=== PATIENT | male | born 1940 | race Hispanic/Latino ===

== ENCOUNTER 2019-01-19 00:22 | Emergency (ER) | payer MEDICARE ==
[~2019-01-19] VITALS: Ht 157.5 cm; Wt 65.8 kg
[~2019-01-19 00:22] MED LIST: ASPIRIN EC81 MG PO; FUROSEMIDE40 MG PO; GLIMEPIRIDE1 MG PO; MAGNESIUM OXID400 MG PO; OMEPRAZOLE40 MG PO; POTASSIUM CHLO10 ME1 PO; SPIRONOLACTONE25 MG PO
--- OUTSIDE RECORDS SUMMARY | 2019-01-19 00:27 | XMS REPORT | Summary of Care ---
Author Author [facility] Organization [facility] Address Unknown Phone Unavailable Encounter KHRIS Roque(ELOISA) [id number] Date(s): 02/17/18 - 02/17/18 [facility] [address] [place] [address] [phone] Discharge Disposition: Home or Self Care Attending Physician: Dave Doty MD Referring Physician: Dave Doty MD Vital Signs No data available for this section Problem List Condition Effective Dates Status Health Status Informant Ascites(Confirmed) Resolved Atrial Resolved flutter(Confirmed) Chronic antral Resolved gastritis(Confirmed) CHF, Active chronic(Confirmed) CKD (chronic kidney Active disease), stage III(Confirmed) 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) DM (diabetes Active mellitus), type 2(Confirmed) Duodenal Resolved ulcer(Confirmed) Bilateral leg Active edema(Confirmed)1 Esophageal Active varices(Confirmed)2 Hepatitis C virus Resolved genotype 2(Confirmed) HPTH - Active Hyperparathyroidism( Confirmed) Hyperplastic colon Resolved polyp(Confirmed) HCC (hepatocellular Active carcinoma)(Confirmed ) Obesity(Confirmed) Active 1genotype 2, prior treatment with interferon and ribavirin over 10 years ago 2grade 1 Allergies, Adverse Reactions, Alerts Substance Reaction Severity Status NKDA Active Medications No data available for this section Results No data available for this section Immunizations Given and Recorded Vaccine Date Status Refusal Reason hepatitis B adult vaccine 09/03/15 Given hepatitis B adult vaccine1 08/05/15 Recorded hepatitis B adult vaccine2 09/15/13 Given pneumococcal 23-valent vaccine 12/08/13 Given hepatitis B vaccine3 10/16/13 Given 1Location History: Belle Harding RN 2Admin Note: Administered 09-11-13. Pt. will return in one month for second inj. 3Admin Note: [facility] [id number] #2 Procedures Procedure Date Related Diagnosis Body Site Status Appendectomy Completed Cholecystectomy Completed MRI of liver Completed Social History Social History Type Response Alcohol Past, Type Beer. Alcohol use interferes with work or home: No. Drinks more than intended: No. Others hurt by drinking: No. Ready to change: No. Household alcohol concerns: No.1 Smoking Status Never smoker; Type: Cigars; Exposure to Tobacco Smoke None; Cigarette Smoking Last 365 Days No; Reg Smoking Cessation Counseling No entered on: 01/18/18 1none Assessment and Plan No data available for this section
--- OUTSIDE RECORDS SUMMARY | 2019-01-19 00:27 | XMS REPORT | Summary of Care ---
Author Author [facility] [place] Organization [facility] Address Unknown Phone Unavailable Encounter KHRIS Roque(ELOISA) [id number] Date(s): 07/17/17 - 07/17/17 [facility] [place] [address] [place] [phone] Discharge Disposition: Home or Self Care Attending Physician: Dave Doty MD Vital Signs No data available for this section Problem List Condition Effective Dates Status Health Status Informant Ascites(Confirmed) Resolved Atrial Resolved flutter(Confirmed) Chronic antral Resolved gastritis(Confirmed) CHF, Active chronic(Confirmed) CKD (chronic kidney Active disease), stage III(Confirmed) 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) DM (diabetes Active mellitus), type 2(Confirmed) Duodenal Resolved ulcer(Confirmed) Duodenal Resolved Ulcer(Confirmed) Bilateral leg Active edema(Confirmed)1 Esophageal Active varices(Confirmed)2 Gastritis(Confirmed) Active Hepatitis C virus Resolved genotype 2(Confirmed) HPTH - Active Hyperparathyroidism( Confirmed) Hyperplastic colon Resolved polyp(Confirmed) HCC (hepatocellular Active carcinoma)(Confirmed ) Liver Active mass(Confirmed) Obesity(Confirmed) Active 1genotype 2, prior treatment with [...] Recorded hepatitis B adult vaccine2 09/15/13 Given hepatitis B vaccine3 10/16/13 Given pneumococcal 23-valent vaccine 12/08/13 Given 1Location History: Belle Harding RN 2Admin Note: Administered 09-11-13. Pt. will return in one month for second inj. 3Admin Note: [facility] [id number] #2 Procedures Procedure Date Related Diagnosis Body Site Appendectomy Cholecystectomy MRI of liver Social History Social History Type Response Alcohol Past, Type Beer. Alcohol use interferes with work or home: No. Drinks more than intended: No. Others hurt by drinking: No. Ready to change: No. Household alcohol concerns: No.1 Smoking Status Never smoker; Type: Cigars; Exposure to Tobacco Smoke None; Cigarette Smoking Last 365 Days No; Reg Smoking Cessation Counseling No 1none Assessment and Plan No data available for this section
--- OUTSIDE RECORDS SUMMARY | 2019-01-19 00:27 | XMS REPORT | Summary of Care ---
Author Author [facility] Organization [facility] Address Unknown Phone Unavailable Encounter KHRIS Roque(ELOISA) [id number] Date(s): 01/18/18 - 01/18/18 [facility] [address] [place] [address]- [facility] [phone] Discharge Disposition: Home or Self Care Attending Physician: Dave Doty MD Referring Physician: Dave Doty MD Vital Signs Most recent to 1 oldest [Reference Range]: Height 157.48 cm (01/18/18 10:40 AM) Blood Pressure 117/71 mmHg [90-140/60-90 mmHg] (01/18/18 10:40 AM) Respiratory Rate 16 BRMIN [14-20 BRMIN] (01/18/18 10:40 AM) Peripheral Pulse 62 bpm Rate [60-100 bpm] (01/18/18 10:40 AM) Weight 62.273 kg (01/18/18 10:40 AM) Body Mass Index 25.11 m2 (01/18/18 10:40 AM) Problem List Condition Effective Dates Status Health [...] Substance Reaction Severity Status NKDA Active Medications amoxicillin-clavulanate 875 mg-125 mg oral tablet 1 tab, PO, BID, # 20 tab, 0 Refill(s) Start Date: 01/18/18 Stop Date: 01/28/18 Status: Ordered Vitamin D2 50,000 intl units oral capsule 50,000 IntlUnit=1 cap, PO, Daily, 0 Refill(s) Start Date: 01/18/18 Status: Ordered Results No data available for this section [...] month for second inj. 3Admin Note: [facility] [id number] #2 Procedures Procedure Date Related Diagnosis Body [...]
--- OUTSIDE RECORDS SUMMARY | 2019-01-19 00:27 | XMS REPORT | Summary of Care ---
Author Author [facility] [place] Organization [facility] [place] Address Unknown Phone Unavailable Encounter KHRIS Roque(ELOISA) [id number] Date(s): 12/13/18 - 12/13/18 [facility] [place] [address] [place] [phone] Discharge Disposition: Home or Self Care Attending Physician: Dave Doty MD Referring Physician: Dave Doty MD Vital Signs No data available for this section Problem List Condition Effective Dates Status Health Status Informant Ascites(Confirmed) Resolved Atrial Resolved flutter(Confirmed) Cataract(Confirmed) Resolved Chronic antral Resolved gastritis(Confirmed) CHF, Active chronic(Confirmed) CKD (chronic kidney Active disease), stage III(Confirmed) 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) DM (diabetes Active mellitus), type 2(Confirmed) Duodenal Resolved ulcer(Confirmed) Bilateral leg Resolved edema(Confirmed)1 Esophageal Active varices(Confirmed)2 Hepatitis C virus [...] History: Belle Harding RN 2Admin Note: Administered 12-. Pt. will return in one month for second inj. 3Admin Note: [facility] [id number] #2 Procedures Procedure Date Related Diagnosis Body Site Status Appendectomy Completed Cataract surgery Completed Cholecystectomy Completed MRI of liver Completed [...] Reg Smoking Cessation Counseling No entered on: 11/08/18 1none Assessment and Plan No data available for this section
--- OUTSIDE RECORDS SUMMARY | 2019-01-19 00:27 | XMS REPORT | Summary of Care ---
Author Author [facility] [place] Organization [facility] Address Unknown Phone Unavailable Encounter KHRIS Roque(FIN) [id number] Date(s): 02/12/18 - 02/12/18 [facility] [place] [address] [place] [phone] Discharge Disposition: Home or Self Care Attending [...] History: Belle Harding RN 2Admin Note: Administered 09-11-. Pt. will return in one month for second inj. 3Admin Note: [facility] [id number] #2 Procedures Procedure Date Related Diagnosis Body [...]
--- OUTSIDE RECORDS SUMMARY | 2019-01-19 00:27 | XMS REPORT | Continuity of Care Document ---
Author Author Erin whipple [facility] Interface Address Unknown Phone Unavailable Problems Problem Status Onset Date Classification Date Reported Comments Source I48.92 Active 01/16/2019 [facility] BEDDED OUTPATIENT/IMAGE GUIDED MICROWAVE Active 12/30/2018 [facility] MWA OF HCC Active 12/22/2018 [facility] FOLLOW-UP Active 04/01/2018 [facility] FOLLOW-UP Active 04/01/2018 [facility] CIRRHOSIS; HISTORY OF ESOPHAGEAL VARICES Active 01/22/2018 [facility] NEW PT Active 12/16/2017 [facility] Low back pain 10/12/2017 01/12/2018 NICOLE Hirsch R05 - COUGH Active 12/01/2016 NICOLE Cam AFLUTTER Active 10/07/2016 [facility] CCL/EPS AFLUTTER ABLATION/JAVAN/DX: AFLUTT Active 10/07/2016 [facility] BDDC/ Active 06/25/2016 [facility] CLAUDIFICATION UNSPECIFIED Active 06/08/2016 [facility] DAY SURGERY/MICROWAVE ABLATION OF LIVER Active 05/13/2016 [facility] DDC-F/U VISIT Active 04/20/2016 [facility] B19.20 - UNSPECIFIED VIRAL HEPATITIS C Active 03/18/2016 NICOLE Cam F/U Active 02/03/2016 [facility] BDDC-ESOPHAGEAL VARICIES Active 11/26/2015 [facility] BDDC-ESOPHAGEAL VARICES Active 11/21/2015 [facility] FOLLOW UP Active 10/23/2015 [facility] BDDC - 6 MONTH F/U Active 08/05/2015 [facility] 793.8 - ABNORMAL FINDIN Active 05/09/2015 NICOLE Cam DDC-3 MONTH F/U VISIT Active 04/29/2015 [facility] 3 MONTH F/U Active 01/29/2015 [facility] 571.5 - CIRRHOSIS OF LI Active 01/01/2015 NICOLE Cam, NICOLE Whipple BDDC-ROUTINE GENERAL MEDICAL EXAMINATION Active 12/31/2014 [facility] BDDC-CHRONIC HEP C Active 07/02/2014 [facility] CCL/R Active 04/10/2014 [facility] CHEST PAIN, DYSPNEA Active 04/10/2014 [facility] ACUTE HEPATITIS C Active 04/10/2014 [facility] 786.05 - SHORTNESS OF BR Active 04/02/2014 [facility] CHRONIC HEPATITIS C Active 01/08/2014 [facility] CCL/MAC ANESTHESIA/EPS, AFLUTTER ABLATIO Active 01/03/2014 [facility] SOB, PRESYNCOPE Active 12/07/2013 [facility] SOB Active 12/07/2013 [facility] CIRRHOSIS, HEP C Active 10/16/2013 [facility] ADD ON PER NOBLE Active 09/29/2013 [facility] 1M: HCV-2 CIRRHOSIS, EV, AFLUTTER, FOR H Active 09/11/2013 [facility] CIRRHOSIS, ESOPHAGEAL VARICES Active 08/14/2013 [facility] CIRRHOSIS OF LIVER Active 05/25/2013 [facility] Ascites Resolved Problem 01/19/[address] [facility] Atrial flutter Resolved Problem 01/19/[address] [facility] Chronic antral gastritis Resolved Problem 01/19/[address] [facility] CHF, chronic Active Problem [facility]19/[address] [facility] CKD , stage III(<span ID="[id number]">Confirmed</span>) Active Problem 01/19/[address] [facility] Cirrhosis of liver Active Problem 01/19/[address] [facility] Constrictive pericarditis Active Problem 01/19/[address] [facility] DM , type 2(<span ID="[id number]">Confirmed</span>) Active Problem 01/19/[address] [facility] Duodenal ulcer Resolved Problem [facility]/19/[address] [facility] Bilateral leg edema<sup>1</sup> Resolved Problem 01/19/2019 genotype 2, prior treatment with interferon and ribavirin over 10 [address] Esophageal varices<sup>2</sup> Active Problem 01/19/2019 grade 1 NICOLE Whipple,[facility] Hepatitis C virus genotype 2 Resolved Problem 01/19/2019 NICOLE Whipple,[facility] HPTH - Hyperparathyroidism Active Problem 01/19/2019 NICOLE Whipple,[facility] Hyperplastic colon polyp Resolved Problem 01/19/2019 NICOLE Whipple,[facility] HCC (<span ID="[id number]">Confirmed</span>) Active Problem 01/19/2019 NICOLE Whipple,[facility] Obesity Active Problem 01/19/2019 NICOLE Whipple,[facility] Localized edema 01/12/2018 NICOLE Leyner Duodenal Ulcer Resolved Problem 01/12/2018 NICOLE Whipple, [facility] Gastritis Active Problem [facility]/12[facility] Liver mass Active Problem 01/12/2018 [facility] Hepatitis C Active Problem 09/13/2013 [facility] Cirrhosis and chronic liver disease Active Problem 09/01/2014 NICOLE Whipple,[facility] Esophageal varices<sup>1</sup> Active Problem 09/01/2014 1[address] [facility] Hepatitis C<sup>2</sup> Active Problem 09/01/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, prior treatment with interferon and ribavirin over [address] [facility] Esophageal varices Active Problem 09/01/2014 [facility], [facility] Wh[facility], [facility] [place] Cirrhosis of liver Active Problem 06/07/2015 [facility], NICOLE Whipple, [facility], [facility] [place] DM (<span ID="[id number]">Confirmed</span>) Active Problem 12/13/2013 [facility] Duodenal Ulcer Resolved Problem 09/06/2015 [facility], NICOLE Whipple, [facility], [facility] [place] DM (<span ID="[id number]">Confirmed</span>) Active Problem 06/07/2015 [facility], NICOLE Whipple, [facility], [facility] [place] Cataract Resolved Problem 01/19/2019 [facility], [facility] [place] Ascites Active Problem 12/10/2013 [facility] Cirrhosis and chronic liver disease Active Problem 05/13/2014 NICOLE Whipple, [facility] Esophageal varices<sup>1</sup> Active Problem 05/13/2014 1grade 1 NICOLE Whipple, [facility] Hepatitis C<sup>2</sup> Active Problem 05/13/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, prior treatment with interferon and ribavirin over 10 years ago NICOLE Whipple, [facility] Atrial flutter Resolved Problem 12/15/2018 NICOLE Whipple, [facility] [place], [facility], [facility] [place] Atrial Flutter Active Problem 04/18/2015 [facility], NICOLE Whipple, [facility], [facility] [place] Chronic antral gastritis Resolved Problem 12/15/2018 NICOLE Whipple, [facility] Joy[place]elyn, [facility], [facility] [place] Chronic hepatitis C Active Problem 04/18/2015 [facility], NICOLE Whipple, [facility], [facility] [place] Cirrhosis and chronic liver disease Active Problem 07/07/2014 NICOLE Whipple, [facility] [place] Constrictive pericarditis Active Problem 12/15/2018 NICOLE Whipple, [facility] [place], [facility], [facility] [place] Diabetes mellitus Active Problem 03/23/2016 [facility], NICOLE Whipple, [facility], [facility] [place] Duodenal ulcer Resolved Problem 12/15/2018 NICOLE Whipple, [facility] Leyner, [facility], [facility] [place] Esophageal varices<sup>1</sup> Active Problem 07/07/2014 1grade 1 NICOLE Whipple, [facility] [place] Hepatitis C<sup>2</sup> Active Problem 07/07/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, prior treatment with interferon and ribavirin over 10 years ago NICOLE Whipple, [facility] [place] Hepatitis C virus genotype 2 Resolved Problem 12/15/2018 NICOLE Whipple, [facility] Leyner, [facility], [facility] [place] Hyperplastic colon polyp Resolved Problem 12/15/2018 NICOLE Whipple, [facility] Leyner, [facility], [facility] [place] Bilateral leg edema<sup>1</sup> Resolved Problem 12/15/2018 genotype 2, prior treatment with interferon and ribavirin over 10 years ago NICOLE Whipple, [facility] Leyner, [facility] [place] Esophageal varices<sup>2</sup> Active Problem 12/15/2018 grade 1 NICOLE Whipple, [facility] [place], [facility] [place] Cirrhosis of liver Active Problem 07/05/2015 NICOLE Whipple DM (<span ID="[id number]">Confirmed</span>) Active Problem 07/05/2015 NICOLE Whipple Ascites Resolved Problem 12/15/2018 NICOLE Whipple, WILNERD Joyc[place], [facility] [place] Cirrhosis of liver Active Problem 12/15/2018 NICOLE Whipple, [facility] [place], [facility] [place] DM (<span ID="[id number]">Confirmed</span>) Active Problem 03/23/2016 [facility], NICOLE Whipple, [facility] [place] [facility] - Hyperparathyroidism Active Problem 12/15/2018 NICOLE Whipple, [facility] [place], [facility] [place] CHF, chronic Active Problem 12/15/2018 NICOLE Whipple, [facility] [place], [facility] [place] CKD , stage III(<span ID="[id number]">Confirmed</span>) Active Problem 12/15/2018 NICOLE Whipple, [facility] [place], [facility] [place] DM , type 2(<span ID="[id number]">Confirmed</span>) Active Problem 12/15/2018 NICOLE Whipple, [facility] [place], [facility] [place] HCC (<span [id number]">Confirmed</span>) Active Problem 12/15/2018 NICOLE Whipple, [facility] [place]elyn, [facility] [place] Obesity Active Problem 12/15/2018 NICOLE Whipple, [facility] [place], [facility] [place] ROUTINE MEDICAL EXAM Active [facility] SHORTNESS OF BREATH Active [facility] MEDICAL SERVICES NOT AVAILABLE IN HOME Active [facility] ALCOHOLIC FATTY LIVER Active [facility] ENCNTR FOR GENERAL ADULT MEDICAL EXAM W/ Active [facility] PERIPHERAL VASCULAR DISEASE, UNSPECIFIED Active [facility] UNSPECIFIED ATRIAL FLUTTER Active [facility] Medications Medication Details Route Status Patient Instructions Ordering Provider Order Date Source spironolactone 50 mg oral tablet 25 mg=0.5 tab, PO, Daily, # 15 tab, 11 Refill(s), Pharmacy: [facility]/pharmacy #[id number] Active 11/08/2018 [facility] Furosemide 40 MG Oral Tablet 40 mg=1 tab, PO, Daily, # 30 tab, 11 Refill(s), [id number] 11/08/2018 [facility] Vitamin D2 50,000 intl units oral capsule 50,000 IntlUnit=1 cap, PO, Daily, 0 Refill(s) Active 01/18/2018 [facility] Amoxicillin 875 MG / Clavulanate 125 MG Oral Tablet 1 tab, PO, BID, # 20 tab, 0 Refill(s) Active 01/18/2018 [facility] Protonix 40 mg, 1 tab, Route: PO, Drug form: ECTAB, Daily, Start date: 10/23/16 9:00:00 [employer], Duration: 30 day, Stop date: 11/21/16 9:00:00 CSTNotes: Tablet should not be chewed or crushed. (Same as: Protonix) No Longer Active 10/23/2016 [facility] Glucotrol 5 mg, 1 tab, Route: PO, Drug form: TAB, Daily, Start date: 10/23/16 9:00:00 [employer], Duration: 30 day, Stop date: 11/21/16 9:00:00 CSTNotes: (Same as: Glucotrol) 30 min before meals. No Longer Active 10/23/2016 [facility] Spironolactone 25 mg, 1 tab, Route: PO, Drug form: TAB, Daily, Dosing Weight 64.545, kg, Start date: 10/23/16 9:00:00 [employer], Duration: 30 day, Stop date: 11/21/16 9:00:00 CSTNotes: (Same As: Aldactone) No Longer Active 10/23/2016 [facility] Omeprazole 40 mg, Route: PO, Drug form: DRC, Daily, Dosing Weight 64.545, kg, Start date: 10/23/16 9:00:00 [employer], Duration: 30 day, Stop date: 11/21/16 9:00:00 [employer]IDENT [employer]GER No Longer Active 10/23/2016 [facility] glimepiride 1 mg, Route: PO, Drug form: TAB, Daily, Dosing Weight 64.545, kg, Start date: 10/23/16 9:00:00 [employer]GER, Duration: 30 day, Stop date: 11/21/16 9:00:00 [employer]IDENT [employer]GER No Longer Active 10/23/2016 [facility] Furosemide 40 MG Oral Tablet 40 mg, 1 tab, Route: PO, Drug form: TAB, Daily, Dosing Weight 64.545, kg, Start date: 10/23/16 9:00:00 [employer], Duration: 30 day, Stop date: 11/21/16 9:00:00 CSTNotes: (Same as: Lasix) May cause GI upset. Give with food or milk. No Longer Active 10/23/2016 [facility] aspirin 81 mg tablet, enteric coated 81 mg, 1 tab, Route: PO, Drug form: ECTAB, Daily, Dosing Weight 64.545, kg, Start date: 10/23/16 9:00:00 [employer], Duration: 30 day, Stop date: 11/21/16 9:00:00 CSTNotes: Do not crush or chew. (Same As: Ecotrin) No Longer Active 10/23/2016 [facility] Saline Flush 0.9% 10 ml, Route: IVP, Drug Form: INJ, Dosing Weight 64.545, kg, Q12H, Start date: 10/22/16 21:00:00 [employer], Duration: 30 day, Stop date: 11/21/16 9:00:00 CSTNotes: (Same as: BD Posiflush) Inactive 10/23/2016 [facility] carvedilol 3.125 mg, 1 tab, Route: PO, Drug form: TAB, BID, Dosing Weight 64.545, kg, Start date: 10/22/16 17:00:00 [employer], Duration: 30 day, Stop date: 11/21/16 9:00:00 CSTNotes: Give with food. (Same As: Coreg) Inactive 10/22/2016 [facility] Acetaminophen 300 MG / Codeine Phosphate 30 MG Oral Tablet 1 tab, PO, Q4H, PRN Pain Score 4-6, X 5 day, # 30 tab, 0 Refill(s) Active 10/22/2016 [facility] spironolactone 25 mg oral tablet 25 mg, PO, Daily, 0 Refill(s) Active 10/22/2016 [facility] Saline Flush 0.9% 10 ml, Route: IVP, Drug Form: INJ, Dosing Weight 64.545, kg, PRN, PRN Line Flush, Start date: 10/22/16 15:54:00 [employer], Duration: 30 day, Stop date: 11/21/16 15:53:00 CSTNotes: (Same as: BD Posiflush) Inactive 10/22/2016 [facility] acetaminophen-codeine #3 1 tab, Route: PO, Drug Form: TAB, Dosing Weight 64.545, kg, Q4H, PRN Pain Score 4-6, Start date: 10/22/16 15:54:00 [employer], Duration: 30 day, Stop date: 11/21/16 15:53:00 CSTNotes: Do not exceed 4gm/day of acetaminophen. (Same as: Tylenol with Codeine # 3) Inactive 10/22/2016 [facility] carvedilol 3.125 mg oral tablet 3.125 mg=1 tab, PO, BID, 0 Refill(s) Active 10/22/2016 [facility] iodixanol 90 mL, Route: IVP, Drug Form: SOLN, Dosing Weight 64.545, kg, ONCALL, STAT, Start date: 10/22/16 11:59:00 [employer]GER, Duration: 1 doses or times, Dose=2.2ml/kg, Max wnet=[id number] -- "To be infused by Radiology Staff ONLY" Inactive 10/22/2016 [facility] Ketorolac 30 mg, Route: IV, ONCE, Dosing Weight 65.909, kg, Start date: 05/22/16 14:38:00 CDT, Stop date: 05/22/16 14:38:00 CDT Inactive 05/22/2016 [facility] Naloxone 0.4 mg, 1 mL, Route: IVP, Drug form: INJ, Q2MIN, Dosing Weight 65.909, kg, PRN Narcotic Reversal, Start date: 05/22/16 12:08:00 CDT, Duration: 8 doses or times, Stop date: Limited # of timesNotes: Same as Narcan No Longer Active 05/22/2016 [facility] Metoprolol 1 mg, 1 mL, Route: IVP, Drug form: INJ, Q5Min, Dosing Weight 65.909, kg, PRN Other -See Comment, Start date: 05/22/16 12:08:00 CDT, Duration: 5 doses or times, Stop date: Limited # of timesNotes: (Same as: Lopressor) Push over 2 minutes No Longer Active 05/22/2016 [facility] Hydralazine 10 mg, 0.5 mL, Route: IVP, Drug form: INJ, Q20Min, Dosing Weight 65.909, kg, PRN Elevated BP, Start date: 05/22/16 12:08:00 CDT, Duration: 2 doses or times, Stop date: Limited # of timesNotes: (Same as: Apresoline) Push over 5 minutes No Longer Active 05/22/2016 [facility] Labetalol 10 mg, 2 mL, Route: IVP, Drug form: INJ, Q5Min, Dosing Weight 65.909, kg, PRN Elevated BP, Start date: 05/22/16 12:08:00 CDT, Duration: 5 doses or times, Stop date: Limited # of times No Longer Active 05/22/2016 [facility] Fentanyl 25 microgram, 0.5 mL, Route: IVP, Drug form: INJ, Q5Min, Dosing Weight 65.909, kg, PRN Pain Score 4-6, Start date: 05/22/16 12:08:00 CDT, Duration: 4 doses or times, Stop date: Limited # of timesNotes: (Same as: Sublimaze) Preservative free. No Longer Active 05/22/2016 [facility] Hydromorphone 0.5 mg, 0.25 mL, Route: IVP, Drug form: INJ, Q5Min, Dosing Weight 65.909, kg, PRN Pain Score 7-10, Start date: 08/26/16 12:08:00 CDT, Duration: 4 doses or times, Stop date: Limited # of timesNotes: S marsha as: Dilaudid No Longer Active 05/22/2016 [facility] Ondansetron 4 mg, 2 mL, Route: IVP, Drug form: INJ, ONCE, Dosing Weight 65.909, kg, PRN Nausea & Vomiting, Start date: 05/22/16 12:08:00 CDTNotes: (Same as: Zofran) MEDICATION WASTE Product Size: 4 mg Product Wasted: ___ mg Inactive 05/22/2016 [facility] Flumazenil 0.2 mg, 2 mL, Route: IVP, Drug form: INJ, PRN, Dosing Weight 65.909, kg, PRN Benzodiazepine Reversal, Initial dose, Start date: 05/22/16 12:08:00 CDT, Duration: 1 day, Stop date: 05/23/16 12:07:00 CD TNotes: (Same as: Romazicon) No Longer Active 05/22/2016 [facility] omeprazole 40 mg oral delayed release capsule 40 mg=1 cap, PO, Daily, # 30 cap, 5 Refill(s), Pharmacy: [facility]/pharmacy #[id number] Active 11/20/2015 [facility] Hepatitis B Surface Antigen Vaccine 0.01 MG/ML Injectable Suspension 10 microgram=1 mL, IM, ONCE, # 1 mL, 0 Refill(s), other Active 08/05/2015 [facility] Furosemide 40 MG Oral Tablet [Lasix] 40 mg=1 tab, PO, Every Other Day, 0 Refill(s) Active 08/05/2015 [facility] Furosemide 40 MG Oral Tablet [Lasix] 40 mg=1 tab, PO, QAM, # 90 tab, 3 Refill(s), Pharmacy: [facility]/pharmacy #[id number] No Longer Active 12/31/2014 [facility] omeprazole 40 mg oral delayed release capsule See Instructions, # 60 unknown unit, Refill(s) 11, TOME 1 CAPSULA 2 VECES AL VIANEY, Pharmacy: [facility]/pharmacy #[id number] Instructions: TOME 1 CAPSULA 2 VECES AL VIANEY No Longer Active 10/10/2014 [facility] omeprazole 40 mg oral delayed release capsule 40 mg=1 cap, PO, Daily, # 30 cap, 5 Refill(s), Pharmacy: [facility]/pharmacy #[id number] Active 10/03/2014 [facility] Furosemide 40 MG Oral Tablet [Lasix] 20 mg=0.5 tab, PO, Daily, # 30 tab, 5 Refill(s), Pharmacy: [facility]/pharmacy #[id number] Active 07/02/2014 [facility] Potassium Chloride 20 MEQ Extended Release Tablet 20 mEq=1 tab, PO, BID, # 10 tab, 0 Refill(s) Active 05/09/2014 [facility] magnesium oxide 400 mg oral tablet 400 mg=1 tab, PO, Daily, # 10 tab, 0 Refill(s) Active 05/09/2014 [facility] omeprazole 40 mg oral delayed release capsule 40 mg=1 cap, PO, Daily, # 30 cap, 0 Refill(s) Active 05/09/2014 [facility] Aspirin 81 MG Enteric Coated Tablet 81 mg=1 tab, PO, Daily, # 0 tab, 0 Refill(s) Active 04/02/2014 [facility] Aspirin 81 MG Enteric Coated Tablet 81 mg=1 tab, PO, Daily, # 120 tab, 0 Refill(s) Active 12/08/2013 [facility] Furosemide 40 MG Oral Tablet [Lasix] 40 mg=1 tab, PO, BID, # 60 tab, 3 Refill(s) Active 12/08/2013 [facility] Atenolol 25 MG Oral Tablet 12.5 mg=0.5 tab, PO, Daily, 0 Refill(s) Active 12/08/2013 [facility] heparin sodium, porcine 2500 UNT/ML Injectable Solution 5,000 unit, 1 mL, Route: SUB-Q, Drug form: INJ, Q8H, Dosing Weight 70.455, kg, Start date: 12/08/13 16:00:00, Duration: 30 day, Stop date: 01/07/14 8:00:00porcine heparin Inactive 12/08/2013 [facility] Aspirin / Calcium Carbonate 81 mg, 1 tab, Route: PO, Drug form: ECTAB, Daily, Dosing Weight 70.455, kg, Priority: NOW, Start date: 12/08/13 13:38:00, Duration: 30 day, Stop date: 01/07/14 9:00:00 Inactive 12/08/2013 [facility] pneumococcal capsular polysaccharide type 1 vaccine / pneumococcal capsular polysaccharide type 10A vaccine / pneumococcal capsular polysaccharide type 11A vaccine / pneumococcal capsular polysaccharide type 12F vaccine / pneumococcal capsular polysacchar 0.5 ml, Route: IM, Drug Form: INJ, Daily, Start date: 12/08/13 9:00:00, Duration: 1 doses or times, Stop date: 12/08/13 9:00:00(Same as: Pneumovax 23) Refrigerate Inactive 12/08/2013 [facility] pantoprazole 40 mg, 1 tab, Route: PO, Drug form: ECTAB, Daily, Dosing Weight 66.364, kg, Start date: 12/08/13 9:00:00, Duration: 30 day, Stop date: 01/06/14 9:00:00Tablet should not be chewed or crushed. (Same as : Protonix) Inactive 12/08/2013 [facility] Spironolactone 25 mg, 1 tab, Route: PO, Drug form: TAB, Daily, Dosing Weight 66.364, kg, Start date: 12/08/13 9:00:00, Duration: 30 day, Stop date: 01/06/14 9:00:00(Same As: Aldactone) Inactive 12/08/2013 [facility] Furosemide 40 MG Oral Tablet 40 mg, 1 tab, Route: PO, Drug form: TAB, Daily, Dosing Weight 66.364, kg, Start date: 12/08/13 9:00:00, Duration: 30 day, Stop date: 01/06/14 9:00:00(Same as: Lasix) May cause GI upset. Give with food or milk. Inactive 12/08/2013 [facility] glimepiride 1 mg, 1 tab, Route: PO, Drug form: TAB, Daily, Dosing Weight 66.364, kg, Start date: 12/08/13 9:00:00, Duration: 30 day, Stop date: 01/06/14 9:00:00(Same as: Amaryl) Inactive 12/08/2013 [facility] Furosemide 20 mg, 2 mL, Route: IVP, Drug form: INJ, ONCE, Dosing Weight 66.364, kg, Priority: STAT, Start date: 12/07/13 23:44:00, Stop date: 12/07/13 23:44:00(Same as: Lasix) No Longer Active 12/08/2013 [facility] Lasix 20 mg, 2 mL, Route: IVP, Drug form: INJ, ONCE, Dosing Weight 66.364, kg, Priority: STAT, Start date: 12/07/13 21:46:00, Stop date: 12/07/13 21:46:00(Same as: Lasix) Inactive 12/08/2013 [facility] Ancef 1 gm, Route: IVPB, ONCE, Dosing Weight 66.364, kg, Priority: STAT, Start date: 12/07/13 18:47:00, Stop date: 12/07/13 18:47:00 Inactive 12/07/2013 [facility] Ribavirin 400 mg, PO, Daily, Take two 200mg tab daily, 0 Refill(s)Take two 200mg tab daily Active 11/27/2013 [facility] {6 (Azithromycin 250 MG Oral Tablet [Zithromax]) } Pack [Z-PAKS] See Instructions, Take as directed PO Daily 5 day, # 6 tab, 0 Refill(s), Pharmacy: [facility]/pharmacy #[id number] as directed PO Daily 5 day Active 11/22/2013 [facility] RibaPak 600 600 mg in am and 400 mg in pm, PO, BID, 2 Refill(s) Active 10/18/2013 [facility] Sofosbuvir Sofosbuvir, 400 mg=, PO, Daily, Refill(s) 2 Active 10/18/2013 [facility] pantoprazole 40 mg oral enteric coated tablet 0 Refill(s) Active 08/30/2013 [facility] Allergies, Adverse Reactions, Alerts Substance Category Reaction Severity Reaction type Status Date Reported Comments Source Immunizations Immunization Date Given Site Status Last Updated Comments Source pneumococcal 13-valent vaccine<sup>4</sup> 01/17/2019 Not Given [facility] hepatitis B adult vaccine 09/03/2015 Left deltoid completed Dave NICOLE Whipple,[facility] hepatitis B adult vaccine 09/03/2015 Left deltoid completed Dave NICOLE Whipple, NICOLE [place]sch, [facility]ICOLE [place] hepatitis B adult vaccine<sup>1</sup> 08/05/2015 Left deltoid completed [place] Location History: Belle Harding RN NICOLE Whipple,[facility] hepatitis B adult vaccine<sup>1</sup> 08/05/2015 Left deltoid completed [place] Location History: Belle Harding RN NICOLE Whipple, [facility] [place], [facility] [place] pneumococcal 23-valent vaccine 12/08/2013 Left deltoid completed [place] NICOLE Whipple,[facility] pneumococcal 23-valent vaccine 12/08/2013 Left deltoid completed [place] NICOLE Whipple, OP[facility] [place]elyn, [facility], [facility] [place] hepatitis B vaccine<sup>3</sup> 10/16/2013 Left Deltoid completed [place] Admin Note: [facility] [id number] #2 NICOLE Whipple,[facility] hepatitis B vaccine<sup>2</sup> 10/16/2013 Left Deltoid completed [place] Admin Note: [facility] [id number] #2 NICOLE Whipple,[facility], [facility], [facility] [place] hepatitis B vaccine<sup>2</sup> 10/16/2013 completed [place] 2Admin Note: [facility] [id number] #2 [facility] hepatitis B vaccine<sup>3</sup> 10/16/2013 Left Deltoid completed [place] Admin Note: [facility] [id number] #2 NICOLE Whipple, OPICeline Hirsch, [facility] [place] hepatitis B adult vaccine<sup>2</sup> 09/15/2013 Right Deltoid completed Lyssy Admin Note: Administered 09-11-13. Pt. will return in one month for second inj. NICOLE Whipple,[facility] hepatitis B adult vaccine<sup>1</sup> 09/15/2013 Right Deltoid completed Lyssy Admin Note: Administered 09-11-13. Pt. will return in one month for second inj. NICOLE Whipple,[facility], [facility], [facility] [place] hepatitis B adult vaccine<sup>1</sup> 09/15/2013 completed Lyssy 1Admin Note: Administered 09-11-13. Pt. will return in one month for second inj. [facility] hepatitis B adult vaccine<sup>2</sup> 09/15/2013 Right Deltoid completed Lyssy Admin Note: Administered 09-11-13. Pt. will return in one month for second inj. 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 IMPRESSION: Technically successful percutaneous microwave ablation of segment 2 and segment 6 HCC Plan: The patient will be admitted for observation and pain control. One week of antibiotics will be given. Follow-up triple phase CT in one month PROCEDURE SUMMARY: - Target organ: Segment 2 HCC, segment 6 HCC - Image-guided heat-based ablation - Additional procedure(s): Post ablation triple phase CT PROCEDURE DETAILS: Pre-procedure Consent: Informed consent for the procedure including risks, benefits and alternatives was obtained and time-out was performed prior to the procedure. Preparation: The site was prepared and draped using maximal sterile barrier technique including cutaneous antisepsis. Anesthesia/sedation Level of anesthesia/sedation: General anesthesia Anesthesia/sedation administered by: Anesthesiology Total intra-service sedation time (minutes): 2 hours Imaging prior to intervention The patient was positioned supine. Initial imaging was performed. Target #1: - Maximal diameter (cm): 1.8 - Location: Segment 2 Target #2: - Maximal diameter (cm): 2.5 - Location: Segment 5 Other findings: None Heat-based ablation Under intermittent CT guidance, the ablation applicator(s) were advanced and positioned within the target(s). For each target lesion the applicators were placed and repositioned as necessary to achieve the desired ablation zone. Ablation applicator: AngioDynamics Target #1 - Therapeutic intent (QCDR): Yes Ablation position 1 - Number of applicators: 1 - Duration (minutes): 6 - Maximum diameter (centimeters): 5.4 x 4.4 cm Target #2 - Therapeutic intent (QCDR): yes Ablation position 1 - Number of applicators: 1 - Duration (minutes): 6 Maximum diameter (centimeters): 5.4 x 4.4 cm Ablation position 2 - Number of applicators: 1 - Duration (minutes): 6 Maximum diameter (centimeters): 5.4 x 4.4 cm Intraprocedural imaging findings: Successful ablation Applicator removal The ablation applicator(s) were removed and sterile bandages were applied. Tract cauterization performed with applicator removal: Yes Imaging following ablation Post-ablation imaging: Triple phase CT was performed Post-ablation imaging findings: No enhancement in the treated lesions Radiation Dose CT dose length product (mGy-cm): 1995 Additional Details Additional description of procedure: None Equipment details: None Specimens removed: None Estimated blood loss (mL): Less than 10 Standardized report: [email or web address] Attestation Signer name: William Munoz MD I attest that I was present for the entire procedure. I reviewed the stored images and agree with the report as written. 01/17/2019 - - Read by: William Munoz MD Dictated Date/time: 01/17/19 10:30 Electronically Signed by: William Munoz MD 01/17/19 10:35 FINAL REPORT [facility] Abd Liver Protocol w/wo IV contrast CT Abd Liver Protocol w/wo IV contrast CT Exam: CT Scan of the abdomen with and without contrast Reason for Exam: - K74.60 Unspecified cirrhosis of liver Comparison Exam: CT scan 02/12/2018 Technique: Multiple axial images were obtained of the abdomen. 5 mm slices were acquired before and after injection of 100 cc Omnipaque 300 IV. Oral contrast was also given. Reformatted sagittal and coronal images were obtained. Total exam FNI=821 mGy-cm. This exam was performed according to our departmental dose- optimization program, which includes automated exposure control, adjustment of the MA and/or KV according to patient size and/or use of iterative reconstruction technique. Discussion: Visualized portions of the lung parenchyma are clear. Calcifications seen of the pericardium. Posttreatment changes seen within the posterior segment of the right lobe of the liver appears similar. Previously described arterial enhancing lesion within segment 6 is barely perceptible on today's exam (5, 25). Previously described arterial enhancement within the left hepatic lobe appears similar (5, 23). Portal venous system is patent. The patient is status post cholecystectomy. No biliary duct dilation. Stomach is unremarkable. Pancreas, adrenal glands, and spleen are within normal limits. Kidneys are unremarkable. No hydronephrosis identified. No dilated loops of bowel. No appreciable lymphadenopathy. No acute bony abnormalities appreciated. No suspicious osteoblastic or osteolytic lesions. No evidence seen for abdominal aortic aneurysm or dissection. Impression: 1. Posttreatment changes seen within the posterior segment of the right lobe of the liver appears similar. Previously described arterial enhancing lesion within segment 6 is barely perceptible on today's exam. Previously described arterial enhancement within the left hepatic lobe appears similar 12/13/2018 - - Read by: Sukhwinder Nick MD Dictated Date/time: 12/13/18 11:25 Electronically Signed by: Sukhwinder Nick MD 12/13/18 11:39 FINAL REPORT [facility] [place] CHEM PANEL Albumin Lvl 4.4 g/dL 3.5 - 5.0 11/08/2018 [facility] CHEM PANEL Bili Indirect 0.4 mg/dL 0.0 - 1.0 11/08/2018 [facility] CHEM PANEL ALT 27 unit/L 0 - 65 11/08/2018 [facility] CHEM PANEL AST 28 unit/L 0 - 37 11/08/2018 [facility] CHEM PANEL Alk Phos 88 unit/L 39 - 136 11/08/2018 [facility] CHEM PANEL Total Protein 8.3 g/dL 6.4 - 8.4 11/08/2018 [facility] CHEM PANEL Bili Direct 0.1 mg/dL 0.0 - 0.3 11/08/2018 [facility] CHEM PANEL Bili Total 0.5 mg/dL 0.2 - 1.3 11/08/2018 [facility] CHEM PANEL Globulin 3.9 g/dL 2.7 - 4.2 11/08/2018 [facility] CHEM PANEL A/G Ratio 1.1 0.7 - 1.6 11/08/2018 [facility] CHEM PANEL eGFR 55 mL/min/1.73m2 11/08/2018 Result Comment: The eGFR is calculated using the CKD-EPI formula. In most young, healthy individuals the eGFR will be >90 mL/min/1.73m2. The eGFR declines with age. An eGFR of 60-89 may be normal in some populations, particularly the elderly, for whom the CKD-EPI formula has not been extensively validated. Use of the eGFR is not recommended in the following populations: Individuals with unstable creatinine concentrations, including patients and those with serious co-morbid conditions. Patients with extremes in muscle mass or diet. The data above are obtained from the National Kidney Disease Education Program (NKDEP) which additionally recommends that when the eGFR is used in patients with extremes of body mass index for purposes of drug dosing, the eGFR should be multiplied by the estimated BMI. [facility] CHEM PANEL Calcium Lvl 10.3 mg/dL 8.5 - 10.5 11/08/2018 [facility] CHEM PANEL Creatinine Lvl 1.26 mg/dL 0.50 - 1.40 11/08/2018 [facility] CHEM PANEL Sodium Lvl 136 meq/L 135 - 145 11/08/2018 [facility] CHEM PANEL Glucose Lvl 103 mg/dL 70 - 99 11/08/2018 [facility] CHEM PANEL BUN 16 mg/dL 7 - 22 11/08/2018 [facility] CHEM PANEL Potassium Lvl 4.0 meq/L 3.5 - 5.1 11/08/2018 [facility] CHEM PANEL CO2 28 meq/L 24 - 32 11/08/2018 [facility] CHEM PANEL Chloride Lvl 103 meq/L 95 - 109 11/08/2018 [facility] CHEM PANEL AGAP 9.0 meq/L 10.0 - 20.0 11/08/2018 [facility] HEMATOLOGY Basophils # 0.1 K/CMM 0.0 - 0.2 11/08/2018 [facility] HEMATOLOGY Eosinophils # 0.2 K/CMM 0.0 - 0.5 11/08/2018 [facility] HEMATOLOGY Monocytes # 0.6 K/CMM 0.0 - 0.8 11/08/2018 [facility] HEMATOLOGY Neutrophils # 4.9 K/CMM 1.5 - 8.1 11/08/2018 [facility] HEMATOLOGY Lymphocytes # 1.5 K/CMM 1.0 - 5.5 11/08/2018 [facility] HEMATOLOGY Basophils 0.9 % 0.0 - 1.0 11/08/2018 [facility] HEMATOLOGY Lymphocytes 20.9 % 20.0 - 40.0 11/08/2018 [facility] HEMATOLOGY Monocytes 8.5 % 2.0 - 12.0 11/08/2018 [facility] HEMATOLOGY Eosinophils 2.3 % 0.0 - 4.0 11/08/2018 [facility] HEMATOLOGY Segs 67.4 % 45.0 - 75.0 11/08/2018 [facility] HEMATOLOGY INR 1.11 0.85 - 1.17 11/08/2018 [facility] HEMATOLOGY PT 14.1 s 12.0 - 14.7 11/08/2018 [facility] HEMATOLOGY MCH 25.1 pg 27.0 - 31.0 11/08/2018 [facility] HEMATOLOGY MCV 80.8 fL 80.0 - 94.0 11/08/2018 [facility] HEMATOLOGY MPV 9.2 fL 7.4 - 10.4 11/08/2018 [facility] HEMATOLOGY Hct 41.4 % 42.0 - 54.0 11/08/2018 [facility] HEMATOLOGY Hgb 12.8 g/dL 14.0 - 18.0 11/08/2018 [facility] HEMATOLOGY RBC 5.12 M/CMM 4.70 - 6.10 11/08/2018 [facility] HEMATOLOGY WBC 7.3 K/CMM 3.7 - 10.4 11/08/2018 [facility] HEMATOLOGY Platelet 170 K/CMM 133 - 450 11/08/2018 [facility] HEMATOLOGY RDW 17.4 % 11.5 - 14.5 11/08/2018 [facility] HEMATOLOGY MCHC 31.0 g/dL 32.0 - 36.0 11/08/2018 [facility] TUMOR MARKERS AFP 30.4 ng/mL 0.0 - 11.0 11/08/2018 [facility] Ext Lower Arterial Doppler bilat US Ext Lower Arterial Doppler bilat US EXAM: US BILATERAL LOWER EXTREMITY ARTERIAL DOPPLER DATE: 10/06/2017 11:39 AM 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 Bilateral leg pain and weakness for the past 15 days. Swelling in both lower extremities for the past 3 weeks. ADDITIONAL INFORMATION: History of diabetes COMPARISON: None. TECHNIQUE: Multiplanar grayscale, color Doppler and spectral Doppler ultrasound images of the bilateral lower extremity arteries. DISCUSSION: Atherosclerotic plaque is seen fairly diffusely in the arterial structures of both lower extremities. Right Extremity Waveforms: Common Femoral Artery: 73cm/s Biphasic. A prominent focal mixed calcified and noncalcified plaque measuring 1.3 cm in length is present with no hemodynamically significant stenosis. Profunda Femoral Artery: 52cm/s Biphasic Superficial Femoral Artery: 69cm/s Biphasic Popliteal Artery: 101cm/s Triphasic Posterior Tibialis Artery: 40cm/s biphasic proximally changing to monophasic in its midportion Anterior Tibialis Artery: 70cm/s Monophasic Dorsalis Pedis Artery: 110cm/s Monophasic Left Extremity Waveforms: Common Femoral Artery: 70cm/s Biphasic Profunda Femoral Artery: 69cm/s Biphasic Superficial Femoral Artery: 56cm/s Biphasic Popliteal Artery: 61cm/s Biphasic Posterior Tibialis Artery: 60cm/s Biphasic proximally changing to monophasic in its midportion Anterior Tibialis Artery: 63cm/s Biphasic Dorsalis Pedis Artery: 42cm/s Monophasic IMPRESSION: 1. Bilateral lower extremity atherosclerotic vascular disease, moderate in degree. 2. Monophasic waveforms in the right anterior tibial and dorsalis pedis arteries as well as within the left dorsalis pedis artery suggesting hemodynamically significant stenoses in these vessels. 3. Monophasic waveforms beginning in the mid portions of both posterior tibial arteries suggesting hemodynamically significant stenoses in these vessels as well. 4. Biphasic waveforms in other vessels of the lower extremities are most commonly related to arteriosclerosis (decreased elasticity of the arteries). Inflow disease within the pelvis or distal abdominal aorta could cause this finding as well. 10/06/2017 - - Read by: Saeed Villalba MD Dictated Date/time: 10/06/17 12:41 Electronically Signed by: Saeed Villalba MD 10/06/17 12:49 FINAL REPORT [facility] Spine cervical 2 or 3 view DX Spine cervical 2 or 3 view DX EXAM: XR CERVICAL SPINE 3 VIEWS DATE: 10/06/2017 at 1052 hours. INDICATION: - M54.2 Cervicalgia COMPARISON: None. TECHNIQUE: 3 views of the cervical spine FINDINGS: There are multilevel degenerative changes, including severe intervertebral disc space narrowing at C5-C6 and moderate at C6-C7, anterior osteophyte formation and uncovertebral hypertrophy at C5-C6 and C6-C7, and mild bilateral facet arthrosis at C5-6, C6-C7 and C7-T1. Minimal concave left scoliosis of the lower cervical spine is noted. No prevertebral or paraspinous soft tissue abnormality is identified. A cardiac pacer device is noted over the left hemithorax. IMPRESSION: 1. Multilevel degenerative changes, severe at C5-6 and moderate at C6-7. 10/06/2017 - - This report was dictated by a Senior Java Web Application Developer/Fellow. I have personally reviewed the images as well as the Resident's interpretation and agree with the findings. Read by: James Rodriguez MD Resident: James Rodriguez MD Dictated Date/time: 10/06/17 15:18 Electronically Signed by: Jhon Perez MD 10/06/17 17:50 FINAL REPORT [facility] Spine lumbar 2 or 3 views DX Spine lumbar 2 or 3 views DX EXAM: XR LUMBAR SPINE 2 VIEWS DATE: 10/06/2017 10:52 AM VICE PRESIDENT AND PORTFOLIO MANAGER INDICATION: - M54.5 Low back pain COMPARISON: CT 07/17/2017 TECHNIQUE: AP and lateral radiographs of the lumbar spine FINDINGS: 5 lumbar type, non-rib bearing vertebral bodies are present. Mild levoscoliosis of the lower lumbar spine with approximately 7 mm left-sided translation of L4 over L5. No acute fracture. Vertebral heights are maintained. Grade 1 anterolisthesis of L5 on S1, likely secondary to severe facet arthropathy. Mild disc height loss at L5-S1. Remaining disc heights are preserved. Mild multilevel marginal osteophyte formation. Diffuse osteopenia is present. Cholecystectomy clips. Aortic atherosclerosis. IMPRESSION: Multilevel degenerative changes, severe facet arthropathy and mild disc height loss at L5-S1 with grade 1 anterolisthesis. 10/06/2017 - - This report was dictated by a Senior Java Web Application Developer/Fellow. I have personally reviewed the images as well as the Resident's interpretation and agree with the findings. Read by: Christos Camargo DO Resident: Christos Camargo DO Dictated Date/time: 10/06/17 11:31 Electronically Signed by: Jhon Perez MD 10/06/17 13:02 FINAL REPORT [facility] Abd Liver Protocol w/wo IV contrast CT Abd Liver Protocol w/wo IV contrast CT EXAM: CT ABDOMEN WITH AND WITHOUT CONTRAST DATE: 07/17/2017 10:50 AM CDT INDICATION: - s/p MWA 05/22/16 ADDITIONAL INFORMATION: None. COMPARISON: CT abdomen 12/09/2016, 06/24/2016 and 03/20/2016 TECHNIQUE: Volumetric CT acquisition of the abdomen both prior to and following intravenous contrast, in precontrast, arterial and portal venous phase according to the liver mass protocol performed.. Axial, sagittal and coronal reconstructions were obtained.. IV CONTRAST: 100 mL of Omnipaque 350 ORAL CONTRAST: Water RADIATION DOSE: Total DLP: 1941 mGy*cm Estimated effective dose: DLP x 0.015 mSv COMPLICATIONS: None FINDINGS: Lines and tubes: Cardia is within the heart. Lower thorax: Lung bases clear. Persistent pericardial calcifications with right pleural and diaphragmatic pleural calcification. Liver: Cirrhotic morphology with heterogeneous enhancement of the liver. Contour nodularity. Right lateral subcapsular calcification. Unchanged right inferior hepatic margin loculated collection. Unchanged perihepatic thickening along the left inferior margin. Lesions > 2 cm: No arterially enhancing lesions with washout. Lesions < 2 cm: No arterially enhancing lesions with washout. Cystic/nonenhancing lesions: Redemonstrated segment 6/7 treatment cavity measuring approximately 4.5 x 1.7 cm with associated perfusion anomaly in the lateral aspect. Some internal hyperattenuation could be related to residue or hemorrhage. No large nodular enhancing lesions are suggest recurrent tumor (LR-TR, non-viable). Hepatic vessels: Hepatic artery: Conventional and patent. Portal vein: Within normal limits in caliber. The main portal vein, left and right portal vein branches are patent. SMV: Patent. Splenic vein: Patent. Portosystemic shunts: None. IVC: Patent and dilated. Hepatic veins are prominent, which could be related to impaired right sided heart function from constrictive pericarditis due to pericardial calcifications. Local regional lymph nodes: Prominent gastrohepatic, periceliac and portal caval lymph nodes likely reactive. Biliary tree: Postcholecystectomy changes. Gallbladder: Cholecystectomy with dropped clips. Pancreas: No ductal dilatation. No peripancreatic stranding. No obvious focal lesions. Spleen: No splenomegaly or focal lesions. Adrenals: No nodules. Kidneys: Bilateral kidneys enhance relatively symmetrically no discrete renal stones or hydronephrosis. Bilateral too small to characterize renal hypodensities statistically likely cysts. No solid renal lesions. In the delayed phase, contrast opacifies the bilateral renal collecting systems and proximal ureters. Gastrointestinal tract: Small hiatal hernia. The stomach is partially underdistended. No small or large bowel obstruction. Moderate stool burden. Peritoneum and retroperitoneum: No free intraperitoneal air. Mild mesenteric stranding. Persistent loculated collection along the right inferior hepatic margin, could be related to posttreatment seroma or possible biloma, not significant changed. Vasculature: Visualized abdominal aorta and IVC within normal limits in caliber. Scattered atherosclerotic calcifications of the abdominal aorta and branches. Bones: Mild degenerative changes of the thoracolumbar spine. Soft tissues: Tiny fat-containing umbilical hernia. IMPRESSION: 1. Cirrhotic morphology with postprocedural treatment changes of a segment 6/7 treatment cavity without recurrent or new disease (LR-TR, non-viable). 2. No arterially enhancing lesions with washout. 3. Cirrhotic morphology with persistent left perihepatic thickening. 4. Persistent right inferior hepatic margin fluid collection could be posttreatment seroma versus possible biloma. A HIDA scan may be of benefit for further characterization the site. 5. Pericardial and right pleural/diaphragmatic calcification could represent a component of prior TB with a component of constrictive pericarditis, evidenced by dilated intrahepatic IVC and hepatic veins. Correlation with echocardiogram may be of benefit. 07/17/2017 - - Read by: Leonardo Flynn MD Dictated Date/time: 07/18/17 10:45 Electronically Signed by: Leonardo Flynn MD 07/18/17 11:07 FINAL REPORT [facility]ICO[facility] Wh[facility] Liver Protocol w/wo IV contrast CT [facility] Liver Protocol w/wo IV contrast CT EXAM: CT ABDOMEN WITH AND WITHOUT CONTRAST DATE: 12/09/2016 1:06 PM CDT INDICATION: hcc - s/p treatment ADDITIONAL INFORMATION: None. COMPARISON: CT abdomen 06/16/2016 and 03/20/2016 TECHNIQUE: Volumetric CT acquisition of the abdomen both prior to and following intravenous contrast, in precontrast, arterial, portal venous and delayed phases according to the liver mass protocol. Axial, sagittal and coronal reconstructions. IV CONTRAST: 100 mL of Omnipaque 350 ORAL CONTRAST: None RADIATION DOSE: Total DLP: 1289 mGy*cm Estimated effective dose: DLP x 0.015 mSv COMPLICATIONS: None FINDINGS: Lines and tubes: None. Lower thorax: Bibasilar atelectasis. No pleural effusions. Cardiac leads visualized within the heart. Persistent pericardial calcifications with right pleural calcification. Liver: Contour nodularity with heterogeneous and reticular enhancement compatible with cirrhosis. There is a component of fatty infiltration. Suspect dropped clips adjacent to the right lateral and inferior hepatic margins. Lesions > 2 cm: No arterially enhancing lesions with washout. Lesions < 2 cm: No arterially enhancing lesions with washout. Cystic/nonenhancing lesions: Redemonstrated segment 6/7 treatment cavity measuring approximately 2.9 x 7.2 cm, not significant changed with associated perfusion anomaly in the lateral aspect, better seen in the portal venous phase that becomes isointense in the delayed phase. Some internal hyperattenuation in the noncontrast phase, most likely hemorrhage, with no nodular arterially enhancing lesions to suggest recurrent tumor (LI-RADS 5T). Redemonstrated fluid within the right inferior hepatic margin could represent a loculated fluid from post-treatment seroma or possible biloma, not significantly changed. Hepatic arteries: Conventional and patent. Portal vein and branches: Measures 1.1 cm, within normal limits in caliber. The main portal vein, left and right portal vein branches, SMV and splenic veins are patent. Portosystemic shunts: None. Hepatic veins: Patent. IVC: Patent. Local regional lymph nodes: Prominent gastric hepatic, periceliac and portacaval lymph nodes most likely reactive. Biliary tree/gallbladder: Cholecystectomy with reservoir phenomenon involving the common bile duct. No intrahepatic. Ductal dilatation. Pancreas: No obvious ductal dilatation or focal lesions. Spleen: No splenomegaly or focal lesions. Adrenals: No nodules. Kidneys: Symmetrical enhancement of the bilateral kidneys with mild perinephric stranding. Several too small to characterize renal hypodensities. No enhancing solid renal lesions. No renal stones or hydronephrosis. No hydroureter. Contrast opacifies the renal collecting systems in the delayed phase. Gastrointestinal tract: Small hiatal hernia. The stomach is partially collapsed limiting optimal evaluation with mildly thickened ellis, likely related to underdistention. No small or large bowel obstruction. Moderate stool burden. Peritoneum and retroperitoneum: No free intraperitoneal air. Mild mesenteric stranding. Redemonstrated fluid within the right inferior hepatic margin could represent a loculated fluid from post-treatment seroma or possible biloma, not significantly changed. Vasculature: Visualized abdominal aorta and IVC within normal limits in caliber. Scattered arthrosclerotic calcifications of the abdominal aorta and branches. Bones: Mild degenerative changes of the thoracolumbar spine. Soft tissues: Tiny fat-containing umbilical hernia. IMPRESSION: 1. Postprocedural changes involving segment 6/7 with internal hemorrhage in the treatment cavity without evidence of recurrent or new disease (LI-RADS 5T). 2. No arterially enhancing lesions with washout. 3. Cirrhotic morphology with a component of fatty infiltration. 4. Persistent right inferior hepatic margin fluid collection may be post-treatment seroma vs possible biloma. Characterization by a HIDA scan may be of benefit if desired. 5. Pericardial and right pleural calcification may represent a component of prior tuberculosis. Please correlate with function of studies to ascertain for the possibility of constrictive pericarditis. 12/09/2016 - - Read by: Leonardo Flynn MD Dictated Date/time: 12/10/16 10:30 Electronically Signed by: Leonardo Flynn MD 12/10/16 10:50 FINAL REPORT [facility] Chest 2 views DX Chest 2 views DX EXAM: 2 view(s) of the chest. CLINICAL HX: R05 Cough. . . COMPARISON: Chest x-ray: 04/02/2014. CT chest: 10/22/2016. FINDINGS: Support apparatus: None. Cardiac silhouette: Not enlarged. Stable pericardial calcifications. Mediastinum: -- Silvia: Unremarkable. -- Other: None. Lungs: -- Consolidation: Negative. -- Pleural effusion: Negative. -- Pneumothorax: Negative. -- Other: Stable bibasilar interstitial thickening. Stable right apical calcified granulomas. Bones: Unremarkable. Other: Right upper quadrant abdominal surgical clips. IMPRESSION: 1. No acute cardiopulmonary process. 2. Stable bibasilar interstitial thickening which probably represents scarring/fibrosis. 3. Stable pericardial calcifications. 12/01/2016 - - Read by: Marciano Mccabe MD Dictated Date/time: 12/01/16 11:42 Electronically Signed by: Marciano Mccabe MD 12/01/16 12:37 FINAL REPORT [facility] CHEM PANEL eGFR 66 mL/min/1.73m2 10/22/2016 Result Comment: The eGFR is calculated using the CKD-EPI formula. In most young, healthy individuals the eGFR will be >90 mL/min/1.73m2. The eGFR declines with age. An eGFR of 60-89 may be normal in some populations, particularly the elderly, for whom the CKD-EPI formula has not been extensively validated. Use of the eGFR is not recommended in the following populations: Individuals with unstable creatinine concentrations, including patients and those with serious co-morbid conditions. Patients with extremes in muscle mass or diet. The data above are obtained from the National Kidney Disease Education Program (NKDEP) which additionally recommends that when the eGFR is used in patients with extremes of body mass index for purposes of drug dosing, the eGFR should be multiplied by the estimated BMI. [facility] CHEM PANEL POC Creatinine 1.1 mg/dL 0.5 - 1.4 10/22/2016 [facility] CHEM PANEL A/G Ratio 1.0 0.7 - 1.6 10/22/2016 [facility] CHEM PANEL Globulin 4.1 g/dL 2.7 - 4.2 10/22/2016 [facility] CHEM PANEL B/C Ratio 12 6 - 25 10/22/2016 [facility] CHEM PANEL AGAP 12.2 meq/L 10.0 - 20.0 10/22/2016 [facility] CHEM PANEL Albumin Lvl 4.1 g/dL 3.5 - 5.0 10/22/2016 [facility] CHEM PANEL ALT 20 unit/L 0 - 65 10/22/2016 [facility] CHEM PANEL Bili Total 0.8 mg/dL 0.2 - 1.3 10/22/2016 [facility] CHEM PANEL AST 28 unit/L 0 - 37 10/22/2016 [facility] CHEM PANEL Alk Phos 103 unit/L 39 - 136 10/22/2016 [facility] CHEM PANEL Total Protein 8.2 g/dL 6.4 - 8.4 10/22/2016 [facility] CHEM PANEL eGFR 54 mL/min/1.73m2 10/22/2016 Result Comment: The eGFR is calculated using the CKD-EPI formula. In most young, healthy individuals the eGFR will be >90 mL/min/1.73m2. The eGFR declines with age. An eGFR of 60-89 may be normal in some populations, particularly the elderly, for whom the CKD-EPI formula has not been extensively validated. Use of the eGFR is not recommended in the following populations: Individuals with unstable creatinine concentrations, including patients and those with serious co-morbid conditions. Patients with extremes in muscle mass or diet. The data above are obtained from the National Kidney Disease Education Program (NKDEP) which additionally recommends that when the eGFR is used in patients with extremes of body mass index for purposes of drug dosing, the eGFR should be multiplied by the estimated BMI. [facility] CHEM PANEL BUN 16 mg/dL 7 - 22 10/22/2016 [facility] CHEM PANEL Creatinine Lvl 1.29 mg/dL 0.50 - 1.40 10/22/2016 [facility] CHEM PANEL Potassium Lvl 4.2 meq/L 3.5 - 5.1 10/22/2016 [facility] CHEM PANEL Chloride Lvl 101 meq/L 95 - 109 10/22/2016 [facility] CHEM PANEL CO2 25 meq/L 24 - 32 10/22/2016 [facility] CHEM PANEL Sodium Lvl 134 meq/L 135 - 145 10/22/2016 [facility] CHEM PANEL Calcium Lvl 10.0 mg/dL 8.5 - 10.5 10/22/2016 [facility] CHEM PANEL Glucose Lvl 119 mg/dL 70 - 99 10/22/2016 [facility] CHEM PANEL Magnesium Lvl 1.8 mg/dL 1.8 - 2.4 10/22/2016 [facility] HEMATOLOGY Microcyte 1+ *ABN* (10/22/16 10:38 AM) None Seen 10/22/2016 [facility] HEMATOLOGY Basophils # 0.1 K/CMM 0.0 - 0.2 10/22/2016 [facility] HEMATOLOGY Segs 72.0 % 45.0 - 75.0 10/22/2016 [facility] HEMATOLOGY Segs-Bands # 6.0 K/CMM 1.5 - 8.1 10/22/2016 [facility] HEMATOLOGY Eosinophils # 0.1 K/CMM 0.0 - 0.5 10/22/2016 [facility] HEMATOLOGY Basophils 0.7 % 0.0 - 1.0 10/22/2016 [facility] HEMATOLOGY Lymphocytes # 1.4 K/CMM 1.0 - 5.5 10/22/2016 [facility] HEMATOLOGY Monocytes # 0.8 K/CMM 0.0 - 0.8 10/22/2016 [facility] HEMATOLOGY Monocytes 9.4 % 2.0 - 12.0 10/22/2016 [facility] HEMATOLOGY Eosinophils 1.4 % 0.0 - 4.0 10/22/2016 [facility] HEMATOLOGY Lymphocytes 16.5 % 20.0 - 40.0 10/22/2016 [facility] HEMATOLOGY Platelet 134 K/CMM 133 - 450 10/22/2016 [facility] HEMATOLOGY RDW 19.4 % 11.5 - 14.5 10/22/2016 [facility] HEMATOLOGY MPV 8.5 fL 7.4 - 10.4 10/22/2016 [facility] HEMATOLOGY RBC 4.68 M/CMM 4.70 - 6.10 10/22/2016 [facility] HEMATOLOGY WBC 8.3 K/CMM 3.7 - 10.4 10/22/2016 [facility] HEMATOLOGY MCV 77.2 fL 80.0 - 94.0 10/22/2016 [facility] HEMATOLOGY MCHC 30.8 g/dL 32.0 - 36.0 10/22/2016 [facility] HEMATOLOGY MCH 23.7 pg 27.0 - 31.0 10/22/2016 [facility] HEMATOLOGY Hct 36.1 % 42.0 - 54.0 10/22/2016 [facility] HEMATOLOGY Hgb 11.1 g/dL 14.0 - 18.0 10/22/2016 [facility] HEMATOLOGY PTT 39.2 s 22.9 - 35.8 10/22/2016 [facility] HEMATOLOGY INR 1.33 0.85 - 1.17 10/22/2016 [facility] HEMATOLOGY PT 16.7 s 12.0 - 14.7 10/22/2016 [facility] BLOOD BANK RESULTS Antibody Scrn Negative (10/22/16 10:37 AM) 10/22/2016 [facility] BLOOD BANK RESULTS ABO/Rh O POS 10/22/2016 [facility] Heart/coronary art/graft w contrast CTA Heart/coronary art/graft w contrast CTA CORONARY CT ANGIOGRAPHY DATE PERFORMED: 10/22/2016 DATE INTERPRETED: 10/22/2016 QUALITY: Good COMPARISON: None CLINICAL HISTORY: 76 year-old patient with chest pain, atrial fibrillation, status post pacemaker implantation for AV conduction abnormalities, here for evaluation of suspected coronary artery disease and of a possible left atrial thrombus. This study is performed to avoid an invasive coronary angiogram and to assess risk of an acute coronary syndrome. TECHNIQUE: Using a [employer] Aqu[employer] 64 slice MDCT scanner, a preliminary director speech study was obtained, followed by coronary calcium protocol (Agatston units). Following intravenous administration of 90 of low osmolar contrast agent, 0.5 mm collimated images, with retrospective gating, were obtained through the coronary arteries. Heart rate at the time of acquisition was approximately 69 bpm. Data were transferred off-line to an independent workstation for 3D anatomic reconstructions, including curved multiplanar reconstructions (MPR), maximum intensity projections (MIP), and multi-planar imaging. FINDINGS: Please see separate radiologists report for extra-cardiac findings in the available limited views of the lungs, mediastinum and bone structures. Both ventricles normal in size. Both atria normal in size. Valves: no thickening or calcification. No intracardiac masses. Left atrial appendage is free of thrombus, with prominent pectinate muscles. There is near circumferential, extensive calcification of the pericardium which appears free of fluid. Aorta and branches: normal anatomy. Pulmonary artery and main branches: normal anatomy. Pulmonary veins: normal insertion into the left atrium. Venae cavae: normal anatomy. Pacemaker leads noted in the right heart chambers. CORONARY ARTERY DESCRIPTIONS: The coronary arteries arise in normal position. Left main coronary artery: Normal caliber, relatively long vessel that trifurcates into the LAD, a large ramus intermedius, and a LCx. LM is patent with no evidence of plaque or stenosis. Left anterior descending coronary artery: Normal caliber vessel that gives off at least one patent diagonal branch. LAD is patent with no evidence of plaque or stenosis. Left circumflex coronary artery: Normal caliber, nondominant vessel that gives off 1 patent obtuse marginal branch. LCX is patent with no evidence of plaque or stenosis. Right Coronary artery: Normal caliber, dominant vessel that gives off 1 patent acute marginal branch, and terminates into PL and PDA branches. One calcified atheroma noted in the midsegment of the vessel which results in approximately 50% stenosis. There is also mild partially calcified atheroma noted in the 2 branches of the vessel which are not resulting into a flow-limiting stenoses. IMPRESSIONS: Nonobstructive coronary artery disease. Extensive pericardial calcification, possibly consistent with pericardial constriction; clinical correlation necessary. No intracavitary masses noted, however in the absence of venous phases a left atrial thrombus cannot be completely ruled out. 10/22/2016 - - Read by: Marcelo Bonilla MD Dictated Date/time: 10/22/16 15:39 Electronically Signed by: Marcelo Bonilla MD 10/22/16 15:48 FINAL REPORT [facility] Knee series 3 views DX Knee series 3 views DX EXAM: Knee series 3 views DX HISTORY: M25.561 Pain in right knee COMPARISON: None 3 views of the right knee. No fracture or dislocation is seen. There is osteopenia. Small marginal osteophytes are present in a tricompartmental distribution. There is mild medial tibiofemoral joint space narrowing. Vascular calcification are present. IMPRESSION: Degenerative change as above. 08/14/2016 - - Read by: Swapna Wang MD Dictated Date/time: 08/14/16 14:22 Electronically Signed by: Swapna Wang MD 08/14/16 14:22 FINAL REPORT [facility] Abd Liver Protocol w/wo IV contrast CT Abd Liver Protocol w/wo IV contrast CT EXAM: CT ABDOMEN WITH AND WITHOUT CONTRAST DATE: 06/19/2016 12:00 AM CDT INDICATION: Hepatocellular carcinoma ADDITIONAL INFORMATION: Status post microwave ablation on 05/22/2016 COMPARISON: Pretreatment CT dated 03/20/2016 TECHNIQUE: Volumetric CT acquisition of the abdomen both prior to and following intravenous contrast, in precontrast, arterial, portal venous and delayed phases of enhancement, per the dynamic liver protocol. Axial, sagittal and coronal reconstructions. IV contrast: 100 mL Omnipaque Oral contrast: None. DLP: 1318 mGy-cm FINDINGS: Examination is motion limited as patient had difficulty following breathing instructions. Lines and tubes: Cardiac pacemaker wires partially visualized in the right ventricle. Lower thorax: Redemonstrated are dense pericardial calcifications and right pleural calcifications. This pericardial calcifications appear to exhibit some mass effect on the left ventricle unchanged from priors. Liver: Craniocaudal length: 8.6 cm. Density: Heterogenous, with reticular enhancement consistent with fibrosis. Surface nodularity: Nodular contour consistent with cirrhosis.. Hepatic masses: Within segment 6/7 of the liver is an approximately 7.9 x 3 cm hypoenhancing region corresponding to treatment cavity from prior microwave ablation. No residual enhancement is seen in this area. The inferior tip of the liver is a wedge-shaped 4.1 x 4 cm hypoenhancing region is likely also post treatment in nature. No arterially enhancing lesions are seen, though evaluation is limited particularly at the hepatic dome. Non-enhancing/cystic hepatic lesions: None. Hepatic vessels: Hepatic arterial anatomy: Conventional. Arterial stenoses: None. Portal vein: Patent. Caliber: 1.1 Portosystemic collaterals are None. Hepatic, splenic and superior mesenteric veins, and IVC: Patent. Regional lymph nodes: Mildly prominent but not pathologically enlarged wayne hepatic lymph nodes are seen. Biliary tree: Prominence of the common bile duct is postcholecystectomy in nature. Gallbladder: Absent. Surgical clips are present in the gallbladder fossa. Pancreas: Normal. Spleen: Normal-appearing measuring 8.5 cm craniocaudal diameter. Adrenals: Normal. Kidneys and ureters: Normal. Gastrointestinal tract: The visualized portions are normal in caliber. Peritoneum and retroperitoneum: No ascites or free air. No other fluid collection. Distant lymph nodes: Normal. Vasculature: Normal. Bones: No suspicious lytic or blastic osseous lesions. Unchanged degenerative changes of the thoracolumbar spine. Soft tissues: Normal. IMPRESSION: 1. Motion limited exam, particularly at the hepatic dome. Within the limitations the treatment cavity in segment 6/7 of the liver demonstrates no arterial enhancement to suggest residual disease. LI-RADS category 5T. No new lesions identified. 2. Hepatic cirrhosis. 3. Pericardial calcifications appear to exhibit some degree of mass effect on the left ventricle, though unchanged from prior exams. Recommend correlation with patient's symptomatology. 4. Unchanged right pleural calcifications. 06/24/2016 - - Read by: Erin Downey MD Dictated Date/time: 06/24/16 13:32 Electronically Signed by: Erin Downey MD 06/24/16 13:45 FINAL REPORT [facility] BLOOD BANK RESULTS Antibody Scrn Negative (05/22/16 9:45 AM) 05/22/2016 [facility] BLOOD BANK RESULTS ABO/Rh O POS 05/22/2016 [facility] Guided Needle BX/Asp/Inj/NeedLoc US Guided Needle BX/Asp/Inj/NeedLoc US Addendum: The report was dictated as a targeted biopsy of the liver. It is a microwave ablation under ultrasound guidance. The tumor is clearly seen on the 05/22/2016 ultrasound. It measures 1.4 cm in size roughly. The needle is clearly seen are getting the center of the area. The needle which is 14-gauge was extended slightly beyond the tumor and a 15 minute burn with the mid wave large needle performed. Needle was then removed. There are no complications and minimal blood loss. General anesthesia was used yesterday by the department of anesthesia Imaging shows air bubbles post procedure in the track of the needle and the bubbles were in part centered in the tumor filling up the entire tumor region. There is no hematoma seen post procedure. Impression microwave ablation hepatocellular cancer. Please it nor the prior dictation. STUDY: Targeted ultrasound-guided biopsy liver lesion DATE: 05/22/2016 11:03 AM CDT INDICATION(S): Liver Lesion. PROCEDURE(S): The area of the right upper quadrant was sterilely prepped and draped. 1% lidocaine was infiltrated for local anesthesia. The biopsy needle was placed through a guide needle directly into the lesion and 18-gauge side cutting biopsy performed. The needles were then removed HANDBAG FINISHER: Colby [employer](S): CONSENT: Written consent obtained after discussing the indications, procedure, potential benefits, alternatives and risks SEDATION/PAIN CONTROL: Moderate conscious sedation was administered by a dedicated nurse under my supervision. There was continuous monitoring of BP, pulse and oxygen saturation. Sedation time minutes. COMPLICATIONS: None immediately seen ESTIMATED BLOOD LOSS: Minimal FLUOROSCOPIC TIME: minutes RADIATION DOSE: mGy CONTRAST VOLUME: mL FINDINGS: Biopsy of nodule in the liver performed without ultrasound confirmation and guidance. No postbiopsy pericapsular hematoma are evident other evidence of bleeding seen IMPRESSION: Biopsy liver nodule performed PLAN/FOLLOW UP: Dr. Bowman, IR Attending, was present for the procedure. 05/22/2016 - - Read by: Juan Carlos Bowman MD Dictated Date/time: 06/02/16 12:53 Electronically Signed by: Juan Carlos Bowman MD 06/02/16 12:55 FINAL REPORT - - Read by: Juan Carlos Bowman MD Dictated Date/time: 05/25/16 14:48 Electronically Signed by: Juan Carlos Bowman MD 05/25/16 14:50 FINAL REPORT [facility] Abd Liver Protocol w/wo IV contrast CT Abd Liver Protocol w/wo IV contrast CT CT ABDOMEN LIVER PROTOCOL HISTORY: 75-year-old with hepatitis C and compensated cirrhosis. PROCEDURE: CT scan of the abdomen liver protocol was done. Creatinine level was 1.4 mg/dl and eGFR was 49 ml/min. Dilute oral and IV contrast, 100 cc Visipaque 320 used. Pre, arterial, venous and delayed series were obtained with coronal and sagittal reformats. The CT dose was 1062 mGy/cm. Comparison: CT 01/04/2015 and magnetic resonance imaging abdomen 07/02/2015 Abdomen findings: The bases of both lung appear normal. The liver has a hypertrophic left lobe and morphology consistent with cirrhosis. Right lobe at segment 6 / 7 a low-attenuation nodule in the noncontrast sequence of 13 mm, prior was 10 mm, with mild enhancement in the arterial phase (series 5 image 38) and also mild peripheral enhancement in the venous phase (series 6 image 35). This is now suspicious for a cirrhosis induced HCC. No other focal hepatic abnormalities seen. The portal vein has normal caliber. Status post cholecystectomy. The CBD is mildly prominent with caliber of 11 mm. The pancreas has normal attenuation and has no sign of inflammation or calcifications. The spleen has normal volume and has homogeneous attenuation and all sequences. Perisplenic vessels are prominent. Both adrenal glands appeared normal. The kidneys have no hydronephrosis or lithiasis seen. The bowel pattern in the upper abdomen appears normal. IMPRESSION: Liver right lobe 13 mm nodule is larger compared to prior exams and has now arterial enhancement suspicious for an HCC in a cirrhotic liver. 03/20/2016 - - Read by: Ambrocio Goemz MD Dictated Date/time: 03/20/16 10:22 Electronically Signed by: Ambrocio Gomez 03/20/16 11:11 FINAL REPORT [facility] Abdomen w/wo contrast MRI Abdomen w/wo contrast MRI EXAM: MR ABDOMEN WITHOUT AND WITH CONTRAST DATE: July 02, 2015 at 1228 hours. INDICATION: Hepatitis C cirrhosis. COMPARISON: April 15, 2015. TECHNIQUE: Dynamic liver protocol: Multiplanar images of the abdomen were obtained in multiple sequences, before and after uneventful administration of 8 cc MultiHance intravenous contrast . Axial,sagittal and coronal images were interpreted. FINDINGS: The lung bases, pleura and visualized portions of the heart and pericardium are unremarkable. The liver again has a mildly cirrhotic appearance. The right hepatic lobe measures 13 cm in craniocaudal diameter. A 1.0 cm lesion in segment 6/7 demonstrates washout on delayed images, but no clear arterial enhancement. It is imperceptible on other sequences. It is stable in size since December 2014. The gallbladder is surgically absent. The common bile duct measures up to 11 mm in diameter, which is stable. The spleen measures up to 12 cm in craniocaudal dimension. There are small perigastric and esophageal varices. There is a stable 2 mm cystic lesion in the pancreatic head. The pancreas, adrenals and visualized gastrointestinal tract otherwise show no significant abnormalities. Kidneys, collecting systems and ureters are unremarkable. No lymphadenopathy is identified. Aorta tapers normally. There is a moderate posterior disc bulge at L4-L5, which causes moderate narrowing of the spinal canal. There is bilateral gynecomastia. IMPRESSION: 1. Cirrhosis with 1.0 cm LIRADS 3 segment 6/7 lesion that has been stable for 6 months. 6 month follow up is recommended. 2. 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 07/02/2015 - - This report was dictated by a Senior Java Web Application Developer/Fellow. I have personally reviewed the images as well as the Resident's interpretation and agree with the findings. Read by: Flavio Mora Resident: Flavio Mora(R Dictated Date/time: 07/03/15 08:41 Electronically Signed by: Ty Jansen 07/03/15 15:35 FINAL REPORT [facility] Abdomen w/wo contrast MRI Abdomen w/wo contrast MRI Exam: MRI of the abdomen with and without contrast Reason for Exam: Chronic hepatitis C Comparison Exam: CT scan 01/04/2015 and ultrasound 05/01/2014 Technique: Multiplanar and multisequence imaging was performed of the abdomen. T1 and T2-weighted images were acquired with and without injection of 8 cc gadolinium IV. Discussion: On recent CT scan, there was description of a 1.2 x 0.9 cm subtle focus of decreased attenuation within the posterior segment of the right lobe of the liver. On current exam, this region is again seen. It is barely perceptible on the T1 weighted images and is slightly hyperintense (series 3, image 15). It is imperceptible on the T2 weighted images. It is best seen on the delayed postcontrast sequence (series 13, image 38). It is of decreased signal when compared to the surrounding liver parenchyma. This is nonspecific in appearance and likely represents a focal regenerating nodule in an otherwise cirrhotic appearing liver. Portal venous system is patent. The patient is status post cholecystectomy. No biliary duct dilation. The pancreas, spleen, and adrenal glands are within normal limits. Kidneys are unremarkable. No hydronephrosis or hydroureter. No appreciable lymphadenopathy. Minimal amount of free fluid seen abutting the liver anteriorly. No evidence for ventral hernia or abdominal aortic aneurysm. Impression: 1. Liver has a cirrhotic appearing morphology. 1.2 cm region within the posterior segment of the right lobe likely represents a focal regenerating nodule but is otherwise nonspecific in appearance. Followup MRI exam should be considered. 04/15/2015 - - Read by: Sukhwinder Nick MD Dictated Date/time: 04/16/15 08:38 Electronically Signed by: Sukhwinder Nick MD 04/16/15 08:56 FINAL REPORT [facility]OR[facility] Cam Abd Liver Protocol w/wo IV contrast CT Abd Liver Protocol w/wo IV contrast CT HISTORY: Cirrhosis TECHNIQUE: Multidetector axial images obtained through the abdomen prior to and following the use of intravenous contrast. Triphasic liver mass protocol performed. No enteric contrast utilized. Multiplanar reformats obtained. DLP:[id number] COMPARISON: Previous CT abdomen liver mass protocol of 06/20/2013. Correlation also made with abdominal ultrasound of 05/01/2014 FINDINGS: Calcification of the pericardium again seen. Calcified right-sided pleural plaques noted. These are stable compared to the previous exam. Exam is degraded secondary to respiratory motion artifact. The liver is cirrhotic in morphology. Heterogeneous attenuation is seen in the portal venous phase within the right hepatic lobe. No arterial focus of hyper enhancement is seen, however on the delayed phase, subtle focus of decreased attenuation is noted in the posterior right hepatic lobe measuring 1.2 x 0.9 cm (series 6 image 22). This lesion does not have a correlate on precontrast or portal venous phase imaging. The gallbladder is surgically absent. Borderline splenomegaly again seen. No focal splenic lesion. The adrenals and pancreas are normal. The bilateral kidneys are normal. No hydronephrosis. The abdominal aorta is normal in caliber. No evidence of aneurysmal dilatation. The main portal vein in its branches are patent. The hepatic veins are patent. No abdominal adenopathy. Visualized bowel loops are grossly normal. No evidence of ascites. No lytic or blastic osseous lesions. IMPRESSION: 1. Indeterminate low attenuation seen in the posterior right hepatic lobe on delayed phase imaging only. No arterial phase hyperenhancement seen in this area. This lesion is indeterminate, and short-term follow-up with CT or MRI is advised. 2. Stable changes of cirrhosis and portal hypertension. 3. Stable pericardial and right pleural calcifications. 01/04/2015 - - Read by: Hui Atkins MD Dictated Date/time: 01/04/15 11:42 Electronically Signed by: Hui Atkins MD 01/04/15 11:57 FINAL REPORT [facility] BLOOD BANK RESULTS Antibody Scrn Negative (05/09/14 8:30 AM) 05/09/2014 [facility] BLOOD BANK RESULTS ABO/Rh O POS 05/09/2014 [facility] CHEM PANEL eGFR 46 mL/min/1.73m2 05/09/2014 1Result Comment: The eGFR is calculated using the CKD-EPI formula. In most young, healthy individuals the eGFR will be >90 mL/min/1.73m2. The eGFR declines with age. An eGFR of 60-89 may be normal in some populations, particularly the elderly, for whom the CKD-EPI formula has not been extensively validated. Use of the eGFR is not recommended in the following populations: Individuals with unstable creatinine concentrations, including patients and those with serious co-morbid conditions. Patients with extremes in muscle mass or diet. The data above are obtained from the National Kidney Disease Education Program (NKDEP) which additionally recommends that when the eGFR is used in patients with extremes of body mass index for purposes of drug dosing, the eGFR should be multiplied by the estimated BMI. [facility] CHEM PANEL Creatinine Lvl 1.5 mg/dL 0.5 - 1.4 05/09/2014 [facility] CHEM PANEL Sodium Lvl 136 meq/L 135 - 145 05/09/2014 [facility] CHEM PANEL BUN 23 mg/dL 7 - 22 05/09/2014 [facility] CHEM PANEL Potassium Lvl 4.1 meq/L 3.5 - 5.1 05/09/2014 [facility] CHEM PANEL Chloride Lvl 103 meq/L 95 - 109 05/09/2014 [facility] CHEM PANEL CO2 25 meq/L 24 - 32 05/09/2014 [facility] CHEM PANEL Calcium Lvl 10.5 mg/dL 8.5 - 10.5 05/09/2014 [facility] CHEM PANEL Glucose Lvl 88 mg/dL 70 - 99 05/09/2014 2Interpretive Data: Adult reference range values reflect the clinical guidelines of the [place] [employer]. [facility] CHEM PANEL AGAP 12.1 meq/L 10.0 - 20.0 05/09/2014 [facility] CHEM PANEL Magnesium Lvl 2.1 mg/dL 1.8 - 2.4 05/09/2014 [facility] HEMATOLOGY Eosinophils 31.0 % 0.0 - 4.0 05/09/2014 [facility] HEMATOLOGY Atypical Lymphs 0.0 % <=0.0 % 05/09/2014 [facility] HEMATOLOGY Basophils 1.0 % 0.0 - 1.0 05/09/2014 [facility] HEMATOLOGY Plt Morph Normal (05/09/14 8:12 AM) 05/09/2014 [facility] HEMATOLOGY Monocytes # 0.4 K/CMM 0.0 - 0.8 05/09/2014 [facility] HEMATOLOGY Lymphocytes 28.0 % 20.0 - 40.0 05/09/2014 [facility] HEMATOLOGY Segs 35.0 % 45.0 - 75.0 05/09/2014 [facility] HEMATOLOGY Bands 0.0 % 0.0 - 11.0 05/09/2014 [facility] HEMATOLOGY Monocytes 5.0 % 2.0 - 12.0 05/09/2014 [facility] HEMATOLOGY Elliptocyte Slight *ABN* (05/09/14 8:12 AM) None Seen 05/09/2014 [facility] HEMATOLOGY Macrocyte 1+ *ABN* (05/09/14 8:12 AM) None Seen 05/09/2014 [facility] HEMATOLOGY Segs-Bands # 2.9 K/CMM 1.5 - 8.1 05/09/2014 [facility] HEMATOLOGY Lymphocytes # 2.3 K/CMM 1.0 - 5.5 05/09/2014 [facility] HEMATOLOGY Eosinophils # 2.5 K/CMM 0.0 - 0.5 05/09/2014 [facility] HEMATOLOGY Basophils # 0.1 K/CMM 0.0 - 0.2 05/09/2014 [facility] HEMATOLOGY PTT 38.6 s 22.9 - 35.8 05/09/2014 4Interpretive Data: Heparin Therapeutic Range: 57 - 92 Seconds [facility] HEMATOLOGY PT 16.2 s 12.0 - 14.7 05/09/2014 [facility] HEMATOLOGY INR 1.32 0.85 - 1.17 05/09/2014 3Interpretive Data: RECOMMENDED RANGES FOR PROTIME INR: 2.0-3.0 for most medical and surgical thromboembolic states. 2.5-3.5 for artificial heart valves and recurrent embolism. INR SHOULD BE USED ONLY FOR PATIENTS ON STABLE ANTICOAGULANT THERAPY. [facility] HEMATOLOGY WBC 8.2 K/CMM 3.7 - 10.4 05/09/2014 [facility] HEMATOLOGY RBC 4.13 M/CMM 4.70 - 6.10 05/09/2014 [facility] HEMATOLOGY Hgb 13.8 g/dL 14.0 - 18.0 05/09/2014 [facility] HEMATOLOGY MCH 33.4 pg 27.0 - 31.0 05/09/2014 [facility] HEMATOLOGY MCHC 33.5 g/dL 32.0 - 36.0 05/09/2014 [facility] HEMATOLOGY RDW 15.7 % 11.5 - 14.5 05/09/2014 [facility] HEMATOLOGY Hct 41.2 % 42.0 - 54.0 05/09/2014 [facility] HEMATOLOGY MCV 99.8 fL 80.0 - 94.0 05/09/2014 [facility] HEMATOLOGY Platelet 95 K/CMM 133 - 450 05/09/2014 [facility] HEMATOLOGY MPV 9.2 fL 7.4 - 10.4 05/09/2014 [facility] Liver US Liver US LIVER ULTRASOUND CLINICAL HISTORY: Hepatitis C COMPARISON IMAGING: Previous ultrasound of 11/28/2013 FINDINGS: Liver: Measures 14 cm in length (normal: 13-17 cm). Mildly coarsened echotexture is again seen with contour nodularity, compatible with mild cirrhosis. Findings are not significantly changed when compared to the previous study. No suspicious lesions are visualized. The main portal vein is patent with appropriate direction of flow. Hepatic veins and main hepatic artery are patent. Biliary: The gallbladder is surgically absent. There is mild prominence of the common bile duct, measuring up to 10 mm in diameter. Pancreas: No focal lesion. Vascular: Visualized portions of the IVC are patent. No obvious aneurysmal dilatation of the aorta. Other: Incidental note is made of a simple cyst in the superior pole the right kidney measuring 1.8 cm in maximal dimension. IMPRESSION: 1. Coarsened echotexture with mildly nodular contour the liver, compatible with early cirrhosis. Findings are not significantly changed when compared to the previous study. No suspicious hepatic lesion. 2. Patent hepatic vasculature. 3. Mild prominence of the common bile duct, may be related to previous cholecystectomy. 4. A right renal superior pole cyst. 05/01/2014 - - Read by: Hui Atkins MD Dictated Date/time: 05/01/14 10:10 Electronically Signed by: Hui Atkins MD 05/01/14 10:25 FINAL REPORT [facility] Chest 2 views Chest 2 views INDICATION: Shortness of breath EXAM: XR Chest, two views Comparison: December 07, 2013 FINDINGS: Mild bilateral pleural thickening is present with improvement of the right pleural effusion/pleural thickening compared to prior exam. Additionally, there has been improvement of the bilateral interstitial and airspace opacities with interstitial opacities persisting within the lower lungs bilaterally. There is an area of potential airspace consolidation in the left lower lung. Linear scarring is noted within the lungs bilaterally as well. A rounded nodule is seen within the right apex, unchanged and may represent a granuloma or scarring or other underlying pulmonary nodules. Curvilinear calcification projected over the heart is unchanged and may represent a calcified aneurysm, pericardial calcification or endocardial calcification. Cardiomediastinal silhouette is enlarged but stable. No acute osseous abnormality is seen. IMPRESSION: 1. Interval improvement in the right pleural fluid/pleural thickening along with interval improvement of bilateral interstitial and airspace opacities. Mild interstitial opacities with potential airspace opacity in the left lower lobe persists. 2. Rounded nodular right apex, unchanged. This is dense and may represent a calcified granuloma or scar. Follow up recommended. 3. Stable curvilinear calcification in the heart which represent a calcified aneurysm, pericardial calcification or endocardial calcification. 04/02/2014 - - Read by: Manju Owen MD Dictated Date/time: 04/02/14 17:09 Electronically Signed by: Manju Owen MD 04/02/14 17:23 FINAL REPORT [facility] CARDIAC ENZYMES Total CK 59 unit/L 12 - 191 12/08/2013 [facility] CARDIAC ENZYMES Troponin-I null 0.00 - 0.40 12/08/2013 [facility] CARDIAC ENZYMES Troponin-T null 0.000 - 0.100 12/08/2013 [facility] URINE AND STOOL UA Urobilinogen <=1.0 mg/dL 0.1 - 1.0 12/08/2013 [facility] URINE AND STOOL UA WBC 1 /HPF 0 - 5 12/08/2013 [facility] URINE AND STOOL UA RBC null 0 - 2 12/08/2013 [facility] URINE AND STOOL UA Leuk Est Negative (12/08/2013 06:00:00 [place]) Negative 12/08/2013 [facility] URINE AND STOOL UA Sq Epi Few /LPF Few /LPF 12/08/2013 [facility] URINE AND STOOL UA Protein Negative mg/dL Negative mg/dL 12/08/2013 [facility] URINE AND STOOL UA Spec Grav 1.012 <=1.030 12/08/2013 [facility] URINE AND STOOL UA pH 5.0 5.0 - 8.0 12/08/2013 [facility] URINE AND STOOL UA Turbidity Clear (12/08/2013 06:00:00 [place]) Clear 12/08/2013 [facility] URINE AND STOOL UA Color Yellow *NA* (12/08/2013 06:00:00 [place]) Yellow 12/08/2013 [facility] URINE AND STOOL UA Blood Negative (12/08/2013 06:00:00 [place]) Negative 12/08/2013 [facility] URINE AND STOOL UA Nitrite Negative (12/08/2013 06:00:00 [place]/[place]) Negative 12/08/2013 [facility] URINE AND STOOL UA Bili Negative *NA* (12/08/2013 06:00:00 [place]) Negative 12/08/2013 [facility] URINE AND STOOL UA Ketones Negative mg/dL Negative mg/dL 12/08/2013 [facility] URINE AND STOOL UA Glucose Negative mg/dL Negative mg/dL 12/08/2013 [facility] URINE AND STOOL UA Mucus Few /LPF None Seen /LPF 12/08/2013 [facility] CHEM PANEL A/G Ratio 0.7 0.7 - 1.6 12/08/2013 [facility] CHEM PANEL Bili Indirect 0.6 mg/dL 0.0 - 1.0 12/08/2013 [facility] CHEM PANEL Globulin 4.7 g/dL 2.0 - 4.0 12/08/2013 [facility] CHEM PANEL Total Protein 8.0 g/dL 6.4 - 8.4 12/08/2013 [facility] CHEM PANEL ASPARTATE TRANSAMINASE 37 unit/L 0 - 37 12/08/2013 [facility] CHEM PANEL Bili Direct 0.3 mg/dL 0.0 - 0.3 12/08/2013 [facility] CHEM PANEL Bili Total 0.9 mg/dL 0.2 - 1.3 12/08/2013 [facility] CHEM PANEL Alk Phos 178 unit/L 39 - 136 12/08/2013 [facility] CHEM PANEL ALANINE AMINOTRANSFERASE 22 unit/L 0 - 65 12/08/2013 [facility] CHEM PANEL Albumin Lvl 3.3 g/dL 3.5 - 5.0 12/08/2013 [facility] ELECTROLYTES AGAP 13.4 meq/L 10.0 - 20.0 12/08/2013 [facility] ELECTROLYTES eGFR 55 mL/min/1.73m2 12/08/2013 1Result Comment: The eGFR is calculated using the CKD-EPI formula. In most young, healthy individuals the eGFR will be >90 mL/min/1.73m2. The eGFR declines with age. An eGFR of 60-89 may be normal in some populations, particularly the elderly, for whom the CKD-EPI formula has not been extensively validated. Use of the eGFR is not recommended in the following populations: Individuals with unstable creatinine concentrations, including patients and those with serious co-morbid conditions. Patients with extremes in muscle mass or diet. The data above are obtained from the National Kidney Disease Education Program (NKDEP) which additionally recommends that when the eGFR is used in patients with extremes of body mass index for purposes of drug dosing, the eGFR should be multiplied by the estimated BMI. [facility] ELECTROLYTES Sodium Lvl 138 meq/L 135 - 145 12/08/2013 [facility] ELECTROLYTES Creatinine Lvl 1.3 mg/dL 0.5 - 1.4 12/08/2013 [facility] ELECTROLYTES BUN 16 mg/dL 7 - 22 12/08/2013 [facility] ELECTROLYTES Glucose Lvl 126 mg/dL 70 - 99 12/08/2013 2Interpretive Data: Adult reference range values reflect the clinical guidelines of the [place] [employer]. [facility] ELECTROLYTES Calcium Lvl 9.7 mg/dL 8.5 - 10.5 12/08/2013 [facility] ELECTROLYTES CO2 23 meq/L 24 - 32 12/08/2013 [facility] ELECTROLYTES Chloride Lvl 106 meq/L 95 - 109 12/08/2013 [facility] ELECTROLYTES Potassium Lvl 4.4 meq/L 3.5 - 5.1 12/08/2013 [facility] HEMATOLOGY Plt Morph Normal (12/07/2013 19:15:00 [place]/[place]) 12/08/2013 [facility] HEMATOLOGY Macrocyte 3+ *ABN* [facility]2013 [facility] None Seen 12/08/2013 [facility] HEMATOLOGY Anisocyte 1+ *ABN* (12/07/2013 19:15:00 [facility]) None Seen 12/08/2013 [facility] HEMATOLOGY Polychrom Slight (12/07/2013 19:15:00 [facility]) None Seen 12/08/2013 [facility] HEMATOLOGY Lymphocytes 28.0 % 20.0 - 40.0 12/08/2013 [facility] HEMATOLOGY Basophils # 0.1 K/CMM 0.0 - 0.2 12/08/2013 [facility] HEMATOLOGY Eosinophils # 0.2 K/CMM 0.0 - 0.5 12/08/2013 [facility] HEMATOLOGY Bands 2.0 % 0.0 - 11.0 12/08/2013 [facility] HEMATOLOGY Segs 52.0 % 45.0 - 75.0 12/08/2013 [facility] HEMATOLOGY Monocytes # 0.7 K/CMM 0.0 - 0.8 12/08/2013 [facility] HEMATOLOGY Lymphocytes # 1.5 K/CMM 1.0 - 5.5 12/08/2013 [facility] HEMATOLOGY Segs-Bands # 2.8 K/CMM 1.5 - 8.1 12/08/2013 [facility] HEMATOLOGY Eosinophils 4.0 % 0.0 - 4.0 12/08/2013 [facility] HEMATOLOGY Monocytes 13.0 % 2.0 - 12.0 12/08/2013 [facility] HEMATOLOGY Atypical Lymphs 0.0 % <=0.0 % 12/08/2013 [facility] HEMATOLOGY Basophils 1.0 % 0.0 - 1.0 12/08/2013 [facility] HEMATOLOGY aPTT 40.5 s 22.9 - 35.8 12/08/2013 4Interpretive Data: Heparin Therapeutic Range: 57 - 92 Seconds [facility] HEMATOLOGY PROTIME 16.3 s 12.0 - 14.7 12/08/2013 [facility] HEMATOLOGY INR 1.33 0.85 - 1.17 12/08/2013 3Interpretive Data: RECOMMENDED RANGES FOR PROTIME INR: 2.0-3.0 for most medical and surgical thromboembolic states. 2.5-3.5 for artificial heart valves and recurrent embolism. INR SHOULD BE USED ONLY FOR PATIENTS ON STABLE ANTICOAGULANT THERAPY. [facility] HEMATOLOGY MCH 36.3 pg 27.0 - 31.0 12/08/2013 [facility] HEMATOLOGY RDW 14.2 % 11.5 - 14.5 12/08/2013 [facility] HEMATOLOGY Platelet 92 K/CMM 133 - 450 12/08/2013 [facility] HEMATOLOGY MCHC 32.9 g/dL 32.0 - 36.0 12/08/2013 [facility] HEMATOLOGY MPV 8.9 fL 7.4 - 10.4 12/08/2013 [facility] HEMATOLOGY WBC X 10x3 5.2 K/CMM 3.7 - 10.4 12/08/2013 [facility] HEMATOLOGY Hgb 11.8 g/dL 14.0 - 18.0 12/08/2013 [facility] HEMATOLOGY Hct 36.0 % 42.0 - 54.0 12/08/2013 [facility] HEMATOLOGY MCV 110.2 fL 80.0 - 94.0 12/08/2013 [facility] HEMATOLOGY RBC X 10x6 3.27 M/CMM 4.70 - 6.10 12/08/2013 [facility] Chest 2 views Chest 2 views EXAM: CHEST 2 VIEWS DATE: 2013-12-07 18:17:00. CLINICAL INDICATION: Coughing COMPARISON: None. TECHNIQUE: PA and lateral chest radiographs were obtained. FINDINGS: There are small bilateral pleural effusions. The right pleural effusion may be loculated. Fluid tracks superiorly along the right lateral chest wall and into the major fissure bilaterally. There are interstitial and airspace opacities in bilateral lower lungs. A curvilinear calcification projected over the heart may represent a calcified aneurysm, pericardial calcification, or endocardial calcification. The cardiomediastinal silhouette is somewhat obscured. No acute bony or soft tissue abnormality is identified. IMPRESSION: 1. Bilateral lower lung interstitial airspace opacities concerning for edema and/or infection. 2. Small bilateral pleural effusions. 3. Curvilinear calcification projected over the heart may represent a calcified aneurysm, pericardial calcification, or endocardial calcification. 12/07/2013 - - This report was dictated by a Senior Java Web Application Developer/Fellow. I have personally reviewed the images as well as the Resident's interpretation and agree with the findings. Read by: [id number] -Abby, RES 201 Resident: [id number] -Abby, RES 201 Dictated Date/time: 12/07/13 18:17 Electronically Signed by: Christian Vallejo MD 12/07/13 19:24 FINAL REPORT [facility] Abdomen complete US Abdomen complete US EXAM: US ABDOMEN COMPLETE DATE: Nov 28, 2013 12:38:00 PM INDICATION: 070.54 Chronic Hepatitis C without Mention of Hepatic Coma ADDITIONAL INFORMATION: None. COMPARISON: 06/20/2013. TECHNIQUE: Multiplanar grayscale and color Doppler ultrasound images of the abdomen were obtained. FINDINGS: Liver demonstrates heterogeneous echogenicity and mildly nodular contour. Right hepatic lobe measures 13.1 cm at the midclavicular line. Main portal vein is normal with hepatopetal flow. The gallbladder has been removed. The visualized portions of the intrahepatic biliary tree are of normal caliber. Common duct is 0.6 cm. The spleen measures 12 cm. The pancreas is obscured by overlying bowel gas and not well evaluated. The kidneys are normal in size, shape, and echotexture without masses or hydronephrosis. Right kidney measures 8.7 cm. Left kidney measures 11 cm. The cystic structure is present along the superior margin of the right kidney. This is not significantly changed from CT and may represent an exophytic renal cyst or a small amount of free fluid. Abdominal aorta is of normal caliber. Inferior vena cava unremarkable where visualized. 11/28/2013 - - Read by: Pedro Pablo Thompson Dictated Date/time: 11/28/13 13:29 Electronically Signed by: Pedro Pablo Thompson MD 11/28/13 13:32 FINAL REPORT [facility] ELECTROLYTES AGAP 10.2 meq/L 10.0 - 20.0 11/27/2013 [facility] ELECTROLYTES eGFR 46 mL/min/1.73m2 11/27/2013 1Result Comment: The eGFR is calculated using the CKD-EPI formula. In most young, healthy individuals the eGFR will be >90 mL/min/1.73m2. The eGFR declines with age. An eGFR of 60-89 may be normal in some populations, particularly the elderly, for whom the CKD-EPI formula has not been extensively validated. Use of the eGFR is not recommended in the following populations: Individuals with unstable creatinine concentrations, including patients and those with serious co-morbid conditions. Patients with extremes in muscle mass or diet. The data above are obtained from the National Kidney Disease Education Program (NKDEP) which additionally recommends that when the eGFR is used in patients with extremes of body mass index for purposes of drug dosing, the eGFR should be multiplied by the estimated BMI. [facility] ELECTROLYTES Chloride Lvl 102 meq/L 95 - 109 11/27/2013 [facility] ELECTROLYTES CO2 26 meq/L 24 - 32 11/27/2013 [facility] ELECTROLYTES Calcium Lvl 9.5 mg/dL 8.5 - 10.5 11/27/2013 [facility] ELECTROLYTES Potassium Lvl 4.2 meq/L 3.5 - 5.1 11/27/2013 [facility] ELECTROLYTES Creatinine Lvl 1.5 mg/dL 0.5 - 1.4 11/27/2013 [facility] ELECTROLYTES Glucose Lvl 192 mg/dL 70 - 99 11/27/2013 2Interpretive Data: Adult reference range values reflect the clinical guidelines of the [place] [employer]. [facility] ELECTROLYTES BUN 19 mg/dL 7 - 22 11/27/2013 [facility] ELECTROLYTES Sodium Lvl 134 meq/L 135 - 145 11/27/2013 [facility] HEMATOLOGY Eosinophils # 0.2 K/CMM 0.0 - 0.5 11/27/2013 [facility] HEMATOLOGY Segs-Bands # 3.5 K/CMM 1.5 - 8.1 11/27/2013 [facility] HEMATOLOGY Monocytes # 0.7 K/CMM 0.0 - 0.8 11/27/2013 [facility] HEMATOLOGY Basophils 0.9 % 0.0 - 1.0 11/27/2013 [facility] HEMATOLOGY Lymphocytes # 2.1 K/CMM 1.0 - 5.5 11/27/2013 [facility] HEMATOLOGY Basophils # 0.1 K/CMM 0.0 - 0.2 11/27/2013 [facility] HEMATOLOGY Anisocyte 1+ *ABN* (11/27/13 3:14 PM) None Seen 11/27/2013 [facility] HEMATOLOGY Macrocyte 3+ *NA* (11/27/13 3:14 PM) None Seen 11/27/2013 [facility] HEMATOLOGY Polychrom Slight (11/27/13 3:14 PM) None Seen 11/27/2013 [facility] HEMATOLOGY Segs 52.9 % 45.0 - 75.0 11/27/2013 [facility] HEMATOLOGY Lymphocytes 32.6 % 20.0 - 40.0 11/27/2013 [facility] [facility] HEMATOLOGY Monocytes 10.1 % 2.0 - 12.0 11/27/2013 [facility] HEMATOLOGY Eosinophils 3.5 % 0.0 - 4.0 11/27/2013 [facility] HEMATOLOGY RBC X 10x6 3.59 M/CMM 4.70 - 6.10 11/27/2013 [facility] HEMATOLOGY WBC X 10x3 6.5 K/CMM 3.7 - 10.4 11/27/2013 [facility] HEMATOLOGY MPV 9.6 fL 7.4 - 10.4 11/27/2013 [facility] HEMATOLOGY Platelet 119 K/CMM 133 - 450 11/27/2013 [facility] HEMATOLOGY RDW 15.8 % 11.5 - 14.5 11/27/2013 [facility] HEMATOLOGY MCHC 32.7 g/dL 32.0 - 36.0 11/27/2013 [facility] HEMATOLOGY MCH 37.7 pg 27.0 - 31.0 11/27/2013 [facility] HEMATOLOGY MCV 115.3 fL 80.0 - 94.0 11/27/2013 [facility] HEMATOLOGY Hgb 13.5 g/dL 14.0 - 18.0 11/27/2013 [facility] HEMATOLOGY Hct 41.4 % 42.0 - 54.0 11/27/2013 [facility] IMMUNOLOGY HCV RNA VirLoad Non Det 11/27/2013 [facility] IMMUNOLOGY HCV RNA Log10 null 11/27/2013 3Interpretive Data: Reference Interval: Less than 15(1.18 log IU/mL)HCV RNA IU/mL Analytic Measurement Range: 15-100,000,000 IU/mL(1.18-8.0 log value) No Target HCV RNA detected will be reported as HCV RNA Not Detected. A negative result does not rule out the possibility of the presence of the HCV virus. The specimen may contain HCV below the detectable limits of the assay. HCV RNA detected below 15 IU/mL will be resulted as "HCV RNA Detected, Less than 15 HCV RNA IU/mL." HCV version 2.0 quantitative assay is performed using the FDA approved [employer]iva MALINDA AmpliPrep/MALINDA TaqMan HCV real-time RT-PCR IVD system to detect the 5'-untranslated region of the HCV genome in genotypes 1 through 6 utilizing a dual probe approach. The assay is intended for use as an aid in the management of HCV-infected individuals undergoing anti-viral therapy and results are not intended to be used as the individual means for clinical diagnosis or patient management. Performance characteristics have been verified by the [facility] within [facility]. The Molecular Diagnostic Laboratory is authorized under the Clinical Laboratory Improvement Amendments of 1988 (CLIA-88) to perform high complexity testing. [facility] Vital Signs Vital Sign Value Date Comments Source BMI Calculated 26.42 01/16/2019 [facility] Weight 61.364 01/16/2019 [facility] Height 152.4 cm 01/16/2019 [facility] BMI Calculated 56.73 12/29/2018 [facility] Weight 136.3 12/29/2018 [facility] Systolic (mm Hg) 113 12/29/2018 [facility] Diastolic (mm Hg) 69 12/29/2018 [facility] Height 155 cm 12/29/2018 [facility] Heart Rate 69 12/29/2018 [facility] Respitory Rate 21 12/29/2018 [facility] BMI Calculated 24.84 11/08/2018 [facility] Weight 61.591 11/08/2018 [facility] Height 157.48 cm 11/08/2018 [facility] Heart Rate 69 11/08/2018 [facility] Systolic (mm Hg) 130 11/08/2018 [facility] Diastolic (mm Hg) 70 11/08/2018 [facility] Weight 62.273 01/18/2018 [facility] BMI Calculated 25.11 01/18/2018 [facility] Height 157.48 cm 01/18/2018 [facility] Systolic (mm Hg) 117 01/18/2018 [facility] Diastolic (mm Hg) 71 01/18/2018 [facility] Heart Rate 62 01/18/2018 [facility] Respitory Rate 16 01/18/2018 [facility] Systolic (mm Hg) 140 10/23/2016 [facility] Diastolic (mm Hg) 67 10/23/2016 [facility] Systolic (mm Hg) 140 10/23/2016 [facility] Diastolic (mm Hg) 67 10/23/2016 [facility] Systolic (mm Hg) 117 10/23/2016 [facility] Diastolic (mm Hg) 63 10/23/2016 [facility] Respitory Rate 20 10/23/2016 [facility] Respitory Rate 20 10/22/2016 [facility] Respitory Rate 19 10/22/2016 [facility] Weight 64.545 10/22/2016 [facility] Height 144.78 cm 10/22/2016 [facility] BMI Calculated 30.79 10/22/2016 [facility] Weight 65.909 06/12/2016 [facility] Height 144.78 cm 06/12/2016 [facility] BMI Calculated 31.44 06/12/2016 [facility] Respitory Rate 16 05/22/2016 [facility] Systolic (mm Hg) 135 05/22/2016 [facility] Diastolic (mm Hg) 70 05/22/2016 [facility] Respitory Rate 10 05/22/2016 [facility] Systolic (mm Hg) 149 05/22/2016 [facility] Diastolic (mm Hg) 81 05/22/2016 [facility] Systolic (mm Hg) 139 05/22/2016 [facility] Diastolic (mm Hg) 82 05/22/2016 [facility] Respitory Rate 10 05/22/2016 [facility] Heart Rate 68 05/22/2016 [facility] BMI Calculated 31.44 05/22/2016 [facility] Weight 65.909 05/22/2016 [facility] Height 144.78 cm 05/20/2016 [facility] Heart Rate 73 05/20/2016 [facility] Height 144.78 cm 04/28/2016 [facility] Heart Rate 67 04/28/2016 [facility] Temperature Oral (F) 97.7 F 04/28/2016 [facility] BMI Calculated 31.93 04/28/2016 [facility] Weight 66.932 04/28/2016 [facility] Systolic (mm Hg) 118 04/28/2016 [facility] Diastolic (mm Hg) 75 04/28/2016 [facility] Weight 65.966 11/18/2015 [facility] BMI Calculated 26.6 11/18/2015 [facility] Height 157.48 cm 11/18/2015 [facility] Respitory Rate 51 11/18/2015 [facility] Systolic (mm Hg) 141 11/18/2015 [facility] Diastolic (mm Hg) 68 11/18/2015 [facility] Weight 66.875 08/05/2015 [facility] BMI Calculated 26.97 08/05/2015 [facility] Height 157.48 cm 08/05/2015 [facility] Systolic (mm Hg) 132 08/05/2015 [facility] Diastolic (mm Hg) 67 08/05/2015 [facility] BMI Calculated 26.39 04/29/2015 [facility] Weight 65.455 04/29/2015 [facility] Height 157.48 cm 04/29/2015 [facility] Temperature Oral (F) 97.5 F 04/29/2015 [facility] Heart Rate 63 04/29/2015 [facility] Systolic (mm Hg) 109 04/29/2015 [facility] Diastolic (mm Hg) 59 04/29/2015 [facility] Respitory Rate 15 12/31/2014 [facility] Heart Rate 48 12/31/2014 [facility] Systolic (mm Hg) 117 12/31/2014 [facility] Diastolic (mm Hg) 66 12/31/2014 [facility] Height 157 cm 12/31/2014 [facility] Weight 66.8 12/31/2014 [facility] BMI Calculated 27.1 12/31/2014 [facility] Diastolic (mm Hg) 61 07/02/2014 [facility] Systolic (mm Hg) 117 07/02/2014 [facility] Respitory Rate 19 07/02/2014 [facility] Heart Rate 50 07/02/2014 [facility] Weight 61.4 07/02/2014 [facility] BMI Calculated 24.91 07/02/2014 [facility] Height 157 cm 07/02/2014 [facility] Systolic (mm Hg) 114 05/09/2014 [facility] Diastolic (mm Hg) 58 05/09/2014 [facility] Diastolic (mm Hg) 61 05/09/2014 [facility] Systolic (mm Hg) 115 05/09/2014 [facility] Diastolic (mm Hg) 62 05/09/2014 [facility] Systolic (mm Hg) 110 05/09/2014 [facility] Temperature Oral (F) 97.7 F 05/09/2014 [facility] BMI Calculated 26.21 05/09/2014 [facility] Weight 65 05/09/2014 [facility] Height 157.48 cm 05/09/2014 [facility] Systolic (mm Hg) 109 04/02/2014 [facility] Diastolic (mm Hg) 63 04/02/2014 [facility] Heart Rate 46 04/02/2014 [facility] Respitory Rate 17 04/02/2014 [facility] Heart Rate 67 12/08/2013 [facility] Temperature Oral (F) 98.9 F 12/08/2013 [facility] Systolic (mm Hg) 99 12/08/2013 [facility] Diastolic (mm Hg) 61 12/08/2013 [facility] Respitory Rate 18 12/08/2013 [facility] Diastolic (mm Hg) 69 12/08/2013 [facility] Heart Rate 69 12/08/2013 [facility] Respitory Rate 18 12/08/2013 [facility] Systolic (mm Hg) 116 12/08/2013 [facility] Temperature Oral (F) 98.6 F 12/08/2013 [facility] Respitory Rate 18 12/08/2013 [facility] Heart Rate 71 12/08/2013 [facility] Temperature Oral (F) 98.4 F 12/08/2013 [facility] Systolic (mm Hg) 115 12/08/2013 [facility] Diastolic (mm Hg) 70 12/08/2013 [facility] Height 157.48 cm 12/08/2013 [facility] Weight 70.455 12/08/2013 [facility] BMI Calculated 28.41 12/08/2013 [facility] Height 157.48 cm 12/07/2013 [facility] Weight 66.364 12/07/2013 [facility] BMI Calculated 26.76 12/07/2013 [facility] Height 154 cm 11/27/2013 [facility] Weight 66.5 11/27/2013 [facility] Respitory Rate 17 11/27/2013 [facility] Heart Rate 65 11/27/2013 [facility] BMI Calculated 28.04 11/27/2013 [facility] Diastolic (mm Hg) 65 11/27/2013 [facility] Systolic (mm Hg) 110 11/27/2013 [facility] Systolic (mm Hg) 112 10/16/2013 [facility] Diastolic (mm Hg) 67 10/16/2013 [facility] Heart Rate 67 10/16/2013 [facility] Respitory Rate 16 10/16/2013 [facility] Height 154.5 cm 10/16/2013 [facility] Weight 62.6 10/16/2013 [facility] Diastolic (mm Hg) 67 09/11/2013 [facility] Systolic (mm Hg) 111 09/11/2013 [facility] Respitory Rate 19 09/11/2013 [facility] Heart Rate 69 09/11/2013 [facility] Weight 65.9 09/11/2013 [facility] Height 157 cm 09/11/2013 [facility] Encounters Location Location Details Encounter Type Encounter Number Reason For Visit Attending Provider ADM Date DC Date Status Source [facility] Outpatient [id number] CIRRHOSIS OF LIVER DAVE ROSAS 06/12/2013 Active [facility] Outpatient [id number] DDC-F/U VISIT DAVE ROSAS 08/14/2013 08/14/2013 Active [facility] Outpatient [id number] CIRRHOSIS, ESOPHAGEAL VARICES DAVE ROSAS 09/11/2013 09/11/2013 Active [facility] Outpatient [id number] ADD ON PER NOBLE ROSAS 10/16/2013 Active [facility] Outpatient [id number] _MAPID:[id number] Dave Rosas 11/27/2013 11/28/2013 [facility] [id number] _MAPID:[id number] Dave Rosas 11/28/2013 11/29/2013 OP[facility] OBS Observation Patient [id number] _MAPID:[id number] [place] 12/07/2013 12/09/2013 [facility] Outpatient [id number] _MAPID:[id number] Dave Rosas 12/11/2013 12/12/2013 [facility] Outpatient [id number] Dave Rosas 01/08/2014 01/09/2014 [facility] Outpatient [id number] Dave Rosas 04/02/2014 04/03/2014 [facility] [id number] Dave Rosas 04/02/2014 04/03/2014 [facility] [place] [facility] [id number] Dave Rosas 05/01/2014 05/02/2014 [facility] Bedded Outpatient [id number] Juliano Silver 05/09/2014 05/09/2014 [facility] EDDC Phone Message [id number] 05/09/2014 [facility] [id number] Dave Rosas 07/02/2014 07/03/2014 [facility] [place] [facility] [id number] Christian Griffin 07/04/2014 07/05/2014 [facility] Bedded Outpatient [id number] Dave Rsoas 08/28/2014 08/30/2014 [facility] Outpatient [id number] Dave Rosas 12/31/2014 01/01/2015 [facility] [place] [facility] [id number] Dave Rosas 01/04/2015 01/05/2015 [facility] Bedded Outpatient [id number] Dave Rosas 01/29/2015 01/29/2015 [facility] [place] [facility] [id number] Dave Rosas 04/15/2015 04/16/2015 MH [facility] [place] [facility] Outpatient [id number] Dave Rosas 04/29/2015 04/30/2015 [facility] Outpatient [id number] Dave Rosas 06/04/2015 06/04/2015 [facility] [place] [facility] [id number] Dave Rosas 07/02/2015 07/03/2015 [facility] Outpatient [id number] Dave Rosas 08/05/2015 08/06/2015 [facility] Outpatient [id number] Dave Rosas 09/03/2015 09/04/2015 [facility] Outpatient [id number] Dave Rsoas 11/18/2015 11/19/2015 [facility] Outpatient [id number] Dave Rosas 11/26/2015 11/26/2015 [facility] [place] [facility] [id number] Atvince Reyes 01/01/2016 01/02/2016 [facility] [id number] Dave Rosas 02/03/2016 02/04/2016 [facility] [place] [facility] [id number] Wilman Pérez 03/20/2016 03/21/2016 [facility] [place] [facility] Outpatient [id number] Dave Rosas 04/28/2016 04/29/2016 [facility] Day Surgery [id number] Dave Rosas 05/22/2016 05/23/2016 [facility] Outpatient [id number] Stuart Silver 06/12/2016 06/13/2016 [facility] [id number] Dave Rosas 06/24/2016 06/25/2016 MH OPID [facility] Bedded Outpatient [id number] Dave Rosas 06/25/2016 06/25/2016 [facility] [place] [facility] [id number] Isidoro Fairchild 08/14/2016 08/15/2016 MH [facility] [place] [facility] Bedded Outpatient [id number] Dave Rosas 09/10/2016 09/10/2016 [facility] Outpatient [id number] Brianna Edwards 10/22/2016 10/23/2016 [facility] [place] [facility] [id number] Isidoro Fairchild 12/01/2016 12/02/2016 [facility] [place] [facility] Outpatient [facility] [place] [facility] [id number] Dave Rosas 12/09/2016 12/10/2016 [facility] [id number] Dave Rosas 07/17/2017 07/18/2017 [facility] [place] [facility] [id number] Isidoro Fairchild 10/06/2017 10/07/2017 MH OPID [facility] Outpatient [id number] Dave Rosas 01/18/2018 01/19/2018 [facility] [id number] Dave Rosas 02/12/2018 02/13/2018 MH OPID [facility] Bedded Outpatient [id number] Dave Rosas 02/17/2018 02/17/2018 [facility] Outpatient [id number] Dave Rosas 11/08/2018 11/09/2018 [facility] [place] [facility] [id number] Dave Rosas 12/13/2018 12/14/2018 [facility] [place] [facility] [id number] Juan Louis 12/29/2018 12/30/2018 [facility] Outpatient [id number] William Munoz 01/16/2019 01/17/2019 [facility] Outpatient [id number] 1M: HCV-2 CIRRHOSIS, EV, AFLUTTER, 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[place], HYPERP P DAVE ROSAS Active [facility] Procedures Procedure Code Date Perfomer Comments Source Ablation, 1 or more liver tumor(s), percutaneous, radiofrequency 23213 05/22/2016 [facility] Appendectomy [id number] [facility] [place] Cholecystectomy [id number] [facility] [place] [facility] of [facility] [id number] [facility] Appendectomy [id number] [facility] Cholecystectomy [id number] [facility] MRI of liver [id number] [facility] Appendectomy [id number] [facility] [place] Cholecystectomy [id number] [facility] [place] MRI of liver [id number] [facility] [place] Cataract surgery [id number] [facility] Appendectomy [id number] [facility] [place] Cholecystectomy [id number] [facility] [place] MRI of liver [id number] [facility] [place] Cataract surgery [id number] [facility] [place]
--- OUTSIDE RECORDS SUMMARY | 2019-01-19 00:27 | XMS REPORT | Summary of Care ---
Author Author [facility] Outpatient Imaging [facility] Outpatient Imaging [facility] Address Unknown Phone Unavailable Encounter [facility](FIN) [id number] Date(s): 10/06/17 - 10/06/17 [facility] Emergency Department Imaging [facility] [address] [facility], [address] [place] [address] [phone] Encounter Diagnosis Low back pain (Final) - 10/11/17 Localized edema (Final) - Discharge Disposition: Home or Self Care Attending Physician: Isidoro Fairchild MD Vital Signs No data available for [...] History: Belle Harding RN 2Admin Note: Administered 12-16-13. Pt. will return in one month for second inj. 3Admin Note: [facility] [id number] #2 Procedures Procedure Date Related Diagnosis Body [...] Reg Smoking Cessation Counseling No entered on: 10/22/16 1none Assessment and Plan No data available for this section
--- OUTSIDE RECORDS SUMMARY | 2019-01-19 00:27 | XMS REPORT | Summary of Care ---
Author Author [facility] Organization [facility] Address Unknown Phone Unavailable Encounter KHRIS Roque(ELOISA) [id number] Date(s): 01/16/19 - 01/16/19 [facility] [address] [place] [address] Discharge Disposition: Home or Self Care Attending Physician: William Munoz MD Referring Physician: William Munoz MD Vital Signs Most recent to 1 oldest [Reference Range]: Height 152.4 cm (01/16/19 2:12 PM) Weight 61.364 kg (01/16/19 2:12 PM) Body Mass Index 26.42 m2 (01/16/19 2:12 PM) Problem List Condition Effective Dates Status Health [...] 23-valent vaccine 12/08/13 Given hepatitis B vaccine3 1/20/14 Given Not Given Vaccine Date Status Refusal Reason pneumococcal 13-valent vaccine4 01/17/19 Not Given Patient Refuses 1Location History: Belle Harding RN 2Admin Note: Administered 09-11-13. Pt. will return in one month for second inj. 3Admin Note: [facility] [id number] #2 4Result Comment: will defer to PCP Procedures Procedure Date Related Diagnosis Body Site [...] Reg Smoking Cessation Counseling No entered on: 01/17/19 1none Assessment and Plan No data available for this section
--- OUTSIDE RECORDS SUMMARY | 2019-01-19 00:27 | XMS REPORT | Summary of Care ---
Author Author [facility] Organization [facility] Address Unknown Phone Unavailable Encounter KHRIS Roque(ELOISA) [id number] Date(s): 12/29/18 - 12/29/18 [facility] [address] [facility] [address] [place] [phone]- [phone] Discharge Disposition: Home or Self Care Attending Physician: Juan Louis MD Referring Physician: Juan Louis MD Vital Signs Most recent to 1 oldest [Reference Range]: Height 155 cm (12/29/18 1:33 PM) Blood Pressure 113/69 mmHg [90-140/60-90 mmHg] (12/29/18 1:33 PM) Respiratory Rate 21 BRMIN [14-20 BRMIN] *HI* (12/29/18 1:33 PM) Peripheral Pulse 69 bpm Rate [60-100 bpm] (12/29/18 1:33 PM) Weight 136.3 kg (12/29/18 1:33 PM) Body Mass Index 56.73 m2 (12/29/18 1:33 PM) Problem List Condition Effective Dates Status [...] Reaction Severity Status NKDA Active Medications No Known Medications Results No data available for this section [...] one month for second inj. 3Admin Note: [facility] [id number] #2 Procedures Procedure Date Related Diagnosis Body [...] Reg Smoking Cessation Counseling No entered on: 12/29/18 1none Assessment and Plan Extracted from: Title: IR ATTENDING TRANSPLANT Author: William Munoz MD Date: 12/29/18 CONSULT NOTE IR ATTENDING CONSULT NOTE 78 yo M with HCV and HCC previoussegment 6 ablation, on routine liver CT a new 1.6 cm HCC in segment 6 and segment 2 1.5 cm HCC presents for evaluation for MWA for both lesions. Prior ablation caused nausea and vomiting and he mentioned it was not well controlled. INR: 1.11 (11/08/18 11:12:00)AGAP: 9 mEq/L Low (11/08/18 11:12:00) Chloride Lvl: 103 mEq/L (11/08/18 11:12:00) CO2: 28 mEq/L (11/08/18 11:12:00) Potassium Lvl: 4 mEq/L (11/08/18 11:12:00) Sodium Lvl: 136 mEq/L (11/08/18 11:12:00) A/G Ratio: 1.1 (11/08/18 11:12:00) Albumin Lvl: 4.4 g/dL (11/08/18 11:12:00) Alk Phos: 88 unit/L (11/08/18 11:12:00) ALT: 27 unit/L (11/08/18 11:12:00) AST: 28 unit/L (11/08/18 11:12:00) Bili Total: 0.5 mg/dL (11/08/18 11:12:00) BUN: 16 mg/dL (11/08/18 11:12:00) Calcium Lvl: 10.3 mg/dL (11/08/18 11:12:00) Creatinine Lvl: 1.26 mg/dL (11/08/18 11:12:00) eGFR: 55 mL/min/1.73m2 (11/08/18 11:12:00) Globulin: 3.9 g/dL (11/08/18 11:12:00) Glucose Lvl: 103 mg/dL High (11/08/18 11:12:00) Total Protein: 8.3 g/dL (11/08/18 11:12:00) CT shows no ascites, portal vein open. Assesment and Plan I discussed that he is a good candidate for MWA of both lesions. Labs are WNL. Mr. Chen is in agreement with the plan he requested the procedure be done before January 16 since he is taking a trip. Also since he had dificulty post procedure, we will plan to admit him after the ablation. The MWA will be done under [place].
--- OUTSIDE RECORDS SUMMARY | 2019-01-19 00:28 | XMS REPORT | Summary of Care ---
Author Organization Unknown Address Unknown Phone Unavailable Encounter Dates Location Diagnoses Discharge Providers Disposition 11/28/2013 [facility] Outpatient Imaging Home Dave Doty 11/28/[address] [place] [address] Reason for Visit 070.54 - [facility] HTP C WO Problem List Condition Effective Dates Status Health Status Informant Ascites(Confirmed) Active Atrial Active flutter(Confirmed) Cirrhosis and Active chronic liver disease(Confirmed) Diabetes Active mellitus(Confirmed) Duodenal Active ulcer(Confirmed) Esophageal Active varices(Confirmed)1 Gastritis(Confirmed) Active Hepatitis Active C(Confirmed)2 1grade 1 2genotype 2, prior treatment with interferon and ribavirin over 10 years ago Allergies, Adverse Reactions, Alerts Status Substance Reaction Severity Active NKDA Medications No data available for this section Medications Administered During Your Visit No data available for this section Immunizations Vaccine Date Refusal Reason hepatitis B adult vaccine1 09/15/2013 hepatitis B vaccine2 10/16/2013 1Admin Note: Administered 09-11-13. Pt. will return in one month for second inj. 2Admin Note: [facility] 7371-6354-02 #2 Social History Social History Type Response Smoking Status Use: Never smoker. Type: Cigars. Tobacco smoke exposure: None. Did the Patient Smoke Cigarettes Anytime During the Last 365 Days? No. Cessation Counseling Provided? No.
--- OUTSIDE RECORDS SUMMARY | 2019-01-19 00:28 | XMS REPORT | Summary of Care ---
Author Organization Unknown Address Unknown Phone Unavailable Encounter Dates Location Diagnoses Discharge Providers Disposition 12/11/2013 [facility] Home Dave Doty - [address] [place] [address] Dave Doty 12/11/[address] Reason for Visit 1M: HCV-2 CIRRHOSIS, EV, AFLUTTER, FOR HCV-TX, HYPERP P Problem List Condition Effective Dates Status Health Status Informant Atrial Active flutter(Confirmed) Atrial Active Flutter(Confirmed) Chronic antral Resolved gastritis(Confirmed) Chronic hepatitis Active C(Confirmed) Cirrhosis and Active chronic liver disease(Confirmed) Cirrhosis of Resolved liver(Confirmed) Constrictive Active pericarditis(Confirm ed) Diabetes Active mellitus(Confirmed) DM (diabetes Active mellitus)(Confirmed) Duodenal Active ulcer(Confirmed) Duodenal Active Ulcer(Confirmed) Esophageal Active varices(Confirmed)1 Esophageal Active varices(Confirmed) Gastritis(Confirmed) Active Hepatitis Active C(Confirmed)2 Hepatitis C virus Active genotype 2(Confirmed) Hyperplastic colon Resolved polyp(Confirmed) 1grade 1 2genotype 2, prior treatment with interferon and ribavirin over 10 years ago Allergies, Adverse Reactions, Alerts Status Substance Reaction Severity Active NKDA Medications No data available for this section Medications Administered During Your Visit No data available for this section Immunizations Vaccine Date Refusal Reason hepatitis B adult vaccine1 09/15/2013 hepatitis B vaccine2 10/16/2013 pneumococcal 23-valent vaccine 12/08/2013 1Admin Note: Administered 09-11-13. Pt. will return in one month for second inj. 2Admin Note: [facility] [id number] #2 Social History Social History Type Response Alcohol Past, Type Beer. Alcohol use interferes with work or home: No. Drinks more than intended: No. Others hurt by drinking: No. Ready to change: No. Household alcohol concerns: No. Smoking Status Use: Never smoker. Type: Cigars. Tobacco smoke exposure: None. Did the Patient Smoke Cigarettes Anytime During the Last 365 Days? No. Cessation Counseling Provided? No.
--- OUTSIDE RECORDS SUMMARY | 2019-01-19 00:28 | XMS REPORT | Summary of Care ---
Author Organization Unknown Address Unknown Phone Unavailable Encounter [facility](ELOISA) [id number] Date(s): 07/02/14 - 07/02/[address] Discharge Disposition: Home Physician Attending: Dave Doty MD Physician_Referring: Dave Doty MD Reason for Visit ACUTE HEPATITIS C Vital Signs Most recent to 1 oldest [Reference Range]: Height 157 cm (07/02/14 11:24 AM) Systolic Blood 117 mmHg Pressure [90-140 (07/02/14 11:24 AM) mmHg] Diastolic Blood 61 mmHg Pressure [60-90 (07/02/14 11:24 AM) mmHg] Respiratory Rate 19 BRMIN [14-20 BRMIN] (07/02/14 11:24 AM) Peripheral Pulse 50 bpm Rate [60-100 bpm] *LOW* (07/02/14 11:24 AM) Weight 61.4 kg (07/02/14 11:24 AM) Body Mass Index 24.91 m2 (07/02/14 11:24 AM) Problem List Condition Effective Dates Status [...] 10 years ago Allergies, Adverse Reactions, Alerts Substance Reaction Severity Status NKDA Active Medications Lasix 40 mg oral tablet 20 mg=0.5 tab, PO, Daily, # 30 tab, 5 Refill(s), Pharmacy: [facility]/pharmacy #[id number] Start Date: 07/02/14 Status: Ordered Medications Administered During Your Visit No data available for this section Immunizations Vaccine Date Refusal Reason hepatitis B adult vaccine1 09/15/13 hepatitis B vaccine2 10/16/13 pneumococcal 23-valent vaccine 12/08/13 1Admin Note: Administered 09-11-13. Pt. will return in one month for second inj. 2Admin Note: [facility] [id number] #2 Social History Social History Type Response Alcohol Use: Past, Type: Beer, Has alcohol use interfered with work or home life? No, Do you ever drink more than intended? No, Has anyone been hurt or at risk by your drinking? No, Ready to change: No, Concerns about alcohol use in household: No1 Smoking Status Never smoker, Type: Cigars, Exposure to Tobacco Smoke None, Cigarette Smoking Last 365 Days No, Reg Smoking Cessation Counseling No 1none
--- OUTSIDE RECORDS SUMMARY | 2019-01-19 00:28 | XMS REPORT | Summary of Care ---
Author Organization Unknown Address Unknown Phone Unavailable Encounter Dates Location Diagnoses Discharge Providers Disposition 12/07/2013 [facility] [place] - [address] [place] [address] [place] 12/08/[address] Reason for Visit SOB, PRESYNCOPE Vital Signs 1 2 3 Most recent to oldest [Reference Range]: 157.48 cm (12/08/2013 02:25:00 [facility]) 157.48 cm (12/07/2013 17:31:00 [facility]) Height 98.9 DegF (12/08/2013 16:00:00 [facility]) 98.6 DegF (12/08/2013 12:00:00 [facility]) 98.4 DegF (12/08/2013 07:49:00 [facility]) Temperature Oral [96.4-99.1 DegF] 99 mmHg (12/08/2013 16:00:00 [facility]) 116 mmHg (12/08/2013 12:00:00 [facility]) 115 mmHg (12/08/2013 07:49:00 [facility]) Systolic Blood Pressure [90-140 mmHg] 61 mmHg (12/08/2013 16:00:00 [facility]) 69 mmHg (12/08/2013 12:00:00 [facility]) 70 mmHg (12/08/2013 07:49:00 [facility]) Diastolic Blood Pressure [60-90 mmHg] 18 BRMIN (12/08/2013 16:00:00 [facility]) 18 BRMIN (12/08/2013 12:00:00 [facility]) 18 BRMIN (12/08/2013 07:49:00 [facility]) Respiratory Rate [14-20 BRMIN] 67 bpm (12/08/2013 16:00:00 [facility]) 69 bpm (12/08/2013 12:00:00 [facility]) 71 bpm (12/08/2013 07:49:00 [facility]) Peripheral Pulse Rate [60-100 bpm] 70.455 kg (12/08/2013 02:25:00 [facility]) 66.364 kg (12/07/2013 17:31:00 [facility]) Weight 28.41 m2 (12/08/2013 02:25:00 [facility]) 26.76 m2 (12/07/2013 17:31:00 [facility]) Body Mass Index Problem List Condition Effective Dates Status Health Status Informant Ascites(Confirmed) Active Ascites(Confirmed) Active Atrial Active flutter(Confirmed) Atrial Active Flutter(Confirmed) Chronic antral Resolved gastritis(Confirmed) Cirrhosis and Active chronic liver disease(Confirmed) Cirrhosis of Resolved liver(Confirmed) Diabetes Active mellitus(Confirmed) DM (diabetes Active mellitus)(Confirmed) Duodenal Active ulcer(Confirmed) Duodenal Active Ulcer(Confirmed) Esophageal Active varices(Confirmed)1 Esophageal Active varices(Confirmed) Gastritis(Confirmed) Active Hepatitis Active C(Confirmed)2 Hepatitis C virus Active genotype 2(Confirmed) Hyperplastic colon Resolved polyp(Confirmed) 1grade 1 2genotype 2, prior treatment with interferon and ribavirin over 10 years ago Allergies, Adverse Reactions, Alerts Status Substance Reaction Severity Active NKDA Medications Medication Instructions Start Date Stop Date Status Ancef 1 gm, Route: IVPB, ONCE, Dosing 12/07/2013 12/07/2013 Discontinued Weight 66.364, kg, Priority: STAT, Start date: 12/07/13 18:47:00, Stop date: 12/07/13 18:47:00 aspirin 81 mg, 1 tab, Route: PO, Drug form: 12/08/2013 12/08/2013 Discontinued ECTAB, Daily, Dosing Weight 70.455, kg, Priority: NOW, Start date: 12/08/13 13:38:00, Duration: 30 day, Stop date: 01/07/14 9:00:00 aspirin 81 mg 81 mg=1 tab, PO, Daily, # 120 tab, 12/08/2013 Ordered tablet, enteric 0 Refill(s) coated atenolol 25 mg oral 12.5 mg=0.5 tab, PO, Daily, 0 12/08/2013 Ordered tablet Refill(s) furosemide 20 mg, 2 mL, Route: IVP, Drug form: 12/07/2013 12/08/2013 Completed INJ, ONCE, Dosing Weight 66.364, kg, Priority: STAT, Start date: 12/07/13 23:44:00, Stop date: 12/07/13 23:44:00 (Same as: Lasix) furosemide 40 mg 40 mg, 1 tab, Route: PO, Drug form: 12/08/2013 12/08/2013 Discontinued oral tablet TAB, Daily, Dosing Weight 66.364, kg, Start date: 12/08/13 9:00:00, Duration: 30 day, Stop date: 01/06/14 9:00:00 (Same as: Lasix) May cause GI upset. Give with food or milk. glimepiride 1 mg, 1 tab, Route: PO, Drug form: 12/08/2013 12/08/2013 Discontinued TAB, Daily, Dosing Weight 66.364, kg, Start date: 12/08/13 9:00:00, Duration: 30 day, Stop date: 01/06/14 9:00:00 (Same as: Amaryl) heparin 5000 5,000 unit, 1 mL, Route: SUB-Q, 12/08/2013 12/08/2013 Discontinued units/mL injectable Drug form: INJ, Q8H, Dosing Weight solution 70.455, kg, Start date: 12/08/13 16:00:00, Duration: 30 day, Stop date: 01/07/14 8:00:00 porcine heparin Lasix 20 mg, 2 mL, Route: IVP, Drug form: 12/07/2013 12/07/2013 Completed INJ, ONCE, Dosing Weight 66.364, kg, Priority: STAT, Start date: 12/07/13 21:46:00, Stop date: 12/07/13 21:46:00 (Same as: Lasix) Lasix 40 mg oral 40 mg=1 tab, PO, BID, # 60 tab, 3 12/08/2013 Ordered tablet Refill(s) pantoprazole 40 mg, 1 tab, Route: PO, Drug form: 12/08/2013 12/08/2013 Discontinued ECTAB, Daily, Dosing Weight 66.364, kg, Start date: 12/08/13 9:00:00, Duration: 30 day, Stop date: 01/06/14 9:00:00 Tablet should not be chewed or crushed.(Same as: Protonix) pneumococcal 0.5 ml, Route: IM, Drug Form: INJ, 12/08/2013 12/08/2013 Deleted 23-valent vaccine Daily, Start date: 12/08/13 9:00:00, Duration: 1 doses or times, Stop date: 12/08/13 9:00:00 (Same as: Pneumovax 23) Refrigerate spironolactone 25 mg, 1 tab, Route: PO, Drug form: 12/08/2013 12/08/2013 Discontinued TAB, Daily, Dosing Weight 66.364, kg, Start date: 12/08/13 9:00:00, Duration: 30 day, Stop date: 01/06/14 9:00:00 (Same As: Aldactone) Results ELECTROLYTES Most recent to 1 oldest [Reference Range]: Sodium Lvl [135-145 138 mEq/L mEq/L] (12/07/2013 19:15:00 [facility]) Potassium Lvl 4.4 mEq/L [3.5-5.1 mEq/L] (12/07/2013 19:15:00 [facility]) Chloride Lvl [95-109 106 mEq/L mEq/L] (12/07/2013 19:15:00 [facility]) CO2 [24-32 mEq/L] 23 mEq/L *LOW* (12/07/2013 19:15:00 [facility]) AGAP [10.0-20.0 13.4 mEq/L mEq/L] (12/07/2013 19:15:00 [facility]) CHEM PANEL Most recent to 1 oldest [Reference Range]: Creatinine Lvl 1.3 mg/dL [0.5-1.4 mg/dL] (12/07/2013 19:15:00 [facility]) eGFR 55 mL/min/1.73m2 1 *NA* (12/07/2013 19:15:00 [facility]) BUN [7-22 mg/dL] 16 mg/dL (12/07/2013 19:15:00 [facility]) Glucose Lvl [70-99 126 mg/dL 2 mg/dL] *HI* (12/07/2013 19:15:00 [facility]) Total Protein 8.0 g/dL [6.4-8.4 g/dL] (12/07/2013 19:15:00 [facility]) Albumin Lvl [3.5-5.0 3.3 g/dL g/dL] *LOW* ([facility]07[facility] Globulin [2.0-4.0 4.7 g/dL g/dL] *HI* (12/07/2013:15:00 [facility]) A/G Ratio [0.7-1.6] 0.7 (12/07/2013:15:00 [facility]) Calcium Lvl 9.7 mg/dL [8.5-10.5 mg/dL] (12/07/2013:15:00 [facility]) ALT [0-65 unit/L] 22 unit/L (12/07/2013:15:00 [facility]) AST [0-37 unit/L] 37 unit/L (12/07/2013:15:00 [facility]) Alk Phos [39-136 178 unit/L unit/L] *HI* (12/07/2013:15:00 [facility]) Bili Total [0.2-1.3 0.9 mg/dL mg/dL] (12/07/2013:15:00 [facility]) Bili Direct [0.0-0.3 0.3 mg/dL mg/dL] (12/07/2013:15:00 [facility]) Bili Indirect 0.6 mg/dL [0.0-1.0 mg/dL] (12/07/2013:15:00 [facility]) 1Result Comment: The eGFR is calculated using [...] from the National Kidney Disease Education Program ( NKDEP) which additionally recommends that when the eGFR is used in patients with extremes of body mass index for purposes of drug dosing, the eGFR should be mul tiplied by the estimated BMI. 2Interpretive Data: Adult reference range values reflect the clinical guidelines of the [place] [employer]. CARDIAC ENZYMES Most recent to 1 oldest [Reference Range]: Total CK [12-191 59 unit/L unit/L] (12/08/2013 09:42:25 [facility]) Troponin-T <0.010 ng/mL [0.000-0.100 ng/mL] (12/08/2013 09:42:25 [facility]) Troponin-I <0.02 ng/mL [0.00-0.40 ng/mL] (12/08/2013 09:42:25 [facility]) URINE AND STOOL Most recent to 1 oldest [Reference Range]: UA Turbidity [Clear] Clear (12/08/2013 06:00:00 [facility]) UA Color [Yellow] Yellow *NA* (12/08/2013 06:00:00 [facility]) UA pH [5.0-8.0] 5.0 (12/08/2013 06:00:00 [facility]) UA Spec Grav 1.012 [<=1.030] (12/08/2013 06:00:00 [facility]) UA Glucose [Negative Negative mg/dL mg/dL] *NA* (12/08/2013 06:00:00 [facility]) UA Blood [Negative] Negative (12/08/2013 06:00:00 [facility]) UA Ketones [Negative Negative mg/dL mg/dL] *NA* (12/08/2013 06:00:00 [facility]) UA Protein [Negative Negative mg/dL mg/dL] (12/08/2013 06:00:00 [facility]) UA Urobilinogen <=1.0 mg/dL [0.1-1.0 mg/dL] *NA* (12/08/2013 06:00:00 [facility]) UA Bili [Negative] Negative *NA* (12/08/2013 06:00:00 [facility]) UA Leuk Est Negative [Negative] (12/08/2013 06:00:00 [facility]) UA Nitrite Negative [Negative] (12/08/2013 06:00:00 [facility]) UA WBC [0-5 /HPF] 1 /HPF (12/08/2013 06:00:00 [facility]) UA RBC [0-2 /HPF] <1 /HPF (12/08/2013 06:00:00 [facility]) UA Sq Epi [Few /LPF] Few /LPF *NA* (12/08/2013 06:00:00 [facility]) UA Mucus [None Seen Few /LPF /LPF] *NA* (12/08/2013 06:00:00 [facility]) HEMATOLOGY Most recent to 1 oldest [Reference Range]: WBC [3.7-10.4 K/CMM] 5.2 K/CMM (12/07/2013 19:15:00 [facility]) RBC [4.70-6.10 3.27 M/CMM M/CMM] *LOW* (12/07/2013 19:15:00 [facility]) Hgb [14.0-18.0 g/dL] 11.8 g/dL *LOW* (12/07/2013 19:15:00 [facility]) Hct [42.0-54.0 %] 36.0 % *LOW* (12/07/2013 19:15:00 [facility]) MCV [80.0-94.0 fL] 110.2 fL *HI* (12/07/2013 19:15:00 [facility]) MCH [27.0-31.0 pg] 36.3 pg *HI* (12/07/2013 19:15:00 [facility]) MCHC [32.0-36.0 32.9 g/dL g/dL] (12/07/2013 19:15:00 [facility]) RDW [11.5-14.5 %] 14.2 % (12/07/2013 19:15:00 [facility]) Platelet [133-450 92 K/CMM K/CMM] *LOW* (12/07/2013 19:15:00 [facility]) MPV [7.4-10.4 fL] 8.9 fL (12/07/2013 19:15:00 [facility]) Segs [45.0-75.0 %] 52.0 % (12/07/2013 19:15:00 [facility]) Bands [0.0-11.0 %] 2.0 % (12/07/2013 19:15:00 [facility]) Lymphocytes 28.0 % [20.0-40.0 %] (12/07/2013 19:15:00 [facility]) Atypical Lymphs 0.0 % [<=0.0 %] ([facility]07[facility]2013 [facility] Monocytes [2.0-12.0 13.0 % %] *HI* (12/07/2013 19:15:00 [facility]) Eosinophils [0.0-4.0 4.0 % %] (12/07/2013 19:15:00 [facility]) Basophils [0.0-1.0 1.0 % %] (12/07/2013 19:15:00 [facility]) Segs-Bands # 2.8 K/CMM [1.5-8.1 K/CMM] (12/07/2013 19:15:00 [facility]) Lymphocytes # 1.5 K/CMM [1.0-5.5 K/CMM] (12/07/2013 19:15:00 [facility]) Monocytes # [0.0-0.8 0.7 K/CMM K/CMM] (12/07/2013 19:15:00 [facility]) Eosinophils # 0.2 K/CMM [0.0-0.5 K/CMM] (12/07/2013 19:15:00 [facility]) Basophils # [0.0-0.2 0.1 K/CMM K/CMM] (12/07/2013 19:15:00 [facility]) Anisocyte [None 1+ Seen] *ABN* (12/07/2013 19:15:00 [facility]) Polychrom [None Slight Seen] (12/07/2013 19:15:00 [facility]) Macrocyte [None 3+ Seen] *ABN* (12/07/2013 19:15:00 [facility]) Plt Morph Normal (12/07/2013 19:15:00 [facility]) PT [12.0-14.7 16.3 seconds seconds] *HI* (12/07/2013 19:15:00 [facility]) INR [0.85-1.17] 1.33 3 *HI* (12/07/2013 19:15:00 [facility]) PTT [22.9-35.8 40.5 seconds 4 seconds] *HI* (12/07/2013 19:15:00 [facility]) 3Interpretive Data: RECOMMENDED RANGES FOR PROTIME INR: 2.0-3.0 for most medical and surgical thromboembolic states. 2.5-3.5 for artificial heart valves and recurrent embolism. INR SHOULD BE USED ONLY FOR PATIENTS ON STABLE ANTICOAGULANT THERAPY. 4Interpretive Data: Heparin Therapeutic Range: 57 - 92 Seconds Medications Administered During Your Visit No data available for this section Immunizations Vaccine Date Refusal Reason hepatitis B adult vaccine1 09/15/2013 hepatitis B vaccine2 10/16/2013 pneumococcal 23-valent vaccine 12/08/2013 1Admin Note: Administered 09-11-13. Pt. will return in one month for second inj. 2Admin Note: [facility] [id number] #2 Procedures Procedure Type Body Site Date of Procedure Related Diagnosis Appendectomy Cholecystectomy Social History Social History Type Response Alcohol Past, Type Beer. Alcohol use interferes with work or home: No. Drinks more than intended: No. Others hurt by drinking: No. Ready to change: No. Household alcohol concerns: No. Smoking Status Use: Never smoker. Type: Cigars. Tobacco smoke exposure: None. Did the Patient Smoke Cigarettes Anytime During the Last 365 Days? No. Cessation Counseling Provided? No. Assessment and Plan Extracted from: Title: Hepatology progress note Author: Vini Duncan Date: 12/08/2013 Impression and Plan Patient is a 73 y/o HM with history of HCV cirrhosis (currently receiving treatment), DM, and GERD who presented to [facility] on 12/07 due to dyspnea and syncopal episoide. He skipped two days of his home medication diuretics prior to admission due to renal insufficiency. 1) Dyspnea -CXR with bilateral lower lobe opacities concerning for pulmonary edema. Also has fluid in fissure. Sx likely secondary to missing two days of his diuretics, as dyspnea resolved after receiving 20 mg IV lasix. Pneumonia less likely due to lack of fever and clinical symptoms -Will continue home doses of lasix 40 mg and spironolactone 25 mg daily 2) Syncopal episode -Was likely secondary to transient hypoxemia from dyspnea, as symptoms occured after patient cough and had period of dyspnea -Continue telemetry, will order cardiac enzymes 3) Atrial flutter on EKG -TTE 06/2013 with EF 55-60%, PASP 27 mm Hg -No old EKG available, will consult cardiology for recs on appropriate treatment 4) HCV cirrhosis -Continue home medications of ribavarin and sovaldi -Is followed by Dr. Doty 5) Diabetes mellitus- Continue home medicatoin of glimepiride 1 mg PO daily 6) GERD- Continue home medication of pantoprazole 40 mg daily 7) Ppx- heparin SC Extracted from: Title: Hepatology Discharge Summary Author: Brooks Phillips Date: 12/08/2013 Home Care Instructions Notify Physician if any of the Following Occur : Bleeding, Fever, Nausea, Pain, Shortness of breath, Signs of infection, Swelling Are There Any Activity Restrictions : As tolerated Discharge Diet Home Diet : Low sodium diet Physician Follow-Up Follow-Up With : physician Provider #1 : Dave Doty MD Follow-Up Call : Call for appointment Follow-up with Provider within : 1 Week Reason : Primary Care Physician follow up post hospitalization Provider #2 : Juliano Silver MD Follow-Up Call : Call for appointment Follow-up with Provider #2 within : 2 Weeks Reason : Primary Care Physician follow up post hospitalization Discharge Summary Admit Date : 12/07/2013 Discharge Date : 12/08/2013 Primary Physician : Sanchez Hill MD Admitting Diagnosis : 1. HCV cirrhosis 2. Atrial flutter 3. Pulmonary edema Discharge Condition : Fair Discharge Diagnosis : 1. Pulmonary edema s/p diuresis 2. Atrial flutter 3. HCV cirrhosis Significant Procedures/Treatments/Events : Cardiology consultation Hospital Course : This is a 73 year old man with significant medical history for HCV cirrhosis currently on treatment, DM Type 2, and atrial flutter that presented with shortness of breath and presyncope. Patient was not taking his home dose of lasix for the past two days. He developed pulmonary edema. He was given a dose of IV lasix 20 mg and restarted on his home PO dose of lasix and aldactone and patient reported that his shortness of breath improved. His oxygen saturation was 100% on room air. Cardiology was consulted as he presented with presyncope and known his of atrial flutter. They believed patient should stay on his current regimen of aspirin and atenolol and follow-up with Dr. Cabrera as an outpatient. Patient currently doing well without complaints. Home medications: 1. Aldactone 50 mg PO Qdaily 2. Aspirin 81 mg PO Qdaily 3. Furosemide 40 mg PO BID 4. Atenolol 12.5 mg PO Qdaily 5. Pantoprazole 40 mg PO BID 6. Glimepiride 1 mg PO Qdaily 7. Ribavirin 600 mg PO in AM and 400 mg in PM 8. Sofosbuvir 400 mg PO Qdaily Addendum by Sergio, I agree with this d/c summary. He was admitted with peristent cough and pulm edema. His Sanchez J. sx improved markedly with IV lasix administration. We will plan to d/c on current dosing MD on of Ribavirin 400 mg daily & sovaldi 400 qd. He will continue ASA and b- blockade for his 12/08/2013 a-flutter. 18:53 Extracted from: Title: Hepatology Author: Meryl Painter Date: 12/08/2013 Assessment/Plan Mr. Chen is a 73 year old man with history of HCV cirrhosis, DM, currently on HCV treatment that presented to [facility] complaining of presyncope and shortness of breath 1. Shortness of breath - this is most likely secondary to pulmonary edema from holding patient's IV lasix - will give 20mg IV lasix this evening - restart patient on home dose of diuretics (lasix 40mg and aldactone 25mg) - if patient becomes febrile or has leukocytosis, can consider w/u for pneumonia, but unlikelycause 2. Presyncope - likely due to hypoxemia vs anxiety from shortness of breath, but patient does have some cardiac issues, so this should be evaluated - no rub or irregular rhythm heard on physical exam - telemetry overnight - consider 2D echo in am 3. Chronic HCV - patient will continue his hepatitis C medications as prescribed to him, including restarting ribavirin - patient can take his home meds - continue sovaldi and procrit as well 4. Cirrhosis - no acute issues will monitor closely 5. DM - continue home medication, glimeperide 1mg daily 6. GERD/gastritis - continue home pantoprazole 7. Ppx - ambulation and PPI as above Patient case discussed with staff, , who agrees with above assessment and plan. Meryl Painter, PGY5 [place] [facility] [phone] I saw the patient with Dr Painter and agree with her h/p and a/p. He has pulm edema and has been without his diuretics. We will restart IV lasix and see how he does.
--- OUTSIDE RECORDS SUMMARY | 2019-01-19 00:28 | XMS REPORT | Summary of Care ---
Author Organization Unknown Address Unknown Phone Unavailable Encounter [facility](ELOISA) [id number] Date(s): 07/04/14 - 07/04/14 [facility] Outpatient Imaging - [place] [address] [place], [place] [address]- [place] Discharge Disposition: Home Physician Attending: Christian Griffin MD Reason for Visit 585.3 - [facility] KIDNEY DIS Problem List Condition Effective Dates Status Health [...] one month for second inj. 2Admin Note: [facility] [place] [id number] #2 Social History Social History Type Response [...]
--- OUTSIDE RECORDS SUMMARY | 2019-01-19 00:28 | XMS REPORT | Summary of Care ---
Author Organization Unknown Address Unknown Phone Unavailable Encounter Dates Location Diagnoses Discharge Providers Disposition 11/27/2013 [facility] Dave Doty - [address] [place] [address] Norma Miller DIRECTOR OF RESEARCH AND DEVELOPMENT 11/27/[address] Reason for Visit CIRRHOSIS, HEP C Vital Signs Most recent to 1 oldest [Reference Range]: Height 154 cm (11/27/2013 10:52:00 [facility]) Systolic Blood 110 mmHg Pressure [90-140 (11/27/2013 10:52:00 [facility]) mmHg] Diastolic Blood 65 mmHg Pressure [60-90 (11/27/2013 10:52:00 [facility]) mmHg] Respiratory Rate 17 BRMIN [14-20 BRMIN] (11/27/2013 10:52:00 [facility]) Peripheral Pulse 65 bpm Rate [60-100 bpm] (11/27/2013 10:52:00 [facility] Weight 66.5 kg (11/27/2013 10:52:00 [facility]) Body Mass Index 28.04 m2 (11/27/2013 10:52:00 [facility]) Problem List Condition Effective Dates Status Health [...] Medication Instructions Start Date Stop Date Status ribavirin 400 mg, PO, Daily, Take two 200mg 11/27/2013 Ordered tab daily, 0 Refill(s) Take two 200mg tab daily Zithromax Z-Anatoly 250 See Instructions, Take as directed 11/22/2013 Ordered mg oral tablet PO Daily 5 day, # 6 tab, 0 Refill(s), Pharmacy: [facility]/pharmacy #[id number] Take as directed PO Daily 5 day Medications Administered During Your Visit No data available for this section Immunizations Vaccine Date Refusal Reason hepatitis B adult vaccine1 09/15/2013 hepatitis B vaccine2 10/16/2013 1Admin Note: Administered 09-11-13. Pt. will return in one month for second inj. 2Admin Note: [facility] [id number] #2 Social History Social History Type Response Smoking Status Use: Never smoker. Type: Cigars. Tobacco smoke exposure: None. Did the Patient Smoke Cigarettes Anytime During the Last 365 Days? No. Cessation Counseling Provided? No.
--- OUTSIDE RECORDS SUMMARY | 2019-01-19 00:28 | XMS REPORT | Summary of Care ---
Author Organization Unknown Address Unknown Phone Unavailable Encounter HQ Matthew_bebo(ELOISA) [id number] Date(s): 01/08/14 - 01/08/[address] Discharge Disposition: Home Physician Attending: Dave Doty Physician_Referring: Dave Doty Reason for Visit CHRONIC HEPATITIS C Problem List Condition Effective Dates Status Health [...] No data available for this section Results ELECTROLYTES Most recent to 1 oldest [Reference Range]: Sodium Lvl [135-145 134 mEq/L mEq/L] *LOW* (11/27/13 3:14 PM) Potassium Lvl 4.2 mEq/L [3.5-5.1 mEq/L] (11/27/13 3:14 PM) Chloride Lvl [95-109 102 mEq/L mEq/L] (11/27/13 3:14 PM) CO2 [24-32 mEq/L] 26 mEq/L (11/27/13 3:14 PM) AGAP [10.0-20.0 10.2 mEq/L mEq/L] (11/27/13 3:14 PM) CHEM PANEL Most recent to 1 oldest [Reference Range]: Creatinine Lvl 1.5 mg/dL [0.5-1.4 mg/dL] *HI* (11/27/13 3:14 PM) eGFR 46 mL/min/1.73m2 1 *NA* (11/27/13 3:14 PM) BUN [7-22 mg/dL] 19 mg/dL (11/27/13 3:14 PM) Glucose Lvl [70-99 192 mg/dL 2 mg/dL] *HI* (11/27/13 3:14 PM) Calcium Lvl 9.5 mg/dL [8.5-10.5 mg/dL] (11/27/13 3:14 PM) 1Result Comment: The eGFR is calculated using [...] values reflect the clinical guidelines of the [place] [employer]. IMMUNOLOGY Most recent to 1 oldest [Reference Range]: HCV RNA VirLoad Non Det *NA* (11/27/13 3:14 PM) HCV RNA Log10 <1.2 IU/mL 3 *NA* (11/27/13 3:14 PM) 3Interpretive Data: Reference Interval: Less than 15(1.18 [...] of the HCV genome in genotypes 1 thr ough 6 utilizing a dual probe approach. The assay is intended for use as an aid in the management of HCV-infected individuals undergoing anti-viral therapy and results are not intended to be used as the individual means for clinical diagnos is or patient management. Performance characteristics have been verified by the [facility] within [facility]. The [facility] is authorized under the Clinical Laboratory Improvement Amendments of 1988 (CLIA-88) to perform high complexity testing. HEMATOLOGY Most recent to 1 oldest [Reference Range]: WBC [3.7-10.4 K/CMM] 6.5 K/CMM (11/27/13 3:14 PM) RBC [4.70-6.10 3.59 M/CMM M/CMM] *LOW* (11/27/13 3:14 PM) Hgb [14.0-18.0 g/dL] 13.5 g/dL *LOW* (11/27/13 3:14 PM) Hct [42.0-54.0 %] 41.4 % *LOW* (11/27/13 3:14 PM) MCV [80.0-94.0 fL] 115.3 fL *HI* (11/27/13 3:14 PM) MCH [27.0-31.0 pg] 37.7 pg *HI* (11/27/13 3:14 PM) MCHC [32.0-36.0 32.7 g/dL g/dL] (11/27/13 3:14 PM) RDW [11.5-14.5 %] 15.8 % *HI* (11/27/13 3:14 PM) Platelet [133-450 119 K/CMM K/CMM] *LOW* (11/27/13 3:14 PM) MPV [7.4-10.4 fL] 9.6 fL (11/27/13 3:14 PM) Segs [45.0-75.0 %] 52.9 % (11/27/13 3:14 PM) Lymphocytes 32.6 % [20.0-40.0 %] (11/27/13 3:14 PM) Monocytes [2.0-12.0 10.1 % %] (11/27/13 3:14 PM) Eosinophils [0.0-4.0 3.5 % %] (11/27/13 3:14 PM) Basophils [0.0-1.0 0.9 % %] (11/27/13 3:14 PM) Segs-Bands # 3.5 K/CMM [1.5-8.1 K/CMM] (11/27/13 3:14 PM) Lymphocytes # 2.1 K/CMM [1.0-5.5 K/CMM] (11/27/13 3:14 PM) Monocytes # [0.0-0.8 0.7 K/CMM K/CMM] (11/27/13 3:14 PM) Eosinophils # 0.2 K/CMM [0.0-0.5 K/CMM] (11/27/13 3:14 PM) Basophils # [0.0-0.2 0.1 K/CMM K/CMM] (11/27/13 3:14 PM) Anisocyte [None 1+ Seen] *ABN* (11/27/13 3:14 PM) Polychrom [None Slight Seen] (11/27/13 3:14 PM) Macrocyte [None 3+ Seen] *NA* (11/27/13 3:14 PM) Medications Administered During Your Visit No data available for this section Immunizations Vaccine Date Refusal Reason hepatitis B adult vaccine1 09/15/13 hepatitis B vaccine2 10/16/13 pneumococcal 23-valent vaccine 12/08/13 1Admin Note: Administered 09-11-13. Pt. will return in one month for second inj. 2Admin Note: [facility] [id number] #2 Social History Social History Type Response Alcohol Use: Past, Type: Beer, Has alcohol use interfered with work or home life? No, Do you ever drink more than intended? No, Has anyone been hurt or at risk by your drinking? No, Ready to change: No, Concerns about alcohol use in household: No Smoking Status Never smoker, Type: Cigars, Exposure to Tobacco Smoke None, Cigarette Smoking Last 365 Days No, Reg Smoking Cessation Counseling No
--- OUTSIDE RECORDS SUMMARY | 2019-01-19 00:28 | XMS REPORT | Summary of Care ---
Author Author [facility] Organization [facility] Address Unknown Phone Unavailable Encounter KHRIS Roque(ELOISA) [id number] Date(s): 11/08/18 - 11/08/18 [facility] [address] [place] [address]- [facility] [phone] Discharge Disposition: Home or Self Care Attending Physician: Dave Doty MD Referring Physician: Dave Doty MD Vital Signs Most recent to 1 oldest [Reference Range]: Height 157.48 cm (11/08/18 10:24 AM) Blood Pressure 130/70 mmHg [90-140/60-90 mmHg] (11/08/18 10:24 AM) Peripheral Pulse 69 bpm Rate [60-100 bpm] (11/08/18 10:24 AM) Weight 61.591 kg (11/08/18 10:24 AM) Body Mass Index 24.84 m2 (11/08/18 10:24 AM) Problem List Condition Effective Dates Status [...] Substance Reaction Severity Status NKDA Active Medications furosemide 40 mg oral tablet 40 mg=1 tab, PO, Daily, # 30 tab, 11 Refill(s), Pharmacy: [facility]/pharmacy #[id number] Start Date: 11/08/18 Stop Date: 11/03/19 Status: Ordered spironolactone 50 mg oral tablet 25 mg=0.5 tab, PO, Daily, # 15 tab, 11 Refill(s), Pharmacy: [facility]/pharmacy #[id number] Start Date: 11/08/18 Stop Date: 11/03/19 Status: Ordered Results ELECTROLYTES Most recent to 1 oldest [Reference Range]: Sodium Lvl [135-145 136 mEq/L mEq/L] (11/08/18 11:12 AM) Potassium Lvl 4.0 mEq/L [3.5-5.1 mEq/L] (11/08/18 11:12 AM) Chloride Lvl [95-109 103 mEq/L mEq/L] (11/08/18 11:12 AM) CO2 [24-32 mEq/L] 28 mEq/L (11/08/18 11:12 AM) AGAP [10.0-20.0 9.0 mEq/L mEq/L] *LOW* (11/08/18 11:12 AM) CHEM PANEL Most recent to 1 oldest [Reference Range]: Creatinine Lvl 1.26 mg/dL [0.50-1.40 mg/dL] (11/08/18 11:12 AM) eGFR 55 mL/min/1.73m2 1 *NA* (11/08/18 11:12 AM) BUN [7-22 mg/dL] 16 mg/dL (11/08/18 11:12 AM) Glucose Lvl [70-99 103 mg/dL mg/dL] *HI* (11/08/18 11:12 AM) Total Protein 8.3 g/dL [6.4-8.4 g/dL] (11/08/18 11:12 AM) Albumin Lvl [3.5-5.0 4.4 g/dL g/dL] (11/08/18 11:12 AM) Globulin [2.7-4.2 3.9 g/dL g/dL] (11/08/18 11:12 AM) A/G Ratio [0.7-1.6] 1.1 (11/08/18 11:12 AM) Calcium Lvl 10.3 mg/dL [8.5-10.5 mg/dL] (11/08/18 11:12 AM) ALT [0-65 unit/L] 27 unit/L (11/08/18 11:12 AM) AST [0-37 unit/L] 28 unit/L (11/08/18 11:12 AM) Alk Phos [39-136 88 unit/L unit/L] (11/08/18 11:12 AM) Bili Total [0.2-1.3 0.5 mg/dL mg/dL] (11/08/18 11:12 AM) Bili Direct [0.0-0.3 0.1 mg/dL mg/dL] (11/08/18 11:12 AM) Bili Indirect 0.4 mg/dL [0.0-1.0 mg/dL] (11/08/18 11:12 AM) 1Result Comment: The eGFR is calculated using [...] be mul tiplied by the estimated BMI. HEMATOLOGY Most recent to 1 oldest [Reference Range]: WBC [3.7-10.4 K/CMM] 7.3 K/CMM (11/08/18 11:12 AM) RBC [4.70-6.10 5.12 M/CMM M/CMM] (11/08/18 11:12 AM) Hgb [14.0-18.0 g/dL] 12.8 g/dL *LOW* (11/08/18 11:12 AM) Hct [42.0-54.0 %] 41.4 % *LOW* (11/08/18 11:12 AM) MCV [80.0-94.0 fL] 80.8 fL (11/08/18 11:12 AM) MCH [27.0-31.0 pg] 25.1 pg *LOW* (11/08/18 11:12 AM) MCHC [32.0-36.0 31.0 g/dL g/dL] *LOW* (11/08/18 11:12 AM) RDW [11.5-14.5 %] 17.4 % *HI* (11/08/18 11:12 AM) MPV [7.4-10.4 fL] 9.2 fL (11/08/18 11:12 AM) Platelet [133-450 170 K/CMM K/CMM] (11/08/18 11:12 AM) Segs [45.0-75.0 %] 67.4 % (11/08/18 11:12 AM) Lymphocytes 20.9 % [20.0-40.0 %] (11/08/18 11:12 AM) Monocytes [2.0-12.0 8.5 % %] (11/08/18 11:12 AM) Eosinophils [0.0-4.0 2.3 % %] (11/08/18 11:12 AM) Basophils [0.0-1.0 0.9 % %] (11/08/18 11:12 AM) Neutrophils # 4.9 K/CMM [1.5-8.1 K/CMM] (11/08/18 11:12 AM) Lymphocytes # 1.5 K/CMM [1.0-5.5 K/CMM] (11/08/18 11:12 AM) Monocytes # [0.0-0.8 0.6 K/CMM K/CMM] (11/08/18 11:12 AM) Eosinophils # 0.2 K/CMM [0.0-0.5 K/CMM] (11/08/18 11:12 AM) Basophils # [0.0-0.2 0.1 K/CMM K/CMM] (11/08/18 11:12 AM) PT [12.0-14.7 14.1 seconds seconds] (11/08/18 11:12 AM) INR [0.85-1.17] 1.11 (11/08/18 11:12 AM) TUMOR MARKERS Most recent to 1 oldest [Reference Range]: AFP TM [0.0-11.0 30.4 ng/mL ng/mL] *HI* (11/08/18 11:12 AM) Immunizations Given and Recorded Vaccine Date Status Refusal Reason hepatitis B adult vaccine 09/03/15 Given hepatitis B adult vaccine1 08/05/15 Recorded hepatitis B adult vaccine2 09/15/13 Given pneumococcal 23-valent vaccine 12/08/13 Given hepatitis B vaccine3 10/16/13 Given 1Location History: Belle Harding RN 2Admin Note: Administered 09-11-13. Pt. will return in one month for second inj. 3Admin Note: [facility] [id number] #2 Procedures Procedure Date Related Diagnosis Body [...]
--- OUTSIDE RECORDS SUMMARY | 2019-01-19 00:28 | XMS REPORT | Summary of Care ---
Author Author [facility] [place] Organization [facility] [place] Address Unknown Phone Unavailable Encounter HQ Jude(FIN) [id number] Date(s): 04/15/15 - 04/15/15 [facility] [place] [address] [place], [place] [address] [phone] Discharge Disposition: Home Attending Physician: Dave Doty MD Vital Signs No data available for this section Problem List Condition Effective Dates Status Health Status Informant Atrial Active flutter(Confirmed) Atrial Active Flutter(Confirmed) Chronic antral Resolved gastritis(Confirmed) Chronic hepatitis Active C(Confirmed) 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 2Admin Note: [facility] [id number] #2 Procedures Procedure Date Related Diagnosis Body Site Appendectomy Cholecystectomy Social History Social History Type [...]
--- OUTSIDE RECORDS SUMMARY | 2019-01-19 00:28 | XMS REPORT | Summary of Care ---
Author Organization Unknown Address Unknown Phone Unavailable Encounter HQ Jude(FIN) [id number] Date(s): 05/01/14 - 05/01/14 [facility] - [place] [address], [place] [address]- [facility] [place] Discharge Disposition: Home Physician Attending: Dave Doty MD Reason for Visit 070.54 - CHRNC HTP [...] one month for second inj. 2Admin Note: [facility] [id number] #2 Social History Social History Type Response [...]
--- OUTSIDE RECORDS SUMMARY | 2019-01-19 00:28 | XMS REPORT | Summary of Care ---
Author Organization Unknown Address Unknown Phone Unavailable Encounter HQ Jude(FIN) [id number] Date(s): 01/04/15 - 01/04/15 [facility] [address] Outpatient [facility] - [place] [address] [place] [address]- [facility] [phone] Discharge Disposition: Home Physician Attending: Dave Doty MD Vital Signs No data [...] one month for second inj. 2Admin Note: [facility] [id number] #2 Procedures Procedure Date Related Diagnosis Body [...]
--- OUTSIDE RECORDS SUMMARY | 2019-01-19 00:28 | XMS REPORT | Summary of Care ---
Author Organization Unknown Address Unknown Phone Unavailable Encounter HQ Jude(FIN) [id number] Date(s): 05/09/14 - 05/10/14 [facility] [address], [address] Reason for Visit Phone Message Problem List Condition Effective Dates Status Health [...] Note: [facility] [id number] #2 Social History Social History Type Response [...]
--- OUTSIDE RECORDS SUMMARY | 2019-01-19 00:28 | XMS REPORT | Summary of Care ---
Author Author [facility] Organization [facility] Address Unknown Phone Unavailable Encounter KHRIS Roque(ELOISA) [id number] Date(s): 04/29/15 - 04/29/[address] Discharge Disposition: Home Attending Physician: Dave Doty MD Referring Physician: Dave Doty MD Vital Signs Most recent to 1 oldest [Reference Range]: Height 157.48 cm (04/29/15 11:03 AM) Most recent to 1 oldest [Reference Range]: Temperature Oral 97.5 DegF [96.4-99.1 DegF] (04/29/15 11:03 AM) Most recent to 1 oldest [Reference Range]: Blood Pressure 109/59 mmHg [90-140/60-90 mmHg] (04/29/15 11:03 AM) Most recent to 1 oldest [Reference Range]: Peripheral Pulse 63 bpm Rate [60-100 bpm] (04/29/15 11:03 AM) Most recent to 1 oldest [Reference Range]: Weight 65.455 kg (04/29/15 11:03 AM) Most recent to 1 oldest [Reference Range]: Body Mass Index 26.39 m2 (04/29/15 11:03 AM) Problem List Condition Effective Dates Status Health Status Informant Atrial Active flutter(Confirmed) Chronic antral Resolved gastritis(Confirmed) 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 2Admin Note: [facility] [id number] #2 Procedures Procedure Date Related Diagnosis Body [...]
--- OUTSIDE RECORDS SUMMARY | 2019-01-19 00:28 | XMS REPORT | CCD ---
Author Author Auto Generated Organization [facility] Address Unknown Phone Unavailable Care Team Providers Care Pan Shaker Name Role Phone Norma Miller RP Unavailable Dave Doty CP Allergies, Adverse Reactions, Alerts Substance Reaction Status NKDA Active Problem List Condition Effective Dates Status Ascites Active Atrial flutter Active Cirrhosis and chronic liver disease Active Diabetes mellitus Active Duodenal ulcer Active Esophageal varices1 Active Gastritis Active Hepatitis C2 Active 1grade 1 2genotype 2, prior treatment with interferon and ribavirin over 10 years ago Medications Medication Instructions Start Date End Date Status RibaPak 600 600 mg in am and 400 mg in pm, PO, 10/18/2013 01/10/2014 Ordered BID, 2 Refill(s) Sofosbuvir Sofosbuvir, 400 mg=, PO, Daily, 10/18/2013 01/10/2014 Ordered Refill(s) 2 Immunizations Vaccine Date Status hepatitis B adult vaccine1 09/15/2013 Auth (Verified) hepatitis B vaccine2 10/16/2013 Auth (Verified) 1Admin Note: Administered 09-11-13. Pt. will return in one month for second inj. 2Admin Note: [facility] [id number] #2 Vital Signs Most recent to oldest [Reference Range]: 1 Height 154.5 cm (10/16/2013 11:54:00) Systolic Blood Pressure [90-140 mmHg] 112 mmHg (10/16/2013 11:54:00) Diastolic Blood Pressure [60-90 mmHg] 67 mmHg (10/16/2013 11:54:00) Respiratory Rate [14-20 BRMIN] 16 BRMIN (10/16/2013 11:54:00) Peripheral Pulse Rate [60-100 bpm] 67 bpm (10/16/2013 11:54:00) Weight 62.6 kg (10/16/2013 11:54:00)
--- OUTSIDE RECORDS SUMMARY | 2019-01-19 00:28 | XMS REPORT | Summary of Care ---
Author Organization Unknown Address Unknown Phone Unavailable Encounter KHRIS Roque(ELOISA) [id number] Date(s): 04/02/14 - 04/02/14 [facility] Outpatient Imaging [address] Discharge Disposition: Home Physician Attending: Dave Doty MD Reason for Visit 786.05 - SHORTNESS OF BR Problem List Condition Effective Dates Status Health [...] one month for second inj. 2Admin Note: [facility] [id number] #2 Social History Social History Type Response [...]
--- OUTSIDE RECORDS SUMMARY | 2019-01-19 00:28 | XMS REPORT | CCD ---
Author Author Auto Generated Organization [facility] [place] [facility] Address Unknown Phone Unavailable Care Team Providers Care Principal Planner Name Role Phone Dave Doty RP Allergies, Adverse Reactions, Alerts Substance Reaction Status NKDA Active Problem List Condition Effective Dates Status Diabetes mellitus Active Hepatitis C Active
--- OUTSIDE RECORDS SUMMARY | 2019-01-19 00:28 | XMS REPORT | CCD ---
Author Author Auto Generated Organization [facility] Address Unknown Phone Unavailable Care Team Providers Care Treasury Agent Name Role Phone Dave Doty RP Allergies, Adverse Reactions, Alerts Substance Reaction Status NKDA Active Problem List Condition Effective Dates Status Ascites Active Atrial flutter Active Cirrhosis and chronic liver disease Active Diabetes mellitus Active Duodenal ulcer Active Esophageal varices Active Gastritis Active Hepatitis C Active Medications Medication Instructions Start Date End Date Status pantoprazole 40 mg 0 Refill(s) 08/30/2013 Ordered oral enteric coated tablet Vital Signs Most recent to oldest [Reference Range]: 1 Height 157 cm (09/11/2013 10:26:00) Systolic Blood Pressure [90-140 mmHg] 111 mmHg (09/11/2013 10:26:00) Diastolic Blood Pressure [60-90 mmHg] 67 mmHg (09/11/2013 10:26:00) Respiratory Rate [14-20 BRMIN] 19 BRMIN (09/11/2013 10:26:00) Peripheral Pulse Rate [60-100 bpm] 69 bpm (09/11/2013 10:26:00) Weight 65.9 kg (09/11/2013 10:26:00)
--- OUTSIDE RECORDS SUMMARY | 2019-01-19 00:28 | XMS REPORT | Summary of Care ---
Author Organization Unknown Address Unknown Phone Unavailable Encounter HQ Jude(ELOISA) [id number] Date(s): 08/28/14 - 08/30/[address] Discharge Disposition: Home Physician Attending: Dave Doty MD Physician_Referring: Dave Doty MD Reason for Visit BDDC-CHRONIC HEP C Problem List Condition Effective Dates Status [...] one month for second inj. 2Admin Note: [facility] [id number] #2 Social History Social History Type Response [...]
--- OUTSIDE RECORDS SUMMARY | 2019-01-19 00:28 | XMS REPORT | Summary of Care ---
Author Organization Unknown Address Unknown Phone Unavailable Encounter HQ Jude(ELOISA) [id number] Date(s): 05/09/14 - 05/09/[address] Discharge Disposition: Home Physician Attending: Juliano Silver MD Physician Admitting: Juliano Silver MD Physician_Referring: Juliano Silver MD Reason for Visit CHEST PAIN, DYSPNEA Vital Signs 1 2 3 Most recent to oldest [Reference Range]: 157.48 cm (05/09/14 7:57 AM) Height 97.7 DegF (05/09/14 8:58 AM) Temperature Oral [96.4-99.1 DegF] 114 mmHg (05/09/14 12:03 PM) 115 mmHg (05/09/14 11:45 AM) 110 mmHg (05/09/14 11:30 AM) Systolic Blood Pressure [90-140 mmHg] 58 mmHg *LOW* (05/09/14 12:03 PM) 61 mmHg (05/09/14 11:45 AM) 62 mmHg (05/09/14 11:30 AM) Diastolic Blood Pressure [60-90 mmHg] 65 kg (05/09/14 7:57 AM) Weight 26.21 m2 (05/09/14 7:57 AM) Body Mass Index Problem List Condition Effective [...] Substance Reaction Severity Status NKDA Active Medications magnesium oxide 400 mg oral tablet 400 mg=1 tab, PO, Daily, # 10 tab, 0 Refill(s) Start Date: 05/09/14 Stop Date: 05/19/14 Status: Ordered omeprazole 40 mg oral delayed release capsule 40 mg=1 cap, PO, Daily, # 30 cap, 0 Refill(s) Start Date: 05/09/14 Status: Ordered potassium chloride 20 mEq oral tablet, extended release 20 mEq=1 tab, PO, BID, # 10 tab, 0 Refill(s) Start Date: 05/09/14 Status: Ordered Results BLOOD BANK RESULTS Most recent to 1 oldest [Reference Range]: ABO/Rh O POS *Unknown* (05/09/14 8:30 AM) Antibody Scrn Negative (05/09/14 8:30 AM) ELECTROLYTES Most recent to 1 oldest [Reference Range]: Sodium Lvl [135-145 136 mEq/L mEq/L] (05/09/14 8:12 AM) Potassium Lvl 4.1 mEq/L [3.5-5.1 mEq/L] (05/09/14 8:12 AM) Chloride Lvl [95-109 103 mEq/L mEq/L] (05/09/14 8:12 AM) CO2 [24-32 mEq/L] 25 mEq/L (05/09/14 8:12 AM) AGAP [10.0-20.0 12.1 mEq/L mEq/L] (05/09/14 8:12 AM) CHEM PANEL Most recent to 1 oldest [Reference Range]: Creatinine Lvl 1.5 mg/dL [0.5-1.4 mg/dL] *HI* (05/09/14 8:12 AM) eGFR 46 mL/min/1.73m2 1 *NA* (05/09/14 8:12 AM) BUN [7-22 mg/dL] 23 mg/dL *HI* (05/09/14 8:12 AM) Glucose Lvl [70-99 88 mg/dL 2 mg/dL] (05/09/14 8:12 AM) Calcium Lvl 10.5 mg/dL [8.5-10.5 mg/dL] (05/09/14 8:12 AM) Magnesium Lvl 2.1 mg/dL [1.8-2.4 mg/dL] (05/09/14 8:12 AM) 1Result Comment: The eGFR is calculated [...] values reflect the clinical guidelines of the [place] [employer]. HEMATOLOGY Most recent to 1 oldest [Reference Range]: WBC [3.7-10.4 K/CMM] 8.2 K/CMM (05/09/14 8:12 AM) RBC [4.70-6.10 4.13 M/CMM M/CMM] *LOW* (05/09/14 8:12 AM) Hgb [14.0-18.0 g/dL] 13.8 g/dL *LOW* (05/09/14 8:12 AM) Hct [42.0-54.0 %] 41.2 % *LOW* (05/09/14 8:12 AM) MCV [80.0-94.0 fL] 99.8 fL *HI* (05/09/14 8:12 AM) MCH [27.0-31.0 pg] 33.4 pg *HI* (05/09/14 8:12 AM) MCHC [32.0-36.0 33.5 g/dL g/dL] (05/09/14 8:12 AM) RDW [11.5-14.5 %] 15.7 % *HI* (05/09/14 8:12 AM) Platelet [133-450 95 K/CMM K/CMM] *LOW* (05/09/14 8:12 AM) MPV [7.4-10.4 fL] 9.2 fL (05/09/14 8:12 AM) Segs [45.0-75.0 %] 35.0 % *LOW* (05/09/14 8:12 AM) Bands [0.0-11.0 %] 0.0 % (05/09/14 8:12 AM) Lymphocytes 28.0 % [20.0-40.0 %] (05/09/14 8:12 AM) Atypical Lymphs 0.0 % [<=0.0 %] (05/09/14 8:12 AM) Monocytes [2.0-12.0 5.0 % %] (05/09/14 8:12 AM) Eosinophils [0.0-4.0 31.0 % %] *HI* (05/09/14 8:12 AM) Basophils [0.0-1.0 1.0 % %] (05/09/14 8:12 AM) Segs-Bands # 2.9 K/CMM [1.5-8.1 K/CMM] (05/09/14 8:12 AM) Lymphocytes # 2.3 K/CMM [1.0-5.5 K/CMM] (05/09/14 8:12 AM) Monocytes # [0.0-0.8 0.4 K/CMM K/CMM] (05/09/14 8:12 AM) Eosinophils # 2.5 K/CMM [0.0-0.5 K/CMM] *HI* (05/09/14 8:12 AM) Basophils # [0.0-0.2 0.1 K/CMM K/CMM] (05/09/14 8:12 AM) Macrocyte [None 1+ Seen] *ABN* (05/09/14 8:12 AM) Elliptocyte [None Slight Seen] *ABN* (05/09/14 8:12 AM) Plt Morph Normal (05/09/14 8:12 AM) PT [12.0-14.7 16.2 seconds seconds] *HI* (05/09/14 8:12 AM) INR [0.85-1.17] 1.32 3 *HI* (05/09/14 8:12 AM) PTT [22.9-35.8 38.6 seconds 4 seconds] *HI* (05/09/14 8:12 AM) 3Interpretive Data: RECOMMENDED RANGES FOR PROTIME INR: [...] inj. 2Admin Note: [facility] [id number] #2 Social History Social History Type Response [...]
--- OUTSIDE RECORDS SUMMARY | 2019-01-19 00:28 | XMS REPORT | Summary of Care ---
Author Organization Unknown Address Unknown Phone Unavailable Encounter HQ Jude(ELOISA) [id number] Date(s): 04/02/14 - 04/02/[address] Discharge Disposition: Home Physician Attending: Dave Doty MD Physician_Referring: Dave Doty MD Reason for Visit CHRONIC HEPATITIS C Vital Signs Most recent to 1 oldest [Reference Range]: Systolic Blood 109 mmHg Pressure [90-140 (04/02/14 12:46 PM) mmHg] Diastolic Blood 63 mmHg Pressure [60-90 (04/02/14 12:46 PM) mmHg] Respiratory Rate 17 BRMIN [14-20 BRMIN] (04/02/14 12:46 PM) Peripheral Pulse 46 bpm Rate [60-100 bpm] *LOW* (04/02/14 12:46 PM) Problem List Condition Effective Dates Status [...] Substance Reaction Severity Status NKDA Active Medications aspirin 81 mg tablet, enteric coated 81 mg=1 tab, PO, Daily, # 0 tab, 0 Refill(s) Start Date: 04/02/14 Status: Ordered Medications Administered During Your Visit No data available for this section Immunizations Vaccine Date Refusal Reason hepatitis B adult vaccine1 09/15/13 hepatitis B vaccine2 10/16/13 pneumococcal 23-valent vaccine 12/08/13 1Admin Note: Administered 09-11-13. Pt. will return in one month for second inj. 2Admin Note: [facility] [id number] #2 Social History Social History Type Response [...]
--- OUTSIDE RECORDS SUMMARY | 2019-01-19 00:29 | XMS REPORT | Summary of Care ---
Author Author [facility] Organization [facility] Address Unknown Phone Unavailable Encounter KHRIS Roque(ELOISA) [id number] Date(s): 09/10/16 - 09/10/16 [facility] [address] [place] [address] [phone] Discharge Disposition: Home or Self Care Attending [...] one month for second inj. 3Admin Note: [facility] [id number] #2 Procedures Procedure Date Related Diagnosis Body Site Appendectomy Cholecystectomy MRI of liver Social History Social History Type Response Alcohol Past, Type Beer. Alcohol use interferes with work or home: No. Drinks more than intended: No. Others hurt by drinking: No. Ready to change: No. Household alcohol concerns: No.1 Smoking Status Never smoker; Exposure to Tobacco Smoke None; Cigarette Smoking Last 365 Days No; Reg Smoking Cessation Counseling No 1none Assessment and Plan No data available for this section
--- OUTSIDE RECORDS SUMMARY | 2019-01-19 00:29 | XMS REPORT | Summary of Care ---
Author Author [facility] Organization [facility] Address Unknown Phone Unavailable Encounter KHRIS Roque(ELOISA) [id number] Date(s): 01/01/16 - 01/01/16 [facility] [address] [place] [phone] Discharge Disposition: Home Attending Physician: Sarah Reyes MD Referring Physician: Physician, Non Associated MD Vital Signs No data available for this section Problem List Condition Effective Dates Status Health Status Informant Ascites(Confirmed) Active Atrial Active flutter(Confirmed) Chronic antral Resolved gastritis(Confirmed) 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) Diabetes Active mellitus(Confirmed) DM (diabetes Active mellitus)(Confirmed) Duodenal Resolved ulcer(Confirmed) Duodenal Resolved Ulcer(Confirmed) Bilateral leg Active edema(Confirmed)1 Esophageal Active varices(Confirmed)2 Gastritis(Confirmed) Active Hepatitis C virus Resolved genotype 2(Confirmed) HPTH - Active Hyperparathyroidism( Confirmed) Hyperplastic colon Resolved polyp(Confirmed) Liver Active mass(Confirmed) 1genotype 2, prior treatment with interferon and ribavirin over 10 years ago 2grade 1 Allergies, Adverse Reactions, Alerts Substance Reaction Severity Status NKDA Active Medications No data available for this section Results No data available for this section Immunizations Vaccine Date Refusal Reason hepatitis B adult vaccine 09/03/15 hepatitis B adult vaccine1 08/05/15 hepatitis B adult vaccine2 09/15/13 hepatitis B vaccine3 10/16/13 pneumococcal 23-valent vaccine 12/08/13 1Location History: Belle Harding RN 2Admin Note: Administered 09-11-13. Pt. will return in one month for second inj. 3Admin Note: [facility] [id number] #2 Procedures Procedure Date Related Diagnosis Body [...]
--- OUTSIDE RECORDS SUMMARY | 2019-01-19 00:29 | XMS REPORT | Summary of Care ---
Author Author [facility] Organization [facility] Address Unknown Phone Unavailable Encounter KHRIS Roque(ELOISA) [id number] Date(s): 08/05/15 - 08/05/[address] Discharge Disposition: Home Attending Physician: Dave Doty MD Referring Physician: Dave Doty MD Vital Signs Most recent to 1 oldest [Reference Range]: Height 157.48 cm (08/05/15 10:52 AM) Blood Pressure 132/67 mmHg [90-140/60-90 mmHg] (08/05/15 10:52 AM) Weight 66.875 kg (08/05/15 10:52 AM) Body Mass Index 26.97 m2 (08/05/15 10:52 AM) Problem List Condition Effective Dates Status [...] Substance Reaction Severity Status NKDA Active Medications hepatitis B adult vaccine 10 mcg/mL IM Susp (Recombivax HB) 10 microgram=1 mL, IM, ONCE, # 1 mL, 0 Refill(s), other Start Date: 08/05/15 Status: Ordered Lasix 40 mg oral tablet 40 mg=1 tab, PO, Every Other Day, 0 Refill(s) Start Date: 08/05/15 Status: Ordered Results No data available for this section Immunizations Vaccine Date Refusal Reason hepatitis B adult vaccine1 08/05/15 hepatitis B adult vaccine2 09/15/13 hepatitis B vaccine3 10/16/13 pneumococcal 23-valent vaccine 12/08/13 1Location History: Belle Harding RN 2Admin Note: Administered 09-11-13. Pt. will return in one month for second inj. 3Admin Note: [facility] [id number] #2 Procedures Procedure Date Related Diagnosis Body [...]
--- OUTSIDE RECORDS SUMMARY | 2019-01-19 00:29 | XMS REPORT | Summary of Care ---
Author Author [facility] Organization [facility] Address Unknown Phone Unavailable Encounter KHRIS Roque(ELOISA) [id number] Date(s): 11/26/15 - 11/26/[address] Discharge Disposition: Home Attending Physician: Dave [...] one month for second inj. 3Admin Note: [facility] [id number] #2 Procedures Procedure Date Related Diagnosis Body [...]
--- OUTSIDE RECORDS SUMMARY | 2019-01-19 00:29 | XMS REPORT | Summary of Care ---
Author Author [facility] Organization [facility] Address Unknown Phone Unavailable Encounter KHRIS Roque(ELOISA) [id number] Date(s): 06/25/16 - 06/25/16 [facility] [address] Discharge Disposition: Home or Self Care Attending [...] one month for second inj. 3Admin Note: [facility] [id number] #2 Procedures Procedure Date Related Diagnosis Body [...]
--- OUTSIDE RECORDS SUMMARY | 2019-01-19 00:29 | XMS REPORT | Summary of Care ---
Author Author [facility] Organization [facility] Address Unknown Phone Unavailable Encounter KHRIS Roque(ELOISA) [id number] Date(s): 05/22/16 - 05/22/16 [facility] [address] Discharge Disposition: Home or Self Care Attending Physician: Dave Doty MD Referring Physician: Dave Doty MD Vital Signs 1 2 3 Most recent to oldest [Reference Range]: 144.78 cm (05/20/16 3:58 PM) Height 135/70 mmHg (05/22/16 1:31 PM) 149/81 mmHg *HI* (05/22/16 1:00 PM) 139/82 mmHg (05/22/16 12:45 PM) Blood Pressure [90-140/60-90 mmHg] 16 BRMIN (05/22/16 1:31 PM) 10 BRMIN *LOW* (05/22/16 1:00 PM) 10 BRMIN *LOW* (05/22/16 12:45 PM) Respiratory Rate [14-20 BRMIN] 68 bpm (05/22/16 9:40 AM) 73 bpm (05/20/16 3:58 PM) Peripheral Pulse Rate [60-100 bpm] 65.909 kg (05/22/16 9:40 AM) Weight 31.44 m2 (05/22/16 9:40 AM) Body Mass Index Problem List Condition [...] Substance Reaction Severity Status NKDA Active Medications ANES fentaNYL 25 microgram, 0.5 mL, Route: IVP, Drug form: INJ, Q5Min, Dosing Weight 65.909, k g, PRN Pain Score 4-6, Start date: 05/22/16 12:08:00 CDT, Duration: 4 doses or t imes, Stop date: Limited # of times Notes: (Same as: Sublimaze) Preservative free. Start Date: 05/22/16 Stop Date: 05/23/16 Status: Discontinued ANES flumazenil 0.2 mg, 2 mL, Route: IVP, Drug form: INJ, PRN, Dosing Weight 65.909, kg, PRN Bernard zodiazepine Reversal, Initial dose, Start date: 05/22/16 12:08:00 CDT, Duration: 1 day, Stop date: 05/23/16 12:07:00 CDT Notes: (Same as: Romazicon) Start Date: 05/22/16 Stop Date: 05/23/16 Status: Discontinued ANES hydrALAZINE 10 mg, 0.5 mL, Route: IVP, Drug form: INJ, Q20Min, Dosing Weight 65.909, kg, PRN Elevated BP, Start date: 05/22/16 12:08:00 CDT, Duration: 2 doses or times, Stop date: Limited # of times Notes: (Same as: Apresoline)Push over 5 minutes Start Date: 05/22/16 Stop Date: 05/23/16 Status: Discontinued ANES HYDROmorphone 0.5 mg, 0.25 mL, Route: IVP, Drug form: INJ, Q5Min, Dosing Weight 65.909, kg, RI N Pain Score 7-10, Start date: 05/22/16 12:08:00 CDT, Duration: 4 doses or times , Stop date: Limited # of times Notes: Same as: Issacid Start Date: 05/22/16 Stop Date: 05/23/16 Status: Discontinued ANES labetalol 10 mg, 2 mL, Route: IVP, Drug form: INJ, Q5Min, Dosing Weight 65.909, kg, PRN El evated BP, Start date: 05/22/16 12:08:00 CDT, Duration: 5 doses or times, Stop d ate: Limited # of times Start Date: 05/22/16 Stop Date: 05/23/16 Status: Discontinued ANES metoprolol 1 mg, 1 mL, Route: IVP, Drug form: INJ, Q5Min, Dosing Weight 65.909, kg, PRN Oth er -See Comment, Start date: 05/22/16 12:08:00 CDT, Duration: 5 doses or times, Stop date: Limited # of times Notes: (Same as: Lopressor)Push over 2 minutes Start Date: 05/22/16 Stop Date: 05/23/16 Status: Discontinued ANES naloxone 0.4 mg, 1 mL, Route: IVP, Drug form: INJ, Q2MIN, Dosing Weight 65.909, kg, PRN N arcotic Reversal, Start date: 05/22/16 12:08:00 CDT, Duration: 8 doses or times, Stop date: Limited # of times Notes: Same as Narcan Start Date: 05/22/16 Stop Date: 05/23/16 Status: Discontinued ANES ondansetron 4 mg, 2 mL, Route: IVP, Drug form: INJ, ONCE, Dosing Weight 65.909, kg, PRN Naus ea & Vomiting, Start date: 05/22/16 12:08:00 CDT Notes: (Same as: Maggi) MEDICATION WASTE Product Size: 4 mgProduct Was braydon: ___ mg Start Date: 05/22/16 Stop Date: 05/22/16 Status: Completed ketOROLAC 30 mg, Route: IV, ONCE, Dosing Weight 65.909, kg, Start date: 05/22/16 14:38:00 CDT, Stop date: 05/22/16 14:38:00 CDT Start Date: 05/22/16 Stop Date: 05/22/16 Status: Completed Results BLOOD BANK RESULTS Most recent to 1 oldest [Reference Range]: ABO/Rh O POS *Unknown* (05/22/16 9:45 AM) Antibody Scrn Negative (05/22/16 9:45 AM) Immunizations Given and Recorded Vaccine Date Status Refusal Reason hepatitis B adult vaccine 09/03/15 Given hepatitis B adult vaccine1 08/05/15 Recorded hepatitis B adult vaccine2 09/15/13 Given hepatitis B vaccine3 10/16/13 Given pneumococcal 23-valent vaccine 12/08/13 Given 1Location History: Belle Harding RN 2Admin Note: Administered 09-11-13. Pt. will return in one month for second inj. 3Admin Note: [facility] [id number] #2 Procedures Procedure Date Related Diagnosis Body Site Ablation, 1 or more liver tumor(s), 05/22/16 percutaneous, radiofrequency Appendectomy Cholecystectomy MRI of liver Social History [...]
--- OUTSIDE RECORDS SUMMARY | 2019-01-19 00:29 | XMS REPORT | Summary of Care ---
Author Author [facility] Organization [facility] Address Unknown Phone Unavailable Encounter KHRIS Roque(ELOISA) [id number] Date(s): 09/03/15 - 09/03/[address] Discharge Disposition: Home Attending Physician: Dave [...] one month for second inj. 3Admin Note: [facility] [id number] #2 Procedures Procedure Date Related Diagnosis Body [...]
--- OUTSIDE RECORDS SUMMARY | 2019-01-19 00:29 | XMS REPORT | Summary of Care ---
Author Author [facility] [place] Organization [facility] [place] Address Unknown Phone Unavailable Encounter KHRIS Roque(ELOISA) [id number] Date(s): 07/02/15 - 07/02/15 [facility] [place] [address] [place] [phone] Discharge Disposition: Home Attending Physician: Dave Doty [...] month for second inj. 2Admin Note: [facility] [id number] #2 Procedures Procedure Date Related Diagnosis Body [...]
--- OUTSIDE RECORDS SUMMARY | 2019-01-19 00:29 | XMS REPORT | Summary of Care ---
Author Author [facility] Organization [facility] Address Unknown Phone Unavailable Encounter KHRIS Roque(ELOISA) [id number] Date(s): 11/18/15 - 11/18/15 [facility] [address] [facility] [address] [place] [address]- [facility] [phone] Discharge Disposition: Home Attending Physician: Dave Doty MD Referring Physician: Dave Doty MD Vital Signs Most recent to 1 oldest [Reference Range]: Height 157.48 cm (11/18/15 12:06 PM) Blood Pressure 141/68 mmHg [90-140/60-90 mmHg] *HI* (11/18/15 12:06 PM) Respiratory Rate 51 BRMIN [14-20 BRMIN] *HI* (11/18/15 12:06 PM) Weight 65.966 kg (11/18/15 12:06 PM) Body Mass Index 26.6 m2 (11/18/15 12:06 PM) Problem List Condition Effective Dates Status [...] Substance Reaction Severity Status NKDA Active Medications omeprazole 40 mg oral delayed release capsule 40 mg=1 cap, PO, Daily, # 30 cap, 5 Refill(s), Pharmacy: [id number] Start Date: 11/20/15 Stop Date: 05/18/16 Status: Ordered Results No data available for this section Immunizations Vaccine Date Refusal Reason hepatitis B adult vaccine 09/03/15 hepatitis B adult vaccine1 08/05/15 hepatitis B adult vaccine2 09/15/13 hepatitis B vaccine3 10/16/13 pneumococcal 23-valent vaccine 12/08/13 1Location History: Belle Harding RN 2Admin Note: Administered 09-11-13. Pt. will return in one month for second inj. 3Admin Note: [facility] [id number] #2 Procedures Procedure Date Related Diagnosis Body [...]
--- OUTSIDE RECORDS SUMMARY | 2019-01-19 00:29 | XMS REPORT | Summary of Care ---
Author Author [facility] [place] Organization [facility] [place] Address Unknown Phone Unavailable Encounter HQ Jude(FIN) [id number] Date(s): 12/01/16 - 12/01/16 [facility] [place] [address] [place] [phone] Discharge Disposition: Home or Self Care Attending [...] month for second inj. 3Admin Note: [facility] [id number] #2 Procedures Procedure Date Related Diagnosis Body [...]
--- OUTSIDE RECORDS SUMMARY | 2019-01-19 00:29 | XMS REPORT | Summary of Care ---
Author Author [facility] [place] Organization [facility] [place] Address Unknown Phone Unavailable Encounter HQ Jude(FIN) [id number] Date(s): 03/20/16 - 03/20/16 [facility] [place] [address] [place] [phone] Discharge Disposition: Home Attending Physician: Wilman Pérez MD Vital Signs No data available for [...] month for second inj. 3Admin Note: [facility] [id number] #2 Procedures Procedure Date Related Diagnosis Body [...]
--- OUTSIDE RECORDS SUMMARY | 2019-01-19 00:29 | XMS REPORT | Summary of Care ---
Author Organization Unknown Address Unknown Phone Unavailable Encounter HQ Jude(ELOISA) [id number] Date(s): 12/31/14 - 12/31/[address] Discharge Disposition: Home Physician Attending: Dave Doty MD Physician_Referring: Dave Doty MD Vital Signs Most recent to 1 oldest [Reference Range]: Height 157 cm (12/31/14 11:42 AM) Blood Pressure 117/66 mmHg [90-140/60-90 mmHg] (12/31/14 11:42 AM) Respiratory Rate 15 BRMIN [14-20 BRMIN] (12/31/14 11:42 AM) Peripheral Pulse 48 bpm Rate [60-100 bpm] *LOW* (12/31/14 11:42 AM) Weight 66.8 kg (12/31/14 11:42 AM) Body Mass Index 27.1 m2 (12/31/14 11:42 AM) Problem List Condition Effective Dates Status [...] Active Medications Lasix 40 mg oral tablet 40 mg=1 tab, PO, QAM, # 90 tab, 3 Refill(s), [facility]acy: [id number] Start Date: 12/31/14 Stop Date: 01/02/15 Status: Completed omeprazole 40 mg oral delayed release capsule See Instructions, # 60 unknown unit, Refill(s) 11, TOME 1 CAPSULA 2 VECES AL VIANEY , Pharmacy: [facility][id number] Special Instructions: TOME 1 CAPSULA 2 VECES AL VIANEY Start Date: 10/10/14 Stop Date: 12/31/14 Status: Discontinued omeprazole 40 mg oral delayed release capsule 40 mg=1 cap, PO, Daily, # 30 cap, 5 Refill(s), [id number] Start Date: 10/03/14 Status: Ordered Results No data available for this section Immunizations Vaccine Date Refusal Reason hepatitis B adult vaccine1 09/15/13 hepatitis B vaccine2 10/16/13 pneumococcal 23-valent vaccine 12/08/13 1Admin Note: Administered 09-11-13. Pt. will return in one month for second inj. 2Admin Note: [facility] [id number] #2 Procedures Procedure Date Related Diagnosis Body [...]
--- OUTSIDE RECORDS SUMMARY | 2019-01-19 00:29 | XMS REPORT | Summary of Care ---
Author Organization Unknown Address Unknown Phone Unavailable Encounter [facility] Ziggy[facility]_bebo(ELOISA) [id number] Date(s): 01/29/15 - 01/29/15 [facility] [address] [place] [address] Discharge Disposition: Home Physician Attending: Dave Doty MD Physician_Referring: Dave Doty MD Vital Signs No data [...] month for second inj. 2Admin Note: [facility] [id number] #2 Procedures Procedure Date Related Diagnosis Body [...]
--- OUTSIDE RECORDS SUMMARY | 2019-01-19 00:29 | XMS REPORT | Summary of Care ---
Author Author [facility] Organization [facility] Address Unknown Phone Unavailable Encounter KHRIS Roque(ELOISA) [id number] Date(s): 06/12/16 - 06/12/16 [facility] [address] [place] [address] [phone] Discharge Disposition: Home or Self Care Attending Physician: Stuart Silver MD Referring Physician: Stuart Silver MD Vital Signs Most recent to 1 oldest [Reference Range]: Height 144.78 cm (06/12/16 9:51 AM) Weight 65.909 kg (06/12/16 9:51 AM) Body Mass Index 31.44 m2 (06/12/16 9:51 AM) Problem List Condition Effective Dates Status [...] Note: [facility] [id number] #2 Procedures Procedure Date Related Diagnosis Body [...]
--- OUTSIDE RECORDS SUMMARY | 2019-01-19 00:29 | XMS REPORT | Summary of Care ---
Author Author [facility] [place] Organization [facility] [place] Address Unknown Phone Unavailable Encounter KHRIS Roque(ELOISA) [id number] Date(s): 06/24/16 - 06/24/16 [facility] [place] [address] [place] [phone] Discharge Disposition: Home or Self Care Attending [...] month for second inj. 3Admin Note: [facility] [id number] #2 Procedures Procedure Date Related Diagnosis Body [...]
--- OUTSIDE RECORDS SUMMARY | 2019-01-19 00:29 | XMS REPORT | Summary of Care ---
Author Author [facility] Organization [facility] Address Unknown Phone Unavailable Encounter KHRIS Roque(ELOISA) [id number] Date(s): 02/03/16 - 02/03/16 [facility] [address] [facility] [address] [place] [address] [place] [phone] Discharge Disposition: Home Attending Physician: Dave Doty [...] one month for second inj. 3Admin Note: [facility] [id number] #2 Procedures Procedure Date Related Diagnosis Body [...]
--- OUTSIDE RECORDS SUMMARY | 2019-01-19 00:29 | XMS REPORT | Summary of Care ---
Author Author [facility] Organization [facility] Address Unknown Phone Unavailable Encounter KHRIS Roque(ELOISA) [id number] Date(s): 06/04/15 - 06/04/[address] Discharge Disposition: Home Attending Physician: Dave [...] one month for second inj. 2Admin Note: [facility] [id number] #2 Procedures Procedure Date Related Diagnosis Body [...]
--- OUTSIDE RECORDS SUMMARY | 2019-01-19 00:29 | XMS REPORT | Summary of Care ---
Author Author [facility] Organization [facility] Address Unknown Phone Unavailable Encounter KHRIS Roque(ELOISA) [id number] Date(s): 10/22/16 - 10/22/16 [facility] [address] [facility] provided by [employer] [facility], [place] [address]- Discharge Disposition: Home or Self Care Attending Physician: rBianna Edwards MD Admitting Physician: Brianna Edwards MD Referring Physician: Brianna Edwards MD Vital Signs 1 2 3 Most recent to oldest [Reference Range]: 144.78 cm (10/22/16 10:33 AM) Height 140/67 mmHg (10/22/16 8:00 PM) 140/67 mmHg (10/22/16 7:45 PM) 117/63 mmHg (10/22/16 7:30 PM) Blood Pressure [90-140/60-90 mmHg] 20 BRMIN (10/22/16 6:00 PM) 20 BRMIN (10/22/16 5:45 PM) 19 BRMIN (10/22/16 5:30 PM) Respiratory Rate [14-20 BRMIN] 64.545 kg (10/22/16 10:33 AM) Weight 30.79 m2 (10/22/16 10:33 AM) Body Mass Index Problem List Condition [...] Substance Reaction Severity Status NKDA Active Medications acetaminophen-codeine #3 1 tab, Route: PO, Drug Form: TAB, Dosing Weight 64.545, kg, Q4H, PRN Pain Score 4-6, Start date: 10/22/16 15:54:00 EXPLOSIVES OPERATOR, Duration: 30 day, Stop date: 11/21/16 15 :53:00 EXPLOSIVES OPERATOR Notes: Do not exceed 4gm/day of acetaminophen. (Same as: Tylenol with Codeine # 3) Start Date: 10/22/16 Stop Date: 10/22/16 Status: Discontinued acetaminophen-codeine 300 mg-30 mg oral tablet 1 tab, PO, Q4H, PRN Pain Score 4-6, X 5 day, # 30 tab, 0 Refill(s) Start Date: 10/22/16 Stop Date: 10/27/16 Status: Ordered aspirin 81 mg tablet, enteric coated 81 mg, 1 tab, Route: PO, Drug form: ECTAB, Daily, Dosing Weight 64.545, kg, Star t date: 10/23/16 9:00:00 EXPLOSIVES OPERATOR, Duration: 30 day, Stop date: 11/21/16 9:00:00 EXPLOSIVES OPERATOR Notes: Do not crush or chew.(Same As: Ecotrin) Start Date: 10/23/16 Stop Date: 10/22/16 Status: Canceled carvedilol 3.125 mg, 1 tab, Route: PO, Drug form: TAB, BID, Dosing Weight 64.545, kg, Start date: 10/22/16 17:00:00 EXPLOSIVES OPERATOR, Duration: 30 day, Stop date: 11/21/16 9:00:00 EXPLOSIVES OPERATOR Notes: Give with food. (Same As: Coreg) Start Date: 10/22/16 Stop Date: 10/22/16 Status: Discontinued carvedilol 3.125 mg oral tablet 3.125 mg=1 tab, PO, BID, 0 Refill(s) Start Date: 10/22/16 Status: Ordered furosemide 40 mg oral tablet 40 mg, 1 tab, Route: PO, Drug form: TAB, Daily, Dosing Weight 64.545, kg, Start date: 10/23/16 9:00:00 EXPLOSIVES OPERATOR, Duration: 30 day, Stop date: 11/21/16 9:00:00 EXPLOSIVES OPERATOR Notes: (Same as: Lasix) May cause GI upset. Give with food or milk. Start Date: 10/23/16 Stop Date: 10/22/16 Status: Canceled glimepiride 1 mg, Route: PO, Drug form: TAB, Daily, Dosing Weight 64.545, kg, Start date: 9:00:00 EXPLOSIVES OPERATOR, Duration: 30 day, Stop date: 11/21/16 9:00:00 EXPLOSIVES OPERATOR Start Date: 10/23/16 Stop Date: 10/22/16 Status: Discontinued Glucotrol 5 mg, 1 tab, Route: PO, Drug form: TAB, Daily, Start date: 10/23/16 9:00:00 EXPLOSIVES OPERATOR, Duration: 30 day, Stop date: 11/21/16 9:00:00 EXPLOSIVES OPERATOR Notes: (Same as: Glucotrol) 30 min before meals. Start Date: 10/23/16 Stop Date: 10/22/16 Status: Canceled omeprazole 40 mg, Route: PO, Drug form: DRC, Daily, Dosing Weight 64.545, kg, Start date: 0 10/23/16 9:00:00 EXPLOSIVES OPERATOR, Duration: 30 day, Stop date: 11/21/16 9:00:00 EXPLOSIVES OPERATOR Start Date: 10/23/16 Stop Date: 10/22/16 Status: Discontinued Protonix 40 mg, 1 tab, Route: PO, Drug form: ECTAB, Daily, Start date: 10/23/16 9:00:[address], Duration: 30 day, Stop date: 11/21/16 9:00:00 EXPLOSIVES OPERATOR Notes: Tablet should not be chewed or crushed.(Same as: Protonix) Start Date: 10/23/16 Stop Date: 10/22/16 Status: Canceled Saline Flush 0.9% 10 ml, Route: IVP, Drug Form: INJ, Dosing Weight 64.545, kg, PRN, PRN Line Flush , Start date: 10/22/16 15:54:00 EXPLOSIVES OPERATOR, Duration: 30 day, Stop date: 11/21/16 15:53 :00 EXPLOSIVES OPERATOR Notes: (Same as: BD Posiflush) Start Date: 10/22/16 Stop Date: 10/22/16 Status: Discontinued Saline Flush 0.9% 10 ml, Route: IVP, Drug Form: INJ, Dosing Weight 64.545, kg, Q12H, Start date: 0 10/22/16 21:00:00 EXPLOSIVES OPERATOR, Duration: 30 day, Stop date: 11/21/16 9:00:00 EXPLOSIVES OPERATOR Notes: (Same as: BD Posiflush) Start Date: 10/22/16 Stop Date: 10/22/16 Status: Discontinued spironolactone 25 mg, 1 tab, Route: PO, Drug form: TAB, Daily, Dosing Weight 64.545, kg, Start date: 10/23/16 9:00:00 EXPLOSIVES OPERATOR, Duration: 30 day, Stop date: 11/21/16 9:00:00 EXPLOSIVES OPERATOR Notes: (Same As: Aldactone) Start Date: 10/23/16 Stop Date: 10/22/16 Status: Canceled spironolactone 25 mg oral tablet 25 mg, PO, Daily, 0 Refill(s) Start Date: 10/22/16 Status: Ordered Visipaque 320mg/ml 90 mL, Route: IVP, Drug Form: SOLN, Dosing Weight 64.545, kg, ONCALL, STAT, Star t date: 10/22/16 11:59:00 EXPLOSIVES OPERATOR, Duration: 1 doses or times, Dose=2.2ml/kg, Max d [id number] -- "To be infused by Radiology Staff ONLY" Start Date: 10/22/16 Stop Date: 10/22/16 Status: Completed Results BLOOD BANK RESULTS Most recent to 1 2 oldest [Reference Range]: ABO/Rh O POS *Unknown* (10/22/16 10:37 AM) Antibody Scrn Negative (10/22/16 10:37 AM) ELECTROLYTES Most recent to 1 2 oldest [Reference Range]: Sodium Lvl [135-145 134 mEq/L mEq/L] *LOW* (10/22/16 10:38 AM) Potassium Lvl 4.2 mEq/L [3.5-5.1 mEq/L] (10/22/16 10:38 AM) Chloride Lvl [95-109 101 mEq/L mEq/L] (10/22/16 10:38 AM) CO2 [24-32 mEq/L] 25 mEq/L (10/22/16 10:38 AM) AGAP [10.0-20.0 12.2 mEq/L mEq/L] (10/22/16 10:38 AM) CHEM PANEL Most recent to 1 2 oldest [Reference Range]: Creatinine Lvl 1.29 mg/dL [0.50-1.40 mg/dL] (10/22/16 10:38 AM) eGFR 66 mL/min/1.73m2 1 54 mL/min/1.73m2 2 *NA* *NA* (10/22/16 11:49 AM) (10/22/16 10:38 AM) BUN [7-22 mg/dL] 16 mg/dL (10/22/16 10:38 AM) B/C Ratio [6-25] 12 (10/22/16 10:38 AM) Glucose Lvl [70-99 119 mg/dL mg/dL] *HI* (10/22/16 10:38 AM) POC Creatinine 1.1 mg/dL [0.5-1.4 mg/dL] (10/22/16 11:49 AM) Total Protein 8.2 g/dL [6.4-8.4 g/dL] (10/22/16 10:38 AM) Albumin Lvl [3.5-5.0 4.1 g/dL g/dL] (10/22/16 10:38 AM) Globulin [2.7-4.2 4.1 g/dL g/dL] (10/22/16 10:38 AM) A/G Ratio [0.7-1.6] 1.0 (10/22/16 10:38 AM) Calcium Lvl 10.0 mg/dL [8.5-10.5 mg/dL] (10/22/16 10:38 AM) Magnesium Lvl 1.8 mg/dL [1.8-2.4 mg/dL] (10/22/16 10:38 AM) ALT [0-65 unit/L] 20 unit/L (10/22/16 10:38 AM) AST [0-37 unit/L] 28 unit/L (10/22/16 10:38 AM) Alk Phos [39-136 103 unit/L unit/L] (10/22/16 10:38 AM) Bili Total [0.2-1.3 0.8 mg/dL mg/dL] (10/22/16 10:38 AM) 1Result Comment: The eGFR is calculated [...] be mul tiplied by the estimated BMI. 2Result Comment: The eGFR is calculated using the [...] estimated BMI. HEMATOLOGY Most recent to 1 2 oldest [Reference Range]: WBC [3.7-10.4 K/CMM] 8.3 K/CMM (10/22/16 10:38 AM) RBC [4.70-6.10 4.68 M/CMM M/CMM] *LOW* (10/22/16 10:38 AM) Hgb [14.0-18.0 g/dL] 11.1 g/dL *LOW* (10/22/16 10:38 AM) Hct [42.0-54.0 %] 36.1 % *LOW* (10/22/16 10:38 AM) MCV [80.0-94.0 fL] 77.2 fL *LOW* (10/22/16 10:38 AM) MCH [27.0-31.0 pg] 23.7 pg *LOW* (10/22/16 10:38 AM) MCHC [32.0-36.0 30.8 g/dL g/dL] *LOW* (10/22/16 10:38 AM) RDW [11.5-14.5 %] 19.4 % *HI* (10/22/16 10:38 AM) Platelet [133-450 134 K/CMM K/CMM] (10/22/16 10:38 AM) MPV [7.4-10.4 fL] 8.5 fL (10/22/16 10:38 AM) Segs [45.0-75.0 %] 72.0 % (10/22/16 10:38 AM) Lymphocytes 16.5 % [20.0-40.0 %] *LOW* (10/22/16 10:38 AM) Monocytes [2.0-12.0 9.4 % %] (10/22/16 10:38 AM) Eosinophils [0.0-4.0 1.4 % %] (10/22/16 10:38 AM) Basophils [0.0-1.0 0.7 % %] (10/22/16 10:38 AM) Segs-Bands # 6.0 K/CMM [1.5-8.1 K/CMM] (10/22/16 10:38 AM) Lymphocytes # 1.4 K/CMM [1.0-5.5 K/CMM] (10/22/16 10:38 AM) Monocytes # [0.0-0.8 0.8 K/CMM K/CMM] (10/22/16 10:38 AM) Eosinophils # 0.1 K/CMM [0.0-0.5 K/CMM] (10/22/16 10:38 AM) Basophils # [0.0-0.2 0.1 K/CMM K/CMM] (10/22/16 10:38 AM) Microcyte [None 1+ Seen] *ABN* (10/22/16 10:38 AM) PT [12.0-14.7 16.7 seconds seconds] *HI* (10/22/16 10:38 AM) INR [0.85-1.17] 1.33 *HI* (10/22/16 10:38 AM) PTT [22.9-35.8 39.2 seconds seconds] *HI* (10/22/16 10:38 AM) Immunizations Given and Recorded Vaccine Date Status Refusal Reason hepatitis B adult vaccine 09/03/15 Given hepatitis B adult vaccine1 08/05/15 Recorded hepatitis B adult vaccine2 09/15/13 Given hepatitis B vaccine3 10/16/13 Given pneumococcal 23-valent vaccine 12/08/13 Given 1Location History: Belle Harding RN 2Admin Note: Administered 09-11-13. Pt. will return in one month for second inj. 3Admin Note: [facility] [id number] #2 Procedures Procedure Date Related Diagnosis Body [...]
--- OUTSIDE RECORDS SUMMARY | 2019-01-19 00:29 | XMS REPORT | Summary of Care ---
Author Author [facility] Organization [facility] Address Unknown Phone Unavailable Encounter KHRIS Roque(ELOISA) [id number] Date(s): 04/28/16 - 04/28/16 [facility] [address] [place] [address]- [facility] [phone] Discharge Disposition: Home or Self Care Attending Physician: Dave Doty MD Referring Physician: Dave Doty MD Vital Signs Most recent to 1 oldest [Reference Range]: Height 144.78 cm (04/28/16 10:24 AM) Temperature Oral 97.7 DegF [96.4-99.1 DegF] (04/28/16 10:24 AM) Blood Pressure 118/75 mmHg [90-140/60-90 mmHg] (04/28/16 10:24 AM) Peripheral Pulse 67 bpm Rate [60-100 bpm] (04/28/16 10:24 AM) Weight 66.932 kg (04/28/16 10:24 AM) Body Mass Index 31.93 m2 (04/28/16 10:24 AM) Problem List Condition Effective Dates Status Health Status Informant Ascites(Confirmed) Resolved 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 3Admin Note: [facility] [id number] #2 Procedures Procedure Date Related Diagnosis Body [...]
--- OUTSIDE RECORDS SUMMARY | 2019-01-19 00:29 | XMS REPORT | Summary of Care ---
Author Author [facility] Organization [facility] [place] Address Unknown Phone Unavailable Encounter HQ Jude(FIN) [id number] Date(s): 08/14/16 - 08/14/16 [facility] [place] [address] [place] [phone] Discharge Disposition: Home or Self Care Attending [...] 3Admin Note: [facility] [id number] #2 Procedures Procedure Date Related Diagnosis Body [...]
--- OUTSIDE RECORDS SUMMARY | 2019-01-19 00:30 | XMS REPORT | Summary of Care ---
Author Author [facility] Organization [facility] [place] Address Unknown Phone Unavailable Encounter KHRIS Roque(ELOISA) [id number] Date(s): 12/09/16 - 12/09/16 [facility] [address] [place] [phone] Discharge Disposition: Home or Self Care Attending [...] one month for second inj. 3Admin Note: [facility] [id number] #2 Procedures Procedure Date Related Diagnosis Body [...]
--- OUTSIDE RECORDS SUMMARY | 2019-01-19 00:30 | XMS REPORT ---
Author Author [facility] Address Unknown Phone Unavailable Care Team Providers Care Player Development Executive Name Role Phone Unavailable Unavailable Problems This patient has no known problems. Allergies, Adverse Reactions, Alerts This patient has no known allergies or adverse reactions. Medications This patient has no known medications. Encounters Start Date/Time End Date/Time Encounter Type Admission Type Attending Clinicians Care Facility Care Department Encounter ID 2019-01-17 10:39:00 2019-01-17 10:39:00 Outpatient [facility] [id number] 2019-01-16 14:09:00 2019-01-16 14:09:00 Outpatient [facility] [id number] 2018-12-29 13:24:00 2018-12-29 13:24:00 Outpatient [facility] [id number]
== END 2019-01-19 00:46 | disposition left against medical advice (07) ==
LOC: ER 00:22
DX: R42 Dizziness and giddiness (principal)

== ENCOUNTER 2019-05-03 11:20 | Inpatient (IN) | payer MEDICARE ==
[~2019-05-03] VITALS: Ht 157.5 cm; Wt 56.2 kg
[2019-05-03] MEDS ORDERED: IPRATROPIUM BROMIDE 0.02% 2.5 ML NEB NEB STA (11:25)
[2019-05-03] MEDS ORDERED: ALBUTEROL SULF 0.083% NEB SOLN 3 ML NEB NEB STA (11:25)
[2019-05-03] MEDS ORDERED: ASPIRIN 81 MG CHEW TAB PO ONE (11:30)
[2019-05-03 11:59] LABS: BASOPHILS # (AUTO) 0.1 (0.0-0.1); BASOPHILS % 0.7 % (0.0-1.0); EOSINOPHILS # (AUTO) 0.1 (0.0-0.4); EOSINOPHILS % 1.2 % (0.0-6.0); HEMATOCRIT 37.3 % (38.2-49.6); HEMOGLOBIN 12.2 g/dL (14.0-18.0); LYMPHOCYTES # (AUTO) 1.3 (1.0-3.2); LYMPHOCYTES % 14.7 % (18.0-39.1); MEAN CORPUSCULAR HEMOGLOBIN 26.6 pg (28-32); MEAN CORPUSCULAR HGB CONC 32.7 g/dL (31-35); MEAN CORPUSCULAR VOLUME 81.4 fL (81-99); MONOCYTES % 11.5 % (4.4-11.3); NEUTROPHILS # (AUTO) 6.4 (2.1-6.9); NEUTROPHILS % 71.5 % (38.7-80.0); PLATELET COUNT 282 x10e3/uL (140-360); RED BLOOD COUNT 4.58 x10e6/uL (4.3-5.7); RED CELL DISTRIBUTION WIDTH 15.7 % (11.7-14.4)
[2019-05-03 12:00] LABS: BILIRUBIN,URINE NEGATIVE (NEGATIVE); CLARITY,URINE CLEAR (CLEAR); COLOR,URINE YELLOW (YELLOW); KETONES,URINE NEGATIVE (NEGATIVE); LEUKOCYTE ESTERASE ,URINE NEGATIVE (NEGATIVE); NITRITE,URINE NEGATIVE (NEGATIVE); PROTEIN,URINE DIPSTICK NEGATIVE (NEGATIVE); URINE UROBILINOGEN 1 mg/dL (0.2 - 1)
[2019-05-03 12:05] LABS: BACTERIA,URINE FEW /HPF; EPITHELIAL CELLS,URINE FEW /LPF; RBC,URINE 0-5 /HPF (0-5); WBC,URINE (MAN) 0-5 /HPF (0-5)
[2019-05-03 12:15] LABS: INR 1.09; PROTHROMBIN TIME 14.6 seconds (11.9-14.5)
[2019-05-03 12:16] LABS: PARTIAL THROMBOPLASTIN TIME 39.4 seconds (23.8-35.5)
[2019-05-03 12:22] LABS: ALANINE AMINOTRANSFERASE 25 IU/L (0-55); ALBUMIN 3.4 g/dL (3.5-5.0); ALBUMIN/GLOBULIN RATIO 0.6 (0.8-2.0); ALKALINE PHOSPHATASE 143 IU/L (40-150); ANION GAP 16.4 mmol/L (8-16); BLOOD UREA NITROGEN 16 mg/dL (7-26); BUN/CREATININE RATIO 13 (6-25); CALCIUM 10.9 mg/dL (8.4-10.2); CARBON DIOXIDE 22 mmol/L (22-29); CHLORIDE 94 mmol/L (98-107); CREATINE KINASE 49 IU/L (30-200); CREATININE, SERUM 1.27 mg/dL (0.72-1.25); EST GLOMERULAR FILTRATION RATE 55 ML/MIN (60-); GLUCOSE 127 mg/dL (74-118); POTASSIUM 4.4 mmol/L (3.5-5.1); SODIUM 128 mmol/L (136-145)
[2019-05-03 12:31] LABS: B-TYPE NATRIURETIC PEPTIDE2 307.5 pg/mL (0-100)
[2019-05-03] MEDS ORDERED: SODIUM CHLORIDE 0.9% 500ML 500 ML ONE (12:58)
[2019-05-03] MEDS ORDERED: SODIUM CHLORIDE 0.9% 500ML 500 ML IV ONE (13:00)
--- NOTE | 2019-05-03 14:48 | Diagnostic Imaging Report ---
EXAMINATION: CHEST SINGLE (PORTABLE) INDICATION: Cough COMPARISON: None FINDINGS: LINES/TUBES:Left chest pacer with leads projecting over the right atrium and right ventricle. EKG leads overlie the chest. LUNGS:The lung volumes are low. There are airspace opacities at both lung bases. More focal 15 mm nodular opacity at the left mid to lower lung zone. Calcified granuloma at the right lung apex. PLEURA:No pleural effusion or pneumothorax. MEDIASTINUM:The cardiomediastinal silhouette appears normal in size and shape. BONES/SOFT TISSUES:No acute osseous injury. ABDOMEN:No free air under the diaphragm. IMPRESSION: Bibasilar airspace opacifications concerning for aspiration and/or pneumonia. More focal nodular opacity at the left mid to lower lung zone may also be part of the same infectious process. RECOMMENDATIONS: Follow-up chest radiograph in 6-8 weeks to assess for resolution and exclude underlying pulmonary lesion. Signed by: Britni Brown MD on 05/03/2019 2:45 PM
[2019-05-03] MEDS ORDERED: DEXTROSE 50% SYRINGE 50 ML IV PRN (16:30)
[2019-05-03] MEDS ORDERED: PIPER-TAZ 3.375 GM 50 ML IV SCH (16:30)
[2019-05-03] MEDS ORDERED: SODIUM CHLORIDE 0.9% 1000ML 1,000 ML IV ONE (16:30)
[2019-05-03] MEDS ORDERED: CARVEDILOL3.125 MG PO (17:07)
--- OUTSIDE RECORDS SUMMARY | 2019-05-03 17:21 | XMS REPORT | Continuity of Care Document ---
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 Role Phone [employer] Unavailable Unavailable Problems Problem Status Onset Date Classification Date Reported Comments Source K74.60 - UNSPECIFIED CIRRHOSIS OF LIVER Active 02/17/2019 NICOLE Whipple, NICOLE Cam I48.92 Active 01/16/2019 [facility] BEDDED OUTPATIENT/IMAGE GUIDED MICROWAVE Active 12/30/2018 [facility] MWA OF HCC Active 12/22/2018 [facility] FOLLOW-UP Active 04/01/2018 [facility] CIRRHOSIS; HISTORY OF ESOPHAGEAL VARICES Active 01/22/2018 [facility] NEW PT Active 12/16/2017 [facility] Low back pain 10/12/2017 01/12/2018 NICOLE [place] R05 - COUGH Active 12/01/2016 NICOLE Cam AFLUTTER Active 10/07/2016 [facility] CCL/EPS AFLUTTER ABLATION/JAVAN/DX: AFLUTT Active 10/07/2016 [facility] BDDC/ Active 06/25/2016 [facility] CLAUDIFICATION UNSPECIFIED Active 06/08/2016 [facility] DAY SURGERY/MICROWAVE ABLATION OF LIVER Active 05/13/2016 [facility] DDC-F/U VISIT Active 04/20/2016 [facility] B19.20 - UNSPECIFIED VIRAL HEPATITIS C Active 03/18/2016 NICOLE [place] F/U Active 02/03/2016 [facility] Abnormal ECG Active 01/31/2016 Problem 01/19/2019 [facility] Bradycardia Active 01/31/2016 Problem 01/19/2019 [facility] Near syncope Active 01/31/2016 Problem 01/19/2019 [facility] Renal insufficiency Active 01/31/2016 Problem 01/19/2019 [facility] BDDC-ESOPHAGEAL VARICIES Active 11/26/2015 [facility] BDDC-ESOPHAGEAL VARICES Active 11/21/2015 [facility] FOLLOW UP Active 10/23/2015 [facility] BDDC - 6 MONTH F/U Active 08/05/2015 [facility] 793.8 - ABNORMAL FINDIN Active 05/09/2015 NICOLE Cam DDC-3 MONTH F/U VISIT Active 04/29/2015 [facility] 3 MONTH F/U Active 01/29/2015 [facility] 571.5 - CIRRHOSIS OF LI Active 01/01/2015 NICOLE Whipple, NICOLE Cam BDDC-ROUTINE GENERAL MEDICAL EXAMINATION Active 12/31/2014 [facility] BDDC-CHRONIC HEP C Active 07/02/2014 [facility] CCL/R Active 04/10/2014 [facility] CHEST PAIN, DYSPNEA Active 04/10/2014 [facility] ACUTE HEPATITIS C Active 04/10/2014 [facility] 786.05 - SHORTNESS OF BR Active 04/02/2014 NICOLE Whipple CHRONIC HEPATITIS C Active 01/08/2014 [facility] CCL/MAC ANESTHESIA/EPS, AFLUTTER ABLATIO Active 01/03/2014 [facility] SOB Active 12/07/2013 [facility] SOB, PRESYNCOPE Active 12/07/2013 [facility] CIRRHOSIS, HEP C Active 10/16/2013 [facility] ADD ON PER NOBLE Active 09/29/2013 [facility] 1M: HCV-2 CIRRHOSIS, EV, AFLUTTER, FOR H Active 09/11/2013 [facility] CIRRHOSIS, ESOPHAGEAL VARICES Active 08/14/2013 [facility] CIRRHOSIS OF LIVER Active 05/25/2013 [facility] Hepatitis C Active Problem 09/13/2013 [facility] Cirrhosis and chronic liver disease Active Problem 09/01/2014 [facility], NICOLE Whipple, NICOLE Cam, EDMO Esophageal varices1 Active Problem 09/01/2014 1grade 1 [facility], NICOLE Whipple, NICOLE Cam, EDMO 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/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, prior treatment with interferon and ribavirin over 10 years ago [facility], NICOLE Whipple, NICOLE Cam, EDMO Esophageal varices Active Problem 09/01/2014 [facility], NICOLE Whipple, OPID [place], EDDC Cirrhosis of liver Active Problem 06/07/2015 [facility], NICOLE Whipple, OPID [place], EDDC DM (Confirmed) Active Problem 06/07/2015 [facility], NICOLE Whipple, OPID [place], EDDC Duodenal Ulcer Resolved Problem 09/06/2015 [facility], NICOLE Whipple, OPID [place], EDDC DM (Confirmed) Active Problem 12/13/2013 [facility] Ascites Active Problem 12/10/2013 [facility] Atrial flutter Resolved Problem 04/16/2019 [facility], NICOLE Whipple, OPID [place], EDDC, [facility] [place] Atrial Flutter Active Problem 04/18/2015 [facility], NICOLE Whipple, OPID [place], EDDC Chronic antral gastritis Resolved Problem 04/16/2019 [facility], NICOLE Whipple, OPID [place], EDDC, OP[facility] [place] Chronic hepatitis C Active Problem 04/18/2015 [facility], NICOLE Whipple, OPID [place], EDMO Constrictive pericarditis Active Problem 04/16/2019 [facility], NICOLE Whipple, OP[facility] [place], EDMO, OP[facility] [place] Diabetes mellitus Active Problem 03/23/2016 [facility], NICOLE Whipple, OPID [place], EDMO Duodenal ulcer Resolved Problem 04/16/2019 [facility], NICOLE Whipple, OPID [place], EDDC, OP[facility] [place] Bilateral leg edema1 Resolved Problem 04/16/2019 genotype 2, prior treatment with interferon and ribavirin over 10 years ago [facility], NICOLE Whipple, OP[facility] [place], [facility] [place] Esophageal varices2 Active Problem 04/16/2019 grade 1 [facility], NICOLE Whipple, [facility] [place] [place] Hepatitis C virus genotype 2 Resolved Problem 04/16/2019 [facility], NICOLE Whipple, OPID [place], EDDC, OPID [place] Hyperplastic colon polyp Resolved Problem 04/16/2019 [facility], NICOLE Whipple, OPID [place], EDMO, OP[facility] [place] Cirrhosis of liver Active Problem 07/05/2015 NICOLE Whipple DM (Confirmed) Active Problem 07/05/2015 NICOLE Whipple Ascites Resolved Problem 04/16/2019 [facility], NICOLE Whipple, [facility] [place], [facility] [place] Cirrhosis of liver Active Problem 04/16/2019 [facility], NICOLE Whipple, OPID [place], OP[facility] [place] DM (Confirmed) Active Problem 03/23/2016 [facility], NICOLE Whipple, OPID [place] HPTH - Hyperparathyroidism Active Problem 04/16/2019 [facility], NICOLE Whipple, [facility] [place], [facility] [place] CHF, chronic Active Problem 04/16/2019 [facility], NICOLE Whipple, [facility] [place], [facility] [place] CKD , stage III(Confirmed) Active Problem 04/16/2019 [facility], NICOLE Whipple, [facility] [place], [facility] [place] DM , type 2(Confirmed) Active Problem 04/16/2019 [facility], NICOLE Whipple, OPID [place], OPID [place] HCC (Confirmed) Active Problem 04/16/2019 [facility], NICOLE Whipple, [facility] [place], [facility] [place] Obesity Active Problem 04/16/2019 [facility], OPICeline Whipple, OPID [place], [facility] [place] Localized edema 01/12/2018 [facility] [place] Duodenal Ulcer Resolved Problem 01/12/2018 [facility], NICOLE Whippel, OP[facility] [place], [facility] [place] Gastritis Active Problem 01/12/2018 [facility], NICOLE Whipple, OPID [place], EDDC, OPID [place] Liver mass Active Problem 01/12/2018 [facility], NICOLE Whipple, OP[facility] [place], [facility] [place] Cataract Resolved Problem 04/16/2019 [facility], WILNERCeilne Whipple, WILNERCeline Cam ROUTINE MEDICAL EXAM Active [facility] SHORTNESS OF BREATH Active [facility] MEDICAL SERVICES NOT AVAILABLE IN HOME Active [facility] ALCOHOLIC FATTY LIVER Active [facility] ENCNTR FOR GENERAL ADULT MEDICAL EXAM W/ Active [facility] PERIPHERAL VASCULAR DISEASE, UNSPECIFIED Active [facility] UNSPECIFIED ATRIAL FLUTTER Active [facility] Medications Medication Details Route Status Patient Instructions Ordering Provider Order Date Source Aspirin 81 MG Enteric Coated Tablet 81 mg=1 tab, PO, Daily, Resume home aspirin 81mg on 01/18, # 30 tab, 0 Refill(s), other Active 01/18/2019 [facility] Spironolactone 25 mg, 1 tab, Route: PO, Drug form: TAB, Daily, Dosing Weight 61.364, kg, Start date: 01/18/19 9:00:00 CDT, Duration: 30 day, Stop date: 02/16/19 9:00:00 CDTNotes: (Same As: Aldactone) No Longer Active 01/18/2019 [facility] Omeprazole 40 mg, Route: PO, Drug form: DRC, Daily, Dosing Weight 61.364, kg, Start date: 01/18/19 9:00:00 CDT, Duration: 30 day, Stop date: 02/16/19 9:00:00 CDT No Longer Active 01/18/2019 [facility] Furosemide 40 MG Oral Tablet 40 mg, 1 tab, Route: PO, Drug form: TAB, Daily, Dosing Weight 61.364, kg, Start date: 01/18/19 9:00:00 CDT, Duration: 30 day, Stop date: 02/16/19 9:00:00 CDTNotes: (Same as: Lasix) May cause GI upset. Give with food or milk. No Longer Active 01/18/2019 [facility] Protonix 40 mg, 1 tab, Route: PO, Drug form: ECTAB, Daily, Start date: 01/18/19 9:00:00 CDT, Duration: 30 day, Stop date: 02/16/19 9:00:00 CDTNotes: Tablet should not be chewed or crushed. (Same as: Protonix) No Longer Active 01/18/2019 [facility] Glucotrol 2.5 mg, 0.5 tab, Route: PO, Drug form: TAB, Breakfast, Start date: 01/18/19 8:00:00 CDT, Duration: 30 day, Stop date: 02/16/19 8:00:00 CDTNotes: (Same as: Glucotrol) 30 min before meals. No Longer Active 01/18/2019 [facility] glimepiride 1 mg, Route: PO, Drug form: TAB, Breakfast, Dosing Weight 61.364, kg, Start date: 01/18/19 8:00:00 CDT, Duration: 30 day, Stop date: 02/16/19 8:00:00 CDT No Longer Active 01/18/2019 [facility] carvedilol 3.125 mg, 1 tab, Route: PO, Drug form: TAB, Q12H, Dosing Weight 61.364, kg, Start date: 01/17/19 21:00:00 CDT, Duration: 30 day, Stop date: 02/16/19 9:00:00 CDTNotes: Give with food. (Same As: Coreg) Inactive 01/18/2019 [facility] Ondansetron 4 MG Disintegrating Tablet [Zofran] 4 mg=1 tab, PO, BID, PRN Nausea and Vomiting, Dissolve tab under tongue, # 10 tab, 0 Refill(s) Active 01/17/2019 [facility] Acetaminophen 325 MG / Hydrocodone Bitartrate 5 MG Oral Tablet [Dora 5/325] 1 tab, PO, Q6H, PRN for pain, X 7 day, # 28 tab, 0 Refill(s), other Active 01/17/2019 [facility] Metronidazole 500 MG Oral Tablet [Flagyl] 500 mg=1 tab, PO, Q8H, X 10 day, # 30 tab, 0 Refill(s) Active 01/17/2019 [facility] Levofloxacin 750 MG Oral Tablet [Levaquin] 750 mg=1 tab, PO, Q24H, X 10 day, # 10 tab, 0 Refill(s) Active 01/17/2019 [facility] cinacalcet 30 MG Oral Tablet [Sensipar] 30 mg=1 tab, PO, Daily, 0 Refill(s) Active 01/17/2019 [facility] spironolactone 50 mg oral tablet 25 mg=0.5 tab, PO, Daily, 0 Refill(s) Active 01/17/2019 [facility] repaglinide 1 mg oral tablet 1 mg=1 tab, PO, Q12H, 0 Refill(s) Active 01/17/2019 [facility] Insulin Lispro 10 unit, 0.1 mL, Route: SUB-Q, Drug form: SOLN, TID-Before Meals, Dosing Weight 61.364, kg, PRN Blood Glucose Results, Start date: 01/17/19 12:44:00 CDT, Duration: 30 day, Stop date: 02/16/19 12:43:0 0 CDTNotes: (Same as: Humalog) Roll in palms of hands gently; Do not shake vigorously. WASTE: F/P - Black; E - Municipal Trash Bin Stable for 28 days at room temperature. Expires in days from Date Inactive 01/17/2019 [facility] Glucagon 1 mg, Route: IM, Drug form: PDR/INJ, PRN, Dosing Weight 61.364, kg, PRN Blood Glucose Results, Start date: 01/17/19 12:44:00 CDT, Duration: 30 day, Stop date: 02/16/19 12:43:00 CDT Inactive 01/17/2019 [facility] Dextrose 50% Syringe 25 gm, 50 mL, Route: IVP, Drug Form: INJ, Dosing Weight 61.364, kg, PRN, PRN Blood Glucose Results, Start date: 01/17/19 12:44:00 CDT, Duration: 30 day, Stop date: 02/16/19 12:43:00 CDT Inactive 01/17/2019 [facility] Insulin regular 4 unit, Route: IV, ONCE, Dosing Weight 61.364, kg, Start date: 01/17/19 11:26:00 CDT, Stop date: 01/17/19 11:26:00 CDT Inactive 01/17/2019 [facility] Insulin regular 3 unit, Route: IV, ONCE, Dosing Weight 61.364, kg, Start date: 01/17/19 10:45:00 CDT, Stop date: 01/17/19 10:45:00 CDT Inactive 01/17/2019 [facility] Insulin regular 2 unit, Route: SUB-Q, ONCE, Dosing Weight 61.364, kg, Start date: 01/17/19 10:43:00 CDT, Stop date: 01/17/19 10:43:00 CDT Inactive 01/17/2019 [facility] Hydromorphone 0.5 mg, 0.5 mL, Route: IVP, Drug form: INJ, Q5Min, Dosing Weight 61.364, kg, PRN Pain Score 7-10, Start date: 01/17/19 10:43:00 CDT, Duration: 4 doses or times, Stop date: 01/18/19 0:00:00 CDTNotes: Same as: Dilaudid Inactive 01/17/2019 [facility] Oxycodone 5 mg, 1 tab, Route: PO, Drug form: TAB, Q4H, Dosing Weight 61.364, kg, PRN Pain Score 7-10, Start date: 01/17/19 10:43:00 CDT, Duration: 30 day, Stop date: 02/16/19 10:42:00 CDTNotes: (Same as: Roxic odone) Inactive 01/17/2019 [facility] Naloxone 0.4 mg, 1 mL, Route: IVP, Drug form: INJ, Q2MIN, Dosing Weight 61.364, kg, PRN Narcotic Reversal, Start date: 01/17/19 10:43:00 CDT, Duration: 8 doses or times, Stop date: 01/18/19 0:00:00 CDTNotes: Same as Narcan Inactive 01/17/2019 [facility] Flumazenil 0.2 mg, 2 mL, Route: IVP, Drug form: INJ, PRN, Dosing Weight 61.364, kg, PRN Benzodiazepine Reversal, Initial dose, Start date: 01/17/19 10:43:00 CDT, Duration: 30 day, Stop date: 02/16/19 10:42:00 C DTNotes: (Same as: Romazicon) Inactive 01/17/2019 [facility] Labetalol 10 mg, 2 mL, Route: IVP, Drug form: INJ, Q5Min, Dosing Weight 61.364, kg, PRN Elevated BP, Start date: 01/17/19 10:43:00 CDT, Duration: 5 doses or times, Stop date: 01/18/19 0:00:00 CDT Inactive 01/17/2019 [facility] Hydralazine 10 mg, 0.5 mL, Route: IVP, Drug form: INJ, Q20Min, Dosing Weight 61.364, kg, PRN Elevated BP, Start date: 01/17/19 10:43:00 CDT, Duration: 2 doses or times, Stop date: 01/18/19 0:00:00 CDTNotes: (Same as: Apresoline) Push over 5 minutes Inactive 01/17/2019 [facility] Ondansetron 4 mg, 2 mL, Route: IVP, Drug form: INJ, ONCE, Dosing Weight 61.364, kg, PRN Nausea & Vomiting, Start date: 01/17/19 10:43:00 CDTNotes: (Same as: Maggi) MEDICATION WASTE Product Size: 4 mg Product Wasted: ___ mg Inactive 01/17/2019 [facility] Tramadol 50 mg, 1 tab, Route: PO, Drug form: TAB, Q6H, Dosing Weight 61.364, kg, PRN Pain Score 4-6, Start date: 01/17/19 9:39:00 CDT, Duration: 30 day, Stop date: 02/16/19 9:38:00 CDTNotes: Not to exceed 400mg/day. (Same As: Ultram) Inactive 01/17/2019 [facility] Hydromorphone 1 mg, 0.5 mL, Route: IVP, Drug form: INJ, Q4H, Dosing Weight 61.364, kg, PRN Pain Score 7-10, Start date: 01/17/19 9:39:00 CDT, Duration: 30 day, Stop date: 02/16/19 9:38:00 CDTNotes: Same as Dilaudid Inactive 01/17/2019 [facility] Ondansetron 4 mg, 2 mL, Route: IVP, Drug form: INJ, Q8H, Dosing Weight 61.364, kg, PRN Nausea & Vomiting, Start date: 01/17/19 9:39:00 CDT, Duration: 30 day, Stop date: 02/16/19 9:38:00 CDTNotes: (Same as: Zojocelynn) MEDICATION WASTE Product Size: 4 mg Product Wasted: ___ mg Inactive 01/17/2019 [facility] Morphine 2 mg, 0.5 mL, Route: IVP, Drug form: SOLN, Q1H, Dosing Weight 61.364, kg, PRN Pain Score 7-10, Start date: 01/17/19 9:39:00 CDT, Duration: 30 day, Stop date: 02/16/19 9:38:00 CDTNotes: (Same as:MORPhine Sulfate) Inactive 01/17/2019 [facility] Sodium Chloride 0.9% IV 1,000 mL 1,000 mL, Rate: 125 ml/hr, Infuse over: 8 hr, Route: IV, Dosing Weight 61.364 kg, Total Volume: 1,000, Start date: 01/17/19 9:39:00 CDT, Duration: 30 day, Stop date: 02/16/19 9:38:00 CDT, 1.66, m2 Inactive 01/17/2019 [facility] gabapentin 300 mg, Route: PO, Drug form: CAP, ONCE, Dosing Weight 61.364, kg, Start date: 01/17/19 7:16:00 CDT, Stop date: 01/17/19 7:16:00 CDT Inactive 01/17/2019 [facility] Tramadol 50 mg, Route: PO, Drug form: TAB, ONCE, Dosing Weight 61.364, kg, Start date: 01/17/19 7:16:00 CDT, Stop date: 01/17/19 7:16:00 CDT Inactive 01/17/2019 [facility] Acetaminophen 650 mg, Route: PO, Drug form: TAB, ONCE, Dosing Weight 61.364, kg, Start date: 01/17/19 7:16:00 CDT, Stop date: 01/17/19 7:16:00 CDT Inactive 01/17/2019 [facility] glimepiride 1 mg oral tablet 1 mg=1 tab, PO, Breakfast, # 30 tab, 0 Refill(s) No Longer Active 01/11/2019 [facility] spironolactone 50 mg oral tablet 25 mg=0.5 tab, PO, Daily, # 15 tab, 11 Refill(s), Pharmacy: [facility]/pharmacy #[id number] Active 11/08/2018 [facility] Furosemide 40 MG Oral Tablet 40 mg=1 tab, PO, Daily, # 30 tab, 11 Refill(s), Pharmacy: [facility]/pharmacy #[id number] Active 11/08/2018 [facility] Vitamin D2 50,000 intl units oral capsule 50,000 IntlUnit=1 cap, PO, Daily, 0 Refill(s) Active 01/18/2018 [facility] Amoxicillin 875 MG / Clavulanate 125 MG Oral Tablet 1 tab, PO, BID, # 20 tab, 0 Refill(s) Active 01/18/2018 [facility] Protonix 40 mg, 1 tab, Route: PO, Drug form: ECTAB, Daily, Start date: 10/23/16 9:00:00 LAY OUT AND DETAIL DRAFTER, Duration: 30 day, Stop date: 11/21/16 9:00:00 CSTNotes: Tablet should not be chewed or crushed. (Same as: Protonix) No Longer Active 10/23/2016 [facility] Glucotrol 5 mg, 1 tab, Route: PO, Drug form: TAB, Daily, Start date: 10/23/16 9:00:00 LAY OUT AND DETAIL DRAFTER, Duration: 30 day, Stop date: 11/21/16 9:00:00 CSTNotes: (Same as: Glucotrol) 30 min before meals. No Longer Active 10/23/2016 [facility] Spironolactone 25 mg, 1 tab, Route: PO, Drug form: TAB, Daily, Dosing Weight 64.545, kg, Start date: 10/23/16 9:00:00 LAY OUT AND DETAIL DRAFTER, Duration: 30 day, Stop date: 11/21/16 9:00:00 CSTNotes: (Same As: Aldactone) No Longer Active 10/23/2016 [facility] Omeprazole 40 mg, Route: PO, Drug form: DRC, Daily, Dosing Weight 64.545, kg, Start date: 10/23/16 9:00:00 LAY OUT AND DETAIL DRAFTER, Duration: 30 day, Stop date: 11/21/16 9:00:00 LAY OUT AND DETAIL DRAFTER No Longer Active 10/23/2016 [facility] glimepiride 1 mg, Route: PO, Drug form: TAB, Daily, Dosing Weight 64.545, kg, Start date: 10/23/16 9:00:00 LAY OUT AND DETAIL DRAFTER, Duration: 30 day, Stop date: 11/21/16 9:00:00 LAY OUT AND DETAIL DRAFTER No Longer Active 10/23/2016 [facility] Furosemide 40 MG Oral Tablet 40 mg, 1 tab, Route: PO, Drug form: TAB, Daily, Dosing Weight 64.545, kg, Start date: 10/23/16 9:00:00 LAY OUT AND DETAIL DRAFTER, Duration: 30 day, Stop date: 11/21/16 9:00:00 CSTNotes: (Same as: Lasix) May cause GI upset. Give with food or milk. No Longer Active 10/23/2016 [facility] aspirin 81 mg tablet, enteric coated 81 mg, 1 tab, Route: PO, Drug form: ECTAB, Daily, Dosing Weight 64.545, kg, Start date: 10/23/16 9:00:00 LAY OUT AND DETAIL DRAFTER, Duration: 30 day, Stop date: 11/21/16 9:00:00 CSTNotes: Do not crush or chew. (Same As: Ecotrin) No Longer Active 10/23/2016 [facility] Saline Flush 0.9% 10 ml, Route: IVP, Drug Form: INJ, Dosing Weight 64.545, kg, Q12H, Start date: 10/22/16 21:00:00 LAY OUT AND DETAIL DRAFTER, Duration: 30 day, Stop date: 11/21/16 9:00:00 CSTNotes: (Same as: BD Posiflush) Inactive 10/23/2016 [facility] carvedilol 3.125 mg, 1 tab, Route: PO, Drug form: TAB, BID, Dosing Weight 64.545, kg, Start date: 10/22/16 17:00:00 LAY OUT AND DETAIL DRAFTER, Duration: 30 day, Stop date: 11/21/16 9:00:00 CSTNotes: Give with food. (Same As: Coreg) Inactive 10/22/2016 [facility] Acetaminophen 300 MG / Codeine Phosphate 30 MG Oral Tablet 1 tab, PO, Q4H, PRN Pain Score 4-6, X 5 day, # 30 tab, 0 Refill(s) Active 10/22/2016 [facility] spironolactone 25 mg oral tablet 25 mg, PO, Daily, 0 Refill(s) Active 10/22/2016 [facility] Saline Flush 0.9% 10 ml, Route: IVP, Drug Form: INJ, Dosing Weight 64.545, kg, PRN, PRN Line Flush, Start date: 10/22/16 15:54:00 LAY OUT AND DETAIL DRAFTER, Duration: 30 day, Stop date: 11/21/16 15:53:00 CSTNotes: (Same as: BD Posiflush) Inactive 10/22/2016 [facility] acetaminophen-codeine #3 1 tab, Route: PO, Drug Form: TAB, Dosing Weight 64.545, kg, Q4H, PRN Pain Score 4-6, Start date: 10/22/16 15:54:00 LAY OUT AND DETAIL DRAFTER, Duration: 30 day, Stop date: 11/21/16 15:53:00 CSTNotes: Do not exceed 4gm/day of acetaminophen. (Same as: Tylenol with Codeine # 3) Inactive 10/22/2016 [facility] carvedilol 3.125 mg oral tablet 3.125 mg=1 tab, PO, BID, 0 Refill(s) Active 10/22/2016 [facility] iodixanol 90 mL, Route: IVP, Drug Form: SOLN, Dosing Weight 64.545, kg, ONCALL, STAT, Start date: 10/22/16 11:59:00 LAY OUT AND DETAIL DRAFTER, Duration: 1 doses or times, Dose=2.2ml/kg, Max krnk=[id number] -- "To be infused by Radiology Staff ONLY" Inactive 10/22/2016 [facility] Ketorolac 30 mg, Route: IV, ONCE, Dosing Weight 65.909, kg, Start date: 05/22/16 14:38:00 CDT, Stop date: 05/22/16 14:38:00 CDT Inactive 05/22/2016 [facility] Naloxone 0.4 mg, 1 mL, Route: IVP, Drug form: INJ, Q2MIN, Dosing Weight 65.909, kg, PRN Narcotic Reversal, Start date: 05/22/16 12:08:00 CDT, Duration: 8 doses or times, Stop date: Limited # of timesNotes: Same as Narcan No Longer Active 05/22/2016 [facility] Metoprolol 1 mg, 1 mL, Route: IVP, Drug form: INJ, Q5Min, Dosing Weight 65.909, kg, PRN Other -See Comment, Start date: 05/22/16 12:08:00 CDT, Duration: 5 doses or times, Stop date: Limited # of timesNotes: (Same as: Lopressor) Push over 2 minutes No Longer Active 05/22/2016 [facility] Hydralazine 10 mg, 0.5 mL, Route: IVP, Drug form: INJ, Q20Min, Dosing Weight 65.909, kg, PRN Elevated BP, Start date: 05/22/16 12:08:00 CDT, Duration: 2 doses or times, Stop date: Limited # of timesNotes: (Same as: Apresoline) Push over 5 minutes No Longer Active 05/22/2016 [facility] Labetalol 10 mg, 2 mL, Route: IVP, Drug form: INJ, Q5Min, Dosing Weight 65.909, kg, PRN Elevated BP, Start date: 05/22/16 12:08:00 CDT, Duration: 5 doses or times, Stop date: Limited # of times No Longer Active 05/22/2016 [facility] Fentanyl 25 microgram, 0.5 mL, Route: IVP, Drug form: INJ, Q5Min, Dosing Weight 65.909, kg, PRN Pain Score 4-6, Start date: 05/22/16 12:08:00 CDT, Duration: 4 doses or times, Stop date: Limited # of timesNotes: (Same as: Sublimaze) Preservative free. No Longer Active 05/22/2016 [facility] Hydromorphone 0.5 mg, 0.25 mL, Route: IVP, Drug form: INJ, Q5Min, Dosing Weight 65.909, kg, PRN Pain Score 7-10, Start date: 05/22/16 12:08:00 CDT, Duration: 4 doses or times, Stop date: Limited # of timesNotes: S marsha as: Dilaudid No Longer Active 05/22/2016 [facility] Ondansetron 4 mg, 2 mL, Route: IVP, Drug form: INJ, ONCE, Dosing Weight 65.909, kg, PRN Nausea & Vomiting, Start date: 05/22/16 12:08:00 CDTNotes: (Same as: Zofran) MEDICATION WASTE Product Size: 4 mg Product Wasted: ___ mg Inactive 05/22/2016 [facility] Flumazenil 0.2 mg, 2 mL, Route: IVP, Drug form: INJ, PRN, Dosing Weight 65.909, kg, PRN Benzodiazepine Reversal, Initial dose, Start date: 05/22/16 12:08:00 CDT, Duration: 1 day, Stop date: 05/23/16 12:07:00 CD TNotes: (Same as: Romazicon) No Longer Active 05/22/2016 [facility] Potassium Chloride 10 Meq Tab.er.prt, 20 Meq Oral Daily Active 01/30/2016 [facility] omeprazole 40 mg oral delayed release capsule 40 mg=1 cap, PO, Daily, # 30 cap, 5 Refill(s), Pharmacy: [facility]/pharmacy #[id number] Active 11/20/2015 [facility] Hepatitis B Surface Antigen Vaccine 0.01 MG/ML Injectable Suspension 10 microgram=1 mL, IM, ONCE, # 1 mL, 0 Refill(s), other Active 08/05/2015 [facility] Furosemide 40 MG Oral Tablet [Lasix] 40 mg=1 tab, PO, Every Other Day, 0 Refill(s) Active 08/05/2015 [facility] Furosemide 40 MG Oral Tablet [Lasix] 40 mg=1 tab, PO, QAM, # 90 tab, 3 Refill(s), Pharmacy: [facility]/pharmacy #[id number] No Longer Active 12/31/2014 [facility] omeprazole 40 mg oral delayed release capsule See Instructions, # 60 unknown unit, Refill(s) 11, TOME 1 CAPSULA 2 VECES AL VIANEY, Pharmacy: [facility]/pharmacy #[id number] Instructions: TOME 1 CAPSULA 2 VECES AL VIANEY No Longer Active 10/10/2014 [facility] omeprazole 40 mg oral delayed release capsule 40 mg=1 cap, PO, Daily, # 30 cap, 5 Refill(s), Pharmacy: [facility]/pharmacy #[id number] Active 10/03/2014 [facility] Furosemide 40 Mg Tablet, 40 Mg Oral Daily Active 07/16/2014 [facility] Spironolactone 25 Mg Tablet, 25 Mg Oral Daily Active 07/16/2014 [facility] Furosemide 40 MG Oral Tablet [Lasix] 20 mg=0.5 tab, PO, Daily, # 30 tab, 5 Refill(s), Pharmacy: [facility]/pharmacy #[id number] Active 07/02/2014 [facility] Potassium Chloride 20 MEQ Extended Release Tablet 20 mEq=1 tab, PO, BID, # 10 tab, 0 Refill(s) Active 05/09/2014 [facility] magnesium oxide 400 mg oral tablet 400 mg=1 tab, PO, Daily, # 10 tab, 0 Refill(s) Active 05/09/2014 [facility] omeprazole 40 mg oral delayed release capsule 40 mg=1 cap, PO, Daily, # 30 cap, 0 Refill(s) Active 05/09/2014 [facility] Aspirin 81 MG Enteric Coated Tablet 81 mg=1 tab, PO, Daily, # 0 tab, 0 Refill(s) Active 04/02/2014 [facility] Aspirin 81 MG Enteric Coated Tablet 81 mg=1 tab, PO, Daily, # 120 tab, 0 Refill(s) Active 12/08/2013 [facility] Furosemide 40 MG Oral Tablet [Lasix] 40 mg=1 tab, PO, BID, # 60 tab, 3 Refill(s) Active 12/08/2013 [facility] Atenolol 25 MG Oral Tablet 12.5 mg=0.5 tab, PO, Daily, 0 Refill(s) Active 12/08/2013 [facility] heparin sodium, porcine 2500 UNT/ML Injectable Solution 5,000 unit, 1 mL, Route: SUB-Q, Drug form: INJ, Q8H, Dosing Weight 70.455, kg, Start date: 12/08/13 16:00:00, Duration: 30 day, Stop date: 01/07/14 8:00:00porcine heparin Inactive 12/08/2013 [facility] Aspirin / Calcium Carbonate 81 mg, 1 tab, Route: PO, Drug form: ECTAB, Daily, Dosing Weight 70.455, kg, Priority: NOW, Start date: 12/08/13 13:38:00, Duration: 30 day, Stop date: 01/07/14 9:00:00 Inactive 12/08/2013 [facility] pneumococcal capsular polysaccharide type 1 vaccine / pneumococcal capsular polysaccharide type 10A vaccine / pneumococcal capsular polysaccharide type 11A vaccine / pneumococcal capsular polysaccharide type 12F vaccine / pneumococcal capsular polysacchar 0.5 ml, Route: IM, Drug Form: INJ, Daily, Start date: 12/08/13 9:00:00, Duration: 1 doses or times, Stop date: 12/08/13 9:00:00(Same as: Pneumovax 23) Refrigerate Inactive 12/08/2013 [facility] pantoprazole 40 mg, 1 tab, Route: PO, Drug form: ECTAB, Daily, Dosing Weight 66.364, kg, Start date: 12/08/13 9:00:00, Duration: 30 day, Stop date: 01/06/14 9:00:00Tablet should not be chewed or crushed. (Same as : Protonix) Inactive 12/08/2013 [facility] Spironolactone 25 mg, 1 tab, Route: PO, Drug form: TAB, Daily, Dosing Weight 66.364, kg, Start date: 12/08/13 9:00:00, Duration: 30 day, Stop date: 01/06/14 9:00:00(Same As: Aldactone) Inactive 12/08/2013 [facility] Furosemide 40 MG Oral Tablet 40 mg, 1 tab, Route: PO, Drug form: TAB, Daily, Dosing Weight 66.364, kg, Start date: 12/08/13 9:00:00, Duration: 30 day, Stop date: 01/06/14 9:00:00(Same as: Lasix) May cause GI upset. Give with food or milk. Inactive 12/08/2013 [facility] glimepiride 1 mg, 1 tab, Route: PO, Drug form: TAB, Daily, Dosing Weight 66.364, kg, Start date: 12/08/13 9:00:00, Duration: 30 day, Stop date: 01/06/14 9:00:00(Same as: Amaryl) Inactive 12/08/2013 [facility] Furosemide 20 mg, 2 mL, Route: IVP, Drug form: INJ, ONCE, Dosing Weight 66.364, kg, Priority: STAT, Start date: 12/07/13 23:44:00, Stop date: 12/07/13 23:44:00(Same as: Lasix) No Longer Active 12/08/2013 [facility] Lasix 20 mg, 2 mL, Route: IVP, Drug form: INJ, ONCE, Dosing Weight 66.364, kg, Priority: STAT, Start date: 12/07/13 21:46:00, Stop date: 12/07/13 21:46:00(Same as: Lasix) Inactive 12/08/2013 [facility] Ancef 1 gm, Route: IVPB, ONCE, Dosing Weight 66.364, kg, Priority: STAT, Start date: 12/07/13 18:47:00, Stop date: 12/07/13 18:47:00 Inactive 12/07/2013 [facility] Ribavirin 400 mg, PO, Daily, Take two 200mg tab daily, 0 Refill(s)Take two 200mg tab daily Active 11/27/2013 [facility] {6 (Azithromycin 250 MG Oral Tablet [Zithromax]) } Pack [Z-PAKS] See Instructions, Take as directed PO Daily 5 day, # 6 tab, 0 Refill(s), Pharmacy: [facility]/pharmacy #[id number] as directed PO Daily 5 day Active 11/22/2013 [facility] RibaPak 600 600 mg in am and 400 mg in pm, PO, BID, 2 Refill(s) Active 10/18/2013 [facility] Sofosbuvir Sofosbuvir, 400 mg=, PO, Daily, Refill(s) 2 Active 10/18/2013 [facility] pantoprazole 40 mg oral enteric coated tablet 0 Refill(s) Active 08/30/2013 [facility] Aspirin (Aspirin Ec) 81 Mg Tablet. Daily Active [facility] Furosemide 40 Mg Tablet Daily Active [facility] Glimepiride 1 Mg Tablet Before Breakfast Active [facility] Magnesium Oxide 400 Mg Tablet Daily Active [facility] Omeprazole 40 Mg Capsule. Daily Active [facility] Spironolactone 25 Mg Tablet Daily Active [facility] Allergies, Adverse Reactions, Alerts Substance Category Reaction Severity Reaction type Status Date Reported Comments Source No Known Medication Allergies Assertion Drug allergy OPID [place] Immunizations Immunization Date Given Site Status Last Updated Comments Source pneumococcal 13-valent vaccine<sup>4</sup> 01/17/2019 Not Given [facility], NICOLE Whipple, OPID [place] hepatitis B adult vaccine 09/03/2015 Left deltoid completed [place] [facility], NICOLE Whipple, OPICeline [place], OPID [place] hepatitis B adult vaccine<sup>1</sup> 08/05/2015 Left deltoid completed [place] Location History: Belle Harding RN [facility], NICOLE Whipple hepatitis B adult vaccine<sup>1</sup> 08/05/2015 Left deltoid completed [place] Location History: Belle Harding RN [facility], NICOLE Whipple, OPICeline [place], OPID [place] pneumococcal 23-valent vaccine 12/08/2013 Left deltoid completed [place] [facility], NICOLE Whipple, OPID [place], EDDC, OPID [place] hepatitis B vaccine<sup>2</sup> 10/16/2013 completed [place] 2Admin Note: [facility] 2285-5227-77 #2 [facility] hepatitis B vaccine<sup>2</sup> 10/16/2013 Left Deltoid completed [place] Admin Note: [facility] 5739-0180-61 #2 [facility], NICOLE Whipple, OPID [place], EDDC hepatitis B vaccine<sup>3</sup> 10/16/2013 Left Deltoid completed [place] Admin Note: [facility] [id number] #2 [facility], NICOLE Whipple, OPID [place], OPID [place] hepatitis B adult vaccine<sup>1</sup> 09/15/2013 completed Lyssy 1Admin Note: Administered 09-11-13. Pt. will return in one month for second inj. [facility] hepatitis B adult vaccine<sup>1</sup> 09/15/2013 Right Deltoid completed Lyssy Admin Note: Administered 09-11-13. Pt. will return in one month for second inj. [facility], NICOLE Whipple, NICOLE Cam, EDDC hepatitis B adult vaccine<sup>2</sup> 09/15/2013 Right Deltoid completed Lyssy Admin Note: Administered 09-11-13. Pt. will return in one month for second inj. [facility], NICOLE Whipple, NICOLE Cam, NICOLE Hirsch Results Order Name Results Value Reference Range Date Interpretation Comments Source BLOOD BANK RESULTS Antibody Scrn Negative (01/17/19 8:42 AM) 01/17/2019 [facility] BLOOD BANK RESULTS ABO/Rh O POS 01/17/2019 [facility] CHEM PANEL eGFR 63 01/13/2019 Result Comment: The eGFR is calculated using [...] should be multiplied by the estimated BMI. [facility] CHEM PANEL AST 23 0 - 37 01/13/2019 [facility] CHEM PANEL Alk Phos 113 39 - 136 01/13/2019 [facility] CHEM PANEL Total Protein 8.4 6.4 - 8.4 01/13/2019 [facility] CHEM PANEL Albumin Lvl 4.3 3.5 - 5.0 01/13/2019 [facility] CHEM PANEL Creatinine Lvl 1.12 0.50 - 1.40 01/13/2019 [facility] CHEM PANEL Sodium Lvl 138 135 - 145 01/13/2019 [facility] CHEM PANEL Calcium Lvl 10.8 8.5 - 10.5 01/13/2019 [facility] CHEM PANEL CO2 30 24 - 32 01/13/2019 [facility] CHEM PANEL ALT 22 0 - 65 01/13/2019 [facility] CHEM PANEL Potassium Lvl 4.9 3.5 - 5.1 01/13/2019 [facility] CHEM PANEL Bili Total 0.4 0.2 - 1.3 01/13/2019 [facility] CHEM PANEL Chloride Lvl 103 95 - 109 01/13/2019 [facility] CHEM PANEL BUN 19 7 - 22 01/13/2019 [facility] CHEM PANEL Glucose Lvl 158 70 - 99 01/13/2019 [facility] CHEM PANEL A/G Ratio 1.0 0.7 - 1.6 01/13/2019 [facility] CHEM PANEL B/C Ratio 17 6 - 25 01/13/2019 [facility] CHEM PANEL AGAP 9.9 10.0 - 20.0 01/13/2019 [facility] CHEM PANEL Globulin 4.1 2.7 - 4.2 01/13/2019 [facility] HEMATOLOGY INR 1.06 0.85 - 1.17 01/13/2019 [facility] HEMATOLOGY PT 13.6 12.0 - 14.7 01/13/2019 [facility] HEMATOLOGY PTT 35.0 22.9 - 35.8 01/13/2019 [facility] HEMATOLOGY MCH 25.9 27.0 - 31.0 01/13/2019 [facility] HEMATOLOGY MCV 81.4 80.0 - 94.0 01/13/2019 [facility] HEMATOLOGY Hct 41.8 42.0 - 54.0 01/13/2019 [facility] HEMATOLOGY Hgb 13.3 14.0 - 18.0 01/13/2019 [facility] HEMATOLOGY RBC 5.13 4.70 - 6.10 01/13/2019 [facility] HEMATOLOGY WBC 7.3 3.7 - 10.4 01/13/2019 [facility] HEMATOLOGY MPV 8.9 7.4 - 10.4 01/13/2019 [facility] HEMATOLOGY Platelet 169 133 - 450 01/13/2019 [facility] HEMATOLOGY RDW 16.6 11.5 - 14.5 01/13/2019 [facility] HEMATOLOGY MCHC 31.9 32.0 - 36.0 01/13/2019 [facility] HEMATOLOGY TEG Interp Thrombelastograph results are within reference ranges. These indicate adequate hemostasis. Note that TEG does not show effect of NSAIDs or P2Y12 inhibitors. CPT:36578 01/13/2019 [facility] HEMATOLOGY Ly30 0.0 0.0 - 7.5 01/13/2019 [facility] HEMATOLOGY Coag Index -0.4 -3.0-3.0 - 3.0 01/13/2019 [facility] HEMATOLOGY TEG Data See Note (01/13/19 12:25 PM) 01/13/2019 [facility] HEMATOLOGY G-value 9.6 4.5 - 11.0 01/13/2019 [facility] HEMATOLOGY Max Amp 65.7 50.0 - 70.0 01/13/2019 [facility] HEMATOLOGY Angle 59.3 53.0 - 72.0 01/13/2019 [facility] HEMATOLOGY R-time 6.7 5.0 - 10.0 01/13/2019 [facility] HEMATOLOGY K-time 2.2 1.0 - 3.0 01/13/2019 [facility] HEMATOLOGY Eosinophils # 0.2 0.0 - 0.5 01/13/2019 [facility] HEMATOLOGY Monocytes # 0.5 0.0 - 0.8 01/13/2019 [facility] HEMATOLOGY Basophils # 0.1 0.0 - 0.2 01/13/2019 [facility] HEMATOLOGY Lymphocytes 20.9 20.0 - 40.0 01/13/2019 [facility] HEMATOLOGY Segs 68.4 45.0 - 75.0 01/13/2019 [facility] HEMATOLOGY Lymphocytes # 1.5 1.0 - 5.5 01/13/2019 [facility] HEMATOLOGY Eosinophils 2.5 0.0 - 4.0 01/13/2019 [facility] HEMATOLOGY Monocytes 7.4 2.0 - 12.0 01/13/2019 [facility] HEMATOLOGY Neutrophils # 5.0 1.5 - 8.1 01/13/2019 [facility] HEMATOLOGY Basophils 0.8 0.0 - 1.0 01/13/2019 [facility] SPECIAL CHEMISTRY Hgb A1C 8.1 <=5.6 % 01/13/2019 [facility] CHEM PANEL Albumin Lvl 4.4 3.5 - 5.0 11/08/2018 [facility] CHEM PANEL Bili Indirect 0.4 0.0 - 1.0 11/08/2018 [facility] CHEM PANEL ALT 27 0 - 65 11/08/2018 [facility] CHEM PANEL AST 28 0 - 37 11/08/2018 [facility] CHEM PANEL Alk Phos 88 39 - 136 11/08/2018 [facility] CHEM PANEL Total Protein 8.3 6.4 - 8.4 11/08/2018 [facility] CHEM PANEL Bili Direct 0.1 0.0 - 0.3 11/08/2018 [facility] CHEM PANEL Bili Total 0.5 0.2 - 1.3 11/08/2018 [facility] CHEM PANEL Globulin 3.9 2.7 - 4.2 11/08/2018 [facility] CHEM PANEL A/G Ratio 1.1 0.7 - 1.6 11/08/2018 [facility] CHEM PANEL eGFR 55 11/08/2018 Result Comment: The eGFR is calculated [...] should be multiplied by the estimated BMI. [facility] CHEM PANEL Calcium Lvl 10.3 8.5 - 10.5 11/08/2018 [facility] CHEM PANEL Creatinine Lvl 1.26 0.50 - 1.40 11/08/2018 [facility] CHEM PANEL Sodium Lvl 136 135 - 145 11/08/2018 [facility] CHEM PANEL Glucose Lvl 103 70 - 99 11/08/2018 [facility] CHEM PANEL BUN 16 7 - 22 11/08/2018 [facility] CHEM PANEL Potassium Lvl 4.0 3.5 - 5.1 11/08/2018 [facility] CHEM PANEL CO2 28 24 - 32 11/08/2018 [facility] CHEM PANEL Chloride Lvl 103 95 - 109 11/08/2018 [facility] CHEM PANEL AGAP 9.0 10.0 - 20.0 11/08/2018 [facility] HEMATOLOGY Basophils # 0.1 0.0 - 0.2 11/08/2018 [facility] HEMATOLOGY Eosinophils # 0.2 0.0 - 0.5 11/08/2018 [facility] HEMATOLOGY Monocytes # 0.6 0.0 - 0.8 11/08/2018 [facility] HEMATOLOGY Neutrophils # 4.9 1.5 - 8.1 11/08/2018 [facility] HEMATOLOGY Lymphocytes # 1.5 1.0 - 5.5 11/08/2018 [facility] HEMATOLOGY Basophils 0.9 0.0 - 1.0 11/08/2018 [facility] HEMATOLOGY Lymphocytes 20.9 20.0 - 40.0 11/08/2018 [facility] HEMATOLOGY Monocytes 8.5 2.0 - 12.0 11/08/2018 [facility] HEMATOLOGY Eosinophils 2.3 0.0 - 4.0 11/08/2018 [facility] HEMATOLOGY Segs 67.4 45.0 - 75.0 11/08/2018 [facility] HEMATOLOGY INR 1.11 0.85 - 1.17 11/08/2018 [facility] HEMATOLOGY PT 14.1 12.0 - 14.7 11/08/2018 [facility] HEMATOLOGY MCH 25.1 27.0 - 31.0 11/08/2018 [facility] HEMATOLOGY MCV 80.8 80.0 - 94.0 11/08/2018 [facility] HEMATOLOGY MPV 9.2 7.4 - 10.4 11/08/2018 [facility] HEMATOLOGY Hct 41.4 42.0 - 54.0 11/08/2018 [facility] HEMATOLOGY Hgb 12.8 14.0 - 18.0 11/08/2018 [facility] HEMATOLOGY RBC 5.12 4.70 - 6.10 11/08/2018 [facility] HEMATOLOGY WBC 7.3 3.7 - 10.4 11/08/2018 [facility] HEMATOLOGY Platelet 170 133 - 450 11/08/2018 [facility] HEMATOLOGY RDW 17.4 11.5 - 14.5 11/08/2018 [facility] HEMATOLOGY MCHC 31.0 32.0 - 36.0 11/08/2018 [facility] TUMOR MARKERS AFP 30.4 0.0 - 11.0 11/08/2018 [facility] CHEM PANEL eGFR 66 10/22/2016 Result Comment: The eGFR is calculated [...] should be multiplied by the estimated BMI. [facility] CHEM PANEL POC Creatinine 1.1 0.5 - 1.4 10/22/2016 [facility] CHEM PANEL A/G Ratio 1.0 0.7 - 1.6 10/22/2016 [facility] CHEM PANEL Globulin 4.1 2.7 - 4.2 10/22/2016 [facility] CHEM PANEL B/C Ratio 12 6 - 25 10/22/2016 [facility] CHEM PANEL AGAP 12.2 10.0 - 20.0 10/22/2016 [facility] CHEM PANEL Albumin Lvl 4.1 3.5 - 5.0 10/22/2016 [facility] CHEM PANEL ALT 20 0 - 65 10/22/2016 [facility] CHEM PANEL Bili Total 0.8 0.2 - 1.3 10/22/2016 [facility] CHEM PANEL AST 28 0 - 37 10/22/2016 [facility] CHEM PANEL Alk Phos 103 39 - 136 10/22/2016 [facility] CHEM PANEL Total Protein 8.2 6.4 - 8.4 10/22/2016 [facility] CHEM PANEL eGFR 54 10/22/2016 Result Comment: The eGFR is calculated [...] should be multiplied by the estimated BMI. [facility] CHEM PANEL BUN 16 7 - 22 10/22/2016 [facility] CHEM PANEL Creatinine Lvl 1.29 0.50 - 1.40 10/22/2016 [facility] CHEM PANEL Potassium Lvl 4.2 3.5 - 5.1 10/22/2016 [facility] CHEM PANEL Chloride Lvl 101 95 - 109 10/22/2016 [facility] CHEM PANEL CO2 25 24 - 32 10/22/2016 [facility] CHEM PANEL Sodium Lvl 134 135 - 145 10/22/2016 [facility] CHEM PANEL Calcium Lvl 10.0 8.5 - 10.5 10/22/2016 [facility] CHEM PANEL Glucose Lvl 119 70 - 99 10/22/2016 [facility] CHEM PANEL Magnesium Lvl 1.8 1.8 - 2.4 10/22/2016 [facility] HEMATOLOGY Microcyte 1+ *ABN* (10/22/16 10:38 AM) None Seen 10/22/2016 [facility] HEMATOLOGY Basophils # 0.1 0.0 - 0.2 10/22/2016 [facility] HEMATOLOGY Segs 72.0 45.0 - 75.0 10/22/2016 [facility] HEMATOLOGY Segs-Bands # 6.0 1.5 - 8.1 10/22/2016 [facility] HEMATOLOGY Eosinophils # 0.1 0.0 - 0.5 10/22/2016 [facility] HEMATOLOGY Basophils 0.7 0.0 - 1.0 10/22/2016 [facility] HEMATOLOGY Lymphocytes # 1.4 1.0 - 5.5 10/22/2016 [facility] HEMATOLOGY Monocytes # 0.8 0.0 - 0.8 10/22/2016 [facility] HEMATOLOGY Monocytes 9.4 2.0 - 12.0 10/22/2016 [facility] HEMATOLOGY Eosinophils 1.4 0.0 - 4.0 10/22/2016 [facility] HEMATOLOGY Lymphocytes 16.5 20.0 - 40.0 10/22/2016 [facility] HEMATOLOGY Platelet 134 133 - 450 10/22/2016 [facility] HEMATOLOGY RDW 19.4 11.5 - 14.5 10/22/2016 [facility] HEMATOLOGY MPV 8.5 7.4 - 10.4 10/22/2016 [facility] HEMATOLOGY RBC 4.68 4.70 - 6.10 10/22/2016 [facility] [facility] HEMATOLOGY WBC 8.3 3.7 - 10.4 10/22/2016 [facility] HEMATOLOGY MCV 77.2 80.0 - 94.0 10/22/2016 [facility] HEMATOLOGY MCHC 30.8 32.0 - 36.0 10/22/2016 [facility] HEMATOLOGY MCH 23.7 27.0 - 31.0 10/22/2016 [facility] HEMATOLOGY Hct 36.1 42.0 - 54.0 10/22/2016 [facility] HEMATOLOGY Hgb 11.1 14.0 - 18.0 10/22/2016 [facility] HEMATOLOGY PTT 39.2 22.9 - 35.8 10/22/2016 [facility] HEMATOLOGY INR 1.33 0.85 - 1.17 10/22/2016 [facility] HEMATOLOGY PT 16.7 12.0 - 14.7 10/22/2016 [facility] BLOOD BANK RESULTS Antibody Scrn Negative (10/22/16 10:37 AM) 10/22/2016 [facility] BLOOD BANK RESULTS ABO/Rh O POS 10/22/2016 [facility] BLOOD BANK RESULTS Antibody Scrn Negative (05/22/16 9:45 AM) 05/22/2016 [facility] BLOOD BANK RESULTS ABO/Rh O POS 05/22/2016 [facility] BLOOD BANK RESULTS Antibody Scrn Negative (05/09/14 8:30 AM) 05/09/2014 [facility] BLOOD BANK RESULTS ABO/Rh O POS 05/09/2014 [facility] CHEM PANEL eGFR 46 05/09/2014 <sup>1</sup>Result Comment: The eGFR is calculated using the CKD-EPI formula. In most young, healthy individuals the eGFR will be >90 mL/min/1.73m2. The eGFR declines with age. An eGFR of 60-89 may be normal in some populations, particularly the elderly, for whom the CKD-EPI formula has not been extensively validated. Use of the eGFR is not recommended in the following populations:& lt;br/>
Individuals with unstable creatinine concentrations, including patients [...] should be multiplied by the estimated BMI. [facility] CHEM PANEL Creatinine Lvl 1.5 0.5 - 1.4 05/09/2014 [facility] CHEM PANEL Sodium Lvl 136 135 - 145 05/09/2014 [facility] CHEM PANEL BUN 23 7 - 22 05/09/2014 [facility] CHEM PANEL Potassium Lvl 4.1 3.5 - 5.1 05/09/2014 [facility] CHEM PANEL Chloride Lvl 103 95 - 109 05/09/2014 [facility] CHEM PANEL CO2 25 24 - 32 05/09/2014 [facility] CHEM PANEL Calcium Lvl 10.5 8.5 - 10.5 05/09/2014 [facility] CHEM PANEL Glucose Lvl 88 70 - 99 05/09/2014 <sup>2</sup>Interpretive Data: Adult reference range values reflect the clinical guidelines
of the [place] [employer]. [facility] CHEM PANEL AGAP 12.1 10.0 - 20.0 05/09/2014 [facility] CHEM PANEL Magnesium Lvl 2.1 1.8 - 2.4 05/09/2014 [facility] HEMATOLOGY Eosinophils 31.0 0.0 - 4.0 05/09/2014 [facility] HEMATOLOGY Atypical Lymphs 0.0 <=0.0 % 05/09/2014 [facility] HEMATOLOGY Basophils 1.0 0.0 - 1.0 05/09/2014 [facility] HEMATOLOGY Plt Morph Normal (05/09/14 8:12 AM) 05/09/2014 [facility] HEMATOLOGY Monocytes # 0.4 0.0 - 0.8 05/09/2014 [facility] HEMATOLOGY Lymphocytes 28.0 20.0 - 40.0 05/09/2014 [facility] HEMATOLOGY Segs 35.0 45.0 - 75.0 05/09/2014 [facility] HEMATOLOGY Bands 0.0 0.0 - 11.0 05/09/2014 [facility] HEMATOLOGY Monocytes 5.0 2.0 - 12.0 05/09/2014 [facility] HEMATOLOGY Elliptocyte Slight *ABN* (05/09/14 8:12 AM) None Seen 05/09/2014 [facility] HEMATOLOGY Macrocyte 1+ *ABN* (05/09/14 8:12 AM) None Seen 05/09/2014 [facility] HEMATOLOGY Segs-Bands # 2.9 1.5 - 8.1 05/09/2014 [facility] HEMATOLOGY Lymphocytes # 2.3 1.0 - 5.5 05/09/2014 [facility] HEMATOLOGY Eosinophils # 2.5 0.0 - 0.5 05/09/2014 [facility] HEMATOLOGY Basophils # 0.1 0.0 - 0.2 05/09/2014 [facility] HEMATOLOGY PTT 38.6 22.9 - 35.8 05/09/2014 <sup>4</sup>Interpretive Data: Heparin Therapeutic Range: 57 - 92 Seconds [facility] HEMATOLOGY PT 16.2 12.0 - 14.7 05/09/2014 [facility] HEMATOLOGY INR 1.32 0.85 - 1.17 05/09/2014 <sup>3</sup>Interpretive Data: RECOMMENDED RANGES FOR PROTIME INR:
2.0-3.0 for most medical and surgical thromboembolic states.
2.5-3.5 for artificial heart valves and recurrent embolism.

INR SHOULD BE USED ONLY FOR PATIENTS ON STABLE ANTICOAGULANT THERAPY. [facility] HEMATOLOGY WBC 8.2 3.7 - 10.4 05/09/2014 [facility] HEMATOLOGY RBC 4.13 4.70 - 6.10 05/09/2014 [facility] HEMATOLOGY Hgb 13.8 14.0 - 18.0 05/09/2014 [facility] HEMATOLOGY MCH 33.4 27.0 - 31.0 05/09/2014 [facility] HEMATOLOGY MCHC 33.5 32.0 - 36.0 05/09/2014 [facility] HEMATOLOGY RDW 15.7 11.5 - 14.5 05/09/2014 [facility] HEMATOLOGY Hct 41.2 42.0 - 54.0 05/09/2014 [facility] HEMATOLOGY MCV 99.8 80.0 - 94.0 05/09/2014 [facility] HEMATOLOGY Platelet 95 133 - 450 05/09/2014 [facility] HEMATOLOGY MPV 9.2 7.4 - 10.4 05/09/2014 [facility] CARDIAC ENZYMES Total CK 59 12 - 191 12/08/2013 [facility] CARDIAC ENZYMES Troponin-I <0.02 0.00 - 0.40 12/08/2013 [facility] CARDIAC ENZYMES Troponin-T <0.010 0.000 - 0.100 12/08/2013 [facility] URINE AND STOOL UA Urobilinogen <=1.0 mg/dL 0.1 - 1.0 12/08/2013 [facility] URINE AND STOOL UA WBC 1 0 - 5 12/08/2013 [facility] URINE AND STOOL UA RBC <1 0 - 2 12/08/2013 [facility] URINE AND STOOL UA Leuk Est Negative (12/08/2013 06:00:00 Joelle/[place]) Negative 12/08/2013 [facility] URINE AND STOOL UA Sq Epi Few /LPF Few /LPF 12/08/2013 [facility] URINE AND STOOL UA Protein Negative mg/dL Negative mg/dL 12/08/2013 [facility] URINE AND STOOL UA Spec Grav 1.012 <=1.030 12/08/2013 [facility] URINE AND STOOL UA pH 5.0 5.0 - 8.0 12/08/2013 [facility] URINE AND STOOL UA Turbidity Clear (12/08/2013 06:00:00 [facility]) Clear 12/08/2013 [facility] URINE AND STOOL UA Color Yellow *NA* (12/08/2013 06:00:00 [place]/[place]) Yellow 12/08/2013 [facility] URINE AND STOOL UA Blood Negative (12/08/2013 06:00:00 [place]/[place]) Negative 12/08/2013 [facility] URINE AND STOOL UA Nitrite Negative (12/08/2013 06:00:00 [facility]) Negative 12/08/2013 [facility] URINE AND STOOL UA Bili Negative *NA* (12/08/2013 06:00:00 [facility]) Negative 12/08/2013 [facility] URINE AND STOOL UA Ketones Negative mg/dL Negative mg/dL 12/08/2013 [facility] URINE AND STOOL UA Glucose Negative mg/dL Negative mg/dL 12/08/2013 [facility] URINE AND STOOL UA Mucus Few /LPF None Seen /LPF 12/08/2013 [facility] CHEM PANEL A/G Ratio 0.7 0.7 - 1.6 12/08/2013 [facility] CHEM PANEL Bili Indirect 0.6 0.0 - 1.0 12/08/2013 [facility] CHEM PANEL Globulin 4.7 2.0 - 4.0 12/08/2013 [facility] CHEM PANEL Total Protein 8.0 6.4 - 8.4 12/08/2013 [facility] CHEM PANEL ASPARTATE TRANSAMINASE 37 0 - 37 12/08/2013 [facility] CHEM PANEL Bili Direct 0.3 0.0 - 0.3 12/08/2013 [facility] CHEM PANEL Bili Total 0.9 0.2 - 1.3 12/08/2013 [facility] CHEM PANEL Alk Phos 178 39 - 136 12/08/2013 [facility] CHEM PANEL ALANINE AMINOTRANSFERASE 22 0 - 65 12/08/2013 [facility] CHEM PANEL Albumin Lvl 3.3 3.5 - 5.0 12/08/2013 [facility] ELECTROLYTES AGAP 13.4 10.0 - 20.0 12/08/2013 [facility] ELECTROLYTES eGFR 55 12/08/2013 <sup>1</sup>Result Comment: The eGFR is calculated using the CKD-EPI formula. In most young, healthy individuals the eGFR will be >90 mL/min/1.73m2. The eGFR declines with age. An eGFR of 60-89 may be normal in some populations, particularly the elderly, for whom the CKD-EPI formula has not been extensively validated. Use of the eGFR is not recommended in the following populations:& lt;br/>
Individuals with unstable creatinine concentrations, including patients [...] should be multiplied by the estimated BMI. [facility] ELECTROLYTES Sodium Lvl 138 135 - 145 12/08/2013 [facility] ELECTROLYTES Creatinine Lvl 1.3 0.5 - 1.4 12/08/2013 [facility] ELECTROLYTES BUN 16 7 - 22 12/08/2013 [facility] ELECTROLYTES Glucose Lvl 126 70 - 99 12/08/2013 <sup>2</sup>Interpretive Data: Adult reference range values reflect the clinical guidelines
of the [place] [employer]. [facility] ELECTROLYTES Calcium Lvl 9.7 8.5 - 10.5 12/08/2013 [facility] ELECTROLYTES CO2 23 24 - 32 12/08/2013 [facility] ELECTROLYTES Chloride Lvl 106 95 - 109 12/08/2013 [facility] ELECTROLYTES Potassium Lvl 4.4 3.5 - 5.1 12/08/2013 [facility] HEMATOLOGY Plt Morph Normal (12/07/2013 19:15:00 [place]elle/[place]) 12/08/2013 [facility] HEMATOLOGY Macrocyte 3+ *ABN* (12/07/2013 19:15:00 [facility]/[place]) None Seen 12/08/2013 [facility] HEMATOLOGY Anisocyte 1+ *ABN* (12/07/2013 19:15:00 [place]) None Seen 12/08/2013 [facility] HEMATOLOGY Polychrom Slight (12/07/2013 19:15:00 [place]/[place]) None Seen 12/08/2013 [facility] HEMATOLOGY Lymphocytes 28.0 20.0 - 40.0 12/08/2013 [facility] HEMATOLOGY Basophils # 0.1 0.0 - 0.2 12/08/2013 [facility] HEMATOLOGY Eosinophils # 0.2 0.0 - 0.5 12/08/2013 [facility] HEMATOLOGY Bands 2.0 0.0 - 11.0 12/08/2013 [facility] HEMATOLOGY Segs 52.0 45.0 - 75.0 12/08/2013 [facility] HEMATOLOGY Monocytes # 0.7 0.0 - 0.8 12/08/2013 [facility] HEMATOLOGY Lymphocytes # 1.5 1.0 - 5.5 12/08/2013 [facility] HEMATOLOGY Segs-Bands # 2.8 1.5 - 8.1 12/08/2013 [facility] HEMATOLOGY Eosinophils 4.0 0.0 - 4.0 12/08/2013 [facility] HEMATOLOGY Monocytes 13.0 2.0 - 12.0 12/08/2013 [facility] HEMATOLOGY Atypical Lymphs 0.0 <=0.0 % 12/08/2013 [facility] HEMATOLOGY Basophils 1.0 0.0 - 1.0 12/08/2013 [facility] HEMATOLOGY aPTT 40.5 22.9 - 35.8 12/08/2013 <sup>4</sup>Interpretive Data: Heparin Therapeutic Range: 57 - 92 Seconds [facility] HEMATOLOGY PROTIME 16.3 12.0 - 14.7 12/08/2013 [facility] HEMATOLOGY INR 1.33 0.85 - 1.17 12/08/2013 <sup>3</sup>Interpretive Data: RECOMMENDED RANGES FOR PROTIME INR:
2.0-3.0 for most medical and surgical thromboembolic states.
2.5-3.5 for artificial heart valves and recurrent embolism.

INR SHOULD BE USED ONLY FOR PATIENTS ON STABLE ANTICOAGULANT THERAPY. [facility] HEMATOLOGY MCH 36.3 27.0 - 31.0 12/08/2013 [facility] HEMATOLOGY RDW 14.2 11.5 - 14.5 12/08/2013 [facility] HEMATOLOGY Platelet 92 133 - 450 12/08/2013 [facility] HEMATOLOGY MCHC 32.9 32.0 - 36.0 12/08/2013 [facility] HEMATOLOGY MPV 8.9 7.4 - 10.4 12/08/2013 [facility] HEMATOLOGY WBC X 10x3 5.2 3.7 - 10.4 12/08/2013 [facility] HEMATOLOGY Hgb 11.8 14.0 - 18.0 12/08/2013 [facility] HEMATOLOGY Hct 36.0 42.0 - 54.0 12/08/2013 [facility] HEMATOLOGY MCV 110.2 80.0 - 94.0 12/08/2013 [facility] HEMATOLOGY RBC X 10x6 3.27 4.70 - 6.10 12/08/2013 [facility] ELECTROLYTES AGAP 10.2 10.0 - 20.0 11/27/2013 [facility] ELECTROLYTES eGFR 46 11/27/2013 <sup>1</sup>Result Comment: The eGFR is calculated using the CKD-EPI formula. In most young, healthy individuals the eGFR will be >90 mL/min/1.73m2. The eGFR declines with age. An eGFR of 60-89 may be normal in some populations, particularly the elderly, for whom the CKD-EPI formula has not been extensively validated. Use of the eGFR is not recommended in the following populations:& lt;br/>
Individuals with unstable creatinine concentrations, including patients [...] should be multiplied by the estimated BMI. [facility] ELECTROLYTES Chloride Lvl 102 95 - 109 11/27/2013 [facility] ELECTROLYTES CO2 26 24 - 32 11/27/2013 [facility] ELECTROLYTES Calcium Lvl 9.5 8.5 - 10.5 11/27/2013 [facility] ELECTROLYTES Potassium Lvl 4.2 3.5 - 5.1 11/27/2013 [facility] ELECTROLYTES Creatinine Lvl 1.5 0.5 - 1.4 11/27/2013 [facility] ELECTROLYTES Glucose Lvl 192 70 - 99 11/27/2013 <sup>2</sup>Interpretive Data: Adult reference range values reflect the clinical guidelines
of the [place] [employer]. [facility] ELECTROLYTES BUN 19 7 - 22 11/27/2013 [facility] ELECTROLYTES Sodium Lvl 134 135 - 145 11/27/2013 [facility] HEMATOLOGY Eosinophils # 0.2 0.0 - 0.5 11/27/2013 [facility] HEMATOLOGY Segs-Bands # 3.5 1.5 - 8.1 11/27/2013 [facility] HEMATOLOGY Monocytes # 0.7 0.0 - 0.8 11/27/2013 [facility] HEMATOLOGY Basophils 0.9 0.0 - 1.0 11/27/2013 [facility] HEMATOLOGY Lymphocytes # 2.1 1.0 - 5.5 11/27/2013 [facility] HEMATOLOGY Basophils # 0.1 0.0 - 0.2 11/27/2013 [facility] HEMATOLOGY Anisocyte 1+ *ABN* (11/27/13 3:14 PM) None Seen 11/27/2013 [facility] HEMATOLOGY Macrocyte 3+ *NA* (11/27/13 3:14 PM) None Seen 11/27/2013 [facility] HEMATOLOGY Polychrom Slight (11/27/13 3:14 PM) None Seen 11/27/2013 [facility] HEMATOLOGY Segs 52.9 45.0 - 75.0 11/27/2013 [facility] HEMATOLOGY Lymphocytes 32.6 20.0 - 40.0 11/27/2013 [facility] HEMATOLOGY Monocytes 10.1 2.0 - 12.0 11/27/2013 [facility] HEMATOLOGY Eosinophils 3.5 0.0 - 4.0 11/27/2013 [facility] HEMATOLOGY RBC X 10x6 3.59 4.70 - 6.10 11/27/2013 [facility] HEMATOLOGY WBC X 10x3 6.5 3.7 - 10.4 11/27/2013 [facility] HEMATOLOGY MPV 9.6 7.4 - 10.4 11/27/2013 [facility] HEMATOLOGY Platelet 119 133 - 450 11/27/2013 [facility] HEMATOLOGY RDW 15.8 11.5 - 14.5 11/27/2013 [facility] HEMATOLOGY MCHC 32.7 32.0 - 36.0 11/27/2013 [facility] HEMATOLOGY MCH 37.7 27.0 - 31.0 11/27/2013 [facility] HEMATOLOGY MCV 115.3 80.0 - 94.0 11/27/2013 [facility] HEMATOLOGY Hgb 13.5 14.0 - 18.0 11/27/2013 [facility] HEMATOLOGY Hct 41.4 42.0 - 54.0 11/27/2013 [facility] IMMUNOLOGY HCV RNA VirLoad Non Det 11/27/2013 [facility] IMMUNOLOGY HCV RNA Log10 <1.2 11/27/2013 <sup>3</sup>Interpretive Data: Reference Interval:
Less than 15(1.18 log IU/mL)HCV RNA IU/mL

Analytic Measurement Range:
15- 100,000,000 IU/mL(1.18-8.0 log value)

No Target HCV RNA [...] in the management of HCV-infected individuals undergoing anti- viral therapy and results are not intended to be used as the individual means for clinical diagnosis or patient management.

Performance characteristi cs have been verified by the
[facility] within [facility].
The [facility] is authorized under the
Clinical Laboratory Improvement Amendments of 1988 (CLIA-88)
to perform high complexity testing. [facility] Pathology Reports No Data Provided for This Section Diagnostic Reports Report Value Date Source Knee 1-2 Views unilateral DX EXAM: Knee 1-2 Views unilateral DX HISTORY: - M25.561 Pain in right knee COMPARISON: 08/14/2016 2 views of the right knee FINDINGS: There is severe medial tibiofemoral joint space narrowing with small tricompartmental osteophytes. No fracture or dislocation. Trace joint effusion. Heavy vascular calcifications. IMPRESSION: Degenerative changes as described above. 04/14/2019 NICOLE Cam Spine lumbar 2 or 3 views DX EXAM: Spine lumbar 2 or 3 views DX HISTORY: - M54.5 Low back pain COMPARISON: 10/06/2017 AP and lateral views of the lumbar spine FINDINGS: There is 7 mm anterolisthesis of L5 on S1 with moderate disc space narrowing. There is hypertrophic facet arthropathy from L4 through S1. Vertebral body heights are maintained. IMPRESSION: Grade 1 anterolisthesis of L5 on S1. Degenerative arthropathy at L5-S1. 04/14/2019 TORI RIVERA [facility] Liver Protocol w/wo IV contrast CT EXAM: CT ABDOMEN WITH AND WITHOUT CONTRAST DATE: 03/13/2019 8:37 CDT INDICATION: - K74.60 Unspecified cirrhosis of liver, C22.0 Liver cell carcinoma ADDITIONAL INFORMATION: None. COMPARISON: CT 12/13/2018 TECHNIQUE: Volumetric CT acquisition of the abdomen both prior to and following intravenous contrast, in precontrast, arterial, portal venous and delayed phases of enhancement, per the dynamic liver protocol. Axial, sagittal and coronal reconstructions. IV contrast: 100 cc Omnipaque 350 Oral contrast: None. DLP: 383 mGy-cm FINDINGS: Lines and tubes: None. Lower thorax: Calcifications of the pericardium noted. Clustered nodules in the right lower lobe are identified largest measuring 0.5 cm (series 4, image 10). Additional clustered new nodules are seen in the right lower lobe (series 4, image 27) and left lower lobe (series 4, image 18) Liver: Craniocaudal length: 11.2 cm. Normal. Density: Normal. Surface nodularity: Moderate.. Hepatic masses: * Post ablation changes are seen in segment 2 with cavity measuring approximately 5.3 x 3.1 cm (series 4, image 31). No residual arterial enhancement is seen. * Ill-defined area of arterial enhancement with washout is seen in segment 7, which measures 4.4 x 3.2 cm (series 4, image 28). This is new from the prior study. In addition, a linear hypodense structure with enhancement and washout is seen extending to this region (series 4, image 25) concerning for tumor in a right posterior portal vein branch. * Large ablation area is seen in segment 6 with small subcapsular fluid likely represent hemorrhage. The ablation cavity measures approximately 8.8 x 3.2 cm (series 4, image 41). Internal hyperdensity without enhancement likely representing blood products. * Hepatic vessels: Hepatic arterial anatomy: Conventional. Arterial stenoses: None. Portal vein: Patent. Caliber: 1.6 cm. Wall calcification along the superior mesenteric vein likely represent chronic thrombus. Portosystemic collaterals are small gastric varices. Hepatic, splenic and superior mesenteric veins, and IVC: Patent. Regional lymph nodes: Normal. Biliary tree: No intra- or extrahepatic biliary ductal dilation. Gallbladder: Post cholecystectomy. Pancreas: Normal. Spleen: Mildly enlarged Adrenals: Mild nodular thickening of the right adrenal gland is unchanged. The left adrenal gland is normal in appearance. Kidneys: Small bilateral hypodensities are too small to characterize. Gastrointestinal tract: Normal caliber. Peritoneum and retroperitoneum: No ascites or free air. No other fluid collection. Distant lymph nodes: Normal. Vasculature: Aortoiliac atherosclerotic disease. Bones: Normal. Soft tissues: Bilateral gynecomastia. Tiny fat-containing umbilical hernia. IMPRESSION: 1. Ablation changes in segment 2 with no evidence of residual viable tumor (LR TR nonviable). 2. Ablation changes in segment 6 also without viable tumor. However, along the superior margin of the ablation cavity is a new or locally recurrent large ill- defined area of enhancement and washout. An associated enhancing and washing out tributary branch of the right posterior portal vein noted extending to this lesion. Findings are concerning for tumor progression (LR TIV tumor in vein). 3. Small subcapsular and subhepatic hematoma along the segment 6 ablation cavity. 4. New clustered small nodules in the lower lungs may be infectious/inflammatory or metastatic. Recommend close attention on follow-up. 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 RECOMMENDATIONS: Continued close follow-up and surveillance. 03/13/2019 [facility] Sarabjit Ablation Radio Freq CT PROCEDURE: Image-guided heat-based ablation Procedural Personnel Attending physician(s): Willima Munoz MD Fellow physician(s): None Resident physician(s): [...] 10 Standardized report: [email or web address] Attestation Signer name: Guzman Munoz, MD I attest that I was present for the entire procedure. I reviewed the stored images and agree with the report as written. 01/17/2019 [facility] Abd Liver Protocol w/wo IV contrast [...] and coronal images were obtained. Total exam LLM=818 mGy-cm. This exam was performed according to [...] the left hepatic lobe appears similar 12/13/2018 NICOLE [place] Ext Lower Arterial Doppler bilat US EXAM: US BILATERAL LOWER EXTREMITY ARTERIAL DOPPLER DATE: 10/06/2017 11:39 AM LAY OUT AND DETAIL DRAFTER INDICATION: - R60.0 Localized edema. Bilateral leg [...] could cause this finding as well. 10/06/2017 [facility] Spine cervical 2 or 3 view DX [...] at C5-6 and moderate at C6-7. 10/06/2017 [facility] Spine lumbar 2 or 3 views DX EXAM: XR LUMBAR SPINE 2 VIEWS DATE: 10/06/2017 10:52 AM LAY OUT AND DETAIL DRAFTER INDICATION: - M54.5 Low back pain COMPARISON: [...] at L5-S1 with grade 1 anterolisthesis. 10/06/2017 [facility] Liver Protocol w/wo IV contrast CT EXAM: [...] with echocardiogram may be of benefit. 07/17/2017 NICOLE Whipple [facility] Liver Protocol w/wo IV contrast CT EXAM: [...] for the possibility of constrictive pericarditis. 12/09/2016 TORI Whipple Chest 2 views DX EXAM: 2 view(s) [...] represents scarring/fibrosis. 3. Stable pericardial calcifications. 12/01/2016 TOR[facility] [place] Heart/coronary art/graft w contrast CTA CORONARY CT [...] an acute coronary syndrome. TECHNIQUE: Using a [employer]Well[employer] Aquilion 64 slice MDCT scanner, a preliminary robotic welder study was obtained, followed by coronary calcium [...] thrombus cannot be completely ruled out. 10/22/2016 [facility] Knee series 3 views DX EXAM: Knee series 3 views DX HISTORY: M25.561 Pain in right knee COMPARISON: None 3 views of the right knee. No fracture or dislocation is seen. There is osteopenia. Small marginal osteophytes are present in a tricompartmental distribution. There is mild medial tibiofemoral joint space narrowing. Vascular calcification are present. IMPRESSION: Degenerative change as above. 08/14/2016 NICOLE Cam Abd Liver Protocol w/wo IV [...] symptomatology. 4. Unchanged right pleural calcifications. 06/24/2016 TORI Whipple Guided Needle BX/Asp/Inj/NeedLoc US Addendum: The report [...] biopsy performed. 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 05/22/2016 [facility] Abd Liver Protocol w/wo IV contrast [...] an HCC in a cirrhotic liver. 03/20/2016 NICOLE [place]u Abdomen w/wo contrast MRI EXAM: MR ABDOMEN [...] mm pancreatic head side branch IPMN. 07/02/2015 NICOLE Whipple Abdomen w/wo contrast MRI Exam: MRI of [...] Followup MRI exam should be considered. 04/15/2015 NICOLE Cam Abd Liver Protocol w/wo IV [...] Stable pericardial and right pleural calcifications. 01/04/2015 NICOLE [place] Liver US LIVER ULTRASOUND CLINICAL HISTORY: Hepatitis [...] A right renal superior pole cyst. 05/01/2014 NICOLE [place] Chest 2 views INDICATION: Shortness of breath [...] aneurysm, pericardial calcification or endocardial calcification. 04/02/2014 NICOLE [place] Chest 2 views EXAM: CHEST 2 VIEWS [...] aneurysm, pericardial calcification, or endocardial calcification. 12/07/2013 [facility] Abdomen complete US EXAM: US ABDOMEN COMPLETE [...] Inferior vena cava unremarkable where visualized. 11/28/2013 NICOLE Whipple Consultation Notes No Data Provided for This Section Discharge Summaries No Data Provided for This Section History and Physicals No Data Provided for This Section Vital Signs Vital Sign Value Date Comments Source Systolic (mm Hg) 142 01/17/2019 [facility] Diastolic (mm Hg) 72 01/17/2019 [facility] Respitory Rate 16 01/17/2019 [facility] Systolic (mm Hg) 155 01/17/2019 [facility] Diastolic (mm Hg) 77 01/17/2019 [facility] Respitory Rate 17 01/17/2019 [facility] Respitory Rate 15 01/17/2019 [facility] Systolic (mm Hg) 149 01/17/2019 [facility] Diastolic (mm Hg) 75 01/17/2019 [facility] Heart Rate 65 01/17/2019 [facility] Height 157.48 cm 01/17/2019 [facility] BMI Calculated 24.74 01/17/2019 [facility] Weight 61.364 01/17/2019 [facility] BMI Calculated 26.42 01/16/2019 [facility] Weight 61.364 01/16/2019 [facility] Height 152.4 cm 01/16/2019 [facility] BMI Calculated 56.73 12/29/2018 [facility] Weight 136.3 12/29/2018 [facility] Systolic (mm Hg) 113 12/29/2018 [facility] Diastolic (mm Hg) 69 12/29/2018 [facility] Height 155 cm 12/29/2018 [facility] Heart Rate 69 12/29/2018 [facility] Respitory Rate 21 12/29/2018 [facility] BMI Calculated 24.84 11/08/2018 [facility] Weight 61.591 11/08/2018 [facility] Height 157.48 cm 11/08/2018 [facility] Heart Rate 69 11/08/2018 [facility] Systolic (mm Hg) 130 11/08/2018 [facility] Diastolic (mm Hg) 70 11/08/2018 [facility] Weight 62.273 01/18/2018 [facility] BMI Calculated 25.11 01/18/2018 [facility] Height 157.48 cm 01/18/2018 [facility] Systolic (mm Hg) 117 01/18/2018 [facility] Diastolic (mm Hg) 71 01/18/2018 [facility] Heart Rate 62 01/18/2018 [facility] Respitory Rate 16 01/18/2018 [facility] Systolic (mm Hg) 140 10/23/2016 [facility] Diastolic (mm Hg) 67 10/23/2016 [facility] Systolic (mm Hg) 140 10/23/2016 [facility] Diastolic (mm Hg) 67 10/23/2016 [facility] Systolic (mm Hg) 117 10/23/2016 [facility] Diastolic (mm Hg) 63 10/23/2016 [facility] Respitory Rate 20 10/23/2016 [facility] Respitory Rate 20 10/22/2016 [facility] Respitory Rate 19 10/22/2016 [facility] Weight 64.545 10/22/2016 [facility] Height 144.78 cm 10/22/2016 [facility] BMI Calculated 30.79 10/22/2016 [facility] Weight 65.909 06/12/2016 [facility] Height 144.78 cm 06/12/2016 [facility] BMI Calculated 31.44 06/12/2016 [facility] Respitory Rate 16 05/22/2016 [facility] Systolic (mm Hg) 135 05/22/2016 [facility] Diastolic (mm Hg) 70 05/22/2016 [facility] Respitory Rate 10 05/22/2016 [facility] Systolic (mm Hg) 149 05/22/2016 [facility] Diastolic (mm Hg) 81 05/22/2016 [facility] Systolic (mm Hg) 139 05/22/2016 [facility] Diastolic (mm Hg) 82 05/22/2016 [facility] Respitory Rate 10 05/22/2016 [facility] Heart Rate 68 05/22/2016 [facility] BMI Calculated 31.44 05/22/2016 [facility] Weight 65.909 05/22/2016 [facility] Height 144.78 cm 05/20/2016 [facility] Heart Rate 73 05/20/2016 [facility] Height 144.78 cm 04/28/2016 [facility] Heart Rate 67 04/28/2016 [facility] Temperature Oral (F) 97.7 F 04/28/2016 [facility] BMI Calculated 31.93 04/28/2016 [facility] Weight 66.932 04/28/2016 [facility] Systolic (mm Hg) 118 04/28/2016 [facility] Diastolic (mm Hg) 75 04/28/2016 [facility] Weight 65.966 11/18/2015 [facility] BMI Calculated 26.6 11/18/2015 [facility] Height 157.48 cm 11/18/2015 [facility] Respitory Rate 51 11/18/2015 [facility] Systolic (mm Hg) 141 11/18/2015 [facility] Diastolic (mm Hg) 68 11/18/2015 [facility] Weight 66.875 08/05/2015 [facility] BMI Calculated 26.97 08/05/2015 [facility] Height 157.48 cm 08/05/2015 [facility] Systolic (mm Hg) 132 08/05/2015 [facility] Diastolic (mm Hg) 67 08/05/2015 [facility] BMI Calculated 26.39 04/29/2015 [facility] Weight 65.455 04/29/2015 [facility] Height 157.48 cm 04/29/2015 [facility] Temperature Oral (F) 97.5 F 04/29/2015 [facility] Heart Rate 63 04/29/2015 [facility] Systolic (mm Hg) 109 04/29/2015 [facility] Diastolic (mm Hg) 59 04/29/2015 [facility] Respitory Rate 15 12/31/2014 [facility] Heart Rate 48 12/31/2014 [facility] Systolic (mm Hg) 117 12/31/2014 [facility] Diastolic (mm Hg) 66 12/31/2014 [facility] Height 157 cm 12/31/2014 [facility] Weight 66.8 12/31/2014 [facility] BMI Calculated 27.1 12/31/2014 [facility] Diastolic (mm Hg) 61 07/02/2014 [facility] Systolic (mm Hg) 117 07/02/2014 [facility] Respitory Rate 19 07/02/2014 [facility] Heart Rate 50 07/02/2014 [facility] Weight 61.4 07/02/2014 [facility] BMI Calculated 24.91 07/02/2014 [facility] Height 157 cm 07/02/2014 [facility] Systolic (mm Hg) 114 05/09/2014 [facility] Diastolic (mm Hg) 58 05/09/2014 [facility] Diastolic (mm Hg) 61 05/09/2014 [facility] Systolic (mm Hg) 115 05/09/2014 [facility] Diastolic (mm Hg) 62 05/09/2014 [facility] Systolic (mm Hg) 110 05/09/2014 [facility] Temperature Oral (F) 97.7 F 05/09/2014 [facility] BMI Calculated 26.21 05/09/2014 [facility] Weight 65 05/09/2014 [facility] Height 157.48 cm 05/09/2014 [facility] Systolic (mm Hg) 109 04/02/2014 [facility] Diastolic (mm Hg) 63 04/02/2014 [facility] Heart Rate 46 04/02/2014 [facility] Respitory Rate 17 04/02/2014 [facility] Heart Rate 67 12/08/2013 [facility] Temperature Oral (F) 98.9 F 12/08/2013 [facility] Systolic (mm Hg) 99 12/08/2013 [facility] Diastolic (mm Hg) 61 12/08/2013 [facility] Respitory Rate 18 12/08/2013 [facility] Diastolic (mm Hg) 69 12/08/2013 [facility] Heart Rate 69 12/08/2013 [facility] Respitory Rate 18 12/08/2013 [facility] Systolic (mm Hg) 116 12/08/2013 [facility] Temperature Oral (F) 98.6 F 12/08/2013 [facility] Respitory Rate 18 12/08/2013 [facility] Heart Rate 71 12/08/2013 [facility] Temperature Oral (F) 98.4 F 12/08/2013 [facility] Systolic (mm Hg) 115 12/08/2013 [facility] Diastolic (mm Hg) 70 12/08/2013 [facility] Height 157.48 cm 12/08/2013 [facility] Weight 70.455 12/08/2013 [facility] BMI Calculated 28.41 12/08/2013 [facility] Height 157.48 cm 12/07/2013 [facility] Weight 66.364 12/07/2013 [facility] BMI Calculated 26.76 12/07/2013 [facility] Height 154 cm 11/27/2013 [facility] Weight 66.5 11/27/2013 [facility] Respitory Rate 17 11/27/2013 [facility] Heart Rate 65 11/27/2013 [facility] BMI Calculated 28.04 11/27/2013 [facility] Diastolic (mm Hg) 65 11/27/2013 [facility] Systolic (mm Hg) 110 11/27/2013 [facility] Systolic (mm Hg) 112 10/16/2013 [facility] Diastolic (mm Hg) 67 10/16/2013 [facility] Heart Rate 67 10/16/2013 [facility] Respitory Rate 16 10/16/2013 [facility] Height 154.5 cm 10/16/2013 [facility] Weight 62.6 10/16/2013 [facility] Diastolic (mm Hg) 67 09/11/2013 [facility] Systolic (mm Hg) 111 09/11/2013 [facility] Respitory Rate 19 09/11/2013 [facility] Heart Rate 69 09/11/2013 [facility] Weight 65.9 09/11/2013 [facility] Height 157 cm 09/11/2013 [facility] Encounters Location Location Details Encounter Type Encounter Number Reason For Visit Attending Provider ADM Date DC Date Status Source [facility] Outpatient [id number] CIRRHOSIS OF LIVER DAVE ROSAS 06/12/2013 Active [facility] Outpatient [id number] DDC-F/U VISIT DAVE ROSAS 08/14/2013 08/14/2013 Active [facility] Outpatient [id number] CIRRHOSIS, ESOPHAGEAL VARICES DAVE ROSAS 09/11/2013 09/11/2013 Active [facility] Outpatient [id number] ADD ON PER NOBLE ROSAS 10/16/2013 Active [facility] Outpatient [id number] _MAPID:[id number] Dave Rosas 11/27/2013 11/28/2013 [facility] [place] [facility] [id number] _MAPID:[id number] Dave Rosas 11/28/2013 11/29/2013 [facility] O[facility] Observation Patient [id number] _MAPID:[id number] Sanchez Hill 12/07/2013 12/09/2013 [facility] Outpatient [id number] _MAPID:[id number] Dave Rosas 12/11/2013 12/12/2013 [facility] Outpatient [id number] Dave Rosas 01/08/2014 01/09/2014 [facility] Outpatient [id number] Dave Rosas 04/02/2014 04/03/2014 [facility] [place] [facility] [id number] Dave Rosas 04/02/2014 04/03/2014 [facility] [place] [facility] [id number] Dave Rosas 05/01/2014 05/02/2014 [facility] Bed[facility] Outpatient [id number] Juliano Silver 05/09/2014 05/09/2014 [facility] EDDC Phone Message [id number] 05/09/2014 05/11/2014 [facility] Outpatient [id number] Dave Rosas 07/02/2014 07/03/2014 [facility] [place] [facility] [id number] Christian Griffin 07/04/2014 07/05/[facility] [id number] Dave Rosas 08/28/2014 08/30/2014 [facility] Outpatient [id number] Dave Rosas 12/31/2014 01/01/2015 [facility] [place] Out[facility] [id number] Daev Rosas 01/04/2015 01/05/2015 [facility] Bedded Outpatient [id number] Dave Rosas 01/29/2015 01/29/2015 [facility] [place] Out[facility] [id number] Dave Rosas 04/15/2015 04/16/2015 [facility] Outpatient [id number] Dave Rosas 04/29/2015 04/30/2015 [facility] Bedded Outpatient [id number] Dave Rosas 06/04/2015 06/04/2015 [facility] [place] [facility] [id number] Dave Rosas 07/02/2015 07/03/2015 [facility] Outpatient [id number] Dave Rosas 08/05/2015 08/06/2015 [facility] Outpatient [id number] Dave Rosas 09/03/2015 09/04/2015 [facility] Outpatient [id number] Dave Rosas 11/18/2015 11/19/2015 [facility] Bedded Outpatient [id number] Dave Rosas 11/26/2015 11/26/2015 [facility] [place] [facility] [id number] Atilla Ertgarima 01/01/2016 01/02/[address] [facility] EDDC Outpatient [id number] Dave Rosas 02/03/2016 02/04/2016 [facility] [place] Out[facility] [id number] Wilman Pérez 03/20/2016 03/21/2016 [facility] [place] [facility] EDDC Outpatient [id number] Dave Rosas 04/28/2016 04/29/2016 [facility] Day Surgery [id number] Dave Rosas 05/22/2016 05/23/2016 [facility] Outpatient [id number] Stuart Silver 06/12/2016 06/13/2016 [facility] [place] [facility] [id number] Dave Rosas 06/24/2016 06/25/2016 [facility] Bedded Outpatient [id number] Dave Rosas 06/25/2016 06/25/2016 [facility] [place] Out[facility] [id number] Isidoro Fairchild 08/14/2016 08/15/2016 [facility] [place] [facility] Bedded Outpatient [id number] Dave Rosas 09/10/2016 09/10/2016 [facility] Bedded Outpatient [id number] Brianna Edwards 10/22/2016 10/23/2016 [facility] [place] Out[facility] [id number] Isidoro Fairchild 12/01/2016 12/02/2016 [facility] [place] [facility] Outpatient [facility] [place] [facility] [id number] Dave Rosas 12/09/2016 12/10/2016 [facility] [place] [facility] Outpatient [facility] [place] [facility] [id number] Dave Rossa 07/17/2017 07/18/2017 [facility] [place] [facility] Outpatient [facility] - [place] Outpt Diag Services [id number] Isidoro Fairchild 10/06/2017 10/07/[address] [facility] EDMO Outpatient [id number] Dave Rosas 01/18/2018 01/19/2018 [facility] [place] [facility] [id number] Dave Rosas 02/12/2018 02/13/2018 [facility] Bedded Outpatient [id number] Dave Rosas 02/17/2018 02/17/2018 [facility] Outpatient [id number] Dave Rosas 11/08/2018 11/09/2018 [facility] [place] Outpt Di[facility] Services [id number] Dave Rosas 12/13/2018 12/14/2018 [facility] [place] [facility]patient [id number] Juan Louis 12/29/2018 12/30/2018 [facility] Outpatient [id number] William Marlowevara 01/16/2019 01/17/2019 [facility] Observation [id number] William Munoz 01/17/2019 01/17/2019 [facility] Departed Emergency Room [id number] JELANI FERRIS MD 01/19/2019 01/19/2019 [facility] [place] [facility] [id number] William Marlowevara 03/13/2019 03/14/2019 [facility] [place] [facility] Outpatient [facility] [place] Outpt Diag Services [id number] Isidoro Fairchild 04/14/2019 04/15/2019 [facility] [place] [facility] Outpatient [id number] 1M: HCV-2 CIRRHOSIS, EV, AFLUTTER, FOR HCV-TX, HYPERP P DAVE ROSAS Active [facility] Procedures Procedure Code Date Perfomer Comments Source Ablation, 1 or more liver tumor(s), percutaneous, radiofrequency [id number] 01/17/2019 [facility] Ablation, 1 or more liver tumor(s), percutaneous, radiofrequency [id number] 05/22/2016 [facility] Appendectomy [id number] [facility] Cholecystectomy [id number] [facility] Appendectomy [id number] [facility] [place] Cholecystectomy [id number] [facility] [place] MRI of liver [id number] [facility] Appendectomy [id number] [facility] [place] Cholecystectomy [id number] [facility] [place] MRI of liver [id number] [facility] [place] MRI of liver [id number] [facility] [place] Cataract surgery [id number] [facility] Appendectomy [id number] [facility] [place] Cholecystectomy [id number] [facility] [place] MRI of liver [id number] [facility] [place] Cataract surgery [id number] [facility] [place] Cataract surgery [id number] [facility] [place] Assessment and Plan Assessment and Plan Date Source Extracted from:Title: IR ATTENDING TRANSPLANT CONSULT NOTE Author: William Munoz MD Date: 12/29/18 IR ATTENDING CONSULT NOTE 78 yo M [...] of both lesions. Labs are WNL. Mr. Chang is in agreement with the plan he requested the procedure be done before January 16 since he is taking a trip. Also since he had dificulty post procedure, we will plan to admit him after the ablation. The MWA will be done under [place]. 12/30/2018 [facility] Extracted from:Title: Hepatology progress note Author: Vini Duncan Date: 12/08/2013 Impression and Plan Patient is a 73 y/o HM with history of HCV cirrhosis (currently receiving treatment), DM, and GERD who presented to [facility] on 12/07 due to dyspnea and syncopal [...] ribavarin and sovaldi -Is followed by Dr. Rosas 5) Diabetes mellitus- Continue home medicatoin of glimepiride 1 mg PO daily 6) GERD- Continue home medication of pantoprazole 40 mg daily 7) Ppx- heparin [place] Extracted from:Title: Hepatology Discharge Summary Author: Brooks Phillips Date: 12/08/2013 Home Care Instructions Notify Physician if any of the Following Occur : Bleeding, Fever, Nausea, Pain, Shortness of breath, Signs of infection, Swelling Are There Any Activity Restrictions : As tolerated Discharge Diet Home Diet : Low sodium diet Physician Follow-Up Follow-Up With : physician Provider #1 : Dave Rosas MD Follow-Up Call : Call for appointment [...] Sofosbuvir 400 mg PO Qdaily Addendum by Sanchez Hill MD on 12/08/2013 18:53 I agree with this d/c summary. He was admitted with peristent cough and pulm edema. His sx improved markedly with IV lasix administration. We will plan to d/c on current dosing of Ribavirin 400 mg daily and sovaldi 400 qd. He will continue ASA and b-blockade for his a-flutter. Extracted from:Title: Hepatology Author: Meryl Painter Date: 12/08/2013 Assessment/Plan Mr. Chang is a 73 year old man with history of HCV cirrhosis, DM, currently on HCV treatment that presented to [facility] complaining of presyncope and shortness of breath [...] above assessment and plan. Meryl Painter, PGY5 [place] Gastroenterology and Hepatology [phone] I saw the patient with Dr Painter and agree with her h/p and a/p. He has pulm edema and has been without his diuretics. We will restart IV lasix and see how he does. 12/09/2013 [facility] Plan of Care Plan of Care Date Source Discharge Date 01/19/19 12:46am Disposition LEFT AFTER MEDICAL SCREENING Condition at Discharge Stable Forms Provided Work/School Excuse Prescriptions See Medication Section 01/19/2019 [facility] Social History Social History Date Source Social History Problem Response Recorded Date/Time Onset Date Status Hx Psychiatric Problems No 01/31/2016 10:14am Not Applicable Not Applicable Hx Eating Disorder No 01/31/2016 10:14am Not Applicable Not Applicable Hx Substance Use Disorder No 01/31/2016 10:14am Not Applicable Not Applicable Hx Depression No 01/31/2016 10:14am Not Applicable Not Applicable Hx Alcohol Use No 01/31/2016 10:14am Not Applicable Not Applicable Hx Substance Use Treatment No 01/31/2016 10:14am Not Applicable Not Applicable Hx Physical Abuse No 01/31/2016 10:14am Not Applicable Not Applicable 01/19/2019 [facility] Social History TypeResponse Alcohol Past, Type Beer. Alcohol use interferes with work or home: No. Drinks more than intended: No. Others hurt by drinking: No. Ready to change: No. Household alcohol concerns: No.1 Smoking Status Never smoker; Type: Cigars; Exposure to Tobacco Smoke None; Cigarette Smoking Last 365 Days No; Reg Smoking Cessation Counseling No entered on: 01/17/19 1none 01/13/2019 [facility] Social History TypeResponse Alcohol Past, Type Beer. Alcohol use interferes with work or home: No. Drinks more than intended: No. Others hurt by drinking: No. Ready to change: No. Household alcohol concerns: No.1 Smoking Status Never smoker; Type: Cigars; Exposure to Tobacco Smoke None; Cigarette Smoking Last 365 Days No; Reg Smoking Cessation Counseling No entered on: 01/17/19 1none 01/13/2019 [facility] Social History TypeResponse Alcohol Past, Type Beer. Alcohol use interferes with work or home: No. Drinks more than intended: No. Others hurt by drinking: No. Ready to change: No. Household alcohol concerns: No.1 Smoking Status Never smoker; Type: Cigars; Exposure to Tobacco Smoke None; Cigarette Smoking Last 365 Days No; Reg Smoking Cessation Counseling No entered on: 01/17/19 1none 01/13/2019 [facility] Cam Social History TypeResponse Alcohol Past, Type Beer. Alcohol use interferes with work or home: No. Drinks more than intended: No. Others hurt by drinking: No. Ready to change: No. Household alcohol concerns: No.1 Smoking Status Never smoker; Type: Cigars; Exposure to Tobacco Smoke None; Cigarette Smoking Last 365 Days No; Reg Smoking Cessation Counseling No entered on: 10/22/16 1none 05/22/2016 [facility] Hirsch Social History TypeResponse Alcohol Use: Past, Type: Beer, Has alcohol [...] Days No, Reg Smoking Cessation Counseling No 04/02/2014 [facility] Family History No Data Provided for This Section Advance Directives Order Name Results Value Date Source Advance Directives Advance Directives Directive Response Recorded Date/Time Does the patient have an advance directive? No 01/31/16 10:14am Do you have a Directive to Physician? No 01/19/19 12:22am Do you have a Medical Power of Extrusion Bender? No 01/19/19 12:22am Do you have an out of hospital Do Not Resuscitate Order? No 01/19/19 12:22am Do you have any special needs we should be aware of? No 01/19/19 12:22am Do you have a support person here with you today? No 01/19/19 12:22am Did patient receive Notice of Privacy Practices? No 01/19/19 12:33am Did patient receive patient rights and responsibilities? No 01/19/19 12:33am 01/19/2019 [facility] Functional Status No Data Provided for This Section
--- OUTSIDE RECORDS SUMMARY | 2019-05-03 17:22 | XMS REPORT | Summary of Care ---
Author Author [facility] Organization [facility] Address Unknown Phone Unavailable Encounter KHRIS Roque(ELOISA) [id number] Date(s): 03/13/19 - 03/13/[address] [facility]patient [facility] [address] [place] [phone] Discharge Disposition: Home or Self Care Attending Physician: William Munoz MD Referring Physician: William Munoz MD Vital Signs No data available for [...] ago 2grade 1 Allergies, Adverse Reactions, Alerts No Known Medication Allergies Medications No data available for this section Results No data available for this section Immunizations Given and Recorded Vaccine Date Status Refusal Reason hepatitis B adult vaccine 09/03/15 Given hepatitis B adult vaccine1 08/05/15 Recorded hepatitis B adult vaccine2 09/15/13 Given pneumococcal 23-valent vaccine 12/08/13 Given hepatitis B vaccine3 10/16/13 Given Not Given Vaccine Date Status Refusal Reason pneumococcal 13-valent vaccine4 01/17/19 Not Given Patient Refuses 1Location History: Belle Harding RN 2Admin Note: Administered 09-11-13. Pt. will return in one month for second inj. 3Admin Note: [facility] [id number] #2 4Result Comment: will defer to PCP [...]
--- OUTSIDE RECORDS SUMMARY | 2019-05-03 17:22 | XMS REPORT | Summary of Care ---
Author Author [facility] Organization [facility] Address Unknown Phone Unavailable Encounter KHRIS Roque(ELOISA) [id number] Date(s): 01/17/19 - 01/17/19 [facility] [address] [employer] provided by [facility] [employer] [facility] [employer] [facility] [employer] [place] [address]- Discharge Disposition: Home or Self Care Attending Physician: William Munoz MD Referring Physician: William Munoz MD Vital Signs 1 2 3 Most recent to oldest [Reference Range]: 157.48 cm (01/17/19 6:18 AM) Height 142/72 mmHg *HI* (01/17/19 12:15 PM) 155/77 mmHg *HI* (01/17/19 11:30 AM) 149/75 mmHg *HI* (01/17/19 11:15 AM) Blood Pressure [90-140/60-90 mmHg] 16 BRMIN (01/17/19 12:15 PM) 17 BRMIN (01/17/19 11:30 AM) 15 BRMIN (01/17/19 11:15 AM) Respiratory Rate [14-20 BRMIN] 65 bpm (01/17/19 6:33 AM) Peripheral Pulse Rate [60-100 bpm] 61.364 kg (01/17/19 6:18 AM) Weight 24.74 m2 (01/17/19 6:18 AM) Body Mass Index Problem List Condition [...] Substance Reaction Severity Status NKDA Active Medications acetaminophen 650 mg, Route: PO, Drug form: TAB, ONCE, Dosing Weight 61.364, kg, Start date: 0 01/17/19 7:16:00 CDT, Stop date: 01/17/19 7:16:00 CDT Start Date: 01/17/19 Stop Date: 01/17/19 Status: Completed ANES flumazenil 0.2 mg, 2 mL, Route: IVP, Drug form: INJ, PRN, Dosing Weight 61.364, kg, PRN Bernard zodiazepine Reversal, Initial dose, Start date: 01/17/19 10:43:00 CDT, Duration: 30 day, Stop date: 02/16/19 10:42:00 CDT Notes: (Same as: Romazicon) Start Date: 01/17/19 Stop Date: 01/17/19 Status: Discontinued ANES hydrALAZINE 10 mg, 0.5 mL, Route: IVP, Drug form: INJ, Q20Min, Dosing Weight 61.364, kg, PRN Elevated BP, Start date: 01/17/19 10:43:00 CDT, Duration: 2 doses or times, Stop date: 01/18/19 0:00:00 CDT Notes: (Same as: Apresoline)Push over 5 minutes Start Date: 01/17/19 Stop Date: 01/17/19 Status: Discontinued ANES HYDROmorphone 0.5 mg, 0.5 mL, Route: IVP, Drug form: INJ, Q5Min, Dosing Weight 61.364, kg, PRN Pain Score 7-10, Start date: 01/17/19 10:43:00 CDT, Duration: 4 doses or times, Stop date: 01/18/19 0:00:00 CDT Notes: Same as: Dilaudid Start Date: 01/17/19 Stop Date: 01/17/19 Status: Discontinued ANES labetalol 10 mg, 2 mL, Route: IVP, Drug form: INJ, Q5Min, Dosing Weight 61.364, kg, PRN El evated BP, Start date: 01/17/19 10:43:00 CDT, Duration: 5 doses or times, Stop d ate: 01/18/19 0:00:00 CDT Start Date: 01/17/19 Stop Date: 01/17/19 Status: Discontinued ANES naloxone 0.4 mg, 1 mL, Route: IVP, Drug form: INJ, Q2MIN, Dosing Weight 61.364, kg, PRN N arcotic Reversal, Start date: 01/17/19 10:43:00 CDT, Duration: 8 doses or times, Stop date: 01/18/19 0:00:00 CDT Notes: Same as Narcan Start Date: 01/17/19 Stop Date: 01/17/19 Status: Discontinued ANES ondansetron 4 mg, 2 mL, Route: IVP, Drug form: INJ, ONCE, Dosing Weight 61.364, kg, PRN Naus ea & Vomiting, Start date: 01/17/19 10:43:00 CDT Notes: (Same as: Maggi) MEDICATION WASTE Product Size: 4 mgProduct Was braydon: ___ mg Start Date: 01/17/19 Stop Date: 01/17/19 Status: Discontinued ANES oxyCODONE 5 mg, 1 tab, Route: PO, Drug form: TAB, Q4H, Dosing Weight 61.364, kg, PRN Pain Score 7-10, Start date: 01/17/19 10:43:00 CDT, Duration: 30 day, Stop date: 01/26 12/13 10:42:00 CDT Notes: (Same as: Roxicodone) Start Date: 01/17/19 Stop Date: 01/17/19 Status: Discontinued ANES oxyCODONE 2.5 mg, 2.5 mL, Route: PO, Drug form: LIQ, Q4H, Dosing Weight 61.364, kg, PRN Pa in Score 4-6, Start date: 01/17/19 10:43:00 CDT, Duration: 30 day, Stop date: 10:42:00 CDT Notes: (Same as: 'Roxicodone) Start Date: 01/17/19 Stop Date: 01/17/19 Status: Discontinued aspirin 81 mg tablet, enteric coated 81 mg=1 tab, PO, Daily, Resume home aspirin 81mg on 01/18, # 30 tab, 0 Refill(s), other Start Date: 01/18/19 Status: Ordered carvedilol 3.125 mg, 1 tab, Route: PO, Drug form: TAB, Q12H, Dosing Weight 61.364, kg, Star t date: 01/17/19 21:00:00 CDT, Duration: 30 day, Stop date: 02/16/19 9:00:00 CDT Notes: Give with food. (Same As: Coreg) Start Date: 01/17/19 Stop Date: 01/17/19 Status: Canceled Dextrose 50% Syringe 25 gm, 50 mL, Route: IVP, Drug Form: INJ, Dosing Weight 61.364, kg, PRN, PRN Blo od Glucose Results, Start date: 01/17/19 12:44:00 CDT, Duration: 30 day, Stop da te: 02/16/19 12:43:00 CDT Start Date: 01/17/19 Stop Date: 01/17/19 Status: Discontinued Dextrose 50% Syringe 12.5 gm, 25 mL, Route: IVP, Drug Form: INJ, Dosing Weight 61.364, kg, PRN, PRN B lood Glucose Results, Start date: 01/17/19 12:44:00 CDT, Duration: 30 day, Stop date: 02/16/19 12:43:00 CDT Start Date: 01/17/19 Stop Date: 01/17/19 Status: Discontinued Flagyl 500 mg oral tablet 500 mg=1 tab, PO, Q8H, X 10 day, # 30 tab, 0 Refill(s) Start Date: 01/17/19 Stop Date: 01/27/19 Status: Ordered furosemide 40 mg oral tablet 40 mg, 1 tab, Route: PO, Drug form: TAB, Daily, Dosing Weight 61.364, kg, Start date: 01/18/19 9:00:00 CDT, Duration: 30 day, Stop date: 02/16/19 9:00:00 CDT Notes: (Same as: Lasix) May cause GI upset. Give with food or milk. Start Date: 01/18/19 Stop Date: 01/17/19 Status: Canceled gabapentin 300 mg, Route: PO, Drug form: CAP, ONCE, Dosing Weight 61.364, kg, Start date: 0 01/17/19 7:16:00 CDT, Stop date: 01/17/19 7:16:00 CDT Start Date: 01/17/19 Stop Date: 01/17/19 Status: Completed glimepiride 1 mg, Route: PO, Drug form: TAB, Breakfast, Dosing Weight 61.364, kg, Start date : 01/18/19 8:00:00 CDT, Duration: 30 day, Stop date: 02/16/19 8:00:00 CDT Start Date: 01/18/19 Stop Date: 01/17/19 Status: Deleted glimepiride 1 mg oral tablet 1 mg=1 tab, PO, Breakfast, # 30 tab, 0 Refill(s) Start Date: 01/11/19 Stop Date: 01/17/19 Status: Deleted glucagon 1 mg, Route: IM, Drug form: PDR/INJ, PRN, Dosing Weight 61.364, kg, PRN Blood Gl ucose Results, Start date: 01/17/19 12:44:00 CDT, Duration: 30 day, Stop date: 0 02/16/19 12:43:00 CDT Start Date: 01/17/19 Stop Date: 01/17/19 Status: Discontinued Glucotrol 2.5 mg, 0.5 tab, Route: PO, Drug form: TAB, Breakfast, Start date: 01/18/19 8:00 :00 CDT, Duration: 30 day, Stop date: 02/16/19 8:00:00 CDT Notes: (Same as: Glucotrol) 30 min before meals. Start Date: 01/18/19 Stop Date: 01/17/19 Status: Canceled hydromorphone 1 mg, 0.5 mL, Route: IVP, Drug form: INJ, Q4H, Dosing Weight 61.364, kg, PRN Jose n Score 7-10, Start date: 01/17/19 9:39:00 CDT, Duration: 30 day, Stop date: 9:38:00 CDT Notes: Same as Dilaudid Start Date: 01/17/19 Stop Date: 01/17/19 Status: Discontinued insulin lispro 10 unit, 0.1 mL, Route: SUB-Q, Drug form: SOLN, TID-Before Meals, Dosing Weight 61.364, kg, PRN Blood Glucose Results, Start date: 01/17/19 12:44:00 CDT, Durati on: 30 day, Stop date: 02/16/19 12:43:00 CDT Notes: (Same as: Humalog) Roll in palms of hands gently; Do not shake vigorously . WASTE: F/P - Black; E - Municipal Trash BinStable for 28 days at room [facility].Expires in days from Date Start Date: 01/17/19 Stop Date: 01/17/19 Status: Discontinued insulin lispro 6 unit, 0.06 mL, Route: SUB-Q, Drug form: SOLN, TID-Before Meals, Dosing Weight 61.364, kg, PRN Blood Glucose Results, Start date: 01/17/19 12:44:00 CDT, Durati on: 30 day, Stop date: 02/16/19 12:43:00 CDT Notes: (Same as: Humalog) Roll in palms of hands gently; Do not shake vigorously . WASTE: F/P - Black; E - Municipal Trash BinStable for 28 days at room [facility].Expires in days from Date Start Date: 01/17/19 Stop Date: 01/17/19 Status: Discontinued insulin lispro 8 unit, 0.08 mL, Route: SUB-Q, Drug form: SOLN, TID-Before Meals, Dosing Weight 61.364, kg, PRN Blood Glucose Results, Start date: 01/17/19 12:44:00 CDT, Durati on: 30 day, Stop date: 02/16/19 12:43:00 CDT Notes: (Same as: Humalog) Roll in palms of hands gently; Do not shake vigorously . WASTE: F/P - Black; E - Municipal Trash BinStable for 28 days at room [facility].Expires in days from Date Start Date: 01/17/19 Stop Date: 01/17/19 Status: Discontinued insulin lispro 2 unit, 0.02 mL, Route: SUB-Q, Drug form: SOLN, TID-Before Meals, Dosing Weight 61.364, kg, PRN Blood Glucose Results, Start date: 01/17/19 12:44:00 CDT, Durati on: 30 day, Stop date: 02/16/19 12:43:00 CDT Notes: (Same as: Humalog) Roll in palms of hands gently; Do not shake vigorously . WASTE: F/P - Black; E - Municipal Trash BinStable for 28 days at room [facility]a t[facility].Expires in days from Date Start Date: 01/17/19 Stop Date: 01/17/19 Status: Discontinued insulin lispro 4 unit, 0.04 mL, Route: SUB-Q, Drug form: SOLN, TID-Before Meals, Dosing Weight 61.364, kg, PRN Blood Glucose Results, Start date: 01/17/19 12:44:00 CDT, Durati on: 30 day, Stop date: 02/16/19 12:43:00 CDT Notes: (Same as: Humalog) Roll in palms of hands gently; Do not shake vigorously . WASTE: F/P - Black; E - Municipal Trash BinStable for 28 days at room tempera t[facility].Expires in days from Date Start Date: 01/17/19 Stop Date: 01/17/19 Status: Discontinued Insulin regular 2 unit, Route: SUB-Q, ONCE, Dosing Weight 61.364, kg, Start date: 01/17/19 10:43 :00 CDT, Stop date: 01/17/19 10:43:00 CDT Start Date: 01/17/19 Stop Date: 01/17/19 Status: Discontinued Insulin regular 3 unit, Route: IV, ONCE, Dosing Weight 61.364, kg, Start date: 01/17/19 10:45:00 CDT, Stop date: 01/17/19 10:45:00 CDT Start Date: 01/17/19 Stop Date: 01/17/19 Status: Completed Insulin regular 4 unit, Route: IV, ONCE, Dosing Weight 61.364, kg, Start date: 01/17/19 11:26:00 CDT, Stop date: 01/17/19 11:26:00 CDT Start Date: 01/17/19 Stop Date: 01/17/19 Status: Completed Levaquin 750 mg oral tablet 750 mg=1 tab, PO, Q24H, X 10 day, # 10 tab, 0 Refill(s) Start Date: 01/17/19 Stop Date: 01/27/19 Status: Ordered morphine Sulfate 2 mg, 0.5 mL, Route: IVP, Drug form: SOLN, Q1H, Dosing Weight 61.364, kg, PRN Pa in Score 7-10, Start date: 01/17/19 9:39:00 CDT, Duration: 30 day, Stop date: 9:38:00 CDT Notes: (Same as:MORPhine Sulfate) Start Date: 01/17/19 Stop Date: 01/17/19 Status: Discontinued [place] 5/325 oral tablet 1 tab, PO, Q6H, PRN for pain, X 7 day, # 28 tab, 0 Refill(s), other Start Date: 01/17/19 Stop Date: 01/24/19 Status: Ordered omeprazole 40 mg, Route: PO, Drug form: DRC, Daily, Dosing Weight 61.364, kg, Start date: 0 01/18/19 9:00:00 CDT, Duration: 30 day, Stop date: 02/16/19 9:00:00 CDT Start Date: 01/18/19 Stop Date: 01/17/19 Status: Deleted ondansetron 4 mg, 2 mL, Route: IVP, Drug form: INJ, Q8H, Dosing Weight 61.364, kg, PRN Nause a & Vomiting, Start date: 01/17/19 9:39:00 CDT, Duration: 30 day, Stop date: 02/16/19 9:38:00 CDT Notes: (Same as: Zofran) MEDICATION WASTE Product Size: 4 mgProduct Was braydon: ___ mg Start Date: 01/17/19 Stop Date: 01/17/19 Status: Discontinued Protonix 40 mg, 1 tab, Route: PO, Drug form: ECTAB, Daily, Start date: 01/18/19 9:00:00 C DT, Duration: 30 day, Stop date: 02/16/19 9:00:00 CDT Notes: Tablet should not be chewed or crushed.(Same as: Protonix) Start Date: 01/18/19 Stop Date: 01/17/19 Status: Canceled repaglinide 1 mg oral tablet 1 mg=1 tab, PO, Q12H, 0 Refill(s) Start Date: 01/17/19 Status: Ordered Sensipar 30 mg oral tablet 30 mg=1 tab, PO, Daily, 0 Refill(s) Start Date: 01/17/19 Status: Ordered Sodium Chloride 0.9% IV 1,000 mL 1,000 mL, Rate: 125 ml/hr, Infuse over: 8 hr, Route: IV, Dosing Weight 61.364 kg , Total Volume: 1,000, Start date: 01/17/19 9:39:00 CDT, Duration: 30 day, Stop date: 02/16/19 9:38:00 CDT, 1.66, m2 Start Date: 01/17/19 Stop Date: 01/17/19 Status: Discontinued spironolactone 25 mg, 1 tab, Route: PO, Drug form: TAB, Daily, Dosing Weight 61.364, kg, Start date: 01/18/19 9:00:00 CDT, Duration: 30 day, Stop date: 02/16/19 9:00:00 CDT Notes: (Same As: Aldactone) Start Date: 01/18/19 Stop Date: 01/17/19 Status: Canceled spironolactone 50 mg oral tablet 25 mg=0.5 tab, PO, Daily, 0 Refill(s) Start Date: 01/17/19 Status: Ordered tramadol 50 mg, 1 tab, Route: PO, Drug form: TAB, Q6H, Dosing Weight 61.364, kg, PRN Pain Score 4-6, Start date: 01/17/19 9:39:00 CDT, Duration: 30 day, Stop date: 02/16 9:38:00 CDT Notes: Not to exceed 400mg/day. (Same As: Ultram) Start Date: 01/17/19 Stop Date: 01/17/19 Status: Discontinued tramadol 50 mg, Route: PO, Drug form: TAB, ONCE, Dosing Weight 61.364, kg, Start date: 7:16:00 CDT, Stop date: 01/17/19 7:16:00 CDT Start Date: 01/17/19 Stop Date: 01/17/19 Status: Completed Zofran ODT 4 mg oral tablet, disintegrating 4 mg=1 tab, PO, BID, PRN Nausea and Vomiting, Dissolve tab under tongue, # 10 ta b, 0 Refill(s) Start Date: 01/17/19 Stop Date: 01/22/19 Status: Ordered Results BLOOD BANK RESULTS Most recent to 1 oldest [Reference Range]: ABO/Rh O POS *Unknown* (01/17/19 8:42 AM) Antibody Scrn Negative (01/17/19 8:42 AM) ELECTROLYTES Most recent to 1 oldest [Reference Range]: Sodium Lvl [135-145 138 mEq/L mEq/L] (01/13/19 12:25 PM) Potassium Lvl 4.9 mEq/L [3.5-5.1 mEq/L] (01/13/19 12:25 PM) Chloride Lvl [95-109 103 mEq/L mEq/L] (01/13/19 12:25 PM) CO2 [24-32 mEq/L] 30 mEq/L (01/13/19 12:25 PM) AGAP [10.0-20.0 9.9 mEq/L mEq/L] *LOW* (01/13/19 12:25 PM) CHEM PANEL Most recent to 1 oldest [Reference Range]: Creatinine Lvl 1.12 mg/dL [0.50-1.40 mg/dL] (01/13/19 12:25 PM) eGFR 63 mL/min/1.73m2 1 *NA* (01/13/19 12:25 PM) BUN [7-22 mg/dL] 19 mg/dL (01/13/19 12:25 PM) B/C Ratio [6-25] 17 (01/13/19 12:25 PM) Glucose Lvl [70-99 158 mg/dL mg/dL] *HI* (01/13/19 12:25 PM) Total Protein 8.4 g/dL [6.4-8.4 g/dL] (01/13/19 12:25 PM) Albumin Lvl [3.5-5.0 4.3 g/dL g/dL] (01/13/19 12:25 PM) Globulin [2.7-4.2 4.1 g/dL g/dL] (01/13/19 12:25 PM) A/G Ratio [0.7-1.6] 1.0 (01/13/19 12:25 PM) Calcium Lvl 10.8 mg/dL [8.5-10.5 mg/dL] *HI* (01/13/19 12:25 PM) ALT [0-65 unit/L] 22 unit/L (01/13/19 12:25 PM) AST [0-37 unit/L] 23 unit/L (01/13/19 12:25 PM) Alk Phos [39-136 113 unit/L unit/L] (01/13/19 12:25 PM) Bili Total [0.2-1.3 0.4 mg/dL mg/dL] (01/13/19 12:25 PM) 1Result Comment: The eGFR is calculated [...] be mul tiplied by the estimated BMI. SPECIAL CHEMISTRY Most recent to 1 oldest [Reference Range]: Hgb A1C [<=5.6 %] 8.1 % *HI* (01/13/19 12:25 PM) HEMATOLOGY Most recent to 1 oldest [Reference Range]: WBC [3.7-10.4 K/CMM] 7.3 K/CMM (01/13/19 12:25 PM) RBC [4.70-6.10 5.13 M/CMM M/CMM] (01/13/19 12:25 PM) Hgb [14.0-18.0 g/dL] 13.3 g/dL *LOW* (01/13/19 12:25 PM) Hct [42.0-54.0 %] 41.8 % *LOW* (01/13/19 12:25 PM) MCV [80.0-94.0 fL] 81.4 fL (01/13/19 12:25 PM) MCH [27.0-31.0 pg] 25.9 pg *LOW* (01/13/19 12:25 PM) MCHC [32.0-36.0 31.9 g/dL g/dL] *LOW* (01/13/19 12:25 PM) RDW [11.5-14.5 %] 16.6 % *HI* (01/13/19 12:25 PM) MPV [7.4-10.4 fL] 8.9 fL (01/13/19 12:25 PM) Platelet [133-450 169 K/CMM K/CMM] (01/13/19 12:25 PM) Segs [45.0-75.0 %] 68.4 % (01/13/19 12:25 PM) Lymphocytes 20.9 % [20.0-40.0 %] (01/13/19 12:25 PM) Monocytes [2.0-12.0 7.4 % %] (01/13/19 12:25 PM) Eosinophils [0.0-4.0 2.5 % %] (01/13/19 12:25 PM) Basophils [0.0-1.0 0.8 % %] (01/13/19 12:25 PM) Neutrophils # 5.0 K/CMM [1.5-8.1 K/CMM] (01/13/19 12:25 PM) Lymphocytes # 1.5 K/CMM [1.0-5.5 K/CMM] (01/13/19 12:25 PM) Monocytes # [0.0-0.8 0.5 K/CMM K/CMM] (01/13/19 12:25 PM) Eosinophils # 0.2 K/CMM [0.0-0.5 K/CMM] (01/13/19 12:25 PM) Basophils # [0.0-0.2 0.1 K/CMM K/CMM] (01/13/19 12:25 PM) PT [12.0-14.7 13.6 seconds seconds] (01/13/19 12:25 PM) INR [0.85-1.17] 1.06 (01/13/19 12:25 PM) PTT [22.9-35.8 35.0 seconds seconds] (01/13/19 12:25 PM) R-time [5.0-10.0 6.7 minutes minutes] (01/13/19 12:25 PM) K-time [1.0-3.0 2.2 minutes minutes] (01/13/19 12:25 PM) Angle [53.0-72.0 59.3 degrees degrees] (01/13/19 12:25 PM) Max Amp [50.0-70.0 65.7 mm mm] (01/13/19 12:25 PM) G-value [4.5-11.0 K 9.6 K d/sc d/sc] (01/13/19 12:25 PM) Ly30 [0.0-7.5 %] 0.0 % (01/13/19 12:25 PM) Coag Index -0.4 [-3.0-3.0] (01/13/19 12:25 PM) TEG Interp Thrombelastograph results are within reference ranges. These indicate adequate hemostasis. Note that TEG does not show effect of NSAIDs or P2Y12 inhibitors. CPT:39731 *NA* (01/13/19 12:25 PM) TEG Data See Note (01/13/19 12:25 PM) Immunizations Given and Recorded Vaccine Date Status [...] 3Admin Note: [facility] [id number] #2 4Result Comment: will defer to PCP Procedures Procedure Date Related Diagnosis Body Site Status Ablation, 1 or more liver tumor(s), 01/17/19 Completed percutaneous, radiofrequency Appendectomy Completed Cataract surgery Completed Cholecystectomy Completed [...]
--- OUTSIDE RECORDS SUMMARY | 2019-05-03 17:22 | XMS REPORT | Summary of Care ---
Author Author [facility] [place] Organization [facility] [place] Address Unknown Phone Unavailable Encounter KHRIS Roque(FIN) [id number] Date(s): 04/14/19 - 04/14/19 [facility] [place] [address] [place] [phone] Discharge Disposition: Home or Self Care Attending Physician: Isidoro Fairchild MD Referring Physician: Isidoro Fairchild MD Vital Signs No [...] one month for second inj. 3Admin Note: [facility] [id number] #2 4Result Comment: will defer to PCP [...]
[2019-05-03] MEDS: INSULIN LISPRO 100 UNIT/1 ML 3ML VIAL SQ SCH ×2 (17:27→21:00)
[2019-05-03] MEDS: AZITHROMYCIN 500MG/NS 250 ML 250 ML IV SCH (17:27)
--- NOTE | 2019-05-03 17:41 | NUR ---
Recv patient from ER. AAOx3, Palestinian speaking, denies any SOB OR Chest pain, skin intact, on IV fluids, call light in reach, will monitor Family at bed side
[2019-05-03 17:54] VITALS: BP 115/74
[2019-05-03] MEDS ORDERED: IPRATROPIUM BROMIDE 0.02% 2.5 ML NEB NEB SCH (18:00)
--- NOTE | 2019-05-03 18:55 | NUR ---
BS rounds completed with morning nurse. Pt alert and oriented to name. Lying in bed HOB 45 degrees. Denies pain at this time. Family at bedside. Call cook within reach. Will continue to monitor.
[2019-05-03 19:59] LABS: CREATINE KINASE 35 IU/L (30-200)
[2019-05-03] MEDS: CEFTRIAXONE SOD 1 GM/NS 50 ML 50 ML IV SCH (20:20)
[2019-05-03 20:26] VITALS: BP 117/56
[2019-05-03 21:00] VITALS: BP 117/56
[2019-05-04] VITALS (8 sets, daily range): BP systolic 102–125; BP diastolic 54–61
[2019-05-04] MEDS: GUAIFENESIN 600 MG TAB PO SCH ×4 (00:40→17:56)
[2019-05-04 03:43] LABS: BASOPHILS # (AUTO) 0.1 (0.0-0.1); BASOPHILS % 0.8 % (0.0-1.0); EOSINOPHILS # (AUTO) 0.1 (0.0-0.4); HEMOGLOBIN 10.6 g/dL (14.0-18.0); LYMPHOCYTES # (AUTO) 1.4 (1.0-3.2); LYMPHOCYTES % 17.9 % (18.0-39.1); MEAN CORPUSCULAR HGB CONC 33.1 g/dL (31-35); MEAN CORPUSCULAR VOLUME 81.6 fL (81-99); MONOCYTES # (AUTO) 0.9 (0.2-0.8); NEUTROPHILS # (AUTO) 5.2 (2.1-6.9); NEUTROPHILS % 67.8 % (38.7-80.0); PLATELET COUNT 223 x10e3/uL (140-360); RED BLOOD COUNT 3.92 x10e6/uL (4.3-5.7); RED CELL DISTRIBUTION WIDTH 15.9 % (11.7-14.4)
[2019-05-04 04:01] LABS: ALANINE AMINOTRANSFERASE 21 IU/L (0-55); ALBUMIN 2.6 g/dL (3.5-5.0); ALBUMIN/GLOBULIN RATIO 0.6 (0.8-2.0); ALKALINE PHOSPHATASE 115 IU/L (40-150); BLOOD UREA NITROGEN 18 mg/dL (7-26); BUN/CREATININE RATIO 16 (6-25); CALCIUM 9.9 mg/dL (8.4-10.2); CARBON DIOXIDE 20 mmol/L (22-29); CHLORIDE 100 mmol/L (98-107); CREATININE, SERUM 1.11 mg/dL (0.72-1.25); EST GLOMERULAR FILTRATION RATE > 60 ML/MIN (60-); GLUCOSE 93 mg/dL (74-118); SODIUM 129 mmol/L (136-145)
[2019-05-04 04:23] LABS: FREE T4 (FREE THYROXINE) 1.13 ng/dL (0.8-1.8); THYROID STIMULATING HORMONE 1.329 uIU/mL (0.350-4.940)
[2019-05-04 06:18] LABS: CREATINE KINASE MB 0.5 ng/mL (0-5.0)
--- NOTE | 2019-05-04 06:35 | NUR ---
Pt lying in bed with eyes closed. RR even and unlabored. 18g IV RAC, intact. Continuous pulse ox and SCD's in place. No s/s of pain or discomfort. Will continue to monitor.
[2019-05-04] MEDS ORDERED: DEXTROSE 50% SYRINGE 50 ML IV PRN (07:15)
--- NOTE | 2019-05-04 07:25 | NUR ---
Patient resting in bed, Alert with no distress, denies any SOB or chest pain, call light in reach, bed alarm ON
[2019-05-04] MEDS: ALBUTEROL SULF 0.083% NEB SOLN 3 ML NEB NEB SCH ×5 (07:30→23:00)
[2019-05-04] MEDS: IPRATROPIUM BROMIDE 0.02% 2.5 ML NEB NEB SCH ×5 (07:30→23:00)
[2019-05-04] MEDS: INSULIN LISPRO 100 UNIT/1 ML 3ML VIAL SQ SCH ×4 (07:50→21:00)
[2019-05-04] MEDS: SPIRONOLACTONE 25 MG TAB PO SCH (08:34)
[2019-05-04] MEDS: CARVEDILOL 3.125 MG TAB PO SCH (08:34)
[2019-05-04] MEDS: ASPIRIN 81 MG ENTERIC COATED PO SCH (08:34)
[2019-05-04] MEDS: FUROSEMIDE INJ 10 MG/ML 4 ML VIAL IV SCH (08:34)
[2019-05-04] MEDS: PANTOPRAZOLE SOD 40 MG TABEC PO SCH (08:35)
[2019-05-04] MEDS ORDERED: FUROSEMIDE INJ 10 MG/ML 4 ML VIAL IV SCH (09:00)
[2019-05-04] MEDS ORDERED: FUROSEMIDE 40 MG TAB PO SCH (09:00)
[2019-05-04 10:54] LABS: CREATINE KINASE MB 0.6 ng/mL (0-5.0)
[2019-05-04] MEDS: AZITHROMYCIN 500MG/NS 250 ML 250 ML IV SCH (16:44)
--- NOTE | 2019-05-04 18:49 | NUR ---
patient resting in bed with no distress, will monitor
--- NOTE | 2019-05-04 19:00 | NUR ---
Completed BS rounds with morning nurse. Lying in bed HOB 60 degrees. Pt awake and oriented to name. Denies pain at this time. Family at bedside. Call cook within reach. Will continue to monitor.
[2019-05-04] MEDS: CEFTRIAXONE SOD 1 GM/NS 50 ML 50 ML IV SCH (19:30)
[2019-05-05 00:28] VITALS: BP 116/60
[2019-05-05] MEDS: ALBUTEROL SULF 0.083% NEB SOLN 3 ML NEB NEB SCH ×4 (03:11→15:10)
[2019-05-05] MEDS: IPRATROPIUM BROMIDE 0.02% 2.5 ML NEB NEB SCH ×4 (03:11→15:10)
[2019-05-05 04:00] LABS: BASOPHILS # (AUTO) 0.1 (0.0-0.1); BASOPHILS % 1.1 % (0.0-1.0); EOSINOPHILS # (AUTO) 0.2 (0.0-0.4); EOSINOPHILS % 3.1 % (0.0-6.0); HEMATOCRIT 32.8 % (38.2-49.6); HEMOGLOBIN 10.6 g/dL (14.0-18.0); LYMPHOCYTES # (AUTO) 1.7 (1.0-3.2); LYMPHOCYTES % 23.4 % (18.0-39.1); MEAN CORPUSCULAR HGB CONC 32.3 g/dL (31-35); MEAN CORPUSCULAR VOLUME 83.7 fL (81-99); MONOCYTES # (AUTO) 0.8 (0.2-0.8); MONOCYTES % 10.6 % (4.4-11.3); NEUTROPHILS # (AUTO) 4.3 (2.1-6.9); NEUTROPHILS % 61.4 % (38.7-80.0); PLATELET COUNT 235 x10e3/uL (140-360); RED BLOOD COUNT 3.92 x10e6/uL (4.3-5.7)
[2019-05-05 04:27] LABS: ANION GAP 12.1 mmol/L (8-16); BLOOD UREA NITROGEN 18 mg/dL (7-26); BUN/CREATININE RATIO 19 (6-25); CALCIUM 10.2 mg/dL (8.4-10.2); CARBON DIOXIDE 22 mmol/L (22-29); CHLORIDE 101 mmol/L (98-107); CREATININE, SERUM 0.97 mg/dL (0.72-1.25); EST GLOMERULAR FILTRATION RATE > 60 ML/MIN (60-); GLUCOSE 134 mg/dL (74-118); POTASSIUM 4.1 mmol/L (3.5-5.1); SODIUM 131 mmol/L (136-145)
[2019-05-05] MEDS ORDERED: ZITHROMAX500 MG PO (05:10)
[2019-05-05] MEDS ORDERED: CEFDINIR300 MG PO (05:11)
[2019-05-05] MEDS ORDERED: MUCINEX600 MG PO (05:11)
[2019-05-05] MEDS ORDERED: FUROSEMIDE INJ 10 MG/ML 2 ML VIAL IV ONE (05:30)
[2019-05-05 05:41] VITALS: BP 119/64
[2019-05-05] MEDS: GUAIFENESIN 600 MG TAB PO SCH ×4 (06:00→17:00)
--- NOTE | 2019-05-05 07:00 | NUR ---
PATIENT IS ALERT AND IN STABLE CONDITION WITH NO S/S OF RESPIRATORY DISTRESS. NO PAIN VOICED. CONTINUOS PULSE OX APPLIED. BED ALARM ON. CALL LIGHT IS WITHIN REACH, PATIENT INSTRUCTED TO CALL FOR ASSISTANCE NEEDED.
[2019-05-05] MEDS: INSULIN LISPRO 100 UNIT/1 ML 3ML VIAL SQ SCH ×3 (07:30→16:30)
[2019-05-05 07:47] VITALS: BP 123/71
[2019-05-05] MEDS: SPIRONOLACTONE 25 MG TAB PO SCH (08:43)
[2019-05-05] MEDS: PANTOPRAZOLE SOD 40 MG TABEC PO SCH (08:43)
[2019-05-05] MEDS: ASPIRIN 81 MG ENTERIC COATED PO SCH (08:43)
[2019-05-05] MEDS: CARVEDILOL 3.125 MG TAB PO SCH (08:43)
[2019-05-05] MEDS: FUROSEMIDE INJ 10 MG/ML 4 ML VIAL IV SCH (08:43)
[2019-05-05 10:02] VITALS: BP 123/71
--- NOTE | 2019-05-05 10:21 | NUR ---
EDUCATED ABOUT IMM, SIGNED, FILED IN CHART, WITH COPY LEFT WITH FAMILY AT BEDSIDE.
[2019-05-05 11:55] VITALS: BP 136/72
--- NOTE | 2019-05-05 13:51 | NUR ---
PATIENT AMBULATING IN THE HALLWAY WITH WALKER
[2019-05-05 15:13] VITALS: BP 113/70
[2019-05-05] MEDS ORDERED: CEFTRIAXONE SOD 1 GM/NS 50 ML 50 ML IV ONE (16:00)
[2019-05-05] MEDS: AZITHROMYCIN 500MG/NS 250 ML 250 ML IV SCH (17:32)
--- NOTE | 2019-05-05 18:40 | NUR ---
PATIENT DISCHARGE HOME- PATIENT OFF THE UNIT AT 1840 PER WHEELCHAIR ACCOMPANIED BY RN TO THE FRONT LOBBY. PATIENT IS IN STABLE CONDITION WITH NO S/S OF RESPIRATORY DISTRESS. NO PAIN VOICED. IV REMOVED WITH TIP INTACT. DISCHARGE TEACHING, INSTRUCTIONS, AND MEDICATIONS GIVEN TO THE PATIENT AND FAMILY MEMBERS. ALL PERSONAL ITEMS TAKEN WITH THE PATIENT AND HIS FAMILY MEMBERS.
--- NOTE | 2019-05-06 18:19 | Discharge Summary ---
ADMISSION DIAGNOSES: 1. Community-acquired pneumonia present on admission. 2. Type 2 diabetes. 3. Hypertension. 4. Cirrhosis. 5. History of atrial fibrillation. 6. Gastroesophageal reflux disease. 7. Elevated BNP. 8. Hyponatremia. DISCHARGE DIAGNOSES: 1. Community-acquired pneumonia present on admission. 2. Type 2 diabetes. 3. Hypertension. 4. Cirrhosis. 5. History of atrial fibrillation. 6. Gastroesophageal reflux disease. 7. Elevated BNP. 8. Hyponatremia. 9. Rule out congestive heart failure. HISTORY: The patient has a history of hypertension, type 2 diabetes, hep C, cirrhosis, atrial fibrillation, gastric ulcers, and acid reflux. SURGICAL HISTORY: AV pacemaker placement. FAMILY HISTORY: Both of the patient's brothers have diabetes. SOCIAL HISTORY: The patient admits to occasional alcohol use. HOSPITAL COURSE: A 78-year-old male complains of shortness of breath and productive cough times 4 to 5 days. He denies fever but admits to chills. He denies nausea, vomiting, diarrhea, and history of CHF. He denies antibiotic use and sick contacts. Symptoms improved with nebs and antibiotics and worsened with exudate. On admission, EKG showed atrial pacemaker with 52 beats per minute. Chest x-ray with bibasilar airspace opacities concerning for aspiration and/or pneumonia more focal nodular opacity of the left mid to lower lung zone, may also be seeing part of the same infectious process. He then had an echo with 65% EF. On admission, the patient was started on Rocephin, Zithromax, nebs, and Mucinex. He began feeling better almost immediately after couple days of IV antibiotics. The patient was discharged home with Zithromax, Omnicef and Mucinex p.r.n. He will follow up with primary care in 1 to 2 weeks. The patient understands discharge instructions and agrees to plan. Vital signs stable, patient afebrile. Dictated by Mirna Raymond NP MD BALDEMAR Sampson/MODL /[id number]
== END 2019-05-05 18:42 | disposition home or self-care (01) | DRG 194 ==
LOC: ER 11:20 → ERHOLD 16:26 → MED/SURG3 17:36
PROVIDERS: ADMIT Internal Medicine; ATTEND Internal Medicine
DX: J18.9 Pneumonia, unspecified organism (principal); E87.1 Hypo-osmolality and hyponatremia; E11.9 Type 2 diabetes mellitus without complications; K74.60 Unspecified cirrhosis of liver; K21.9 Gastro-esophageal reflux disease without esophagitis; Z87.11 Personal history of peptic ulcer disease; B19.20 Unspecified viral hepatitis C without hepatic coma; R79.89 Other specified abnormal findings of blood chemistry; Z95.0 Presence of cardiac pacemaker; I10 Essential (primary) hypertension
CPT/HCPCS: 36415; 71045; 80048; 80053; 81001; 82550; 82553; 82948; 83036; 83605; 83880; 84439; 84443; 84484; 85025; 85610; 85730; 87040; 87086; 93005; 93306; 94640; 96361; 99284; J0456; J0696; J1940; J2543; J7030; J7040

== ENCOUNTER 2019-05-16 09:50 | Emergency (ER) | payer MEDICARE ==
[~2019-05-16] VITALS: Ht 157.5 cm; Wt 56.2 kg
[~2019-05-16 09:50] MED LIST changes: +CARVEDILOL3.125 MG PO; +CEFDINIR300 MG PO; +MUCINEX600 MG PO; +ZITHROMAX500 MG PO
--- OUTSIDE RECORDS SUMMARY | 2019-05-16 09:56 | XMS REPORT | Continuity of Care Document ---
Author Author [employer] Organization [employer] Address Unknown Phone Unavailable Care Team Providers Care Can Slider Name Role Phone [employer] Unavailable Unavailable Problems Problem Status Onset Date Classification Date Reported Comments Source K74.60 - UNSPECIFIED CIRRHOSIS OF LIVER Active 02/17/2019 NICOLE Whipple, NICOLE Cam I48.92 Active 01/16/2019 [facility] BEDDED OUTPATIENT/IMAGE GUIDED MICROWAVE Active 12/30/2018 [facility] MWA OF HCC Active 12/22/2018 [facility] FOLLOW-UP Active 04/01/2018 [facility] CIRRHOSIS; HISTORY OF ESOPHAGEAL VARICES Active 01/22/2018 [facility] NEW PT Active 12/16/2017 [facility] Low back pain 10/12/2017 01/12/2018 NICOLE [place] R05 - COUGH Active 12/01/2016 NIOCLE Cam AFLUTTER Active 10/07/2016 [facility] CCL/EPS AFLUTTER ABLATION/JAVAN/DX: AFLUTT Active 10/07/2016 [facility] BDDC/ Active 06/25/2016 [facility] CLAUDIFICATION UNSPECIFIED Active 06/08/2016 [facility] DAY SURGERY/MICROWAVE ABLATION OF LIVER Active 05/13/2016 [facility] DDC-F/U VISIT Active 04/20/2016 [facility] B19.20 - UNSPECIFIED VIRAL HEPATITIS C Active 03/18/2016 NICOLE [place] F/U Active 02/03/2016 [facility] Abnormal ECG Active 01/31/2016 Problem 01/19/2019 [facility] Bradycardia Active 01/31/2016 Problem 01/19/2019 [facility] Near syncope Active 01/31/2016 Problem 01/19/2019 [facility] Renal insufficiency Active 01/31/2016 Problem 01/19/2019 [facility] BDDC-ESOPHAGEAL VARICIES Active 11/26/2015 [facility] BDDC-ESOPHAGEAL VARICES Active 11/21/2015 [facility] FOLLOW UP Active 10/23/2015 [facility] BDDC - 6 MONTH F/U Active 08/05/2015 [facility] 793.8 - ABNORMAL FINDIN Active 05/09/2015 NICOLE Cam DDC-3 MONTH F/U VISIT Active 04/29/2015 [facility] 3 MONTH F/U Active 01/29/2015 [facility] 571.5 - CIRRHOSIS OF LI Active 01/01/2015 NICOLE Whipple, NICOLE Cam BDDC-ROUTINE GENERAL MEDICAL EXAMINATION Active 12/31/2014 [facility] BDDC-CHRONIC HEP C Active 07/02/2014 [facility] CCL/R Active 04/10/2014 [facility] CHEST PAIN, DYSPNEA Active 04/10/2014 [facility] ACUTE HEPATITIS C Active 04/10/2014 [facility] 786.05 - SHORTNESS OF BR Active 04/02/2014 NICOLE Whipple CHRONIC HEPATITIS C Active 01/08/2014 [facility] CCL/MAC ANESTHESIA/EPS, AFLUTTER ABLATIO Active 01/03/2014 [facility] SOB Active 12/07/2013 [facility] SOB, PRESYNCOPE Active 12/07/2013 [facility] CIRRHOSIS, HEP C Active 10/16/2013 [facility] ADD ON PER NOBLE Active 09/29/2013 [facility] 1M: HCV-2 CIRRHOSIS, EV, AFLUTTER, FOR H Active 09/11/2013 [facility] CIRRHOSIS, ESOPHAGEAL VARICES Active 08/14/2013 [facility] CIRRHOSIS OF LIVER Active 05/25/2013 [facility] Hepatitis C Active Problem 09/13/2013 [facility] Cirrhosis and chronic liver disease Active Problem 09/01/2014 [facility], NICOLE Whipple, NICOLE Cam, EDMD Esophageal varices1 Active Problem 09/01/2014 1grade 1 [facility], NICOLE Whipple, NICOLE Cam, EDMD 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/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, prior treatment with interferon and ribavirin over 10 years ago [facility], NICOLE Whipple, NICOLE Cam, EDMD Esophageal varices Active Problem 09/01/2014 [facility], NICOLE Whipple, OPID [place], EDDC Cirrhosis of liver Active Problem 06/07/2015 [facility], NICOLE Whipple, OPID [place], EDDC DM (Confirmed) Active Problem 06/07/2015 [facility], NICOLE Whipple, OPID [place], EDDC Duodenal Ulcer Resolved Problem 09/06/2015 [facility], NICOLE Whipple, OPID [place], EDDC DM (Confirmed) Active Problem 12/13/2013 [facility] Ascites Active Problem 12/10/2013 [facility] Atrial flutter Resolved Problem 04/16/2019 [facility], NICOLE Whipple, OPID [place], EDDC, OPID [place] Atrial Flutter Active Problem 04/18/2015 [facility], NICOLE Whipple, OPID [place], EDDC Chronic antral gastritis Resolved Problem 04/16/2019 [facility], NICOLE Whipple, OPID [place], EDDC, OPID [place] Chronic hepatitis C Active Problem 04/18/2015 [facility], NICOLE Whipple, OPID [place], EDMD Constrictive pericarditis Active Problem 04/16/2019 [facility], NICOLE Whipple, OPID [place], EDMD, OPID [place] Diabetes mellitus Active Problem 03/23/2016 [facility], NICOLE Whipple, OPID [place], EDMD Duodenal ulcer Resolved Problem 04/16/2019 [facility], NICOLE Whipple, OPID [place], EDDC, OPID [place] Bilateral leg edema1 Resolved Problem 04/16/2019 genotype 2, prior treatment with interferon and ribavirin over 10 years ago [facility], NICOLE Whipple, OPID [place], OPID [place] Esophageal varices2 Active Problem 04/16/2019 grade 1 [facility], NICOLE Whipple, [facility] [place] [place] Hepatitis C virus genotype 2 Resolved Problem 04/16/2019 [facility], NICOLE Whipple, OPID [place], EDDC, OPID [place] Hyperplastic colon polyp Resolved Problem 04/16/2019 [facility], NICOLE Whipple, OPID [place], EDMD, OPID [place] Cirrhosis of liver Active Problem 07/05/2015 NICOLE Whipple DM (Confirmed) Active Problem 07/05/2015 NICOLE Whipple Ascites Resolved Problem 04/16/2019 [facility], NICOLE Whipple, OP[facility] [place], OPID [place] Cirrhosis of liver Active Problem 04/16/2019 [facility], NICOLE Whipple, OPID [place], OPID [place] DM (Confirmed) Active Problem 03/23/2016 [facility], NICOLE Whipple, OPID [place] HPTH - Hyperparathyroidism Active Problem 04/16/2019 [facility], NICOLE Whipple, OPID [place], OPID [place] CHF, chronic Active Problem 04/16/2019 [facility], NICOLE Whipple, OPID [place], OPID [place] CKD , stage III(Confirmed) Active Problem 04/16/2019 [facility], NICOLE Whipple, OPID [place], OPID [place] DM , type 2(Confirmed) Active Problem 04/16/2019 [facility], NICOLE Whipple, OPID [place], OPID [place] HCC (Confirmed) Active Problem 04/16/2019 [facility], NICOLE Whipple, OP[facility] [place], [facility]ID [place] Obesity Active Problem 04/16/2019 [facility], OPICeline Whipple, OPID [place], OPID [place] Localized edema 01/12/2018 [facility] [place] Duodenal Ulcer Resolved Problem 01/12/2018 [facility], NICOLE Whipple, OPID [place], OPID [place] Gastritis Active Problem 01/12/2018 [facility], NICOLE Whipple, OPID [place], EDDC, OPID [place] Liver mass Active Problem 01/12/2018 [facility], NICOLE Whipple, OPID [place], OPID [place] Cataract Resolved Problem 04/16/2019 [facility], WILNERCeline Whipple, WILNERCeline Cam ROUTINE MEDICAL EXAM Active [facility] SHORTNESS OF BREATH Active [facility] MEDICAL SERVICES NOT AVAILABLE IN HOME Active [facility] ALCOHOLIC FATTY LIVER Active [facility] ENCNTR FOR GENERAL ADULT MEDICAL EXAM W/ Active [facility] PERIPHERAL VASCULAR DISEASE, UNSPECIFIED Active [facility] UNSPECIFIED ATRIAL FLUTTER Active [facility] Medications Medication Details Route Status Patient Instructions Ordering Provider Order Date Source Aspirin 81 MG Enteric Coated Tablet 81 mg=1 tab, PO, Daily, Resume home aspirin 81mg on 01/18, # 30 tab, 0 Refill(s), other Active 01/18/2019 [facility] Spironolactone 25 mg, 1 tab, Route: PO, Drug form: TAB, Daily, Dosing Weight 61.364, kg, Start date: 01/18/19 9:00:00 CDT, Duration: 30 day, Stop date: 02/16/19 9:00:00 CDTNotes: (Same As: Aldactone) No Longer Active 01/18/2019 [facility] Omeprazole 40 mg, Route: PO, Drug form: DRC, Daily, Dosing Weight 61.364, kg, Start date: 01/18/19 9:00:00 CDT, Duration: 30 day, Stop date: 02/16/19 9:00:00 CDT No Longer Active 01/18/2019 [facility] Furosemide 40 MG Oral Tablet 40 mg, 1 tab, Route: PO, Drug form: TAB, Daily, Dosing Weight 61.364, kg, Start date: 01/18/19 9:00:00 CDT, Duration: 30 day, Stop date: 02/16/19 9:00:00 CDTNotes: (Same as: Lasix) May cause GI upset. Give with food or milk. No Longer Active 01/18/2019 [facility] Protonix 40 mg, 1 tab, Route: PO, Drug form: ECTAB, Daily, Start date: 01/18/19 9:00:00 CDT, Duration: 30 day, Stop date: 02/16/19 9:00:00 CDTNotes: Tablet should not be chewed or crushed. (Same as: Protonix) No Longer Active 01/18/2019 [facility] Glucotrol 2.5 mg, 0.5 tab, Route: PO, Drug form: TAB, Breakfast, Start date: 01/18/19 8:00:00 CDT, Duration: 30 day, Stop date: 02/16/19 8:00:00 CDTNotes: (Same as: Glucotrol) 30 min before meals. No Longer Active 01/18/2019 [facility] glimepiride 1 mg, Route: PO, Drug form: TAB, Breakfast, Dosing Weight 61.364, kg, Start date: 01/18/19 8:00:00 CDT, Duration: 30 day, Stop date: 02/16/19 8:00:00 CDT No Longer Active 01/18/2019 [facility] carvedilol 3.125 mg, 1 tab, Route: PO, Drug form: TAB, Q12H, Dosing Weight 61.364, kg, Start date: 01/17/19 21:00:00 CDT, Duration: 30 day, Stop date: 02/16/19 9:00:00 CDTNotes: Give with food. (Same As: Coreg) Inactive 01/18/2019 [facility] Ondansetron 4 MG Disintegrating Tablet [Zofran] 4 mg=1 tab, PO, BID, PRN Nausea and Vomiting, Dissolve tab under tongue, # 10 tab, 0 Refill(s) Active 01/17/2019 [facility] Acetaminophen 325 MG / Hydrocodone Bitartrate 5 MG Oral Tablet [[place] 5/325] 1 tab, PO, Q6H, PRN for pain, X 7 day, # 28 tab, 0 Refill(s), other Active 01/17/2019 [facility] Metronidazole 500 MG Oral Tablet [Flagyl] 500 mg=1 tab, PO, Q8H, X 10 day, # 30 tab, 0 Refill(s) Active 01/17/2019 [facility] Levofloxacin 750 MG Oral Tablet [Levaquin] 750 mg=1 tab, PO, Q24H, X 10 day, # 10 tab, 0 Refill(s) Active 01/17/2019 [facility] cinacalcet 30 MG Oral Tablet [Sensipar] 30 mg=1 tab, PO, Daily, 0 Refill(s) Active 01/17/2019 [facility] spironolactone 50 mg oral tablet 25 mg=0.5 tab, PO, Daily, 0 Refill(s) Active 01/17/2019 [facility] repaglinide 1 mg oral tablet 1 mg=1 tab, PO, Q12H, 0 Refill(s) Active 01/17/2019 [facility] Insulin Lispro 10 unit, 0.1 mL, [...] Expires in days from Date Inactive 01/17/2019 [facility] Glucagon 1 mg, Route: IM, Drug form: PDR/INJ, PRN, Dosing Weight 61.364, kg, PRN Blood Glucose Results, Start date: 01/17/19 12:44:00 CDT, Duration: 30 day, Stop date: 02/16/19 12:43:00 CDT Inactive 01/17/2019 [facility] Dextrose 50% Syringe 25 gm, 50 mL, Route: IVP, Drug Form: INJ, Dosing Weight 61.364, kg, PRN, PRN Blood Glucose Results, Start date: 01/17/19 12:44:00 CDT, Duration: 30 day, Stop date: 02/16/19 12:43:00 CDT Inactive 01/17/2019 [facility] Insulin regular 4 unit, Route: IV, ONCE, Dosing Weight 61.364, kg, Start date: 01/17/19 11:26:00 CDT, Stop date: 01/17/19 11:26:00 CDT Inactive 01/17/2019 [facility] Insulin regular 3 unit, Route: IV, ONCE, Dosing Weight 61.364, kg, Start date: 01/17/19 10:45:00 CDT, Stop date: 01/17/19 10:45:00 CDT Inactive 01/17/2019 [facility] Insulin regular 2 unit, Route: SUB-Q, ONCE, Dosing Weight 61.364, kg, Start date: 01/17/19 10:43:00 CDT, Stop date: 01/17/19 10:43:00 CDT Inactive 01/17/2019 [facility] Hydromorphone 0.5 mg, 0.5 mL, Route: IVP, Drug form: INJ, Q5Min, Dosing Weight 61.364, kg, PRN Pain Score 7-10, Start date: 01/17/19 10:43:00 CDT, Duration: 4 doses or times, Stop date: 01/18/19 0:00:00 CDTNotes: Same as: Dilaudid Inactive 01/17/2019 [facility] Oxycodone 5 mg, 1 tab, Route: PO, Drug form: TAB, Q4H, Dosing Weight 61.364, kg, PRN Pain Score 7-10, Start date: 01/17/19 10:43:00 CDT, Duration: 30 day, Stop date: 02/16/19 10:42:00 CDTNotes: (Same as: Roxic odone) Inactive 01/17/2019 [facility] Naloxone 0.4 mg, 1 mL, Route: IVP, Drug form: INJ, Q2MIN, Dosing Weight 61.364, kg, PRN Narcotic Reversal, Start date: 01/17/19 10:43:00 CDT, Duration: 8 doses or times, Stop date: 01/18/19 0:00:00 CDTNotes: Same as Narcan Inactive 01/17/2019 [facility] Flumazenil 0.2 mg, 2 mL, Route: IVP, Drug form: INJ, PRN, Dosing Weight 61.364, kg, PRN Benzodiazepine Reversal, Initial dose, Start date: 01/17/19 10:43:00 CDT, Duration: 30 day, Stop date: 02/16/19 10:42:00 C DTNotes: (Same as: Romazicon) Inactive 01/17/2019 [facility] Labetalol 10 mg, 2 mL, Route: IVP, Drug form: INJ, Q5Min, Dosing Weight 61.364, kg, PRN Elevated BP, Start date: 01/17/19 10:43:00 CDT, Duration: 5 doses or times, Stop date: 01/18/19 0:00:00 CDT Inactive 01/17/2019 [facility] Hydralazine 10 mg, 0.5 mL, Route: IVP, Drug form: INJ, Q20Min, Dosing Weight 61.364, kg, PRN Elevated BP, Start date: 01/17/19 10:43:00 CDT, Duration: 2 doses or times, Stop date: 01/18/19 0:00:00 CDTNotes: (Same as: Apresoline) Push over 5 minutes Inactive 01/17/2019 [facility] Ondansetron 4 mg, 2 mL, Route: IVP, Drug form: INJ, ONCE, Dosing Weight 61.364, kg, PRN Nausea & Vomiting, Start date: 01/17/19 10:43:00 CDTNotes: (Same as: Maggi) MEDICATION WASTE Product Size: 4 mg Product Wasted: ___ mg Inactive 01/17/2019 [facility] Tramadol 50 mg, 1 tab, Route: PO, Drug form: TAB, Q6H, Dosing Weight 61.364, kg, PRN Pain Score 4-6, Start date: 01/17/19 9:39:00 CDT, Duration: 30 day, Stop date: 02/16/19 9:38:00 CDTNotes: Not to exceed 400mg/day. (Same As: Ultram) Inactive 01/17/2019 [facility] Hydromorphone 1 mg, 0.5 mL, Route: IVP, Drug form: INJ, Q4H, Dosing Weight 61.364, kg, PRN Pain Score 7-10, Start date: 01/17/19 9:39:00 CDT, Duration: 30 day, Stop date: 02/16/19 9:38:00 CDTNotes: Same as Dilaudid Inactive 01/17/2019 [facility] Ondansetron 4 mg, 2 mL, Route: IVP, Drug form: INJ, Q8H, Dosing Weight 61.364, kg, PRN Nausea & Vomiting, Start date: 01/17/19 9:39:00 CDT, Duration: 30 day, Stop date: 02/16/19 9:38:00 CDTNotes: (Same as: Zojocelynn) MEDICATION WASTE Product Size: 4 mg Product Wasted: ___ mg Inactive 01/17/2019 [facility] Morphine 2 mg, 0.5 mL, Route: IVP, Drug form: SOLN, Q1H, Dosing Weight 61.364, kg, PRN Pain Score 7-10, Start date: 01/17/19 9:39:00 CDT, Duration: 30 day, Stop date: 02/16/19 9:38:00 CDTNotes: (Same as:MORPhine Sulfate) Inactive 01/17/2019 [facility] Sodium Chloride 0.9% IV 1,000 mL 1,000 mL, Rate: 125 ml/hr, Infuse over: 8 hr, Route: IV, Dosing Weight 61.364 kg, Total Volume: 1,000, Start date: 01/17/19 9:39:00 CDT, Duration: 30 day, Stop date: 02/16/19 9:38:00 CDT, 1.66, m2 Inactive 01/17/2019 [facility] gabapentin 300 mg, Route: PO, Drug form: CAP, ONCE, Dosing Weight 61.364, kg, Start date: 01/17/19 7:16:00 CDT, Stop date: 01/17/19 7:16:00 CDT Inactive 01/17/2019 [facility] Tramadol 50 mg, Route: PO, Drug form: TAB, ONCE, Dosing Weight 61.364, kg, Start date: 01/17/19 7:16:00 CDT, Stop date: 01/17/19 7:16:00 CDT Inactive 01/17/2019 [facility] Acetaminophen 650 mg, Route: PO, Drug form: TAB, ONCE, Dosing Weight 61.364, kg, Start date: 01/17/19 7:16:00 CDT, Stop date: 01/17/19 7:16:00 CDT Inactive 01/17/2019 [facility] glimepiride 1 mg oral tablet 1 mg=1 tab, PO, Breakfast, # 30 tab, 0 Refill(s) No Longer Active 01/11/2019 [facility] spironolactone 50 mg oral tablet 25 mg=0.5 tab, PO, Daily, # 15 tab, 11 Refill(s), Pharmacy: [facility]/pharmacy #[id number] Active 11/08/2018 [facility] Furosemide 40 MG Oral Tablet 40 mg=1 tab, PO, Daily, # 30 tab, 11 Refill(s), Pharmacy: [facility]/pharmacy #[id number] Active 11/08/2018 [facility] Vitamin D2 50,000 intl units oral capsule 50,000 IntlUnit=1 cap, PO, Daily, 0 Refill(s) Active 01/18/2018 [facility] Amoxicillin 875 MG / Clavulanate 125 MG Oral Tablet 1 tab, PO, BID, # 20 tab, 0 Refill(s) Active 01/18/2018 [facility] Protonix 40 mg, 1 tab, Route: PO, Drug form: ECTAB, Daily, Start date: 10/23/16 9:00:00 STEEL MELTER, Duration: 30 day, Stop date: 11/21/16 9:00:00 CSTNotes: Tablet should not be chewed or crushed. (Same as: Protonix) No Longer Active 10/23/2016 [facility] Glucotrol 5 mg, 1 tab, Route: PO, Drug form: TAB, Daily, Start date: 10/23/16 9:00:00 STEEL MELTER, Duration: 30 day, Stop date: 11/21/16 9:00:00 CSTNotes: (Same as: Glucotrol) 30 min before meals. No Longer Active 10/23/2016 [facility] Spironolactone 25 mg, 1 tab, Route: PO, Drug form: TAB, Daily, Dosing Weight 64.545, kg, Start date: 10/23/16 9:00:00 STEEL MELTER, Duration: 30 day, Stop date: 11/21/16 9:00:00 CSTNotes: (Same As: Aldactone) No Longer Active 10/23/2016 [facility] Omeprazole 40 mg, Route: PO, Drug form: DRC, Daily, Dosing Weight 64.545, kg, Start date: 10/23/16 9:00:00 STEEL MELTER, Duration: 30 day, Stop date: 11/21/16 9:00:00 STEEL MELTER No Longer Active 10/23/2016 [facility] glimepiride 1 mg, Route: PO, Drug form: TAB, Daily, Dosing Weight 64.545, kg, Start date: 10/23/16 9:00:00 STEEL MELTER, Duration: 30 day, Stop date: 11/21/16 9:00:00 STEEL MELTER No Longer Active 10/23/2016 [facility] Furosemide 40 MG Oral Tablet 40 mg, 1 tab, Route: PO, Drug form: TAB, Daily, Dosing Weight 64.545, kg, Start date: 10/23/16 9:00:00 STEEL MELTER, Duration: 30 day, Stop date: 11/21/16 9:00:00 CSTNotes: (Same as: Lasix) May cause GI upset. Give with food or milk. No Longer Active 10/23/2016 [facility] aspirin 81 mg tablet, enteric coated 81 mg, 1 tab, Route: PO, Drug form: ECTAB, Daily, Dosing Weight 64.545, kg, Start date: 10/23/16 9:00:00 STEEL MELTER, Duration: 30 day, Stop date: 11/21/16 9:00:00 CSTNotes: Do not crush or chew. (Same As: Ecotrin) No Longer Active 10/23/2016 [facility] Saline Flush 0.9% 10 ml, Route: IVP, Drug Form: INJ, Dosing Weight 64.545, kg, Q12H, Start date: 10/22/16 21:00:00 STEEL MELTER, Duration: 30 day, Stop date: 11/21/16 9:00:00 CSTNotes: (Same as: BD Posiflush) Inactive 10/23/2016 [facility] carvedilol 3.125 mg, 1 tab, Route: PO, Drug form: TAB, BID, Dosing Weight 64.545, kg, Start date: 10/22/16 17:00:00 STEEL MELTER, Duration: 30 day, Stop date: 11/21/16 9:00:00 CSTNotes: Give with food. (Same As: Coreg) Inactive 10/22/2016 [facility] Acetaminophen 300 MG / Codeine Phosphate 30 MG Oral Tablet 1 tab, PO, Q4H, PRN Pain Score 4-6, X 5 day, # 30 tab, 0 Refill(s) Active 10/22/2016 [facility] spironolactone 25 mg oral tablet 25 mg, PO, Daily, 0 Refill(s) Active 10/22/2016 [facility] Saline Flush 0.9% 10 ml, Route: IVP, Drug Form: INJ, Dosing Weight 64.545, kg, PRN, PRN Line Flush, Start date: 10/22/16 15:54:00 STEEL MELTER, Duration: 30 day, Stop date: 11/21/16 15:53:00 CSTNotes: (Same as: BD Posiflush) Inactive 10/22/2016 [facility] acetaminophen-codeine #3 1 tab, Route: PO, Drug Form: TAB, Dosing Weight 64.545, kg, Q4H, PRN Pain Score 4-6, Start date: 10/22/16 15:54:00 STEEL MELTER, Duration: 30 day, Stop date: 11/21/16 15:53:00 CSTNotes: Do not exceed 4gm/day of acetaminophen. (Same as: Tylenol with Codeine # 3) Inactive 10/22/2016 [facility] carvedilol 3.125 mg oral tablet 3.125 mg=1 tab, PO, BID, 0 Refill(s) Active 10/22/2016 [facility] iodixanol 90 mL, Route: IVP, Drug Form: SOLN, Dosing Weight 64.545, kg, ONCALL, STAT, Start date: 10/22/16 11:59:00 STEEL MELTER, Duration: 1 doses or times, Dose=2.2ml/kg, Max muox=[id number] -- "To be infused by Radiology Staff ONLY" Inactive 10/22/2016 [facility] Ketorolac 30 mg, Route: IV, ONCE, Dosing Weight 65.909, kg, Start date: 05/22/16 14:38:00 CDT, Stop date: 05/22/16 14:38:00 CDT Inactive 05/22/2016 [facility] Naloxone 0.4 mg, 1 mL, Route: IVP, Drug form: INJ, Q2MIN, Dosing Weight 65.909, kg, PRN Narcotic Reversal, Start date: 05/22/16 12:08:00 CDT, Duration: 8 doses or times, Stop date: Limited # of timesNotes: Same as Narcan No Longer Active 05/22/2016 [facility] Metoprolol 1 mg, 1 mL, Route: IVP, Drug form: INJ, Q5Min, Dosing Weight 65.909, kg, PRN Other -See Comment, Start date: 05/22/16 12:08:00 CDT, Duration: 5 doses or times, Stop date: Limited # of timesNotes: (Same as: Lopressor) Push over 2 minutes No Longer Active 05/22/2016 [facility] Hydralazine 10 mg, 0.5 mL, Route: IVP, Drug form: INJ, Q20Min, Dosing Weight 65.909, kg, PRN Elevated BP, Start date: 05/22/16 12:08:00 CDT, Duration: 2 doses or times, Stop date: Limited # of timesNotes: (Same as: Apresoline) Push over 5 minutes No Longer Active 05/22/2016 [facility] Labetalol 10 mg, 2 mL, Route: IVP, Drug form: INJ, Q5Min, Dosing Weight 65.909, kg, PRN Elevated BP, Start date: 05/22/16 12:08:00 CDT, Duration: 5 doses or times, Stop date: Limited # of times No Longer Active 05/22/2016 [facility] Fentanyl 25 microgram, 0.5 mL, Route: IVP, Drug form: INJ, Q5Min, Dosing Weight 65.909, kg, PRN Pain Score 4-6, Start date: 05/22/16 12:08:00 CDT, Duration: 4 doses or times, Stop date: Limited # of timesNotes: (Same as: Sublimaze) Preservative free. No Longer Active 05/22/2016 [facility] Hydromorphone 0.5 mg, 0.25 mL, Route: IVP, Drug form: INJ, Q5Min, Dosing Weight 65.909, kg, PRN Pain Score 7-10, Start date: 05/22/16 12:08:00 CDT, Duration: 4 doses or times, Stop date: Limited # of timesNotes: S [place] as: Dilaudid No Longer Active 05/22/2016 [facility] Ondansetron 4 mg, 2 mL, Route: IVP, Drug form: INJ, ONCE, Dosing Weight 65.909, kg, PRN Nausea & Vomiting, Start date: 05/22/16 12:08:00 CDTNotes: (Same as: Zofran) MEDICATION WASTE Product Size: 4 mg Product Wasted: ___ mg Inactive 05/22/2016 [facility] Flumazenil 0.2 mg, 2 mL, Route: IVP, Drug form: INJ, PRN, Dosing Weight 65.909, kg, PRN Benzodiazepine Reversal, Initial dose, Start date: 05/22/16 12:08:00 CDT, Duration: 1 day, Stop date: 05/23/16 12:07:00 CD TNotes: (Same as: Romazicon) No Longer Active 05/22/2016 [facility] Potassium Chloride 10 Meq Tab.er.prt, 20 Meq Oral Daily Active 01/30/2016 [facility] omeprazole 40 mg oral delayed release capsule 40 mg=1 cap, PO, Daily, # 30 cap, 5 Refill(s), Pharmacy: [facility]/pharmacy #[id number] Active 11/20/2015 [facility] Hepatitis B Surface Antigen Vaccine 0.01 MG/ML Injectable Suspension 10 microgram=1 mL, IM, ONCE, # 1 mL, 0 Refill(s), other Active 08/05/2015 [facility] Furosemide 40 MG Oral Tablet [Lasix] 40 mg=1 tab, PO, Every Other Day, 0 Refill(s) Active 08/05/2015 [facility] Furosemide 40 MG Oral Tablet [Lasix] 40 mg=1 tab, PO, QAM, # 90 tab, 3 Refill(s), Pharmacy: [facility]/pharmacy #[id number] No Longer Active 12/31/2014 [facility] omeprazole 40 mg oral delayed release capsule See Instructions, # 60 unknown unit, Refill(s) 11, TOME 1 CAPSULA 2 VECES AL VIANEY, Pharmacy: [facility]/pharmacy #[id number] Instructions: TOME 1 CAPSULA 2 VECES AL VIANEY No Longer Active 10/10/2014 [facility] omeprazole 40 mg oral delayed release capsule 40 mg=1 cap, PO, Daily, # 30 cap, 5 Refill(s), Pharmacy: [facility]/pharmacy #[id number] Active 10/03/2014 [facility] Furosemide 40 Mg Tablet, 40 Mg Oral Daily Active 07/16/2014 [facility] Spironolactone 25 Mg Tablet, 25 Mg Oral Daily Active 07/16/2014 [facility] Furosemide 40 MG Oral Tablet [Lasix] 20 mg=0.5 tab, PO, Daily, # 30 tab, 5 Refill(s), Pharmacy: [facility]/pharmacy #[id number] Active 07/02/2014 [facility] Potassium Chloride 20 MEQ Extended Release Tablet 20 mEq=1 tab, PO, BID, # 10 tab, 0 Refill(s) Active 05/09/2014 [facility] magnesium oxide 400 mg oral tablet 400 mg=1 tab, PO, Daily, # 10 tab, 0 Refill(s) Active 05/09/2014 [facility] omeprazole 40 mg oral delayed release capsule 40 mg=1 cap, PO, Daily, # 30 cap, 0 Refill(s) Active 05/09/2014 [facility] Aspirin 81 MG Enteric Coated Tablet 81 mg=1 tab, PO, Daily, # 0 tab, 0 Refill(s) Active 04/02/2014 [facility] Aspirin 81 MG Enteric Coated Tablet 81 mg=1 tab, PO, Daily, # 120 tab, 0 Refill(s) Active 12/08/2013 [facility] Furosemide 40 MG Oral Tablet [Lasix] 40 mg=1 tab, PO, BID, # 60 tab, 3 Refill(s) Active 12/08/2013 [facility] Atenolol 25 MG Oral Tablet 12.5 mg=0.5 tab, PO, Daily, 0 Refill(s) Active 12/08/2013 [facility] heparin sodium, porcine 2500 UNT/ML Injectable Solution 5,000 unit, 1 mL, Route: SUB-Q, Drug form: INJ, Q8H, Dosing Weight 70.455, kg, Start date: 12/08/13 16:00:00, Duration: 30 day, Stop date: 01/07/14 8:00:00porcine heparin Inactive 12/08/2013 [facility] Aspirin / Calcium Carbonate 81 mg, 1 tab, Route: PO, Drug form: ECTAB, Daily, Dosing Weight 70.455, kg, Priority: NOW, Start date: 12/08/13 13:38:00, Duration: 30 day, Stop date: 01/07/14 9:00:00 Inactive 12/08/2013 [facility] pneumococcal capsular polysaccharide type 1 vaccine / pneumococcal capsular polysaccharide type 10A vaccine / pneumococcal capsular polysaccharide type 11A vaccine / pneumococcal capsular polysaccharide type 12F vaccine / pneumococcal capsular polysacchar 0.5 ml, Route: IM, Drug Form: INJ, Daily, Start date: 12/08/13 9:00:00, Duration: 1 doses or times, Stop date: 12/08/13 9:00:00(Same as: Pneumovax 23) Refrigerate Inactive 12/08/2013 [facility] pantoprazole 40 mg, 1 tab, Route: PO, Drug form: ECTAB, Daily, Dosing Weight 66.364, kg, Start date: 12/08/13 9:00:00, Duration: 30 day, Stop date: 01/06/14 9:00:00Tablet should not be chewed or crushed. (Same as : Protonix) Inactive 12/08/2013 [facility] Spironolactone 25 mg, 1 tab, Route: PO, Drug form: TAB, Daily, Dosing Weight 66.364, kg, Start date: 12/08/13 9:00:00, Duration: 30 day, Stop date: 01/06/14 9:00:00(Same As: Aldactone) Inactive 12/08/2013 [facility] Furosemide 40 MG Oral Tablet 40 mg, 1 tab, Route: PO, Drug form: TAB, Daily, Dosing Weight 66.364, kg, Start date: 12/08/13 9:00:00, Duration: 30 day, Stop date: 01/06/14 9:00:00(Same as: Lasix) May cause GI upset. Give with food or milk. Inactive 12/08/2013 [facility] glimepiride 1 mg, 1 tab, Route: PO, Drug form: TAB, Daily, Dosing Weight 66.364, kg, Start date: 12/08/13 9:00:00, Duration: 30 day, Stop date: 01/06/14 9:00:00(Same as: Amaryl) Inactive 12/08/2013 [facility] Furosemide 20 mg, 2 mL, Route: IVP, Drug form: INJ, ONCE, Dosing Weight 66.364, kg, Priority: STAT, Start date: 12/07/13 23:44:00, Stop date: 12/07/13 23:44:00(Same as: Lasix) No Longer Active 12/08/2013 [facility] Lasix 20 mg, 2 mL, Route: IVP, Drug form: INJ, ONCE, Dosing Weight 66.364, kg, Priority: STAT, Start date: 12/07/13 21:46:00, Stop date: 12/07/13 21:46:00(Same as: Lasix) Inactive 12/08/2013 [facility] Ancef 1 gm, Route: IVPB, ONCE, Dosing Weight 66.364, kg, Priority: STAT, Start date: 12/07/13 18:47:00, Stop date: 12/07/13 18:47:00 Inactive 12/07/2013 [facility] Ribavirin 400 mg, PO, Daily, Take two 200mg tab daily, 0 Refill(s)Take two 200mg tab daily Active 11/27/2013 [facility] {6 (Azithromycin 250 MG Oral Tablet [Zithromax]) } Pack [Z-PAKS] See Instructions, Take as directed PO Daily 5 day, # 6 tab, 0 Refill(s), Pharmacy: [facility]/pharmacy #[id number] as directed PO Daily 5 day Active 11/22/2013 [facility] RibaPak 600 600 mg in am and 400 mg in pm, PO, BID, 2 Refill(s) Active 10/18/2013 [facility] Sofosbuvir Sofosbuvir, 400 mg=, PO, Daily, Refill(s) 2 Active 10/18/2013 [facility] pantoprazole 40 mg oral enteric coated tablet 0 Refill(s) Active 08/30/2013 [facility] Aspirin (Aspirin Ec) 81 Mg Tablet. Daily Active [facility] Furosemide 40 Mg Tablet Daily Active [facility] Glimepiride 1 Mg Tablet Before Breakfast Active [facility] Magnesium Oxide 400 Mg Tablet Daily Active [facility] Omeprazole 40 Mg Capsule. Daily Active [facility] Spironolactone 25 Mg Tablet Daily Active [facility] Allergies, Adverse Reactions, Alerts Substance Category Reaction Severity Reaction type Status Date Reported Comments Source No Known Medication Allergies Assertion Drug allergy OPID [place] Immunizations Immunization Date Given Site Status Last Updated Comments Source pneumococcal 13-valent vaccine<sup>4</sup> 01/17/2019 Not Given [facility], NICOLE Whipple, OPID [place] hepatitis B adult vaccine 09/03/2015 Left deltoid completed [place] [facility], NICOLE Whipple, OPICeline [place], OPID [place] hepatitis B adult vaccine<sup>1</sup> 08/05/2015 Left deltoid completed [place] Location History: Belle Harding RN [facility], NICOLE Whipple hepatitis B adult vaccine<sup>1</sup> 08/05/2015 Left deltoid completed [place] Location History: Belle Harding RN [facility], NICOLE Whipple, OPICeline [place], OPID [place] pneumococcal 23-valent vaccine 12/08/2013 Left deltoid completed [place] [facility], NICOLE Whipple, OPID [place], EDDC, OPID [place] hepatitis B vaccine<sup>2</sup> 10/16/2013 completed [place] 2Admin Note: [facility] [id number] #2 [facility] hepatitis B vaccine<sup>2</sup> 10/16/2013 Left Deltoid completed [place] Admin Note: [facility] [id number] #2 [facility], NICOLE Whipple, OPID [place], EDDC hepatitis B vaccine<sup>3</sup> 10/16/2013 Left Deltoid completed [place] Admin Note: [facility] [id number] #2 [facility], NICOLE Whipple, OPID [place], OPID [place] hepatitis B adult vaccine<sup>1</sup> 09/15/2013 completed Lyssy 1Admin Note: Administered 09-11-13. Pt. will return in one month for second inj. [facility] hepatitis B adult vaccine<sup>1</sup> 09/15/2013 Right Deltoid completed Lyssy Admin Note: Administered 09-11-13. Pt. will return in one month for second inj. [facility], NICOLE Whipple, NICOLE Cam, EDDC hepatitis B adult vaccine<sup>2</sup> 09/15/2013 Right Deltoid completed Lyssy Admin Note: Administered 09-11-13. Pt. will return in one month for second inj. [facility], NICOLE Whipple, NICOLE Cam, NICOLE Hirsch Results Order Name Results Value Reference Range Date Interpretation Comments Source BLOOD BANK RESULTS Antibody Scrn Negative (01/17/19 8:42 AM) 01/17/2019 [facility] BLOOD BANK RESULTS ABO/Rh O POS 01/17/2019 [facility] CHEM PANEL eGFR 63 01/13/2019 Result [...] should be multiplied by the estimated BMI. [facility] CHEM PANEL AST 23 0 - 37 01/13/2019 [facility] CHEM PANEL Alk Phos 113 39 - 136 01/13/2019 [facility] CHEM PANEL Total Protein 8.4 6.4 - 8.4 01/13/2019 [facility] CHEM PANEL Albumin Lvl 4.3 3.5 - 5.0 01/13/2019 [facility] CHEM PANEL Creatinine Lvl 1.12 0.50 - 1.40 01/13/2019 [facility] CHEM PANEL Sodium Lvl 138 135 - 145 01/13/2019 [facility] CHEM PANEL Calcium Lvl 10.8 8.5 - 10.5 01/13/2019 [facility] CHEM PANEL CO2 30 24 - 32 01/13/2019 [facility] CHEM PANEL ALT 22 0 - 65 01/13/2019 [facility] CHEM PANEL Potassium Lvl 4.9 3.5 - 5.1 01/13/2019 [facility] CHEM PANEL Bili Total 0.4 0.2 - 1.3 01/13/2019 [facility] CHEM PANEL Chloride Lvl 103 95 - 109 01/13/2019 [facility] CHEM PANEL BUN 19 7 - 22 01/13/2019 [facility] CHEM PANEL Glucose Lvl 158 70 - 99 01/13/2019 [facility] CHEM PANEL A/G Ratio 1.0 0.7 - 1.6 01/13/2019 [facility] CHEM PANEL B/C Ratio 17 6 - 25 01/13/2019 [facility] CHEM PANEL AGAP 9.9 10.0 - 20.0 01/13/2019 [facility] CHEM PANEL Globulin 4.1 2.7 - 4.2 01/13/2019 [facility] HEMATOLOGY INR 1.06 0.85 - 1.17 01/13/2019 [facility] HEMATOLOGY PT 13.6 12.0 - 14.7 01/13/2019 [facility] HEMATOLOGY PTT 35.0 22.9 - 35.8 01/13/2019 [facility] HEMATOLOGY MCH 25.9 27.0 - 31.0 01/13/2019 [facility] HEMATOLOGY MCV 81.4 80.0 - 94.0 01/13/2019 [facility] HEMATOLOGY Hct 41.8 42.0 - 54.0 01/13/2019 [facility] HEMATOLOGY Hgb 13.3 14.0 - 18.0 01/13/2019 [facility] HEMATOLOGY RBC 5.13 4.70 - 6.10 01/13/2019 [facility] HEMATOLOGY WBC 7.3 3.7 - 10.4 01/13/2019 [facility] HEMATOLOGY MPV 8.9 7.4 - 10.4 01/13/2019 [facility] HEMATOLOGY Platelet 169 133 - 450 01/13/2019 [facility] HEMATOLOGY RDW 16.6 11.5 - 14.5 01/13/2019 [facility] HEMATOLOGY MCHC 31.9 32.0 - 36.0 01/13/2019 [facility] HEMATOLOGY TEG Interp Thrombelastograph results are within reference ranges. These indicate adequate hemostasis. Note that TEG does not show effect of NSAIDs or P2Y12 inhibitors. CPT:82127 01/13/2019 [facility] HEMATOLOGY Ly30 0.0 0.0 - 7.5 01/13/2019 [facility] HEMATOLOGY Coag Index -0.4 -3.0-3.0 - 3.0 01/13/2019 [facility] HEMATOLOGY TEG Data See Note (01/13/19 12:25 PM) 01/13/2019 [facility] HEMATOLOGY G-value 9.6 4.5 - 11.0 01/13/2019 [facility] HEMATOLOGY Max Amp 65.7 50.0 - 70.0 01/13/2019 [facility] HEMATOLOGY Angle 59.3 53.0 - 72.0 01/13/2019 [facility] HEMATOLOGY R-time 6.7 5.0 - 10.0 01/13/2019 [facility] HEMATOLOGY K-time 2.2 1.0 - 3.0 01/13/2019 [facility] HEMATOLOGY Eosinophils # 0.2 0.0 - 0.5 01/13/2019 [facility] HEMATOLOGY Monocytes # 0.5 0.0 - 0.8 01/13/2019 [facility] HEMATOLOGY Basophils # 0.1 0.0 - 0.2 01/13/2019 [facility] HEMATOLOGY Lymphocytes 20.9 20.0 - 40.0 01/13/2019 [facility] HEMATOLOGY Segs 68.4 45.0 - 75.0 01/13/2019 [facility] HEMATOLOGY Lymphocytes # 1.5 1.0 - 5.5 01/13/2019 [facility] HEMATOLOGY Eosinophils 2.5 0.0 - 4.0 01/13/2019 [facility] HEMATOLOGY Monocytes 7.4 2.0 - 12.0 01/13/2019 [facility] HEMATOLOGY Neutrophils # 5.0 1.5 - 8.1 01/13/2019 [facility] HEMATOLOGY Basophils 0.8 0.0 - 1.0 01/13/2019 [facility] SPECIAL CHEMISTRY Hgb A1C 8.1 <=5.6 % 01/13/2019 [facility] CHEM PANEL Albumin Lvl 4.4 3.5 - 5.0 11/08/2018 [facility] CHEM PANEL Bili Indirect 0.4 0.0 - 1.0 11/08/2018 [facility] CHEM PANEL ALT 27 0 - 65 11/08/2018 [facility] CHEM PANEL AST 28 0 - 37 11/08/2018 [facility] CHEM PANEL Alk Phos 88 39 - 136 11/08/2018 [facility] CHEM PANEL Total Protein 8.3 6.4 - 8.4 11/08/2018 [facility] CHEM PANEL Bili Direct 0.1 0.0 - 0.3 11/08/2018 [facility] CHEM PANEL Bili Total 0.5 0.2 - 1.3 11/08/2018 [facility] CHEM PANEL Globulin 3.9 2.7 - 4.2 11/08/2018 [facility] CHEM PANEL A/G Ratio 1.1 0.7 - 1.6 11/08/2018 [facility] CHEM PANEL eGFR 55 11/08/2018 Result [...] should be multiplied by the estimated BMI. [facility] CHEM PANEL Calcium Lvl 10.3 8.5 - 10.5 11/08/2018 [facility] CHEM PANEL Creatinine Lvl 1.26 0.50 - 1.40 11/08/2018 [facility] CHEM PANEL Sodium Lvl 136 135 - 145 11/08/2018 [facility] CHEM PANEL Glucose Lvl 103 70 - 99 11/08/2018 [facility] CHEM PANEL BUN 16 7 - 22 11/08/2018 [facility] CHEM PANEL Potassium Lvl 4.0 3.5 - 5.1 11/08/2018 [facility] CHEM PANEL CO2 28 24 - 32 11/08/2018 [facility] CHEM PANEL Chloride Lvl 103 95 - 109 11/08/2018 [facility] CHEM PANEL AGAP 9.0 10.0 - 20.0 11/08/2018 [facility] HEMATOLOGY Basophils # 0.1 0.0 - 0.2 11/08/2018 [facility] HEMATOLOGY Eosinophils # 0.2 0.0 - 0.5 11/08/2018 [facility] HEMATOLOGY Monocytes # 0.6 0.0 - 0.8 11/08/2018 [facility] HEMATOLOGY Neutrophils # 4.9 1.5 - 8.1 11/08/2018 [facility] HEMATOLOGY Lymphocytes # 1.5 1.0 - 5.5 11/08/2018 [facility] HEMATOLOGY Basophils 0.9 0.0 - 1.0 11/08/2018 [facility] HEMATOLOGY Lymphocytes 20.9 20.0 - 40.0 11/08/2018 [facility] HEMATOLOGY Monocytes 8.5 2.0 - 12.0 11/08/2018 [facility] HEMATOLOGY Eosinophils 2.3 0.0 - 4.0 11/08/2018 [facility] HEMATOLOGY Segs 67.4 45.0 - 75.0 11/08/2018 [facility] HEMATOLOGY INR 1.11 0.85 - 1.17 11/08/2018 [facility] HEMATOLOGY PT 14.1 12.0 - 14.7 11/08/2018 [facility] HEMATOLOGY MCH 25.1 27.0 - 31.0 11/08/2018 [facility] HEMATOLOGY MCV 80.8 80.0 - 94.0 11/08/2018 [facility] HEMATOLOGY MPV 9.2 7.4 - 10.4 11/08/2018 [facility] HEMATOLOGY Hct 41.4 42.0 - 54.0 11/08/2018 [facility] HEMATOLOGY Hgb 12.8 14.0 - 18.0 11/08/2018 [facility] HEMATOLOGY RBC 5.12 4.70 - 6.10 11/08/2018 [facility] HEMATOLOGY WBC 7.3 3.7 - 10.4 11/08/2018 [facility] HEMATOLOGY Platelet 170 133 - 450 11/08/2018 [facility] HEMATOLOGY RDW 17.4 11.5 - 14.5 11/08/2018 [facility] HEMATOLOGY MCHC 31.0 32.0 - 36.0 11/08/2018 [facility] TUMOR MARKERS AFP 30.4 0.0 - 11.0 11/08/2018 [facility] CHEM PANEL eGFR 66 10/22/2016 Result [...] should be multiplied by the estimated BMI. [facility] CHEM PANEL POC Creatinine 1.1 0.5 - 1.4 10/22/2016 [facility] CHEM PANEL A/G Ratio 1.0 0.7 - 1.6 10/22/2016 [facility] CHEM PANEL Globulin 4.1 2.7 - 4.2 10/22/2016 [facility] CHEM PANEL B/C Ratio 12 6 - 25 10/22/2016 [facility] CHEM PANEL AGAP 12.2 10.0 - 20.0 10/22/2016 [facility] CHEM PANEL Albumin Lvl 4.1 3.5 - 5.0 10/22/2016 [facility] CHEM PANEL ALT 20 0 - 65 10/22/2016 [facility] CHEM PANEL Bili Total 0.8 0.2 - 1.3 10/22/2016 [facility] CHEM PANEL AST 28 0 - 37 10/22/2016 [facility] CHEM PANEL Alk Phos 103 39 - 136 10/22/2016 [facility] CHEM PANEL Total Protein 8.2 6.4 - 8.4 10/22/2016 [facility] CHEM PANEL eGFR 54 10/22/2016 Result [...] should be multiplied by the estimated BMI. [facility] CHEM PANEL BUN 16 7 - 22 10/22/2016 [facility] CHEM PANEL Creatinine Lvl 1.29 0.50 - 1.40 10/22/2016 [facility] CHEM PANEL Potassium Lvl 4.2 3.5 - 5.1 10/22/2016 [facility] CHEM PANEL Chloride Lvl 101 95 - 109 10/22/2016 [facility] CHEM PANEL CO2 25 24 - 32 10/22/2016 [facility] CHEM PANEL Sodium Lvl 134 135 - 145 10/22/2016 [facility] CHEM PANEL Calcium Lvl 10.0 8.5 - 10.5 10/22/2016 [facility] CHEM PANEL Glucose Lvl 119 70 - 99 10/22/2016 [facility] CHEM PANEL Magnesium Lvl 1.8 1.8 - 2.4 10/22/2016 [facility] HEMATOLOGY Microcyte 1+ *ABN* (10/22/16 10:38 AM) None Seen 10/22/2016 [facility] HEMATOLOGY Basophils # 0.1 0.0 - 0.2 10/22/2016 [facility] HEMATOLOGY Segs 72.0 45.0 - 75.0 10/22/2016 [facility] HEMATOLOGY Segs-Bands # 6.0 1.5 - 8.1 10/22/2016 [facility] HEMATOLOGY Eosinophils # 0.1 0.0 - 0.5 10/22/2016 [facility] HEMATOLOGY Basophils 0.7 0.0 - 1.0 10/22/2016 [facility] HEMATOLOGY Lymphocytes # 1.4 1.0 - 5.5 10/22/2016 [facility] HEMATOLOGY Monocytes # 0.8 0.0 - 0.8 10/22/2016 [facility] HEMATOLOGY Monocytes 9.4 2.0 - 12.0 10/22/2016 [facility] HEMATOLOGY Eosinophils 1.4 0.0 - 4.0 10/22/2016 [facility] HEMATOLOGY Lymphocytes 16.5 20.0 - 40.0 10/22/2016 [facility] HEMATOLOGY Platelet 134 133 - 450 10/22/2016 [facility] HEMATOLOGY RDW 19.4 11.5 - 14.5 10/22/2016 [facility] HEMATOLOGY MPV 8.5 7.4 - 10.4 10/22/2016 [facility] HEMATOLOGY RBC 4.68 4.70 - 6.10 10/22/2016 [facility] HEMATOLOGY WBC 8.3 3.7 - 10.4 10/22/2016 [facility] HEMATOLOGY MCV 77.2 80.0 - 94.0 10/22/2016 [facility] HEMATOLOGY MCHC 30.8 32.0 - 36.0 10/22/2016 [facility] HEMATOLOGY MCH 23.7 27.0 - 31.0 10/22/2016 [facility] HEMATOLOGY Hct 36.1 42.0 - 54.0 10/22/2016 [facility] HEMATOLOGY Hgb 11.1 14.0 - 18.0 10/22/2016 [facility] HEMATOLOGY PTT 39.2 22.9 - 35.8 10/22/2016 [facility] HEMATOLOGY INR 1.33 0.85 - 1.17 10/22/2016 [facility] HEMATOLOGY PT 16.7 12.0 - 14.7 10/22/2016 [facility] BLOOD BANK RESULTS Antibody Scrn Negative (10/22/16 10:37 AM) 10/22/2016 [facility] BLOOD BANK RESULTS ABO/Rh O POS 10/22/2016 [facility] BLOOD BANK RESULTS Antibody Scrn Negative (05/22/16 9:45 AM) 05/22/2016 [facility] BLOOD BANK RESULTS ABO/Rh O POS 05/22/2016 [facility] BLOOD BANK RESULTS Antibody Scrn Negative (05/09/14 8:30 AM) 05/09/2014 [facility] BLOOD BANK RESULTS ABO/Rh O POS 05/09/2014 [facility] CHEM PANEL eGFR 46 05/09/2014 <sup>1</sup>Result [...] should be multiplied by the estimated BMI. [facility] CHEM PANEL Creatinine Lvl 1.5 0.5 - 1.4 05/09/2014 [facility] CHEM PANEL Sodium Lvl 136 135 - 145 05/09/2014 [facility] CHEM PANEL BUN 23 7 - 22 05/09/2014 [facility] CHEM PANEL Potassium Lvl 4.1 3.5 - 5.1 05/09/2014 [facility] CHEM PANEL Chloride Lvl 103 95 - 109 05/09/2014 [facility] CHEM PANEL CO2 25 24 - 32 05/09/2014 [facility] CHEM PANEL Calcium Lvl 10.5 8.5 - 10.5 05/09/2014 [facility] CHEM PANEL Glucose Lvl 88 70 - 99 05/09/2014 <sup>2</sup>Interpretive Data: Adult reference range values reflect the clinical guidelines
of the [employer]. [facility] CHEM PANEL AGAP 12.1 10.0 - 20.0 05/09/2014 [facility] CHEM PANEL Magnesium Lvl 2.1 1.8 - 2.4 05/09/2014 [facility] HEMATOLOGY Eosinophils 31.0 0.0 - 4.0 05/09/2014 [facility] HEMATOLOGY Atypical Lymphs 0.0 <=0.0 % 05/09/2014 [facility] HEMATOLOGY Basophils 1.0 0.0 - 1.0 05/09/2014 [facility] HEMATOLOGY Plt Morph Normal (05/09/14 8:12 AM) 05/09/2014 [facility] HEMATOLOGY Monocytes # 0.4 0.0 - 0.8 05/09/2014 [facility] HEMATOLOGY Lymphocytes 28.0 20.0 - 40.0 05/09/2014 [facility] HEMATOLOGY Segs 35.0 45.0 - 75.0 05/09/2014 [facility] HEMATOLOGY Bands 0.0 0.0 - 11.0 05/09/2014 [facility] HEMATOLOGY Monocytes 5.0 2.0 - 12.0 05/09/2014 [facility] HEMATOLOGY Elliptocyte Slight *ABN* (05/09/14 8:12 AM) None Seen 05/09/2014 [facility] HEMATOLOGY Macrocyte 1+ *ABN* (05/09/14 8:12 AM) None Seen 05/09/2014 [facility] HEMATOLOGY Segs-Bands # 2.9 1.5 - 8.1 05/09/2014 [facility] HEMATOLOGY Lymphocytes # 2.3 1.0 - 5.5 05/09/2014 [facility] HEMATOLOGY Eosinophils # 2.5 0.0 - 0.5 05/09/2014 [facility] HEMATOLOGY Basophils # 0.1 0.0 - 0.2 05/09/2014 [facility] HEMATOLOGY PTT 38.6 22.9 - 35.8 05/09/2014 <sup>4</sup>Interpretive Data: Heparin Therapeutic Range: 57 - 92 Seconds [facility] HEMATOLOGY PT 16.2 12.0 - 14.7 05/09/2014 [facility] HEMATOLOGY INR 1.32 0.85 - 1.17 05/09/2014 <sup>3</sup>Interpretive Data: RECOMMENDED RANGES FOR PROTIME INR:
2.0-3.0 for most medical and surgical thromboembolic states.
2.5-3.5 for artificial heart valves and recurrent embolism.

INR SHOULD BE USED ONLY FOR PATIENTS ON STABLE ANTICOAGULANT THERAPY. [facility] HEMATOLOGY WBC 8.2 3.7 - 10.4 05/09/2014 [facility] HEMATOLOGY RBC 4.13 4.70 - 6.10 05/09/2014 [facility] HEMATOLOGY Hgb 13.8 14.0 - 18.0 05/09/2014 [facility] HEMATOLOGY MCH 33.4 27.0 - 31.0 05/09/2014 [facility] HEMATOLOGY MCHC 33.5 32.0 - 36.0 05/09/2014 [facility] HEMATOLOGY RDW 15.7 11.5 - 14.5 05/09/2014 [facility] HEMATOLOGY Hct 41.2 42.0 - 54.0 05/09/2014 [facility] HEMATOLOGY MCV 99.8 80.0 - 94.0 05/09/2014 [facility] HEMATOLOGY Platelet 95 133 - 450 05/09/2014 [facility] HEMATOLOGY MPV 9.2 7.4 - 10.4 05/09/2014 [facility] CARDIAC ENZYMES Total CK 59 12 - 191 12/08/2013 [facility] CARDIAC ENZYMES Troponin-I <0.02 0.00 - 0.40 12/08/2013 [facility] CARDIAC ENZYMES Troponin-T <0.010 0.000 - 0.100 12/08/2013 [facility] URINE AND STOOL UA Urobilinogen <=1.0 mg/dL 0.1 - 1.0 12/08/2013 [facility] URINE AND STOOL UA WBC 1 0 - 5 12/08/2013 [facility] URINE AND STOOL UA RBC <1 0 - 2 12/08/2013 [facility] URINE AND STOOL UA Leuk Est Negative (12/08/2013 06:00:00 [facility]) Negative 12/08/2013 [facility] URINE AND STOOL UA Sq Epi Few /LPF Few /LPF 12/08/2013 [facility] URINE AND STOOL UA Protein Negative mg/dL Negative mg/dL 12/08/2013 [facility] URINE AND STOOL UA Spec Grav 1.012 <=1.030 12/08/2013 [facility] URINE AND STOOL UA pH 5.0 5.0 - 8.0 12/08/2013 [facility] URINE AND STOOL UA Turbidity Clear (12/08/2013 06:00:00 [facility]) Clear 12/08/2013 [facility] URINE AND STOOL UA Color Yellow *NA* (12/08/2013 06:00:00 [facility]) Yellow 12/08/2013 [facility] URINE AND STOOL UA Blood Negative (12/08/2013 06:00:00 [facility]) Negative 12/08/2013 [facility] URINE AND STOOL UA Nitrite Negative (12/08/2013 06:00:00 [facility]) Negative 12/08/2013 [facility] URINE AND STOOL UA Bili Negative *NA* (12/08/2013 06:00:00 [facility]) Negative 12/08/2013 [facility] URINE AND STOOL UA Ketones Negative mg/dL Negative mg/dL 12/08/2013 [facility] URINE AND STOOL UA Glucose Negative mg/dL Negative mg/dL 12/08/2013 [facility] URINE AND STOOL UA Mucus Few /LPF None Seen /LPF 12/08/2013 [facility] CHEM PANEL A/G Ratio 0.7 0.7 - 1.6 12/08/2013 [facility] CHEM PANEL Bili Indirect 0.6 0.0 - 1.0 12/08/2013 [facility] CHEM PANEL Globulin 4.7 2.0 - 4.0 12/08/2013 [facility] CHEM PANEL Total Protein 8.0 6.4 - 8.4 12/08/2013 [facility] CHEM PANEL ASPARTATE TRANSAMINASE 37 0 - 37 12/08/2013 [facility] CHEM PANEL Bili Direct 0.3 0.0 - 0.3 12/08/2013 [facility] CHEM PANEL Bili Total 0.9 0.2 - 1.3 12/08/2013 [facility] CHEM PANEL Alk Phos 178 39 - 136 12/08/2013 [facility] CHEM PANEL ALANINE AMINOTRANSFERASE 22 0 - 65 12/08/2013 [facility] CHEM PANEL Albumin Lvl 3.3 3.5 - 5.0 12/08/2013 [facility] ELECTROLYTES AGAP 13.4 10.0 - 20.0 12/08/2013 [facility] ELECTROLYTES eGFR 55 12/08/2013 <sup>1</sup>Result Comment: [...] should be multiplied by the estimated BMI. [facility] ELECTROLYTES Sodium Lvl 138 135 - 145 12/08/2013 [facility] ELECTROLYTES Creatinine Lvl 1.3 0.5 - 1.4 12/08/2013 [facility] ELECTROLYTES BUN 16 7 - 22 12/08/2013 [facility] ELECTROLYTES Glucose Lvl 126 70 - 99 12/08/2013 <sup>2</sup>Interpretive Data: Adult reference range values reflect the clinical guidelines
of the [place] [employer]. [facility] ELECTROLYTES Calcium Lvl 9.7 8.5 - 10.5 12/08/2013 [facility] ELECTROLYTES CO2 23 24 - 32 12/08/2013 [facility] ELECTROLYTES Chloride Lvl 106 95 - 109 12/08/2013 [facility] ELECTROLYTES Potassium Lvl 4.4 3.5 - 5.1 12/08/2013 [facility] HEMATOLOGY Plt Morph Normal (12/07/2013 19:15:00 [facility]) 12/08/2013 [facility] HEMATOLOGY Macrocyte 3+ *ABN* (12/07/2013 19:15:00 [facility]) None Seen 12/08/2013 [facility] HEMATOLOGY Anisocyte 1+ *ABN* (12/07/2013 19:15:00 [facility]) None Seen 12/08/2013 [facility] HEMATOLOGY Polychrom Slight (12/07/2013 19:15:00 [facility]) None Seen 12/08/2013 [facility] HEMATOLOGY Lymphocytes 28.0 20.0 - 40.0 12/08/2013 [facility] HEMATOLOGY Basophils # 0.1 0.0 - 0.2 12/08/2013 [facility] HEMATOLOGY Eosinophils # 0.2 0.0 - 0.5 12/08/2013 [facility] HEMATOLOGY Bands 2.0 0.0 - 11.0 12/08/2013 [facility] HEMATOLOGY Segs 52.0 45.0 - 75.0 12/08/2013 [facility] HEMATOLOGY Monocytes # 0.7 0.0 - 0.8 12/08/2013 [facility] HEMATOLOGY Lymphocytes # 1.5 1.0 - 5.5 12/08/2013 [facility] HEMATOLOGY Segs-Bands # 2.8 1.5 - 8.1 12/08/2013 [facility] HEMATOLOGY Eosinophils 4.0 0.0 - 4.0 12/08/2013 [facility] HEMATOLOGY Monocytes 13.0 2.0 - 12.0 12/08/2013 [facility] HEMATOLOGY Atypical Lymphs 0.0 <=0.0 % 12/08/2013 [facility] HEMATOLOGY Basophils 1.0 0.0 - 1.0 12/08/2013 [facility] HEMATOLOGY aPTT 40.5 22.9 - 35.8 12/08/2013 <sup>4</sup>Interpretive Data: Heparin Therapeutic Range: 57 - 92 Seconds [facility] HEMATOLOGY PROTIME 16.3 12.0 - 14.7 12/08/2013 [facility] HEMATOLOGY INR 1.33 0.85 - 1.17 12/08/2013 <sup>3</sup>Interpretive Data: RECOMMENDED RANGES FOR PROTIME INR:
2.0-3.0 for most medical and surgical thromboembolic states.
2.5-3.5 for artificial heart valves and recurrent embolism.

INR SHOULD BE USED ONLY FOR PATIENTS ON STABLE ANTICOAGULANT THERAPY. [facility] HEMATOLOGY MCH 36.3 27.0 - 31.0 12/08/2013 [facility] HEMATOLOGY RDW 14.2 11.5 - 14.5 12/08/2013 [facility] HEMATOLOGY Platelet 92 133 - 450 12/08/2013 [facility] HEMATOLOGY MCHC 32.9 32.0 - 36.0 12/08/2013 [facility] HEMATOLOGY MPV 8.9 7.4 - 10.4 12/08/2013 [facility] HEMATOLOGY WBC X 10x3 5.2 3.7 - 10.4 12/08/2013 [facility] HEMATOLOGY Hgb 11.8 14.0 - 18.0 12/08/2013 [facility] HEMATOLOGY Hct 36.0 42.0 - 54.0 12/08/2013 [facility] HEMATOLOGY MCV 110.2 80.0 - 94.0 12/08/2013 [facility] HEMATOLOGY RBC X 10x6 3.27 4.70 - 6.10 12/08/2013 [facility] ELECTROLYTES AGAP 10.2 10.0 - 20.0 11/27/2013 [facility] ELECTROLYTES eGFR 46 11/27/2013 <sup>1</sup>Result Comment: [...] should be multiplied by the estimated BMI. [facility] ELECTROLYTES Chloride Lvl 102 95 - 109 11/27/2013 [facility] ELECTROLYTES CO2 26 24 - 32 11/27/2013 [facility] ELECTROLYTES Calcium Lvl 9.5 8.5 - 10.5 11/27/2013 [facility] ELECTROLYTES Potassium Lvl 4.2 3.5 - 5.1 11/27/2013 [facility] ELECTROLYTES Creatinine Lvl 1.5 0.5 - 1.4 11/27/2013 [facility] ELECTROLYTES Glucose Lvl 192 70 - 99 11/27/2013 <sup>2</sup>Interpretive Data: Adult reference range values reflect the clinical guidelines
of the [place] [employer]. [facility] ELECTROLYTES BUN 19 7 - 22 11/27/2013 [facility] ELECTROLYTES Sodium Lvl 134 135 - 145 11/27/2013 [facility] HEMATOLOGY Eosinophils # 0.2 0.0 - 0.5 11/27/2013 [facility] HEMATOLOGY Segs-Bands # 3.5 1.5 - 8.1 11/27/2013 [facility] HEMATOLOGY Monocytes # 0.7 0.0 - 0.8 11/27/2013 [facility] HEMATOLOGY Basophils 0.9 0.0 - 1.0 11/27/2013 [facility] HEMATOLOGY Lymphocytes # 2.1 1.0 - 5.5 11/27/2013 [facility] HEMATOLOGY Basophils # 0.1 0.0 - 0.2 11/27/2013 [facility] HEMATOLOGY Anisocyte 1+ *ABN* (11/27/13 3:14 PM) None Seen 11/27/2013 [facility] HEMATOLOGY Macrocyte 3+ *NA* (11/27/13 3:14 PM) None Seen 11/27/2013 [facility] HEMATOLOGY Polychrom Slight (11/27/13 3:14 PM) None Seen 11/27/2013 [facility] HEMATOLOGY Segs 52.9 45.0 - 75.0 11/27/2013 [facility] HEMATOLOGY Lymphocytes 32.6 20.0 - 40.0 11/27/2013 [facility] HEMATOLOGY Monocytes 10.1 2.0 - 12.0 11/27/2013 [facility] HEMATOLOGY Eosinophils 3.5 0.0 - 4.0 11/27/2013 [facility] HEMATOLOGY RBC X 10x6 3.59 4.70 - 6.10 11/27/2013 [facility] HEMATOLOGY WBC X 10x3 6.5 3.7 - 10.4 11/27/2013 [facility] HEMATOLOGY MPV 9.6 7.4 - 10.4 11/27/2013 [facility] HEMATOLOGY Platelet 119 133 - 450 11/27/2013 [facility] HEMATOLOGY RDW 15.8 11.5 - 14.5 11/27/2013 [facility] HEMATOLOGY MCHC 32.7 32.0 - 36.0 11/27/2013 [facility] HEMATOLOGY MCH 37.7 27.0 - 31.0 11/27/2013 [facility] HEMATOLOGY MCV 115.3 80.0 - 94.0 11/27/2013 [facility] HEMATOLOGY Hgb 13.5 14.0 - 18.0 11/27/2013 [facility] HEMATOLOGY Hct 41.4 42.0 - 54.0 11/27/2013 [facility] IMMUNOLOGY HCV RNA VirLoad Non Det 11/27/2013 [facility] IMMUNOLOGY HCV RNA Log10 <1.2 11/27/2013 [...] the
Molecular Diagnostic Laboratory within [facility].
The Molecular Diagnostic Laboratory is authorized under the
Clinical Laboratory Improvement Amendments of 1988 (CLIA-88)
to perform high complexity testing. [facility] Pathology Reports No Data Provided for [...] agree with the report as written. 01/17/2019 [facility] Abd Liver Protocol w/wo IV contrast [...] and coronal images were obtained. Total exam PVC=423 mGy-cm. This exam was performed according to [...] left hepatic lobe appears similar 12/13/2018 [facility] [place] Ext Lower Arterial Doppler bilat US EXAM: US BILATERAL LOWER EXTREMITY ARTERIAL DOPPLER DATE: 10/06/2017 11:39 AM STEEL MELTER INDICATION: - R60.0 Localized edema. Bilateral leg [...] could cause this finding as well. 10/06/2017 [facility] Spine cervical 2 or 3 view DX [...] at C5-6 and moderate at C6-7. 10/06/2017 [facility] Spine lumbar 2 or 3 views DX EXAM: XR LUMBAR SPINE 2 VIEWS DATE: 10/06/2017 10:52 AM STEEL MELTER INDICATION: - M54.5 Low back pain COMPARISON: [...] at L5-S1 with grade 1 anterolisthesis. 10/06/2017 [facility] Liver Protocol w/wo IV contrast [...] may be of benefit. 07/17/2017 [facility] Liver Protocol w/wo IV contrast CT EXAM: [...] an acute coronary syndrome. TECHNIQUE: Using a [employer] 64 slice MDCT scanner, a preliminary internal grinder tender study was obtained, followed by coronary calcium [...] thrombus cannot be completely ruled out. 10/22/2016 [facility] Knee series 3 views DX EXAM: [...] biopsy performed. 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 05/22/2016 [facility] Abd Liver Protocol w/wo IV contrast [...] pericardial calcification or endocardial calcification. 04/02/2014 [facility] [place] Chest 2 views EXAM: CHEST 2 VIEWS [...] aneurysm, pericardial calcification, or endocardial calcification. 12/07/2013 [facility] Abdomen complete US EXAM: US ABDOMEN [...] Comments Source Systolic (mm Hg) 142 01/17/2019 [facility] Diastolic (mm Hg) 72 01/17/2019 [facility] Respitory Rate 16 01/17/2019 [facility] Systolic (mm Hg) 155 01/17/2019 [facility] Diastolic (mm Hg) 77 01/17/2019 [facility] Respitory Rate 17 01/17/2019 [facility] Respitory Rate 15 01/17/2019 [facility] Systolic (mm Hg) 149 01/17/2019 [facility] Diastolic (mm Hg) 75 01/17/2019 [facility] Heart Rate 65 01/17/2019 [facility] Height 157.48 cm 01/17/2019 [facility] BMI Calculated 24.74 01/17/2019 [facility] Weight 61.364 01/17/2019 [facility] BMI Calculated 26.42 01/16/2019 [facility] Weight 61.364 01/16/2019 [facility] Height 152.4 cm 01/16/2019 [facility] BMI Calculated 56.73 12/29/2018 [facility] Weight 136.3 12/29/2018 [facility] Systolic (mm Hg) 113 12/29/2018 [facility] Diastolic (mm Hg) 69 12/29/2018 [facility] Height 155 cm 12/29/2018 [facility] Heart Rate 69 12/29/2018 [facility] Respitory Rate 21 12/29/2018 [facility] BMI Calculated 24.84 11/08/2018 [facility] Weight 61.591 11/08/2018 [facility] Height 157.48 cm 11/08/2018 [facility] Heart Rate 69 11/08/2018 [facility] Systolic (mm Hg) 130 11/08/2018 [facility] Diastolic (mm Hg) 70 11/08/2018 [facility] Weight 62.273 01/18/2018 [facility] BMI Calculated 25.11 01/18/2018 [facility] Height 157.48 cm 01/18/2018 [facility] Systolic (mm Hg) 117 01/18/2018 [facility] Diastolic (mm Hg) 71 01/18/2018 [facility] Heart Rate 62 01/18/2018 [facility] Respitory Rate 16 01/18/2018 [facility] Systolic (mm Hg) 140 10/23/2016 [facility] Diastolic (mm Hg) 67 10/23/2016 [facility] Systolic (mm Hg) 140 10/23/2016 [facility] Diastolic (mm Hg) 67 10/23/2016 [facility] Systolic (mm Hg) 117 10/23/2016 [facility] Diastolic (mm Hg) 63 10/23/2016 [facility] Respitory Rate 20 10/23/2016 [facility] Respitory Rate 20 10/22/2016 [facility] Respitory Rate 19 10/22/2016 [facility] Weight 64.545 10/22/2016 [facility] Height 144.78 cm 10/22/2016 [facility] BMI Calculated 30.79 10/22/2016 [facility] Weight 65.909 06/12/2016 [facility] Height 144.78 cm 06/12/2016 [facility] BMI Calculated 31.44 06/12/2016 [facility] Respitory Rate 16 05/22/2016 [facility] Systolic (mm Hg) 135 05/22/2016 [facility] Diastolic (mm Hg) 70 05/22/2016 [facility] Respitory Rate 10 05/22/2016 [facility] Systolic (mm Hg) 149 05/22/2016 [facility] Diastolic (mm Hg) 81 05/22/2016 [facility] Systolic (mm Hg) 139 05/22/2016 [facility] Diastolic (mm Hg) 82 05/22/2016 [facility] Respitory Rate 10 05/22/2016 [facility] Heart Rate 68 05/22/2016 [facility] BMI Calculated 31.44 05/22/2016 [facility] Weight 65.909 05/22/2016 [facility] Height 144.78 cm 05/20/2016 [facility] Heart Rate 73 05/20/2016 [facility] Height 144.78 cm 04/28/2016 [facility] Heart Rate 67 04/28/2016 [facility] Temperature Oral (F) 97.7 F 04/28/2016 [facility] BMI Calculated 31.93 04/28/2016 [facility] Weight 66.932 04/28/2016 [facility] Systolic (mm Hg) 118 04/28/2016 [facility] Diastolic (mm Hg) 75 04/28/2016 [facility] Weight 65.966 11/18/2015 [facility] BMI Calculated 26.6 11/18/2015 [facility] Height 157.48 cm 11/18/2015 [facility] Respitory Rate 51 11/18/2015 [facility] Systolic (mm Hg) 141 11/18/2015 [facility] Diastolic (mm Hg) 68 11/18/2015 [facility] Weight 66.875 08/05/2015 [facility] BMI Calculated 26.97 08/05/2015 [facility] Height 157.48 cm 08/05/2015 [facility] Systolic (mm Hg) 132 08/05/2015 [facility] Diastolic (mm Hg) 67 08/05/2015 [facility] BMI Calculated 26.39 04/29/2015 [facility] Weight 65.455 04/29/2015 [facility] Height 157.48 cm 04/29/2015 [facility] Temperature Oral (F) 97.5 F 04/29/2015 [facility] Heart Rate 63 04/29/2015 [facility] Systolic (mm Hg) 109 04/29/2015 [facility] Diastolic (mm Hg) 59 04/29/2015 [facility] Respitory Rate 15 12/31/2014 [facility] Heart Rate 48 12/31/2014 [facility] Systolic (mm Hg) 117 12/31/2014 [facility] Diastolic (mm Hg) 66 12/31/2014 [facility] Height 157 cm 12/31/2014 [facility] Weight 66.8 12/31/2014 [facility] BMI Calculated 27.1 12/31/2014 [facility] Diastolic (mm Hg) 61 07/02/2014 [facility] Systolic (mm Hg) 117 07/02/2014 [facility] Respitory Rate 19 07/02/2014 [facility] Heart Rate 50 07/02/2014 [facility] Weight 61.4 07/02/2014 [facility] BMI Calculated 24.91 07/02/2014 [facility] Height 157 cm 07/02/2014 [facility] Systolic (mm Hg) 114 05/09/2014 [facility] Diastolic (mm Hg) 58 05/09/2014 [facility] Diastolic (mm Hg) 61 05/09/2014 [facility] Systolic (mm Hg) 115 05/09/2014 [facility] Diastolic (mm Hg) 62 05/09/2014 [facility] Systolic (mm Hg) 110 05/09/2014 [facility] Temperature Oral (F) 97.7 F 05/09/2014 [facility] BMI Calculated 26.21 05/09/2014 [facility] Weight 65 05/09/2014 [facility] Height 157.48 cm 05/09/2014 [facility] Systolic (mm Hg) 109 04/02/2014 [facility] Diastolic (mm Hg) 63 04/02/2014 [facility] Heart Rate 46 04/02/2014 [facility] Respitory Rate 17 04/02/2014 [facility] Heart Rate 67 12/08/2013 [facility] Temperature Oral (F) 98.9 F 12/08/2013 [facility] Systolic (mm Hg) 99 12/08/2013 [facility] Diastolic (mm Hg) 61 12/08/2013 [facility] Respitory Rate 18 12/08/2013 [facility] Diastolic (mm Hg) 69 12/08/2013 [facility] Heart Rate 69 12/08/2013 [facility] Respitory Rate 18 12/08/2013 [facility] Systolic (mm Hg) 116 12/08/2013 [facility] Temperature Oral (F) 98.6 F 12/08/2013 [facility] Respitory Rate 18 12/08/2013 [facility] Heart Rate 71 12/08/2013 [facility] Temperature Oral (F) 98.4 F 12/08/2013 [facility] Systolic (mm Hg) 115 12/08/2013 [facility] Diastolic (mm Hg) 70 12/08/2013 [facility] Height 157.48 cm 12/08/2013 [facility] Weight 70.455 12/08/2013 [facility] BMI Calculated 28.41 12/08/2013 [facility] Height 157.48 cm 12/07/2013 [facility] Weight 66.364 12/07/2013 [facility] BMI Calculated 26.76 12/07/2013 [facility] Height 154 cm 11/27/2013 [facility] Weight 66.5 11/27/2013 [facility] Respitory Rate 17 11/27/2013 [facility] Heart Rate 65 11/27/2013 [facility] BMI Calculated 28.04 11/27/2013 [facility] Diastolic (mm Hg) 65 11/27/2013 [facility] Systolic (mm Hg) 110 11/27/2013 [facility] Systolic (mm Hg) 112 10/16/2013 [facility] Diastolic (mm Hg) 67 10/16/2013 [facility] Heart Rate 67 10/16/2013 [facility] Respitory Rate 16 10/16/2013 [facility] Height 154.5 cm 10/16/2013 [facility] Weight 62.6 10/16/2013 [facility] Diastolic (mm Hg) 67 09/11/2013 [facility] Systolic (mm Hg) 111 09/11/2013 [facility] Respitory Rate 19 09/11/2013 [facility] Heart Rate 69 09/11/2013 [facility] Weight 65.9 09/11/2013 [facility] Height 157 cm 09/11/2013 [facility] Encounters Location Location Details Encounter Type Encounter Number Reason For Visit Attending Provider ADM Date DC Date Status Source [facility] Outpatient [id number] CIRRHOSIS OF LIVER DAVE ROSAS 06/12/2013 Active [facility] Outpatient [id number] DDC-F/U VISIT DAVE ROSAS 08/14/2013 08/14/2013 Active [facility] Outpatient [id number] CIRRHOSIS, ESOPHAGEAL VARICES DAVE ROSAS 09/11/2013 09/11/2013 Active [facility] Outpatient [id number] ADD ON PER NOBLE ROSAS 10/16/2013 Active [facility] Outpatient [id number] _MAPID:[id number] Dave Rosas 11/27/2013 11/28/2013 [facility] [place] [facility] [id number] _MAPID:[id number] Dave Rosas 11/28/2013 11/29/2013 [facility] OBS Observation Patient [id number] _MAPID:[id number] [place] 12/07/2013 12/09/2013 [facility] Outpatient [id number] _MAPID:[id number] Dave Rosas 12/11/2013 12/12/2013 [facility] Outpatient [id number] Dave Rosas 01/08/2014 01/09/2014 [facility] Outpatient [id number] Dave Rosas 04/02/2014 04/03/2014 [facility] [place] [facility] [id number] Dave Rosas 04/02/2014 04/03/2014 [facility] [place] [facility] [id number] Dave Rosas 05/01/2014 05/02/2014 [facility] Bedded Outpatient [id number] Juliano Silver 05/09/2014 05/09/2014 [facility] EDDC Phone Message [id number] 05/09/2014 05/11/2014 [facility] Outpatient [id number] Dave Rosas 07/02/2014 07/03/2014 [facility] [place] [facility] [id number] Christian Griffin 07/04/2014 07/05/2014 [facility] [id number] Dave Rosas 08/28/2014 08/30/2014 [facility] Outpatient [id number] Dave Rosas 12/31/2014 01/01/2015 [facility] [place] [facility] [id number] Dave Rosas 01/04/2015 01/05/2015 [facility] Bedded Outpatient [id number] Dave Rosas 01/29/2015 01/29/2015 [facility] [place] [facility] [id number] Dave Rosas 04/15/2015 04/16/2015 [facility] OPID [facility] Outpatient [id number] Dave Rosas 04/29/2015 04/30/2015 [facility] Bedded Outpatient [id number] Dave Rosas 06/04/2015 06/04/2015 [facility] [place] [facility] [id number] Dave Rosas 07/02/2015 07/03/2015 [facility] Outpatient [id number] Dave Rosas 08/05/2015 08/06/2015 [facility] Outpatient [id number] Dave Rosas 09/03/2015 09/04/2015 [facility] Outpatient [id number] Dave Rosas 11/18/2015 11/19/2015 [facility] Bedded Outpatient [id number] Dave Rosas 11/26/2015 11/26/2015 [facility] [place] [facility] [id number] Atilla Ertgarima 01/01/2016 01/02/2016 [facility] [id number] Dave Rosas 02/03/2016 02/04/2016 [facility] [place] [facility] [id number] Wilman Pérez 03/20/2016 03/21/2016 [facility] [place] [facility] EDDC Outpatient [id number] Dave Rosas 04/28/2016 04/29/2016 [facility] Day Surgery [id number] Dave Rosas 05/22/2016 05/23/2016 [facility] Outpatient [id number] Stuart Silver 06/12/2016 06/13/2016 [facility] [place] [facility] [id number] Dave Rosas 06/24/2016 06/25/2016 MH OPID [facility] Bedded Outpatient [id number] Dave Rosas 06/25/2016 06/25/2016 [facility] Out[facility] [place] [facility] [id number] Isidoro Fairchild 08/14/2016 08/15/2016 [facility] [facility] Bedded Outpatient [id number] Dave Rosas 09/10/2016 09/10/2016 [facility] Bedded Outpatient [id number] Brianna Edwards 10/22/2016 10/23/2016 [facility] Outpatient [facility] [place] [facility] [id number] Isidoro Fairchild 12/01/2016 12/02/2016 [place] [facility] Outpatient [facility] [place] [id number] Dave Rosas 12/09/2016 12/10/2016 [place] [facility] Outpatient [facility] [id number] Dave Rosas 07/17/2017 07/18/2017 [facility] [place] [facility] Outpatient Imaging [facility] [place] [facility] [id number] Isidoro Fairchild 10/06/2017 10/07/2017 MH OPID [facility] EDMD Outpatient [id number] Dave Rosas 01/18/2018 01/19/2018 [facility] Out[facility] [place] [facility] [id number] Dave Rosas 02/12/2018 02/13/2018 OP[facility] Bedded Outpatient [id number] Dave Rosas 02/17/2018 02/17/2018 [facility] Outpatient [id number] Dave Rosas 11/08/2018 11/09/2018 [facility] [place] [facility] [id number] Dave Rosas 12/13/2018 12/14/2018 [facility] [place] [facility] Outpatient [id number] Juan Louis 12/29/2018 12/30/2018 [facility] Outpatient [id number] William Marlowevara 01/16/2019 01/17/2019 [facility] Observation [id number] William Munoz 01/17/2019 01/17/2019 [facility] Departed Emergency Room [id number] JELANI FERRIS MD 01/19/2019 01/19/2019 [facility] Outpatient Imaging [place] [facility] [id number] William Alexander 03/13/2019 03/14/2019 [facility] Outpatient [facility] - [place] [facility] [id number] Isidoro Fairchild 04/14/2019 04/15/2019 [place] [facility] Outpatient [id number] 1M: HCV-2 CIRRHOSIS, EV, AFLUTTER, 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[place], HYPERP P DAVE ROSAS Active [facility] Procedures Procedure Code Date Perfomer Comments Source Ablation, 1 or more liver tumor(s), percutaneous, radiofrequency [id number] 01/17/2019 [facility] Appendectomy [id number] [facility], NICOLE Whipple,[facility] Cholecystectomy [id number] [facility], [facility]ICOLE Whipple, [facility] [place] [place] MRI of liver [id number] [facility], NICOLE Whipple,[facility] Cataract surgery [id number] [facility], NICOLE Whipple, NICOLE [place] Assessment and Plan Assessment and Plan Date [...] 103 mEq/L (11/08/18 11:12:00) CO2: 28 mEq/L (11/08/18:12:00) Potassium Lvl: 4 mEq/L (11/08/18 11:12:00) Sodium Lvl: 136 mEq/L (11/08/18 11:12:00) A/G Ratio: 1.1 (11/08/18:12:00) Albumin Lvl: 4.4 g/dL (11/08/18 11:12:00) Alk Phos: 88 unit/L (11/08/18 11:12:00) ALT: 27 unit/L (11/08/18:12:00) AST: 28 unit/L (11/08/18 11:12:00) Bili Total: 0.5 mg/dL (11/08/18 11:12:00) BUN: 16 mg/dL (11/08/18 11:12:00) Calcium Lvl: 10.3 mg/dL (11/08/18 11:12:00) Creatinine Lvl: 1.26 mg/dL (11/08/18 11:12:00) eGFR: 55 mL/min/1.73m2 (11/08/18:12:00) Globulin: 3.9 g/dL (11/08/18 11:12:00) Glucose Lvl: [...] MWA will be done under [place]. 12/30/2018 [facility] Extracted from:Title: Hepatology progress note Author: Vini Duncan Date: 12/08/2013 Impression and Plan Patient is a 73 y/o HM with history of HCV cirrhosis (currently receiving treatment), DM, and GERD who presented to [facility] on 12/07 due to dyspnea and syncopal [...] currently on HCV treatment that presented to [facility] complaining of presyncope and shortness of breath [...] above assessment and plan. Meryl Painter, PGY5 [place] G[facility] [phone] I saw the patient with Dr Painter and agree with her h/p and a/p. He has pulm edema and has been without his diuretics. We will restart IV lasix and see how he does. 12/09/2013 [facility] Plan of Care Plan of Care Date Source Discharge Date 01/19/19 12:46am Disposition LEFT AFTER MEDICAL SCREENING Condition at Discharge Stable Forms Provided Work/School Excuse Prescriptions See Medication Section 01/19/2019 [facility] Social History Social History Date Source Social [...] 01/31/2016 10:14am Not Applicable Not Applicable 01/19/2019 [facility] Social History TypeResponse Alcohol Past, Type Beer. Alcohol use interferes with work or home: No. Drinks more than intended: No. Others hurt by drinking: No. Ready to change: No. 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 No 01/19/19 12:33am 01/19/2019 [facility] Functional Status No Data Provided for This Section
--- NOTE | 2019-05-16 10:06 | NUR ---
LEANING TO RIGHT SIDE WITH HEAD. SPEECH IS CLEAR. PT HAVING MOMENTS TO ANSWER ALL QUESTIONS. RT SIDE DEF NOTED. MD NOTED.
--- NOTE | 2019-05-16 10:10 | NUR ---
RAPID RESPONSE CALLED AT THIS TIME. ON ARRIVAL FOR STAT CT OF BRAIN WO, PT BEGAN SEIZING.
[2019-05-16] MEDS ORDERED: LIDOCAINE HCL 1% LOCAL INJ 20 ML VIAL ONE (10:20)
[2019-05-16] MEDS ORDERED: MIDAZOLAM HCL 2 MG/2 ML VIAL ONE ×2 (10:26→10:33)
[2019-05-16] MEDS ORDERED: NICARDIPINE 20MG/200ML PREMIX 200 ML IV ONE (10:45)
[2019-05-16] MEDS ORDERED: SODIUM CHLORIDE 0.9% 1000ML 1,000 ML IV SCH (10:45)
[2019-05-16] MEDS ORDERED: PROPOFOL IV EMULSION 10MG/ML 100 ML ONE (10:45)
[2019-05-16 10:52] LABS: ABG HCO3 19 mmol/L (23-28); ABG PCO2 44 mmHg (41-51); ABG PH 7.24 (7.31-7.41); ABG PO2 455 mmHg (80-105)
[2019-05-16] MEDS ORDERED: PROPOFOL IV EMULSION 10 MG/ML 20 ML VIAL IV ONE ×2 (11:00)
--- NOTE | 2019-05-16 11:01 | NUR ---
CARDENE DRIP STOPPED AT THIS TIME PER MR VERBAL ORDER. BP 103/67; HR 60; 100 O2 ON VENT; 12 RR.
--- NOTE | 2019-05-16 11:03 | Diagnostic Imaging Report ---
Chest, 1 view, 05/16/2019. History: Intubation. Comparison: 05/03/2019. Findings: An endotracheal tube is present terminating approximately 1 cm above the carlos. The cardiomediastinal silhouette and pulmonary vasculature are within normal limits for a portable exam. Linear opacities are present at the lung bases. There is no focal consolidation or pleural effusion. Left subclavian dual-lead pacer is unchanged in position. There are no acute osseous or soft tissue abnormalities. Impression: ET tube as described above. Bibasilar atelectasis is present. Signed by: Alex Aguilar on 05/16/2019 11:00 AM
[2019-05-16 11:11] LABS: BASOPHILS # (AUTO) 0.1 (0.0-0.1); EOSINOPHILS # (AUTO) 0.1 (0.0-0.4); EOSINOPHILS % 1.3 % (0.0-6.0); HEMATOCRIT 39.8 % (38.2-49.6); HEMOGLOBIN 12.4 g/dL (14.0-18.0); LYMPHOCYTES # (AUTO) 1.2 (1.0-3.2); LYMPHOCYTES % 13.6 % (18.0-39.1); MEAN CORPUSCULAR HEMOGLOBIN 26.9 pg (28-32); MEAN CORPUSCULAR HGB CONC 31.2 g/dL (31-35); MEAN CORPUSCULAR VOLUME 86.3 fL (81-99); MONOCYTES # (AUTO) 0.4 (0.2-0.8); NEUTROPHILS # (AUTO) 6.8 (2.1-6.9); NEUTROPHILS % 78.5 % (38.7-80.0); PLATELET COUNT 226 x10e3/uL (140-360); RED BLOOD COUNT 4.61 x10e6/uL (4.3-5.7); RED CELL DISTRIBUTION WIDTH 15.5 % (11.7-14.4)
--- NOTE | 2019-05-16 11:13 | Diagnostic Imaging Report ---
History:Headache Comparison studies: Head CT without contrast 01/30/2016 Technique: Axial images were obtained from the skull base to the vertex. Coronal and sagittal images reconstructed from the axial data. Dose modulation, iterative reconstruction, and/or weight based adjustment of the mA/kV was utilized to reduce the radiation dose to as low as reasonably achievable. Intravenous contrast: None Findings: Scalp/skull: No abnormalities. Extra-axial spaces: No masses. No fluid collections. Brain sulci: Mildly prominent but age related. Ventricles: Mild compensatory dilatation. No hydrocephalus. Parenchyma: A 1.3 cm homogeneously hyperdense mass, centered in the anterior aspect of the left precentral gyrus at the vertex, is associated with the focal surrounding edema and with acute subarachnoid hemorrhage in the adjacent precentral sulcus (series 2, image 19). Mass effect is regional. No shift A similarly hyperdense, well-circumscribed 2 cm mass in the inferomedial right occipital lobe (lingual virus) is associated with vasogenic edema in the surrounding parieto-occipital white matter. Mass effect is also regional. No shift No additional masses, hemorrhage, acute or chronic cortical vascular insults. Sellar/suprasellar region: No abnormalities. Craniocervical junction: Patent foramen magnum. No Chiari one malformation. Incidental findings: Atherosclerotic calcifications in the carotid siphons . Impression: 1. Hyperdense masses (left precentral and right inferomedial occipital) as described are strongly suspicious for metastatic disease. Mass effect is regional. No shift. These were not present on the head CT on 01/30/2016. 2. No additional intracranial abnormalities. 3. Dr. Desai notified of the findings on 05/16/2019 at 1110 hours. Signed by: Dr. Rio Wasserman M.D. on 05/16/2019 11:10 AM
--- NOTE | 2019-05-16 11:15 | NUR ---
TLC PLACED TO RIGHT IJ BY ERMD VIA US GUIDANCE AND STERILE TECHNIQUE. SITE CLEAR AND COVERED WITH STERILE DRESSING. NO BLEEDING NOTED. CXR ORDERED FOR LINE PLACEMENT.
[2019-05-16 11:21] LABS: INR 1.13; PROTHROMBIN TIME 15.1 seconds (11.9-14.5)
[2019-05-16 11:22] LABS: PARTIAL THROMBOPLASTIN TIME 32.5 seconds (23.8-35.5)
[2019-05-16 11:31] LABS: ALANINE AMINOTRANSFERASE 27 IU/L (0-55); ALBUMIN 3.5 g/dL (3.5-5.0); ALBUMIN/GLOBULIN RATIO 0.7 (0.8-2.0); ALKALINE PHOSPHATASE 129 IU/L (40-150); ANION GAP 19.1 mmol/L (8-16); BLOOD UREA NITROGEN 19 mg/dL (7-26); BUN/CREATININE RATIO 15 (6-25); CALCIUM 10.9 mg/dL (8.4-10.2); CARBON DIOXIDE 17 mmol/L (22-29); CHLORIDE 100 mmol/L (98-107); CREATINE KINASE 61 IU/L (30-200); CREATININE, SERUM 1.31 mg/dL (0.72-1.25); EST GLOMERULAR FILTRATION RATE 53 ML/MIN (60-); GLUCOSE 275 mg/dL (74-118); POTASSIUM 5.1 mmol/L (3.5-5.1); SODIUM 131 mmol/L (136-145)
[2019-05-16] MEDS ORDERED: VECURONIUM BROMIDE FOR INJ 20 MG VIAL IV NR (11:31)
[2019-05-16] MEDS ORDERED: DEXAMETHASONE SOD PHOS 10 MG/1 ML VIAL IV ONE (11:45)
--- NOTE | 2019-05-16 11:45 | NUR ---
1145 SD Servo-i vent, Transport Team placed on transport vent Addendum: 05/16/19 at 1310 by Vero Lagunas RT Amended: Links added.
[2019-05-16 11:51] VITALS: BP 125/69
[2019-05-16] MEDS ORDERED: LEVETIRACETAM 500MG/5ML VIAL 1,000 MG in SODIUM CHLORIDE 0.9% 100 ML 100 ML IV SCH (12:00)
--- NOTE | 2019-05-16 12:01 | NUR ---
ASSESSMENT: Spiritual distress Pt's family overwhelmed by pt's illness. Pt's family anxious and worried. Intervention: Provided unhurried empathic listening. Provided calming presence and prayer. Outcome: Pt's family expressed appreciation for support. CARLO RUDOLPH [employer] [facility]ual [facility] Department O: [phone] Pager: [phone] ([phone] number calling from)
--- NOTE | 2019-05-16 12:41 | Diagnostic Imaging Report ---
Chest, 1 view, 05/16/2019. History: Central line placement. Comparison: X-ray from earlier today. Findings: New right IJ central line terminates near the cavoatrial junction. There is no evidence of a pneumothorax. ET tube and left subclavian dual-lead pacer are again noted. The cardiomediastinal silhouette and pulmonary vasculature are within normal limits for a portable exam. Increased hazy opacities are noted at the lung bases suggestive of worsening atelectasis. There are no acute osseous or soft tissue abnormalities. Impression: Status post right IJ central line placement in adequate position without evidence of complication. Increased bibasilar atelectasis. Signed by: Alex Aguilar on 05/16/2019 12:38 PM
[2019-05-16] MEDS ORDERED: WATER STERILE 10 ML VIAL ONE (14:02)
[2019-05-16] MEDS ORDERED: VECURONIUM BROMIDE FOR INJ 20 MG VIAL ONE (14:02)
== END 2019-05-16 12:00 | disposition short-term general hospital (02) ==
LOC: ER 09:50
DX: I60.9 Nontraumatic subarachnoid hemorrhage, unspecified (principal); C79.31 Secondary malignant neoplasm of brain; G93.6 Cerebral edema; R56.9 Unspecified convulsions; I48.91 Unspecified atrial fibrillation; K74.60 Unspecified cirrhosis of liver; N18.9 Chronic kidney disease, unspecified; R40.2422 Glasgow coma scale score 9-12, at arrival to emergency department; I44.0 Atrioventricular block, first degree; Z79.84 Long term (current) use of oral hypoglycemic drugs; Z79.82 Long term (current) use of aspirin
CPT/HCPCS: 31500; 36415; 36569; 70450; 71045; 80053; 82550; 82553; 82805; 83735; 83880; 84484; 85025; 85610; 85730; 93005; 94002; 99285; J1953; J2001; J2250; J2704